=== PATIENT | female | born 1960 | race Caucasian/White ===

== ENCOUNTER 2020-07-22 10:34 | Inpatient (IN) | payer OTHER ==
[2020-07-22 11:43] LABS: Absolute Lymphocytes (CBC) 0.4 K/uL (0.7-4.9); Basophils % 0.6 % (0-1.3); Hematocrit 54.9 % (36.0-45.0); Lymphocytes % 8.7 % (15.3-44.8); MPV 8.1 fL (7.6-11.3); RBC Red Blood Cell Count 5.68 M/uL (3.86-4.86)
[2020-07-22 11:50] LABS: Protime INR 1.14
[2020-07-22 12:08] LABS: ALT/SGPT 31 U/L (12-78); AST/SGOT 39 U/L (15-37); Albumin 3.8 g/dL (3.4-5.0); Alkaline Phosphatase 64 U/L (45-117); BUN Blood Urea Nitrogen 30 mg/dL (7-18); Bilirubin Direct 0.3 mg/dL (0-0.2); Bilirubin Total 0.9 mg/dL (0.2-1.0); Glucose Level 87 mg/dL (74-106); Magnesium 2.3 mg/dL (1.8-2.4); NT PRO-BNP 5844 pg/mL (<125); Potassium 3.1 mmol/L (3.5-5.1); Protein, Total 7.1 g/dL (6.4-8.2); Sodium Level 134 mmol/L (136-145); Troponin (Emerg Dept Use Only) < 0.02 ng/mL (0.0-0.045)
[2020-07-22 12:13] LABS: Bicarbonate > 45 mmol/L (21-32)
--- NOTE | 2020-07-22 12:28 | RAD REPORT ---
EXAM DESCRIPTION: RAD - Chest Single View - 07/22/2020 11:44 am CLINICAL HISTORY: CHEST PAIN COMPARISON: None TECHNIQUE: AP portable chest image was obtained 07/22/2020 11:44 am . FINDINGS: Lung cardenas are hyperexpanded with flattened diaphragm and blunted costophrenic angles. Bi lateral nipple shadows overlie lower lung cardenas. Interstitial pattern is diffusely prominent with no comparison available. No suspicious mass or consolidation. This is most likely extensive fibrotic ch lisa related to advanced COPD. Heart size is upper normal. Pulmonary vasculature within normal limits. Trachea is midline. No measu rable pleural effusion and no pneumothorax. No acute bony abnormality seen. No acute aortic findings suspected. IMPRESSION: Advanced COPD changes are present. Diffusely prominent interstitial pattern is present. On a baseline study superimposed interstitial ed alexsandra or infiltrate can be masked.
[2020-07-22 12:48] LABS: Blood Morphology Comment NOT SEEN (NOT SEEN); Platelet Estimate ADEQ; White Blood Cell Scan OK (OK)
[2020-07-22 13:17] LABS: Urine Blood NEGATIVE (NEG); Urine Glucose NEGATIVE (NEG); Urine Protein NEGATIVE (NEG); Urine pH 5.5 (5.0-7.0)
--- NOTE | 2020-07-22 13:50 | RAD REPORT ---
EXAM DESCRIPTION: CT - Chest For Pe Angio - 07/22/2020 1:28 pm CLINICAL HISTORY: Chest pain COMPARISON: None. TECHNIQUE: Dynamically enhanced axial 3 mm thick images of the chest were obtained during administra tion of <100> mL Isovue 370 IV contrast. Coronal and oblique reconstruction images were generated and reviewed. Exam utilizes a protocol for optimal evaluation of pulmonary arterial tree. Maximum intensity projections 3D imaging was utilized All CT scans are performed using dose optimization technique as appropriate and may include automated exposure control or mA/KV adjustment according to patient size. FINDINGS: A pulmonary embolus is not seen. A thoracic aortic aneurysm is not noted. Main central pulmonary artery is prominent A pleural effusion is not seen. A pericardial effusion is not seen. A lung consolidation is not present. Mild reticular opacities within the lingula. Centrilobular emphy sema is present. Small amount of ascites IMPRESSION: Negative for a pulmonary embolism. COPD Main pulmonary artery is prominent probably indicating pulmonary arterial hypertension
--- NOTE | 2020-07-22 14:18 | ER ---
Nurse's Notes [facility] Name: Valeria Ring Age: 59 yrs Sex: Female : 1960 Arrival Date: 07/22/2020 Time: 10:37 Bed 18 Private MD: Diagnosis: Chest pain, unspecified;Dyspnea Presentation: 07/22 10:42 Chief complaint: Patient states: EKG done today at Dr. Navarro and instructed to come to [facility] the ER to be admitted for a day or 2. Reports SOB for a while now. Reports gaining 15 lbs of water weight in the last month. Reports chest pains in the past but not today. Coronavirus screen: Client denies travel out of the [place] in the last 14 days. cough unrelated to allergies, shortness of breath, Client presents with at least one sign or symptom that may indicate coronavirus-19. Standard/surgical mask placed on the client. Provider contacted for isolation considerations. Ebola Screen: Patient negative for fever greater than or equal to 101.5 degrees Fahrenheit, and additional compatible Ebola Virus Disease symptoms Patient denies exposure to infectious person. Patient denies travel to an Ebola-affected area in the 21 days before illness onset. No symptoms or risks identified at this time. Initial Sepsis Screen: Does the patient meet any 2 criteria? No. Patient's initial sepsis screen is negative. Does the patient have a suspected source of infection? No. Patient's initial sepsis screen is negative. Risk Assessment: Do you want to hurt yourself or someone else? Patient reports no desire to harm self or others. Onset of symptoms was July 22, 2020. 10:42 Method Of Arrival: Wheelchair ca1 10:42 Acuity: RADHA 3 ca1 Historical: - Allergies: 11:00 Codeine; ca1 11:00 Benadryl; ca1 - PMHx: 17:29 COPD; CHF; insomnia; ss - PSHx: 11:00 Tubal ligation; ulnar nerve translocation left; ca1 - Immunization history:: Pneumococcal vaccine is not up to date, Flu vaccine is up to date. - Social history:: Smoking status: Patient reports the use of cigarette tobacco products, 5 - 6 cigarettes/day. Screenin:00 Abuse screen: Denies threats or abuse. Denies injuries from another. Nutritional ss screening: No deficits noted. Tuberculosis screening: Never had TB. Fall Risk None identified. Assessment: 11:00 Reassessment: Pt has no complaints at this time. States that she was seen in ER in [facility], recently after a quick weight gain of 15 lbs. Diagnosed there with COPD and CHF and told to follow up. Pt followed up with cardiology, DR Navarro today who sent her to ED for a reported abnormal EKG. While obtaining VS in exam room, we are unable to obtain accurate pulse ox due to patient having raynads. Fingertips are noted to be blue. Pt reports that this is baseline for her. O2 at home reads in 70's-80's on finger with portable pulse ox. Attached pulse ox monitor to ear lobe with readings > 90%. General: Appears in no apparent distress. comfortable, Behavior is calm, cooperative. Neuro: Level of Consciousness is awake, alert, obeys commands, Oriented to person, place, time, situation, Speech is normal, Facial symmetry appears normal, Denies dizziness, numbness headache. Cardiovascular: Capillary refill < 3 seconds is brisk in bilateral fingers. Respiratory: Reports cough that is chronic. Has not changed recently. Breath sounds are coarse in left posterior lower lobe and right posterior middle lobe Breath sounds are diminished in right posterior lower lobe Denies shortness of breath. GI: Abdomen is non-distended, Patient currently denies abdominal pain, diarrhea, nausea, vomiting. : No signs and/or symptoms were reported regarding the genitourinary system. Denies burning with urination. EENT: Oral mucosa is moist. Derm: Skin is intact, is healthy with good turgor, Skin is dry, Skin is pink, warm \\T\\ dry. normal, Fingertips appear blue as noted previously. HX of Raynauds syndrome. Musculoskeletal: Circulation, motion, and sensation intact. Range of motion: intact in all extremities. 11:23 Reassessment: Pt ambulated to restroom with steady gait to give urine specimen. 11:37 Reassessment: XRAY at bedside obtaining images. 12:56 Reassessment: Patient appears in no apparent distress at this time. Patient and/or ss family updated on plan of care and expected duration. Pain level reassessed. Patient is alert, oriented x 3, equal unlabored respirations, skin warm/dry/pink. Patient denies pain at this time. 14:40 Reassessment: Dr. Cortez at bedside assessing patient at this time and discussing plan ss of care/ admission. 16:17 Reassessment: Pt is aware of admission to hospital for further evaluation and ss treatment. RT Lynn at bedside attempting to obtain ABG at this time. 17:15 Reassessment: Pt surprised of her positive COVID result. States, "that is surprising ss because nothing is new. I feel like my normal self.". 17:45 Reassessment: Report given to BALAJI Koch. Vital Signs: 10:42 BP 100 / 65; Pulse 77; Resp 20 S; Temp 97.6(TE); Weight 45.99 kg (R); Height 5 ft. 10 ca1 in. (177.80 cm) (R); 11:23 Pulse Ox 97% on R/A; ss 12:57 BP 99 / 65; Pulse 84; Resp 17; Pulse Ox 95% on R/A; ss 14:00 BP 95 / 65; Pulse 83; Resp 18; ss 15:00 BP 98 / 62; Pulse 81; Resp 18; ss 17:00 BP 100 / 66; Pulse 90; ss 10:42 Body Mass Index 14.55 (45.99 kg, 177.80 cm) ca1 14:00 unable to obtain accurate pulse ox at this time. Provider notified. ss 15:00 Unable to obtain accurate pulse oximetry. GUERA Lind Dr. notified. ss 17:00 unable to obtain accurate pulse OX reading. Diogo Andre and Dr. Cortez aware. ED Course: 10:37 Patient arrived in ED. as 10:47 Diogo Andre PA is PHCP. m 10:47 Markus Santos MD is Attending Physician. [facility] 10:59 Triage completed. ca1 11:00 Arm band placed on right wrist. ca1 11:00 Patient has correct armband on for positive identification. Bed in low position. Call ss light in reach. 11:11 Jasmin Khan, BALAJI is Primary Nurse. ss 11:36 Inserted saline lock: 20 gauge in right forearm, using aseptic technique. Blood ss collected. 11:43 XRAY Chest (1 view) In Process Unspecified. EDMS 13:28 CT Chest For PE Angio In Process Unspecified. EDMS 14:17 Julio Cesar Cortez is Hospitalizing Provider. jmm 16:57 No provider procedures requiring assistance completed. Patient admitted, IV remains in place. Administered Medications: 14:59 Drug: Aspirin Chewable Tablet 324 mg Route: PO; 17:25 Follow up: Response: No adverse reaction Outcome: 11:00 Instructed on the need for admit. 14:18 Decision to Hospitalize by Provider. m 17:46 Admitted to Tele accompanied by tech, via wheelchair, with chart, Report called to yesenia Peoples RN 17:46 Condition: stable 17:46 Patient left the ED. Signatures: Dispatcher [employer] EDMS Diogo Andre PA PA jmm Martinez, Amelia as Smirch, Shelby, BALAJI RN Kaci De La Cruz RN RN ca1
--- NOTE | 2020-07-22 14:18 | EDPHYS ---
Physician Documentation [facility] Name: Valeria Ring Age: 59 yrs Sex: Female : 1960 Arrival Date: 07/22/2020 Time: 10:37 Bed 18 Private MD: Markus Sanders HPI: 07/22 11:37 This 59 yrs old Female presents to ER via Wheelchair with complaints of jmm Abnormal EKG. 11:37 The patient has shortness of breath at rest. Onset: The symptoms/episode began/occurred jmm gradually. Duration: The symptoms are continuous. The patient's shortness of breath is aggravated by exertion. The patient or guardian reports chest pain that is located primarily in the anterior chest wall. Onset: gradually, 1 week(s) ago. The pain does not radiate. Associated signs and symptoms: Pertinent positives: productive cough. The patient has not experienced similar symptoms in the past. Historical: - Allergies: 11:00 Codeine; ca1 11:00 Benadryl; ca1 - PMHx: 17:29 COPD; CHF; insomnia; ss - PSHx: 11:00 Tubal ligation; ulnar nerve translocation left; ca1 - Immunization history:: Pneumococcal vaccine is not up to date, Flu vaccine is up to date. - Social history:: Smoking status: Patient reports the use of cigarette tobacco products, 5 - 6 cigarettes/day. ROS: 11:37 Constitutional: Negative for fever, chills, and weight loss. jmm 11:37 Cardiovascular: Positive for chest pain. 11:37 Respiratory: Positive for shortness of breath. 11:37 All other systems are negative. Exam: 11:37 Constitutional: This is a well developed, well nourished patient who is awake, alert, jmm and in no acute distress. Head/Face: atraumatic. Eyes: EOMI, no conjunctival erythema appreciated ENT: Moist Mucus Membranes Neck: Trachea midline, Supple Chest/axilla: Normal chest wall appearance and motion. Cardiovascular: Regular rate and rhythm. No edema appreciated Respiratory: Normal respirations, no respiratory distress appreciated Abdomen/GI: Non distended, soft Back: Normal ROM Skin: General appearance color normal MS/ Extremity: Moves all extremities, no obvious deformities appreciated, no edema noted to the lower extremities Neuro: Awake and alert, normal gait Psych: Behavior is normal, Mood is normal, Patient is cooperative and pleasant Vital Signs: 10:42 BP 100 / 65; Pulse 77; Resp 20 S; Temp 97.6(TE); Weight 45.99 kg (R); Height 5 ft. 10 ca1 in. (177.80 cm) (R); 11:23 Pulse Ox 97% on R/A; ss 12:57 BP 99 / 65; Pulse 84; Resp 17; Pulse Ox 95% on R/A; ss 14:00 BP 95 / 65; Pulse 83; Resp 18; ss 15:00 BP 98 / 62; Pulse 81; Resp 18; ss 17:00 BP 100 / 66; Pulse 90; ss 10:42 Body Mass Index 14.55 (45.99 kg, 177.80 cm) ca1 14:00 unable to obtain accurate pulse ox at this time. Provider notified. ss 15:00 Unable to obtain accurate pulse oximetry. GUERA Lind Dr. notified. 17:00 unable to obtain accurate pulse OX reading. Diogo Andre and Dr. Cortez aware. MDM: 10:54 Patient medically screened. fabian 14:17 The patient was given aspirin in the Emergency Department. Data reviewed: vital signs, [facility] lab test result(s), radiologic studies. ED course: I discussed the patient with Dr. Cortez whom accepted admission. . 07/22 11:09 Order name: Basic Metabolic Panel; Complete Time: 12:15 [facility] 07/22 11:09 Order name: CBC with Diff; Complete Time: 12:56 [facility] 07/22 11:09 Order name: LFT's; Complete Time: 12:15 [facility] 07/22 11:09 Order name: Magnesium; Complete Time: 12:15 [facility] 07/22 11:09 Order name: NT PRO-BNP; Complete Time: 12:15 [facility] 07/22 11:09 Order name: PT-INR; Complete Time: 12:00 [facility] 07/22 11:09 Order name: Troponin (emerg Dept Use Only); Complete Time: 12:15 [facility] 07/22 11:09 Order name: XRAY Chest (1 view); Complete Time: 12:35 [facility] 07/22 11:45 Order name: CBC Smear Scan; Complete Time: 12:56 [facility] 07/22 12:51 Order name: Urine Dipstick--Ancillary (enter results); Complete Time: 13:18 07/22 14:28 Order name: ABG; Complete Time: 17:03 [facility] 07/22 15:40 Order name: COVID-19 ss 07/22 15:41 Order name: CORONAVIRUS [facility] 07/22 16:56 Order name: SARS-COV-2 RT PCR; Complete Time: 17:03 [facility] 07/22 11:09 Order name: EKG; Complete Time: 11:10 [facility] 07/22 11:09 Order name: Cardiac monitoring; Complete Time: 11:10 [facility] 07/22 11:09 Order name: EKG - Nurse/Tech; Complete Time: 11:10 [facility] 07/22 11:09 Order name: IV Saline Lock; Complete Time: 11:36 [facility] 07/22 11:09 Order name: Labs collected and sent; Complete Time: 11:36 [facility] 07/22 11:09 Order name: O2 Per Protocol; Complete Time: 11:12 [facility] 07/22 11:09 Order name: O2 Sat Monitoring; Complete Time: 11:12 [facility] 07/22 12:02 Order name: Urine Dipstick-Ancillary (obtain specimen); Complete Time: 12:55 [facility] 07/22 13:11 Order name: CT Chest For PE Angio; Complete Time: 13:56 [facility] Administered Medications: 14:59 Drug: Aspirin Chewable Tablet 324 mg Route: PO; ss 17:25 Follow up: Response: No adverse reaction ss Disposition: 19:00 Co-signature as Attending Physician, Markus Santos MD I agree with the assessment and [facility] plan of care. Disposition: 07/22/20 14:18 Hospitalization ordered by Julio Cesar Cortez for Observation. Preliminary diagnosis are Chest pain, unspecified, Dyspnea. - Bed requested for Telemetry/MedSurg (observation). - Status is Observation. ss - Condition is Stable. - Problem is new. - Symptoms are unchanged. Signatures: Dispatcher [employer] [facility] Destiny Manuel RN RN dw Anderson, Corey, MD MD cha Mickail, Joel, PA PA jmm Smirch, Shelby, RN RN ss Acob, Cheryl, RN RN ca1 Corrections: (The following items were deleted from the chart) 17:02 14:18 Hospitalization Ordered by Julio Cesar Cortez for Observation. Preliminary diagnosis dw is Chest pain, unspecified; Dyspnea. Bed requested for Telemetry/MedSurg (observation). Status is Observation. Condition is Stable. Problem is new. Symptoms are unchanged. arlene 17:46 17:02 07/22/2020 14:18 Hospitalization Ordered by Julio Cesar Cortez for Observation. ss Preliminary diagnosis is Chest pain, unspecified; Dyspnea. Bed requested for Telemetry/MedSurg (observation). Status is Observation. Condition is Stable. Problem is new. Symptoms are unchanged. dw
[2020-07-22] MEDS ORDERED: ASPIRIN 81 MG CHEWABLE TABLET ONE (14:44)
--- NOTE | 2020-07-22 15:24 | P.HP ---
Certification for Inpatient Patient admitted to: Inpatient With expected LOS: >2 Midnights Practitioner: I am a practitioner with admitting privileges, knowledge of patient current condition, hospital course, and medical plan of care. Services: Services provided to patient in accordance with Admission requirements found in Title 42 Section 412.3 of the Code of Federal Regulations Patient History Date of Service: 07/22/20 Reason for admission: Chest pain and shortness of breath History of Present Illness: 59-year-old woman suspected to have COPD was directed to the emergency department by Dr. Navarro to be evaluated for peripheral cyanosis and check her oxygen status. She recently visited at the ED in [facility] and was told she needs to be admitted and treated with IV Lasix. Patient declined the admission in order to visit another ER close to home. She went to Dr. Navarro 's office today. Patient was noted to be cyanotic and was therefore directed to the ED. EKG done in the ED demonstrated T-wave inversions in the lateral leads. Initial troponin is negative. CTA thorax done in the emergency department is negative for pulmonary embolism. It demonstrated findings consistent with emphysema and pulmonary hypertension. Noted peripheral cyanosis. BMP shows significantly elevated bicarb suspicious for CO2 retention. Patient is hospitalized for further management. Allergies codeine Allergy (Unverified 11/19/14 17:10) Unknown - Past Medical/Surgical History -: Tobacco use - Family History Father -: Cancer - Social History Smoking Status: Current every day smoker Alcohol use: No CD- Drugs: No Place of Residence: Home Review of Systems Other: Patient denied any fever, she is coughing but the cough is nonproductive. She denied any palpitation. She denied any abdominal pain. She complain of bilateral lower extremity edema. Except as documented, all other systems reviewed and negative. Physical Examination - Physical Exam General: Alert, Mild distress HEENT: PERRLA, Mucous membr. moist/pink, Sclerae nonicteric Neck: Supple, JVD not distended Respiratory: Diminished, Other (Mild bibasilar crackles.) Cardiovascular: Normal S1 S2, Other (Tachycardic), Edema (2+ bilateral lower extremity edema.) Gastrointestinal: Normal bowel sounds, Soft and benign, Non-distended, No tend erness Musculoskeletal: No swelling, No tenderness Integumentary: No rashes, No erythema Neurological: Normal speech, Normal strength at 5/5 x4 extr, Cranial nerves 3-12 intact - Studies Laboratory Data (last 24 hrs) 07/22/20 11:34: PT 13.4 H, INR 1.14 07/22/20 11:34: WBC 4.9, Hgb 17.4 H, Hct 54.9 H, Plt Count 226 07/22/20 11:34: Sodium 134 L, Potassium 3.1 L, BUN 30 H, Creatinine 1.04, Glucose 87, Magnesium 2.3, Total Bilirubin 0.9, AST 39 H, ALT 31, Alkaline Phosphatase 64 Assessment and Plan - Problems (Diagnosis) (1) COPD exacerbation Current Visit: Yes Status: Acute (2) Chronic respiratory failure with hypoxia and hypercapnia Current Visit: Yes Status: Acute (3) Chest pain Current Visit: Yes Status: Acute (4) Abnormal EKG Current Visit: Yes Status: Acute - Plan Admit patient to the medical floor. Obtain arterial blood gas BiPAP if she has significant CO2 retention. Will start scheduled nebulizers Empiric IV Levaquin. Consult to pulmonary IV Lasix p.r.n. Trend troponin Cardiology Consul Start aspirin. Check lipid profile. Smoking cessation advised. - Advance Directives Does patient have a Living Will: No Does patient have a Durable POA for Healthcare: No
[2020-07-22 16:56] LABS: Arterial Blood Carboxyhemoglob 5.1 % (0-1.5); Blood Gas Oxyhemoglobin 47.7 % (94-97); Blood O2 Saturation 50.6 % (92-98.5)
[2020-07-22] MEDS: METHYLPREDNISOLONE 40 MG INJ IV SCH (18:42)
[2020-07-22] MEDS ORDERED: Levofloxacin 750mg IV 750 MG/150 ML BAG IV SCH (19:00)
[2020-07-22] MEDS ORDERED: POTASSIUM 25 MEQ EFFERV TAB PO ONE (19:00)
[2020-07-22] MEDS: IPRATROPIUM BROM 0.5MG/2.5ML NEB SCH (20:20)
[2020-07-22] MEDS: ALBUTEROL 2.5 MG/3 ML NEB SOL NEB SCH (20:20)
[2020-07-22] MEDS: ENOXAPARIN 40 MG/0.4 ML SQ SCH (21:44)
[2020-07-22] MEDS: ACETAMINOPHEN 500 MG TAB PO PRN (21:45)
[2020-07-23] MEDS: IPRATROPIUM BROM 0.5MG/2.5ML NEB SCH ×4 (01:40→19:30)
[2020-07-23] MEDS: ALBUTEROL 2.5 MG/3 ML NEB SOL NEB SCH ×4 (01:40→19:30)
[2020-07-23] MEDS: METHYLPREDNISOLONE 40 MG INJ IV SCH ×2 (06:00)
[2020-07-23 06:30] LABS: Absolute Lymphocytes (CBC) 0.2 K/uL (0.7-4.9); Basophils % 0.1 % (0-1.3); Hematocrit 47.7 % (36.0-45.0); MPV 8.1 fL (7.6-11.3); RBC Red Blood Cell Count 4.99 M/uL (3.86-4.86)
[2020-07-23 07:03] LABS: ALT/SGPT 21 U/L (12-78); AST/SGOT 25 U/L (15-37); Albumin 2.6 g/dL (3.4-5.0); Alkaline Phosphatase 44 U/L (45-117); BUN Blood Urea Nitrogen 28 mg/dL (7-18); Bilirubin Total 0.5 mg/dL (0.2-1.0); Ferritin 11.3 ng/mL (8-388); Glucose Level 98 mg/dL (74-106); Magnesium 2.3 mg/dL (1.8-2.4); Phosphorus 5.5 mg/dL (2.5-4.9); Potassium 4.2 mmol/L (3.5-5.1); Sodium Level 136 mmol/L (136-145)
[2020-07-23 07:13] LABS: Bicarbonate > 45 mmol/L (21-32)
--- NOTE | 2020-07-23 08:15 | P.CNS ---
Date of Consult: 07/23/20 Reason for Consult: Respiratory failure Chief Complaint: Chest pain and shortness of breath History of Present Illness: Patient is 59 years of age has been chronically is sick with shortness of breath lower extremity edema. She is being to the hospital has been treated with steroids antibiotics no relief came into the hospital worsening shortness of breath lower extremity edema was also taking some Lasix at home patient is a heavy smoker no prior history of COPD is not on any oxygen therapy was using bronchodilators at home no prior history of cardiovascular disease this found to be very hypoxic hypercapnic clinical picture of cor pulmonale Allergies codeine Allergy (Verified 07/22/20 18:23) Unknown Home Medications: Furosemide [Lasix] 40 mg PO DAILY 07/22/20 T-Fnzvnf-F-Cystine 500 mg PO BID 07/22/20 Trazodone HCl 50 mg PO BEDTIME 07/22/20 - Past Medical/Surgical History Diabetic: No -: Tobacco use - Family History Father Medical History: Heart disease Notes: Pt. reports both parents having "some kind of heart disease" that lasted for a long time, resulting to surgeries and stent placement. - Social History Alcohol use: No CD- Drugs: No Caffeine use: Yes Place of Residence: Home Review of Systems 10-point ROS is otherwise unremarkable General: Weakness Respiratory: Cough, Shortness of Breath Cardiovascular: Edema Physical Examination Temp Pulse Resp BP Pulse Ox 97.6 F 68 16 95/60 96 07/23/20 04:00 07/23/20 04:00 07/23/20 04:00 07/23/20 04:00 07/23/20 04:00 General: Alert, In no apparent distress, Oriented x3 Respiratory: Normal air movement, Expiratory wheezes Cardiovascular: Normal S1 S2, Edema (2+ edema) Gastrointestinal: Normal bowel sounds, Soft and benign Musculoskeletal: No clubbing Integumentary: No rashes Neurological: Normal speech, Normal strength at 5/5 x4 extr Laboratory Data (last 24 hrs) 07/22/20 11:34: PT 13.4 H, INR 1.14 07/22/20 11:34: WBC 4.9, Hgb 17.4 H, Hct 54.9 H, Plt Count 226 07/22/20 11:34: Sodium 134 L, Potassium 3.1 L, BUN 30 H, Creatinine 1.04, Glucose 87, Magnesium 2.3, Total Bilirubin 0.9, AST 39 H, ALT 31, Alkaline Phosphatase 64 - Problems (1) Chronic respiratory failure with hypoxia and hypercapnia Current Visit: Yes Status: Acute Plan: Patient is 59 years of age admitted with chronic hypoxemia hypercapnic respiratory failure with elevated bicarbonate patient is a heavy smoker no prior history of cardiopulmonary disease recently [place] hospitalize treated with steroids antibiotics no relief suspect that she has severe COPD with cor pulmonale for bicarbonate with IV fluids p.o. Diamox schedule bronchodilators Dc antibiotics change to p.o. prednisone currently was tested negative for jenkins virus on the 05 of July and was tested positive on this admission while she is here denies any fever will need to be setup for home oxygen patient was agustín law 40 mg of Lasix every has underlying contraction alkalosis
[2020-07-23 08:26] LABS: Blood Morphology Comment NOT SEEN (NOT SEEN); Platelet Estimate ADEQ
[2020-07-23] MEDS ORDERED: NACHLORIDE 0.45% 1,000 ML IV SCH (09:00)
[2020-07-23] MEDS: ENOXAPARIN 40 MG/0.4 ML SQ SCH (09:36)
[2020-07-23] MEDS: predniSONE 20 MG TAB PO SCH ×2 (09:37→19:39)
[2020-07-23] MEDS: ASPIRIN EC 81 MG TAB PO SCH (09:38)
[2020-07-23] MEDS: acetaZOLAMIDE 250 MG TAB PO SCH (09:39)
[2020-07-23] MEDS: NACHLORIDE 0.45% 1,000 ML IV SCH ×2 (09:39→17:49)
--- NOTE | 2020-07-23 13:06 | P.PN ---
Subjective Date of Service: 07/23/20 Chief Complaint: Chest pain and shortness of breath Subjective: No new changes (feels about the same as yesterday, maybe slightly breathing more comfortably) Physical Examination - Vital Signs Temperature: 97 F Blood Pressure: 109/68 Pulse: 68 Respirations: 16 Pulse Ox (%): 93 Assessment & Plan Physician Review Additional Text: Physical Exam: Gen: NAD, alert HEENT: moist mucous membranes, sclera anicteric CV: regular rate/rhythm, 2+ lower extremity edema Pulm: diminished at bases bilaterally, nonlabored on 2L NC Abd: soft, NTND Ext: 2+ edema Problem List: Acute on chronic COPD exacerbation Acute on chronic respiratory failued with hypoxia and hypercapnia COVID-19 Edema Alkalosis slight improvement in breathing overnight long standing smoking history, and h/o COPD pulmonology consulted - continue nebulizers, added IVF and diamox for likely contraction alkalosis from lasix COVID positive, CRP and ferritin low, levaquin dc'd started on Prednisone troponin negative Dispo: anticipate dc home in 24-48hrs, will likely need home O2 with end stage COPD Time Spent Managing Pts Care (In Minutes): 35
[2020-07-23 15:04] LABS: Urine Appearance CLOUDY; Urine Bilirubin NEGATIVE (NEG); Urine Blood NEGATIVE (NEG); Urine Color YELLOW; Urine Glucose NEGATIVE (NEG); Urine Protein NEGATIVE (NEG); Urine Specific Gravity 1.015 (1.005-1.030)
[2020-07-23 15:08] LABS: Urine Microscopic Reflex NO UMIC
--- NOTE | 2020-07-23 17:17 | EKG ---
Test Date: 2020-07-22 Test Time: 11:01:17 Food Assembler: BRENDA MEASUREMENT RESULTS: Intervals: Rate: 86 CO: 104 QRSD: 66 QT: 378 QTc: 452 [place]: P: 84 CO: 104 QRS: 105 T: 266 INTERPRETIVE STATEMENTS: * Pediatric ECG analysis * Sinus bradycardia Low voltage QRS ST abnormality and T wave inversion in Inferolateral leads Borderline Prolonged QT No previous ECG available for comparison Electronically Signed On 07-23-20 17:13:18 WHEEL ALIGNMENT MECHANIC by Tor Sotelo
[2020-07-24] MEDS: IPRATROPIUM BROM 0.5MG/2.5ML NEB SCH ×4 (02:10→20:40)
[2020-07-24] MEDS: ALBUTEROL 2.5 MG/3 ML NEB SOL NEB SCH ×4 (02:10→20:40)
[2020-07-24] MEDS: NACHLORIDE 0.45% 1,000 ML IV SCH ×2 (04:19→14:05)
[2020-07-24 06:50] VITALS: BMI 14.2
[2020-07-24] MEDS: ACETAMINOPHEN 500 MG TAB PO PRN ×2 (06:52→21:02)
[2020-07-24 06:53] LABS: Absolute Lymphocytes (CBC) 0.2 K/uL (0.7-4.9); Basophils % 0.1 % (0-1.3); Hematocrit 48.6 % (36.0-45.0); Lymphocytes % 5.4 % (15.3-44.8); MPV 8.1 fL (7.6-11.3); RBC Red Blood Cell Count 5.03 M/uL (3.86-4.86)
[2020-07-24] MEDS ORDERED: ACETAMINOPHEN 500 MG TAB PO ONE (07:01)
[2020-07-24 07:08] LABS: C-Reactive Protein 10.9 mg/L (<3.00); Ferritin 11.8 ng/mL (8-388); Magnesium 2.4 mg/dL (1.8-2.4); Thyroid Stimulating Hormone 0.368 uIU/mL (0.360-3.740)
[2020-07-24 07:47] LABS: BUN Blood Urea Nitrogen 20 mg/dL (7-18); Glucose Level 110 mg/dL (74-106); Sodium Level 136 mmol/L (136-145)
[2020-07-24 07:49] LABS: Bicarbonate 41 mmol/L (21-32)
--- NOTE | 2020-07-24 08:41 | ECHO ---
HEIGHT: 5 ft 10 in WEIGHT: 99 lb 6.4 oz DATE OF STUDY: 07/23/[address]: Arthur Zavala MD 2-DIMENSIONAL: YES M.MODE: YES DOPPLER: YES COLOR FLOW: YES TDS: PORTABLE: DEFINITY: BUBBLE STUDY: DIAGNOSIS: RESPIRATORY FAILURE CARDIAC HISTORY: CATHERIZATION: NO SURGERY: NO PROSTHETIC VALVE: NO PACEMAKER: NO MEASUREMENTS (cm) DIASTOLIC (NORMALS) SYSTOLIC (NORMALS) IVSd 0.8 (0.6-1.2) LA Diam 3.1 (1.9-4.0) LVEF 51% LVIDd 3.8 (3.5-5.7) LVIDs 2.9 (2.0-3.5) %FS 26% LVPWd 0.8 (0.6-1.2) Ao Diam 2.6 (2.0-3.7) 2 DIMENSIONAL ASSESSMENT: RIGHT ATRIUM: DILATED LEFT ATRIUM: NORMAL RIGHT VENTRICLE: DILATED LEFT VENTRICLE: NORMAL TRICUSPID VALVE: NORMAL MITRAL VALVE: NORMAL PULMONIC VALVE: NORMAL AORTIC VALVE: NORMAL PERICARDIAL EFFUSION: NONE AORTIC ROOT: NORMAL LEFT VENTRICULAR WALL MOTION: NORMAL DOPPLER/COLOR FLOW: MILD TRICUSPID REGURGITATION. NORMAL RIGHT VENTRICULAR SYSTOLIC PRESSURE. COMMENTS: RIGHT VENTRICULAR ENLARGEMENT WITH POOR FUNCTION. NORMAL LEFT VENTRICULAR SIZE AND FUNCTION. MILD PULMONARY HYPERTENSION. ABOVE CONSISTENT WITH RIGHT SIDED CONGESTIVE HEART FAILURE. TECHNOLOGIST: GRIS CEBALLOS
[2020-07-24] MEDS: acetaZOLAMIDE 250 MG TAB PO SCH (08:55)
[2020-07-24] MEDS: ASPIRIN EC 81 MG TAB PO SCH (08:55)
[2020-07-24] MEDS: predniSONE 20 MG TAB PO SCH ×2 (08:55→20:57)
[2020-07-24] MEDS: ENOXAPARIN 40 MG/0.4 ML SQ SCH (08:55)
[2020-07-24] MEDS ORDERED: POLYETHYL GLY 3350 17 GM/DOSE PO PRN (14:31)
--- NOTE | 2020-07-24 20:48 | P.PN ---
Subjective Date of Service: 07/24/20 Chief Complaint: Chest pain and shortness of breath Subjective: Other (reports feeling better today - breathing more comfortably, continues with some edema, mostly in legs, but in abdomen, and face) Review of Systems 10-point ROS is otherwise unremarkable Physical Examination - Vital Signs Temperature: 98.8 F Blood Pressure: 100/61 Pulse: 80 Respirations: 17 Pulse Ox (%): 91 Assessment & Plan Physician Review Additional Text: Physical Exam: Gen: NAD, alert HEENT: moist mucous membranes, swelling of L eyelid and under L eye CV: regular rate/rhythm, 1-2+ lower extremity edema around ankles and at upper thighs Pulm: diminished at bases bilaterally, nonlabored on 2L NC Abd: soft, NTND Problem List: Acute on chronic COPD exacerbation Acute on chronic respiratory failued with hypoxia and hypercapnia COVID-19 Edema Alkalosis further improvement in breathing overnight long standing smoking history, and h/o COPD pulmonology consulted - continue nebulizers, continue IVF and diamox for likely contraction alkalosis from lasix COVID positive, CRP and ferritin low, levaquin dc'd continue prednisone troponin negative CO2 remains elevated, will need to be normalized prior to discharge home Dispo: anticipate dc home in 24-48hrs, will likely need home O2 with end stage COPD, and needs normalization / improvement of bicarb Critical Care: No Time Spent Managing Pts Care (In Minutes): 35
[2020-07-25] MEDS: NACHLORIDE 0.45% 1,000 ML IV SCH (00:48)
[2020-07-25] MEDS: ALBUTEROL 2.5 MG/3 ML NEB SOL NEB SCH ×2 (03:00→08:55)
[2020-07-25] MEDS: IPRATROPIUM BROM 0.5MG/2.5ML NEB SCH ×2 (03:00→08:55)
[2020-07-25 07:08] LABS: Absolute Lymphocytes (CBC) 0.2 K/uL (0.7-4.9); Basophils % 0.3 % (0-1.3); Hematocrit 49.7 % (36.0-45.0); Lymphocytes % 5.2 % (15.3-44.8); MPV 8.2 fL (7.6-11.3); RBC Red Blood Cell Count 5.06 M/uL (3.86-4.86)
[2020-07-25 07:16] LABS: BUN Blood Urea Nitrogen 16 mg/dL (7-18); Bicarbonate 40 mmol/L (21-32); C-Reactive Protein 7.32 mg/L (<3.00); Ferritin 10.8 ng/mL (8-388); Glucose Level 93 mg/dL (74-106); Potassium 4.1 mmol/L (3.5-5.1); Sodium Level 134 mmol/L (136-145)
[2020-07-25] MEDS: ENOXAPARIN 40 MG/0.4 ML SQ SCH (09:21)
[2020-07-25] MEDS: predniSONE 20 MG TAB PO SCH (09:21)
[2020-07-25] MEDS: acetaZOLAMIDE 250 MG TAB PO SCH (09:21)
[2020-07-25] MEDS: ASPIRIN EC 81 MG TAB PO SCH (09:21)
[2020-07-25 10:35] VITALS: O2SAT 92
[2020-07-25 13:46] VITALS: BP 98/61; TEMP 98.4
--- NOTE | 2020-07-25 21:05 | P.DS ---
Admission Date: 07/22/20 Discharge Date: 07/25/20 Disposition: ROUTINE DISCHARGE Discharge Condition: GOOD Reason for Admission: Chest pain and shortness of breath Consultations: Pulmonology - Dr. Zavala Procedures: CTA Chest (07/22): negative for PE, lung consolidation is not present. Mild reticular opacities within the lingula. Centrilobular emphysema is present. Main pulmonary artery is prominent probably indicating pulmonary arterial hypertension TTE (07/23): RV enlargement and poor function. normal LV size and function (EF: 51%), mild pulmonary hypertension. dilated RA. Consistent with right sided CHF Problem List: Acute on chronic COPD exacerbation Acute on chronic respiratory failure with hypoxia and hypercapnia secondary to COPD exacerbation and acute on chronic right sided heart failure COVID-19+, no pneumonia Edema Contraction Alkalosis Brief History of Present Illness: 59-year-old woman suspected to have COPD was directed to the emergency department by Dr. Navarro to be evaluated for peripheral cyanosis and check her oxygen status. She recently visited at the ED in [facility] and was told she needs to be admitted and treated with IV Lasix. Patient declined the admission in order to visit another ER close to home. She went to Dr. Navarro 's office today. Patient was noted to be cyanotic and was therefore directed to the ED. EKG done in the ED demonstrated T-wave inversions in the lateral leads. Initial troponin is negative. CTA thorax done in the emergency department is negative for pulmonary embolism. It demonstrated findings consistent with emphysema and pulmonary hypertension. Noted peripheral cyanosis. BMP shows significantly elevated bicarb suspicious for CO2 retention. Patient is hospitalized for further management. Hospital Course: Pulmonology was consulted. Patient was given gentle IVF and switched from lasix to diamox for contraction alkalosis. She had improvement of her bicarb and of her swelling and breathing. Pulm felt her right-sided heart failure was due to end-stage COPD. Home oxygen was setup and she was discharged home - requiring 1.5L NC at time of discharge. She was discharged with albuterol, advair, prednisone x 2 weeks, and diamox. She is to f/u with Dr. Zavala in 1 week, and to f/u with Cardiology in 1-2 weeks as well. She was asymptomatic from COVID-19 during hospitalization and did not have typical imaging findings of COVID pneumonia. Her inflammatory markers remained low. Vital Signs/Physical Exam: Temp Pulse Resp BP Pulse Ox 98.4 F 75 16 98/61 95 07/25/20 12:00 07/25/20 12:00 07/25/20 12:00 07/25/20 12:00 07/25/20 12:00 Physical Exam: Gen: NAD, alert HEENT: moist mucous membranes, mild swelling of L eyelid and under L eye CV: regular rate/rhythm, 1-2+ lower extremity edema around ankles and at upper thighs Pulm: diminished at bases bilaterally, nonlabored on 2L NC Abd: soft, NTND Ext: no rash, edema as noted above Laboratory Data at Discharge: WBC 4.1 K/uL (4.3-10.9) L 07/25/20 06:33 Hgb 15.3 g/dL (12.0-15.0) H 07/25/20 06:33 Hct 49.7 % (36.0-45.0) H 07/25/20 06:33 Plt Count 185 K/uL (152-406) 07/25/20 06:33 PT 13.4 SECONDS (9.5-12.5) H 07/22/20 11:34 INR 1.14 07/22/20 11:34 Sodium 134 mmol/L (136-145) L 07/25/20 06:33 Potassium 4.1 mmol/L (3.5-5.1) 07/25/20 06:33 BUN 16 mg/dL (7-18) 07/25/20 06:33 Creatinine 0.46 mg/dL (0.55-1.3) L 07/25/20 06:33 Glucose 93 mg/dL (74-106) 07/25/20 06:33 Phosphorus 5.5 mg/dL (2.5-4.9) H 07/23/20 06:05 Magnesium 2.4 mg/dL (1.8-2.4) 07/24/20 06:35 Total Bilirubin 0.5 mg/dL (0.2-1.0) 07/23/20 06:05 AST 25 U/L (15-37) 07/23/20 06:05 ALT 21 U/L (12-78) 07/23/20 06:05 Alkaline Phosphatase 44 U/L (45-117) L 07/23/20 06:05 Troponin I < 0.02 ng/mL (0.0-0.045) 07/22/20 21:54 Home Medications: S-Dluihn-M-Cystine 500 mg PO BID 07/22/20 Trazodone HCl 50 mg PO BEDTIME 07/22/20 Albuterol Inhaler [Ventolin Inhaler*] 2 puff IH Q6H PRN 30 Days #1 hfa.aer.ad 07/25/20 Fluticasone/Salmeterol [Advair 250-50 Diskus] 1 each IH BID #1 blst.w.dev 07/25/20 acetaZOLAMIDE [Diamox*] 250 mg PO DAILY 30 Days #30 tab 07/25/20 predniSONE [Deltasone*] 10 mg PO BID 14 Days #28 tab 07/25/20 New Medications: Fluticasone/Salmeterol [Advair 250-50 Diskus] 1 each IH BID #1 blst.w.dev predniSONE [Deltasone*] 10 mg PO BID 14 Days #28 tab acetaZOLAMIDE [Diamox*] 250 mg PO DAILY 30 Days #30 tab Albuterol Inhaler [Ventolin Inhaler*] 2 puff IH Q6H PRN 30 Days #1 hfa.aer.ad PRN Reason: Shortness Of Breath Patient Discharge Instructions: you were found to have fluid overload due to right sided heart failure and COPD exacerbation. Your CO2 was also noted to be elevated. Your lasix was discontinued. You are prescribed diamox daily to help with fluid, and prescribed prednisone 10mg twice a day for 2 weeks, albuterol inhaler, and advair inhaler to help with your breathing /COPD. You are discharged with oxygen as well. You were requiring 1.5-2L nasal cannula in the hospital. Please follow up with Dr. Zavala next week. Diet: Low sodium Activity: Ad zulma Followup: Jame Solares MD [Primary Care Provider] - Time spent managing pt's care (in minutes): 45
== END 2020-07-25 14:06 | disposition home or self-care (01) | DRG 190 ==
LOC: ER 10:34 → ERHOLD 15:06 → 4TH 17:07
PROVIDERS: ADMIT Internal Medicine; ATTEND Hospitalist
DX: J44.1 Chronic obstructive pulmonary disease with (acute) exacerbation (principal); J96.21 Acute and chronic respiratory failure with hypoxia; U07.1 COVID-19; J96.22 Acute and chronic respiratory failure with hypercapnia; E87.3 Alkalosis; I50.813 Acute on chronic right heart failure; F17.210 Nicotine dependence, cigarettes, uncomplicated; I27.20 Pulmonary hypertension, unspecified; R94.31 Abnormal electrocardiogram [ECG] [EKG]; R23.0 Cyanosis; R60.9 Edema, unspecified; Z88.5 Allergy status to narcotic agent; Z98.51 Tubal ligation status; Z88.8 Allergy status to other drugs, medicaments and biological substances; Z79.899 Other long term (current) drug therapy; Z79.52 Long term (current) use of systemic steroids
CPT/HCPCS: 36415; 71045; 71275; 80048; 80053; 80076; 81003; 82728; 82805; 83735; 83880; 84100; 84132; 84443; 84484; 85025; 85610; 86140; 93005; 93306; 94640; 94760; 99285; J1650; J2920; J7512; Q9967; U0003

== ENCOUNTER 2023-09-15 09:40 | Inpatient (IN) | payer OTHER ==
--- OUTSIDE RECORDS SUMMARY | 2023-09-15 09:45 | XMS REPORT | Continuity of Care Document ---
Author Name Unknown Address [address] [place] [address] [facility] Address [address] [place] [place] [address] Care Team Providers Care Psychological Assistant Name Role Phone Jame Solares MD Primary Care Physician + [phone] Elo Castro Attending Clinician Unavailab le Doctor Unassigned, [place] Attending Clinician U ELIEZER Monae Attending Clinician Unavaila ble Therapist, [facility] Attending Clinician Cathryn Eliezer Pearson MD Attending Clinician P[facility] Attending Clinician Unav Sisi Hardwick Attending Clinician [phone] SISI ROSARIO Attending Clinician Unavailable Pcp, Patient Does Not Have A Attending Clinician Taniya Ragland RN Attending Clinician Syl Stapleton Attending Clinician [phone] SYL DEL VALLE Attending Clinician Unavailable Yolanda Harrell RN Attending Clinician Unavailable Payers Payer Name Policy Type Policy Number Effective Date Expirati on Date Source Problems Condition Name Condition Details Condition Category Status Onset Date Resolution Date Last Treatment Date Treating Clinician Comments Source Chronic bronchitis , unspecifie d chronic bronchitis type Chronic bronchitis , unspecifie d chronic bronchitis type Disease Active 15 00:00: 00 [facility] Cough Cough Disease Active 0 15 00:00: 00 [facility] Tobacco abuse Tobacco abuse Disease Active 15 00:00: 00 [facility] Allergies, Adverse Reactions, Alerts Allergy Name Allergy Type Status Severity Reaction(s) Onset Date Inactive Date Treating Clinician Comments Source Antihist imine Propensi ty to adverse reaction s Active Anxiety 2019-0 4-15 00:00: 00 [facility] Codeine Propensi ty to adverse reaction s Active Anxiety 2019-0 4-15 00:00: 00 [facility] ANTIHIST IMINE DRUG Active High Anxiety 2019-0 4-15 00:00: 00 [facility] CODEINE DRUG INGREDI Active High Anxiety 2019-0 4-15 00:00: 00 [facility] NO KNOWN ALLERGIE S Drug Class Active [facility] Social History Social Habit Start Date Stop Date Quantity Comments Source [facility] History of tobacco use Passive smoker [facility] Exposure to SARS-CoV-2 (event) 2022-11-21 00:00:00 2022-12-01 13:12:00 Not sure [facility] Cigarettes smoked current (pack per day) - Reported 2022-10-21 00:00:00 2022-10-21 00:00:00 [facility] Cigarette pack-years 2022-10-21 00:00:00 2022-10-21 00:00:00 [facility] Alcohol intake 2022-10-21 00:00:00 2022-10-21 00:00:00 Ex-drinker (finding) [facility] History of Social function 2022-10-21 00:00:00 2022-10-21 00:00:00 [facility] Tobacco use and exposure 2022-10-21 00:00:00 2022-10-21 00:00:00 Smokeless tobacco non-user [facility] Sex Assigned At 1960 00:00:00 1960 00:00:00 [facility] Smoking Status Start Date Stop Date Source Smokes tobacco daily 2022-10-21 00:00:00 [facility] Medications Ordered Medication Name Filled Medication Name Start Date Stop Date Current Medication? Ordering Clinician Indication Dosage Frequency Signature (SIG) Comments Components Source trazodone HCl (TRAZODONE ORAL) 10-21 14:15: 09 Yes 1{tbl} Take 1 tablet by mouth every morning and at bedtime. Indication s: only takes [facility] acetaZOLAMI DE 250 mg tablet 10-21 14:15: 09 Yes 250mg Take 1 tablet by mouth in the morning. Indication s: Dr. Zavala [facility] predniSONE 10 mg tablet 10-21 14:15: 09 Yes 10mg Take 1 tablet by mouth in the morning. Indication s: Dr Zavala [facility] aspirin 81 mg EC tablet 10-21 14:15: 09 Yes 81mg Take 1 tablet by mouth in the morning. [facility] budesonide- glycopyr-fo rmoterol (BREZTRI AEROSPHERE) 160-9-4.8 mcg/actuati on HFAA 10-21 14:15: 09 Yes 2{inhal er} Inhale 2 Inhalers in the morning and 2 Inhalers in the evening. Indication s: Dr. Zavala [facility] trazodone HCl (TRAZODONE ORAL) 10-21 14:15: 09 Yes 1{tbl} Take 1 tablet by mouth every morning and at bedtime. Indication s: only takes [facility] acetaZOLAMI DE 250 mg tablet 10-21 14:15: 09 Yes 250mg Take 1 tablet by mouth in the morning. Indication s: Dr. Zavala [facility] predniSONE 10 mg tablet 10-21 14:15: 09 Yes 10mg Take 1 tablet by mouth in the morning. Indication s: Dr Zavala [facility] aspirin 81 mg EC tablet 10-21 14:15: 09 Yes 81mg Take 1 tablet by mouth in the morning. [facility] budesonide- glycopyr-fo rmoterol (BREZTRI AEROSPHERE) 160-9-4.8 mcg/actuati on HFAA 10-21 14:15: 09 Yes 2{inhal er} Inhale 2 Inhalers in the morning and 2 Inhalers in the evening. Indication s: Dr. Zavala [facility] trazodone HCl (TRAZODONE ORAL) 10-21 14:15: 09 Yes 1{tbl} Take 1 tablet by mouth every morning and at bedtime. Indication s: only takes [facility] acetaZOLAMI DE 250 mg tablet 10-21 14:15: 09 Yes 250mg Take 1 tablet by mouth in the morning. Indication s: Dr. Zavala [facility] predniSONE 10 mg tablet 10-21 14:15: 09 Yes 10mg Take 1 tablet by mouth in the morning. Indication s: Dr Zavala [facility] aspirin 81 mg EC tablet 10-21 14:15: 09 Yes 81mg Take 1 tablet by mouth in the morning. [facility] budesonide- glycopyr-fo rmoterol (BREZTRI AEROSPHERE) 160-9-4.8 mcg/actuati on HFAA 10-21 14:15: 09 Yes 2{inhal er} Inhale 2 Inhalers in the morning and 2 Inhalers in the evening. Indication s: Dr. Zavlaa [facility] trazodone HCl (TRAZODONE ORAL) 10-21 14:15: 09 Yes 1{tbl} Take 1 tablet by mouth every morning and at bedtime. Indication s: only takes [facility] acetaZOLAMI DE 250 mg tablet 10-21 14:15: 09 Yes 250mg Take 1 tablet by mouth in the morning. Indication s: Dr. Zavala [facility] predniSONE 10 mg tablet 10-21 14:15: 09 Yes 10mg Take 1 tablet by mouth in the morning. Indication s: Dr Zavala [facility] aspirin 81 mg EC tablet 10-21 14:15: 09 Yes 81mg Take 1 tablet by mouth in the morning. [facility] budesonide- glycopyr-fo rmoterol (BREZTRI AEROSPHERE) 160-9-4.8 mcg/actuati on HFAA 10-21 14:15: 09 Yes 2{inhal er} Inhale 2 Inhalers in the morning and 2 Inhalers in the evening. Indication s: Dr. Zavala [facility] trazodone HCl (TRAZODONE ORAL) 10-21 14:15: 09 Yes 1{tbl} Take 1 tablet by mouth every morning and at bedtime. Indication s: only takes [facility] acetaZOLAMI DE 250 mg tablet 10-21 14:15: 09 Yes 250mg Take 1 tablet by mouth in the morning. Indication s: Dr. Zavala [facility] predniSONE 10 mg tablet 10-21 14:15: 09 Yes 10mg Take 1 tablet by mouth in the morning. Indication s: Dr Zavala [facility] aspirin 81 mg EC tablet 10-21 14:15: 09 Yes 81mg Take 1 tablet by mouth in the morning. [facility] budesonide- glycopyr-fo rmoterol (BREZTRI AEROSPHERE) 160-9-4.8 mcg/actuati on HFAA 10-21 14:15: 09 Yes 2{inhal er} Inhale 2 Inhalers in the morning and 2 Inhalers in the evening. Indication s: Dr. Zavala [facility] trazodone HCl (TRAZODONE ORAL) 10-21 14:15: 09 Yes 1{tbl} Take 1 tablet by mouth every morning and at bedtime. Indication s: only takes [facility] acetaZOLAMI DE 250 mg tablet 10-21 14:15: 09 Yes 250mg Take 1 tablet by mouth in the morning. Indication s: Dr. Zavala [facility] predniSONE 10 mg tablet 10-21 14:15: 09 Yes 10mg Take 1 tablet by mouth in the morning. Indication s: Dr Zavala [facility] aspirin 81 mg EC tablet 10-21 14:15: 09 Yes 81mg Take 1 tablet by mouth in the morning. [facility] budesonide- glycopyr-fo rmoterol (BREZTRI AEROSPHERE) 160-9-4.8 mcg/actuati on HFAA 10-21 14:15: 09 Yes 2{inhal er} Inhale 2 Inhalers in the morning and 2 Inhalers in the evening. Indication s: Dr. Zavala [facility] trazodone HCl (TRAZODONE ORAL) 10-21 14:15: 09 Yes 1{tbl} Take 1 tablet by mouth every morning and at bedtime. Indication s: only takes HS [facility] acetaZOLAMI DE 250 mg tablet 10-21 14:15: 09 Yes 250mg Take 1 tablet by mouth in the morning. Indication s: Dr. Zavala [facility] predniSONE 10 mg tablet 10-21 14:15: 09 Yes 10mg Take 1 tablet by mouth in the morning. Indication s: Dr Zavala [facility] aspirin 81 mg EC tablet 10-21 14:15: 09 Yes 81mg Take 1 tablet by mouth in the morning. [facility] budesonide- glycopyr-fo rmoterol (BREZTRI AEROSPHERE) 160-9-4.8 mcg/actuati on HFAA 10-21 14:15: 09 Yes 2{inhal er} Inhale 2 Inhalers in the morning and 2 Inhalers in the evening. Indication s: Dr. Zavala [facility] trazodone HCl (TRAZODONE ORAL) 10-21 14:15: 09 Yes 1{tbl} Take 1 tablet by mouth every morning and at bedtime. Indication s: only takes [facility] acetaZOLAMI DE 250 mg tablet 10-21 14:15: 09 Yes 250mg Take 1 tablet by mouth in the morning. Indication s: Dr. Zavala [facility] predniSONE 10 mg tablet 10-21 14:15: 09 Yes 10mg Take 1 tablet by mouth in the morning. Indication s: Dr Zavala [facility] aspirin 81 mg EC tablet 10-21 14:15: 09 Yes 81mg Take 1 tablet by mouth in the morning. [facility] budesonide- glycopyr-fo rmoterol (BREZTRI AEROSPHERE) 160-9-4.8 mcg/actuati on HFAA 10-21 14:15: 09 Yes 2{inhal er} Inhale 2 Inhalers in the morning and 2 Inhalers in the evening. Indication s: Dr. Zavala [facility] trazodone HCl (TRAZODONE ORAL) 10-21 14:15: 09 Yes 1{tbl} Take 1 tablet by mouth every morning and at bedtime. Indication s: only takes [facility] acetaZOLAMI DE 250 mg tablet 10-21 14:15: 09 Yes 250mg Take 1 tablet by mouth in the morning. Indication s: Dr. Zavala [facility] predniSONE 10 mg tablet 10-21 14:15: 09 Yes 10mg Take 1 tablet by mouth in the morning. Indication s: Dr Zavala [facility] aspirin 81 mg EC tablet 10-21 14:15: 09 Yes 81mg Take 1 tablet by mouth in the morning. [facility] budesonide- glycopyr-fo rmoterol (BREZTRI AEROSPHERE) 160-9-4.8 mcg/actuati on AA 10-21 14:15: 09 Yes 2{inhal er} Inhale 2 Inhalers in the morning and 2 Inhalers in the evening. Indication s: Dr. Zavala [facility] trazodone HCl (TRAZODONE ORAL) 10-21 14:15: 09 Yes 1{tbl} Take 1 tablet by mouth every morning and at bedtime. Indication s: only takes [facility] acetaZOLAMI DE 250 mg tablet 10-21 14:15: 09 Yes 250mg Take 1 tablet by mouth in the morning. Indication s: Dr. Zavala [facility] predniSONE 10 mg tablet 10-21 14:15: 09 Yes 10mg Take 1 tablet by mouth in the morning. Indication s: Dr Zavala [facility] aspirin 81 mg EC tablet 10-21 14:15: 09 Yes 81mg Take 1 tablet by mouth in the morning. [facility] budesonide- glycopyr-fo rmoterol (BREZTRI AEROSPHERE) 160-9-4.8 mcg/actuati on HFAA 10-21 14:15: 09 Yes 2{inhal er} Inhale 2 Inhalers in the morning and 2 Inhalers in the evening. Indication s: Dr. Zavala [facility] trazodone HCl (TRAZODONE ORAL) 10-21 14:15: 09 Yes 1{tbl} Take 1 tablet by mouth every morning and at bedtime. Indication s: only takes [facility] acetaZOLAMI DE 250 mg tablet 10-21 14:15: 09 Yes 250mg Take 1 tablet by mouth in the morning. Indication s: Dr. Zavala [facility] predniSONE 10 mg tablet 10-21 14:15: 09 Yes 10mg Take 1 tablet by mouth in the morning. Indication s: Dr Zavala [facility] aspirin 81 mg EC tablet 10-21 14:15: 09 Yes 81mg Take 1 tablet by mouth in the morning. [facility] budesonide- glycopyr-fo rmoterol (BREZTRI AEROSPHERE) 160-9-4.8 mcg/actuati on AA 10-21 14:15: 09 Yes 2{inhal er} Inhale 2 Inhalers in the morning and 2 Inhalers in the evening. Indication s: Dr. Zavala [facility] trazodone HCl (TRAZODONE ORAL) 10-21 14:15: 09 Yes 1{tbl} Take 1 tablet by mouth every morning and at bedtime. Indication s: only takes [facility] acetaZOLAMI DE 250 mg tablet 10-21 14:15: 09 Yes 250mg Take 1 tablet by mouth in the morning. Indication s: Dr. Zavala [facility] predniSONE 10 mg tablet 10-21 14:15: 09 Yes 10mg Take 1 tablet by mouth in the morning. Indication s: Dr Zavala [facility] aspirin 81 mg EC tablet 10-21 14:15: 09 Yes 81mg Take 1 tablet by mouth in the morning. [facility] budesonide- glycopyr-fo rmoterol (BREZTRI AEROSPHERE) 160-9-4.8 mcg/actuati on AA 10-21 14:15: 09 Yes 2{inhal er} Inhale 2 Inhalers in the morning and 2 Inhalers in the evening. Indication s: Dr. Zavala [facility] trazodone HCl (TRAZODONE ORAL) 10-21 14:15: 09 Yes 1{tbl} Take 1 tablet by mouth every morning and at bedtime. Indication s: only takes [facility] acetaZOLAMI DE 250 mg tablet 10-21 14:15: 09 Yes 250mg Take 1 tablet by mouth in the morning. Indication s: Dr. Zavala [facility] predniSONE 10 mg tablet 10-21 14:15: 09 Yes 10mg Take 1 tablet by mouth in the morning. Indication s: Dr Zavala [facility] aspirin 81 mg EC tablet 10-21 14:15: 09 Yes 81mg Take 1 tablet by mouth in the morning. [facility] budesonide- glycopyr-fo rmoterol (BREZTRI AEROSPHERE) 160-9-4.8 mcg/actuati on AA 10-21 14:15: 09 Yes 2{inhal er} Inhale 2 Inhalers in the morning and 2 Inhalers in the evening. Indication s: Dr. Zavala [facility] trazodone HCl (TRAZODONE ORAL) 10-21 14:15: 09 Yes 1{tbl} Take 1 tablet by mouth every morning and at bedtime. Indication s: only takes [facility] acetaZOLAMI DE 250 mg tablet 10-21 14:15: 09 Yes 250mg Take 1 tablet by mouth in the morning. Indication s: Dr. Zavala [facility] predniSONE 10 mg tablet 10-21 14:15: 09 Yes 10mg Take 1 tablet by mouth in the morning. Indication s: Dr Zavala [facility] aspirin 81 mg EC tablet 10-21 14:15: 09 Yes 81mg Take 1 tablet by mouth in the morning. [facility] budesonide- glycopyr-fo rmoterol (BREZTRI AEROSPHERE) 160-9-4.8 mcg/actuati on HFAA 10-21 14:15: 09 Yes 2{inhal er} Inhale 2 Inhalers in the morning and 2 Inhalers in the evening. Indication s: Dr. Zavala [facility] trazodone HCl (TRAZODONE ORAL) 10-21 14:15: 09 Yes 1{tbl} Take 1 tablet by mouth every morning and at bedtime. Indication s: only takes [facility] acetaZOLAMI DE 250 mg tablet 10-21 14:15: 09 Yes 250mg Take 1 tablet by mouth in the morning. Indication s: Dr. Zavala [facility] predniSONE 10 mg tablet 10-21 14:15: 09 Yes 10mg Take 1 tablet by mouth in the morning. Indication s: Dr Zavala [facility] aspirin 81 mg EC tablet 10-21 14:15: 09 Yes 81mg Take 1 tablet by mouth in the morning. [facility] budesonide- glycopyr-fo rmoterol (BREZTRI AEROSPHERE) 160-9-4.8 mcg/actuati on AA 10-21 14:15: 09 Yes 2{inhal er} Inhale 2 Inhalers in the morning and 2 Inhalers in the evening. Indication s: Dr. Zavala [facility] trazodone HCl (TRAZODONE ORAL) 10-21 14:15: 09 Yes 1{tbl} Take 1 tablet by mouth every morning and at bedtime. Indication s: only takes [facility] acetaZOLAMI DE 250 mg tablet 10-21 14:15: 09 Yes 250mg Take 1 tablet by mouth in the morning. Indication s: Dr. Zavala [facility] predniSONE 10 mg tablet 10-21 14:15: 09 Yes 10mg Take 1 tablet by mouth in the morning. Indication s: Dr Zavala [facility] aspirin 81 mg EC tablet 10-21 14:15: 09 Yes 81mg Take 1 tablet by mouth in the morning. [facility] budesonide- glycopyr-fo rmoterol (BREZTRI AEROSPHERE) 160-9-4.8 mcg/actuati on HFAA 10-21 14:15: 09 Yes 2{inhal er} Inhale 2 Inhalers in the morning and 2 Inhalers in the evening. Indication s: Dr. Zavala [facility] trazodone HCl (TRAZODONE ORAL) 10-21 14:15: 09 Yes 1{tbl} Take 1 tablet by mouth every morning and at bedtime. Indication s: only takes [facility] acetaZOLAMI DE 250 mg tablet 10-21 14:15: 09 Yes 250mg Take 1 tablet by mouth in the morning. Indication s: Dr. Zavala [facility] predniSONE 10 mg tablet 10-21 14:15: 09 Yes 10mg Take 1 tablet by mouth in the morning. Indication s: Dr Zavala [facility] aspirin 81 mg EC tablet 10-21 14:15: 09 Yes 81mg Take 1 tablet by mouth in the morning. [facility] budesonide- glycopyr-fo rmoterol (BREZTRI AEROSPHERE) 160-9-4.8 mcg/actuati on HFAA 10-21 14:15: 09 Yes 2{inhal er} Inhale 2 Inhalers in the morning and 2 Inhalers in the evening. Indication s: Dr. Zavala [facility] trazodone HCl (TRAZODONE ORAL) 10-21 14:15: 09 Yes 1{tbl} Take 1 tablet by mouth every morning and at bedtime. Indication s: only takes [facility] acetaZOLAMI DE 250 mg tablet 10-21 14:15: 09 Yes 250mg Take 1 tablet by mouth in the morning. Indication s: Dr. Zavala [facility] predniSONE 10 mg tablet 10-21 14:15: 09 Yes 10mg Take 1 tablet by mouth in the morning. Indication s: Dr Zavala [facility] aspirin 81 mg EC tablet 10-21 14:15: 09 Yes 81mg Take 1 tablet by mouth in the morning. [facility] budesonide- glycopyr-fo rmoterol (BREZTRI AEROSPHERE) 160-9-4.8 mcg/actuati on HFAA 10-21 14:15: 09 Yes 2{inhal er} Inhale 2 Inhalers in the morning and 2 Inhalers in the evening. Indication s: Dr. Zavala [facility] trazodone HCl (TRAZODONE ORAL) 10-21 14:15: 09 Yes 1{tbl} Take 1 tablet by mouth every morning and at bedtime. Indication s: only takes [facility] acetaZOLAMI DE 250 mg tablet 10-21 14:15: 09 Yes 250mg Take 1 tablet by mouth in the morning. Indication s: Dr. Zavala [facility] predniSONE 10 mg tablet 10-21 14:15: 09 Yes 10mg Take 1 tablet by mouth in the morning. Indication s: Dr Zavala [facility] aspirin 81 mg EC tablet 10-21 14:15: 09 Yes 81mg Take 1 tablet by mouth in the morning. [facility] budesonide- glycopyr-fo rmoterol (BREZTRI AEROSPHERE) 160-9-4.8 mcg/actuati on HFAA 10-21 14:15: 09 Yes 2{inhal er} Inhale 2 Inhalers in the morning and 2 Inhalers in the evening. Indication s: Dr. Zavala [facility] trazodone HCl (TRAZODONE ORAL) 10-21 14:15: 09 Yes 1{tbl} Take 1 tablet by mouth every morning and at bedtime. Indication s: only takes HS [facility] acetaZOLAMI DE 250 mg tablet 10-21 14:15: 09 Yes 250mg Take 1 tablet by mouth in the morning. Indication s: Dr. Zavala [facility] predniSONE 10 mg tablet 10-21 14:15: 09 Yes 10mg Take 1 tablet by mouth in the morning. Indication s: Dr Zavala [facility] aspirin 81 mg EC tablet 10-21 14:15: 09 Yes 81mg Take 1 tablet by mouth in the morning. [facility] budesonide- glycopyr-fo rmoterol (BREZTRI AEROSPHERE) 160-9-4.8 mcg/actuati on HFAA 10-21 14:15: 09 Yes 2{inhal er} Inhale 2 Inhalers in the morning and 2 Inhalers in the evening. Indication s: Dr. Zavala [facility] trazodone HCl (TRAZODONE ORAL) 10-21 14:15: 09 Yes 1{tbl} Take 1 tablet by mouth every morning and at bedtime. Indication s: only takes [facility] acetaZOLAMI DE 250 mg tablet 10-21 14:15: 09 Yes 250mg Take 1 tablet by mouth in the morning. Indication s: Dr. Zavala [facility] predniSONE 10 mg tablet 10-21 14:15: 09 Yes 10mg Take 1 tablet by mouth in the morning. Indication s: Dr Zavala [facility] aspirin 81 mg EC tablet 10-21 14:15: 09 Yes 81mg Take 1 tablet by mouth in the morning. [facility] budesonide- glycopyr-fo rmoterol (BREZTRI AEROSPHERE) 160-9-4.8 mcg/actuati on HFAA 10-21 14:15: 09 Yes 2{inhal er} Inhale 2 Inhalers in the morning and 2 Inhalers in the evening. Indication s: Dr. Zavala [facility] trazodone HCl (TRAZODONE ORAL) 10-21 14:15: 09 Yes 1{tbl} Take 1 tablet by mouth every morning and at bedtime. Indication s: only takes [facility] acetaZOLAMI DE 250 mg tablet 10-21 14:15: 09 Yes 250mg Take 1 tablet by mouth in the morning. Indication s: Dr. Zavala [facility] predniSONE 10 mg tablet 10-21 14:15: 09 Yes 10mg Take 1 tablet by mouth in the morning. Indication s: Dr Zavala [facility] aspirin 81 mg EC tablet 10-21 14:15: 09 Yes 81mg Take 1 tablet by mouth in the morning. [facility] budesonide- glycopyr-fo rmoterol (BREZTRI AEROSPHERE) 160-9-4.8 mcg/actuati on HFAA 10-21 14:15: 09 Yes 2{inhal er} Inhale 2 Inhalers in the morning and 2 Inhalers in the evening. Indication s: Dr. Zavala [facility] trazodone HCl (TRAZODONE ORAL) 10-21 14:15: 09 Yes 1{tbl} Take 1 tablet by mouth every morning and at bedtime. Indication s: only takes [facility] acetaZOLAMI DE 250 mg tablet 10-21 14:15: 09 Yes 250mg Take 1 tablet by mouth in the morning. Indication s: Dr. Zavala [facility] predniSONE 10 mg tablet 10-21 14:15: 09 Yes 10mg Take 1 tablet by mouth in the morning. Indication s: Dr Zavala [facility] aspirin 81 mg EC tablet 10-21 14:15: 09 Yes 81mg Take 1 tablet by mouth in the morning. [facility] budesonide- glycopyr-fo rmoterol (BREZTRI AEROSPHERE) 160-9-4.8 mcg/actuati on HFAA 10-21 14:15: 09 Yes 2{inhal er} Inhale 2 Inhalers in the morning and 2 Inhalers in the evening. Indication s: Dr. Zavala [facility] trazodone HCl (TRAZODONE ORAL) 10-21 14:15: 09 Yes 1{tbl} Take 1 tablet by mouth every morning and at bedtime. Indication s: only takes [facility] acetaZOLAMI DE 250 mg tablet 10-21 14:15: 09 Yes 250mg Take 1 tablet by mouth in the morning. Indication s: Dr. Zavala [facility] predniSONE 10 mg tablet 10-21 14:15: 09 Yes 10mg Take 1 tablet by mouth in the morning. Indication s: Dr Zavala [facility] aspirin 81 mg EC tablet 10-21 14:15: 09 Yes 81mg Take 1 tablet by mouth in the morning. [facility] budesonide- glycopyr-fo rmoterol (BREZTRI AEROSPHERE) 160-9-4.8 mcg/actuati on HFAA 10-21 14:15: 09 Yes 2{inhal er} Inhale 2 Inhalers in the morning and 2 Inhalers in the evening. Indication s: Dr. Zavala [facility] trazodone HCl (TRAZODONE ORAL) 10-21 14:15: 09 Yes 1{tbl} Take 1 tablet by mouth every morning and at bedtime. Indication s: only takes [facility] acetaZOLAMI DE 250 mg tablet 10-21 14:15: 09 Yes 250mg Take 1 tablet by mouth in the morning. Indication s: Dr. Zavala [facility] predniSONE 10 mg tablet 10-21 14:15: 09 Yes 10mg Take 1 tablet by mouth in the morning. Indication s: Dr Zavala [facility] aspirin 81 mg EC tablet 10-21 14:15: 09 Yes 81mg Take 1 tablet by mouth in the morning. [facility] budesonide- glycopyr-fo rmoterol (BREZTRI AEROSPHERE) 160-9-4.8 mcg/actuati on HFAA 10-21 14:15: 09 Yes 2{inhal er} Inhale 2 Inhalers in the morning and 2 Inhalers in the evening. Indication s: Dr. Zavala [facility] trazodone HCl (TRAZODONE ORAL) 10-21 14:15: 09 Yes 1{tbl} Take 1 tablet by mouth every morning and at bedtime. Indication s: only takes [facility] acetaZOLAMI DE 250 mg tablet 10-21 14:15: 09 Yes 250mg Take 1 tablet by mouth in the morning. Indication s: Dr. Zavala [facility] predniSONE 10 mg tablet 10-21 14:15: 09 Yes 10mg Take 1 tablet by mouth in the morning. Indication s: Dr Zavala [facility] aspirin 81 mg EC tablet 10-21 14:15: 09 Yes 81mg Take 1 tablet by mouth in the morning. [facility] budesonide- glycopyr-fo rmoterol (BREZTRI AEROSPHERE) 160-9-4.8 mcg/actuati on HFAA 10-21 14:15: 09 Yes 2{inhal er} Inhale 2 Inhalers in the morning and 2 Inhalers in the evening. Indication s: Dr. Zavala [facility] trazodone HCl (TRAZODONE ORAL) 10-21 14:15: 09 Yes 1{tbl} Take 1 tablet by mouth every morning and at bedtime. Indication s: only takes [facility] acetaZOLAMI DE 250 mg tablet 10-21 14:15: 09 Yes 250mg Take 1 tablet by mouth in the morning. Indication s: Dr. Zavala [facility] predniSONE 10 mg tablet 10-21 14:15: 09 Yes 10mg Take 1 tablet by mouth in the morning. Indication s: Dr Zavala [facility] aspirin 81 mg EC tablet 10-21 14:15: 09 Yes 81mg Take 1 tablet by mouth in the morning. [facility] budesonide- glycopyr-fo rmoterol (BREZTRI AEROSPHERE) 160-9-4.8 mcg/actuati on HFAA 10-21 14:15: 09 Yes 2{inhal er} Inhale 2 Inhalers in the morning and 2 Inhalers in the evening. Indication s: Dr. Zavala [facility] trazodone HCl (TRAZODONE ORAL) 10-21 14:15: 09 Yes 1{tbl} Take 1 tablet by mouth every morning and at bedtime. Indication s: only takes [facility] acetaZOLAMI DE 250 mg tablet 10-21 14:15: 09 Yes 250mg Take 1 tablet by mouth in the morning. Indication s: Dr. Zavala [facility] predniSONE 10 mg tablet 10-21 14:15: 09 Yes 10mg Take 1 tablet by mouth in the morning. Indication s: Dr Zavala [facility] aspirin 81 mg EC tablet 10-21 14:15: 09 Yes 81mg Take 1 tablet by mouth in the morning. [facility] budesonide- glycopyr-fo rmoterol (BREZTRI AEROSPHERE) 160-9-4.8 mcg/actuati on HFAA 10-21 14:15: 09 Yes 2{inhal er} Inhale 2 Inhalers in the morning and 2 Inhalers in the evening. Indication s: Dr. Zavala [facility] trazodone HCl (TRAZODONE ORAL) 10-21 14:15: 09 Yes 1{tbl} Take 1 tablet by mouth every morning and at bedtime. Indication s: only takes [facility] acetaZOLAMI DE 250 mg tablet 10-21 14:15: 09 Yes 250mg Take 1 tablet by mouth in the morning. Indication s: Dr. Zavala [facility] predniSONE 10 mg tablet 10-21 14:15: 09 Yes 10mg Take 1 tablet by mouth in the morning. Indication s: Dr Zavala [facility] aspirin 81 mg EC tablet 10-21 14:15: 09 Yes 81mg Take 1 tablet by mouth in the morning. [facility] budesonide- glycopyr-fo rmoterol (BREZTRI AEROSPHERE) 160-9-4.8 mcg/actuati on HFAA 10-21 14:15: 09 Yes 2{inhal er} Inhale 2 Inhalers in the morning and 2 Inhalers in the evening. Indication s: Dr. Zavala [facility] trazodone HCl (TRAZODONE ORAL) 10-21 14:15: 09 Yes 1{tbl} Take 1 tablet by mouth every morning and at bedtime. Indication s: only takes [facility] acetaZOLAMI DE 250 mg tablet 10-21 14:15: 09 Yes 250mg Take 1 tablet by mouth in the morning. Indication s: Dr. Zavala [facility] predniSONE 10 mg tablet 10-21 14:15: 09 Yes 10mg Take 1 tablet by mouth in the morning. Indication s: Dr Zavala [facility] aspirin 81 mg EC tablet 10-21 14:15: 09 Yes 81mg Take 1 tablet by mouth in the morning. [facility] budesonide- glycopyr-fo rmoterol (BREZTRI AEROSPHERE) 160-9-4.8 mcg/actuati on HFAA 10-21 14:15: 09 Yes 2{inhal er} Inhale 2 Inhalers in the morning and 2 Inhalers in the evening. Indication s: Dr. Zavala [facility] trazodone HCl (TRAZODONE ORAL) 10-21 14:15: 09 Yes 1{tbl} Take 1 tablet by mouth every morning and at bedtime. Indication s: only takes [facility] acetaZOLAMI DE 250 mg tablet 10-21 14:15: 09 Yes 250mg Take 1 tablet by mouth in the morning. Indication s: Dr. Zavala [facility] predniSONE 10 mg tablet 10-21 14:15: 09 Yes 10mg Take 1 tablet by mouth in the morning. Indication s: Dr Zavala [facility] aspirin 81 mg EC tablet 10-21 14:15: 09 Yes 81mg Take 1 tablet by mouth in the morning. [facility] budesonide- glycopyr-fo rmoterol (BREZTRI AEROSPHERE) 160-9-4.8 mcg/actuati on AA 10-21 14:15: 09 Yes 2{inhal er} Inhale 2 Inhalers in the morning and 2 Inhalers in the evening. Indication s: Dr. Zavala [facility] trazodone HCl (TRAZODONE ORAL) 10-21 14:15: 09 Yes 1{tbl} Take 1 tablet by mouth every morning and at bedtime. Indication s: only takes [facility] acetaZOLAMI DE 250 mg tablet 10-21 14:15: 09 Yes 250mg Take 1 tablet by mouth in the morning. Indication s: Dr. Zavala [facility] predniSONE 10 mg tablet 10-21 14:15: 09 Yes 10mg Take 1 tablet by mouth in the morning. Indication s: Dr Zavala [facility] aspirin 81 mg EC tablet 10-21 14:15: 09 Yes 81mg Take 1 tablet by mouth in the morning. [facility] budesonide- glycopyr-fo rmoterol (BREZTRI AEROSPHERE) 160-9-4.8 mcg/actuati on AA 10-21 14:15: 09 Yes 2{inhal er} Inhale 2 Inhalers in the morning and 2 Inhalers in the evening. Indication s: Dr. Zavala [facility] trazodone HCl (TRAZODONE ORAL) 10-21 14:15: 09 Yes 1{tbl} Take 1 tablet by mouth every morning and at bedtime. Indication s: only takes [facility] acetaZOLAMI DE 250 mg tablet 10-21 14:15: 09 Yes 250mg Take 1 tablet by mouth in the morning. Indication s: Dr. Zavala [facility] predniSONE 10 mg tablet 10-21 14:15: 09 Yes 10mg Take 1 tablet by mouth in the morning. Indication s: Dr Zavala [facility] aspirin 81 mg EC tablet 10-21 14:15: 09 Yes 81mg Take 1 tablet by mouth in the morning. [facility] budesonide- glycopyr-fo rmoterol (BREZTRI AEROSPHERE) 160-9-4.8 mcg/actuati on AA 10-21 14:15: 09 Yes 2{inhal er} Inhale 2 Inhalers in the morning and 2 Inhalers in the evening. Indication s: Dr. Zavala [facility] trazodone HCl (TRAZODONE ORAL) 10-21 14:15: 09 Yes 1{tbl} Take 1 tablet by mouth every morning and at bedtime. Indication s: only takes [facility] acetaZOLAMI DE 250 mg tablet 10-21 14:15: 09 Yes 250mg Take 1 tablet by mouth in the morning. Indication s: Dr. Zavala [facility] predniSONE 10 mg tablet 10-21 14:15: 09 Yes 10mg Take 1 tablet by mouth in the morning. Indication s: Dr Zavala [facility] aspirin 81 mg EC tablet 10-21 14:15: 09 Yes 81mg Take 1 tablet by mouth in the morning. [facility] budesonide- glycopyr-fo rmoterol (BREZTRI AEROSPHERE) 160-9-4.8 mcg/actuati on AA 10-21 14:15: 09 Yes 2{inhal er} Inhale 2 Inhalers in the morning and 2 Inhalers in the evening. Indication s: Dr. Zavala [facility] trazodone HCl (TRAZODONE ORAL) 10-21 14:15: 09 Yes 1{tbl} Take 1 tablet by mouth every morning and at bedtime. Indication s: only takes [facility] acetaZOLAMI DE 250 mg tablet 10-21 14:15: 09 Yes 250mg Take 1 tablet by mouth in the morning. Indication s: Dr. Zavala [facility] predniSONE 10 mg tablet 10-21 14:15: 09 Yes 10mg Take 1 tablet by mouth in the morning. Indication s: Dr Zavala [facility] aspirin 81 mg EC tablet 10-21 14:15: 09 Yes 81mg Take 1 tablet by mouth in the morning. [facility] budesonide- glycopyr-fo rmoterol (BREZTRI AEROSPHERE) 160-9-4.8 mcg/actuati on AA 10-21 14:15: 09 Yes 2{inhal er} Inhale 2 Inhalers in the morning and 2 Inhalers in the evening. Indication s: Dr. Zavala [facility] trazodone HCl (TRAZODONE ORAL) 10-21 14:15: 09 Yes 1{tbl} Take 1 tablet by mouth every morning and at bedtime. Indication s: only takes [facility] acetaZOLAMI DE 250 mg tablet 10-21 14:15: 09 Yes 250mg Take 1 tablet by mouth in the morning. Indication s: Dr. Zavala [facility] predniSONE 10 mg tablet 10-21 14:15: 09 Yes 10mg Take 1 tablet by mouth in the morning. Indication s: Dr Zavala [facility] aspirin 81 mg EC tablet 10-21 14:15: 09 Yes 81mg Take 1 tablet by mouth in the morning. [facility] budesonide- glycopyr-fo rmoterol (BREZTRI AEROSPHERE) 160-9-4.8 mcg/actuati on AA 10-21 14:15: 09 Yes 2{inhal er} Inhale 2 Inhalers in the morning and 2 Inhalers in the evening. Indication s: Dr. Zavala [facility] trazodone HCl (TRAZODONE ORAL) 10-21 14:15: 09 Yes 1{tbl} Take 1 tablet by mouth every morning and at bedtime. Indication s: only takes [facility] acetaZOLAMI DE 250 mg tablet 10-21 14:15: 09 Yes 250mg Take 1 tablet by mouth in the morning. Indication s: Dr. Zavala [facility] predniSONE 10 mg tablet 10-21 14:15: 09 Yes 10mg Take 1 tablet by mouth in the morning. Indication s: Dr Zavala [facility] aspirin 81 mg EC tablet 10-21 14:15: 09 Yes 81mg Take 1 tablet by mouth in the morning. [facility] budesonide- glycopyr-fo rmoterol (BREZTRI AEROSPHERE) 160-9-4.8 mcg/actuati on AA 10-21 14:15: 09 Yes 2{inhal er} Inhale 2 Inhalers in the morning and 2 Inhalers in the evening. Indication s: Dr. Zavala [facility] trazodone HCl (TRAZODONE ORAL) 10-21 14:15: 09 Yes 1{tbl} Take 1 tablet by mouth every morning and at bedtime. Indication s: only takes [facility] acetaZOLAMI DE 250 mg tablet 10-21 14:15: 09 Yes 250mg Take 1 tablet by mouth in the morning. Indication s: Dr. Zavala [facility] predniSONE 10 mg tablet 10-21 14:15: 09 Yes 10mg Take 1 tablet by mouth in the morning. Indication s: Dr Zavala [facility] aspirin 81 mg EC tablet 10-21 14:15: 09 Yes 81mg Take 1 tablet by mouth in the morning. [facility] budesonide- glycopyr-fo rmoterol (BREZTRI AEROSPHERE) 160-9-4.8 mcg/actuati on AA 10-21 14:15: 09 Yes 2{inhal er} Inhale 2 Inhalers in the morning and 2 Inhalers in the evening. Indication s: Dr. Zavala [facility] trazodone HCl (TRAZODONE ORAL) 10-21 14:15: 09 Yes 1{tbl} Take 1 tablet by mouth every morning and at bedtime. Indication s: only takes [facility] acetaZOLAMI DE 250 mg tablet 10-21 14:15: 09 Yes 250mg Take 1 tablet by mouth in the morning. Indication s: Dr. Zavala [facility] predniSONE 10 mg tablet 10-21 14:15: 09 Yes 10mg Take 1 tablet by mouth in the morning. Indication s: Dr Zavala [facility] aspirin 81 mg EC tablet 10-21 14:15: 09 Yes 81mg Take 1 tablet by mouth in the morning. [facility] budesonide- glycopyr-fo rmoterol (BREZTRI AEROSPHERE) 160-9-4.8 mcg/actuati on HFAA 10-21 14:15: 09 Yes 2{inhal er} Inhale 2 Inhalers in the morning and 2 Inhalers in the evening. Indication s: Dr. Zavala [facility] trazodone HCl (TRAZODONE ORAL) 10-21 14:15: 09 Yes 1{tbl} Take 1 tablet by mouth every morning and at bedtime. Indication s: only takes [facility] acetaZOLAMI DE 250 mg tablet 10-21 14:15: 09 Yes 250mg Take 1 tablet by mouth in the morning. Indication s: Dr. Zavala [facility] predniSONE 10 mg tablet 10-21 14:15: 09 Yes 10mg Take 1 tablet by mouth in the morning. Indication s: Dr Zavala [facility] aspirin 81 mg EC tablet 10-21 14:15: 09 Yes 81mg Take 1 tablet by mouth in the morning. [facility] budesonide- glycopyr-fo rmoterol (BREZTRI AEROSPHERE) 160-9-4.8 mcg/actuati on AA 10-21 14:15: 09 Yes 2{inhal er} Inhale 2 Inhalers in the morning and 2 Inhalers in the evening. Indication s: Dr. Zavala [facility] trazodone HCl (TRAZODONE ORAL) 10-21 14:15: 09 Yes 1{tbl} Take 1 tablet by mouth every morning and at bedtime. Indication s: only takes [facility] acetaZOLAMI DE 250 mg tablet 10-21 14:15: 09 Yes 250mg Take 1 tablet by mouth in the morning. Indication s: Dr. Zavala [facility] predniSONE 10 mg tablet 10-21 14:15: 09 Yes 10mg Take 1 tablet by mouth in the morning. Indication s: Dr Zavala [facility] aspirin 81 mg EC tablet 10-21 14:15: 09 Yes 81mg Take 1 tablet by mouth in the morning. [facility] budesonide- glycopyr-fo rmoterol (BREZTRI AEROSPHERE) 160-9-4.8 mcg/actuati on HFAA 10-21 14:15: 09 Yes 2{inhal er} Inhale 2 Inhalers in the morning and 2 Inhalers in the evening. Indication s: Dr. Zavala [facility] trazodone HCl (TRAZODONE ORAL) 10-21 14:15: 09 Yes 1{tbl} Take 1 tablet by mouth every morning and at bedtime. Indication s: only takes [facility] acetaZOLAMI DE 250 mg tablet 10-21 14:15: 09 Yes 250mg Take 1 tablet by mouth in the morning. Indication s: Dr. Zavala [facility] predniSONE 10 mg tablet 10-21 14:15: 09 Yes 10mg Take 1 tablet by mouth in the morning. Indication s: Dr Zavala [facility] aspirin 81 mg EC tablet 10-21 14:15: 09 Yes 81mg Take 1 tablet by mouth in the morning. [facility] budesonide- glycopyr-fo rmoterol (BREZTRI AEROSPHERE) 160-9-4.8 mcg/actuati on HFAA 10-21 14:15: 09 Yes 2{inhal er} Inhale 2 Inhalers in the morning and 2 Inhalers in the evening. Indication s: Dr. Zavala [facility] trazodone HCl (TRAZODONE ORAL) 10-21 14:15: 09 Yes 1{tbl} Take 1 tablet by mouth every morning and at bedtime. Indication s: only takes [facility] acetaZOLAMI DE 250 mg tablet 10-21 14:15: 09 Yes 250mg Take 1 tablet by mouth in the morning. Indication s: Dr. Zavala [facility] predniSONE 10 mg tablet 10-21 14:15: 09 Yes 10mg Take 1 tablet by mouth in the morning. Indication s: Dr Zavala [facility] aspirin 81 mg EC tablet 10-21 14:15: 09 Yes 81mg Take 1 tablet by mouth in the morning. [facility] budesonide- glycopyr-fo rmoterol (BREZTRI AEROSPHERE) 160-9-4.8 mcg/actuati on HFAA 10-21 14:15: 09 Yes 2{inhal er} Inhale 2 Inhalers in the morning and 2 Inhalers in the evening. Indication s: Dr. Zavala [facility] trazodone HCl (TRAZODONE ORAL) 10-21 14:15: 09 Yes 1{tbl} Take 1 tablet by mouth every morning and at bedtime. Indication s: only takes [facility] acetaZOLAMI DE 250 mg tablet 10-21 14:15: 09 Yes 250mg Take 1 tablet by mouth in the morning. Indication s: Dr. Zavala [facility] predniSONE 10 mg tablet 10-21 14:15: 09 Yes 10mg Take 1 tablet by mouth in the morning. Indication s: Dr Zavala [facility] aspirin 81 mg EC tablet 10-21 14:15: 09 Yes 81mg Take 1 tablet by mouth in the morning. [facility] budesonide- glycopyr-fo rmoterol (BREZTRI AEROSPHERE) 160-9-4.8 mcg/actuati on HFAA 10-21 14:15: 09 Yes 2{inhal er} Inhale 2 Inhalers in the morning and 2 Inhalers in the evening. Indication s: Dr. Zavala [facility] trazodone HCl (TRAZODONE ORAL) 10-21 14:15: 09 Yes 1{tbl} Take 1 tablet by mouth every morning and at bedtime. Indication s: only takes [facility] acetaZOLAMI DE 250 mg tablet 10-21 14:15: 09 Yes 250mg Take 1 tablet by mouth in the morning. Indication s: Dr. Zavala [facility] predniSONE 10 mg tablet 10-21 14:15: 09 Yes 10mg Take 1 tablet by mouth in the morning. Indication s: Dr Zavala [facility] aspirin 81 mg EC tablet 10-21 14:15: 09 Yes 81mg Take 1 tablet by mouth in the morning. [facility] budesonide- glycopyr-fo rmoterol (BREZTRI AEROSPHERE) 160-9-4.8 mcg/actuati on HFAA 10-21 14:15: 09 Yes 2{inhal er} Inhale 2 Inhalers in the morning and 2 Inhalers in the evening. Indication s: Dr. Zavala [facility] trazodone HCl (TRAZODONE ORAL) 10-21 14:15: 09 Yes 1{tbl} Take 1 tablet by mouth every morning and at bedtime. Indication s: only takes [facility] acetaZOLAMI DE 250 mg tablet 10-21 14:15: 09 Yes 250mg Take 1 tablet by mouth in the morning. Indication s: Dr. Zavala [facility] predniSONE 10 mg tablet 10-21 14:15: 09 Yes 10mg Take 1 tablet by mouth in the morning. Indication s: Dr Zavala [facility] aspirin 81 mg EC tablet 10-21 14:15: 09 Yes 81mg Take 1 tablet by mouth in the morning. [facility] budesonide- glycopyr-fo rmoterol (BREZTRI AEROSPHERE) 160-9-4.8 mcg/actuati on HFAA 10-21 14:15: 09 Yes 2{inhal er} Inhale 2 Inhalers in the morning and 2 Inhalers in the evening. Indication s: Dr. Zavala [facility] trazodone HCl (TRAZODONE ORAL) 10-29 21:03: 31 Yes Take by mouth. [facility] trazodone HCl (TRAZODONE ORAL) 10-29 21:03: 31 Yes Take by mouth. [facility] trazodone HCl (TRAZODONE ORAL) 10-29 16:03: 31 Yes Take by mouth. [facility] trazodone HCl (TRAZODONE ORAL) 10-29 16:03: 31 Yes Take by mouth. [facility] albuterol 90 mcg/actuati on inhaler 10-17 00:00: 00 Yes [id number] 2{puff} Inhale 2 Puffs every 6 (six) hours as needed for Wheezing or Shortness of Breath. [facility] azithromyci n 250 mg tablet 10-17 00:00: 00 Yes [id number] 250mg Take 1 tablet by mouth daily. Take 500 mg day 1, then 250 mg days 2 to 5. [facility] benzonatate (TESSALON PERLES) 100 mg capsule 10-17 00:00: 00 Yes [id number] 100mg Take 1 capsule by mouth 3 (three) times daily as needed for Cough. [facility] methylPREDN ISolone (MEDROL, ARIANA,) 4 mg tablets 10-17 00:00: 00 Yes [id number] Take by mouth SEE-INSTRU CTIONS. follow package directions [facility] albuterol 90 mcg/actuati on inhaler 10-17 00:00: 00 Yes [id number] 2{puff} Inhale 2 Puffs every 6 (six) hours as needed for Wheezing or Shortness of Breath. [facility] albuterol 90 mcg/actuati on inhaler 10-17 00:00: 00 Yes [id number] 2{puff} Inhale 2 Puffs every 6 (six) hours as needed for Wheezing or Shortness of Breath. [facility] azithromyci n 250 mg tablet 10-17 00:00: 00 Yes [id number] 250mg Take 1 tablet by mouth daily. Take 500 mg day 1, then 250 mg days 2 to 5. [facility] azithromyci n 250 mg tablet 15 00:00: 00 Yes [id number] 250mg Take 1 tablet by mouth daily. Take 500 mg day 1, then 250 mg days 2 to 5. [facility] benzonatate (TESSALON PERLES) 100 mg capsule 0 15 00:00: 00 Yes [id number] 100mg Take 1 capsule by mouth 3 (three) times daily as needed for Cough. [facility] methylPREDN ISolone (MEDROL, ARIANA,) 4 mg tablets 15 00:00: 00 Yes [id number] Take by mouth SEE-INSTRU CTIONS. follow package directions [facility] benzonatate (TESSALON PERLES) 100 mg capsule 15 00:00: 00 Yes [id number] 100mg Take 1 capsule by mouth 3 (three) times daily as needed for Cough. [facility] albuterol 90 mcg/actuati on inhaler 15 00:00: 00 Yes [id number] 2{puff} Inhale 2 Puffs every 6 (six) hours as needed for Wheezing or Shortness of Breath. [facility] azithromyci n 250 mg tablet 15 00:00: 00 Yes [id number] 250mg Take 1 tablet by mouth daily. Take 500 mg day 1, then 250 mg days 2 to 5. [facility] benzonatate (TESSALON PERLES) 100 mg capsule 15 00:00: 00 Yes [id number] 100mg Take 1 capsule by mouth 3 (three) times daily as needed for Cough. [facility] methylPREDN ISolone (MEDROL, ARIANA,) 4 mg tablets 15 00:00: 00 Yes [id number] Take by mouth SEE-INSTRU CTIONS. follow package directions [facility] methylPREDN ISolone (MEDROL, ARIANA,) 4 mg tablets -15 00:00: 00 Yes [id number] Take by mouth SEE-INSTRU CTIONS. follow package directions [facility] albuterol 90 mcg/actuati on inhaler 0 415 00:00: 00 Yes [id number] 2{puff} Inhale 2 Puffs every 6 (six) hours as needed for Wheezing or Shortness of Breath. [facility] azithromyci n 250 mg tablet 15 00:00: 00 Yes [id number] 250mg Take 1 tablet by mouth daily. Take 500 mg day 1, then 250 mg days 2 to 5. [facility] benzonatate (TESSALON PERLES) 100 mg capsule 15 00:00: 00 Yes [id number] 100mg Take 1 capsule by mouth 3 (three) times daily as needed for Cough. [facility] methylPREDN ISolone (MEDROL, ARIANA,) 4 mg tablets 15 00:00: 00 Yes [id number] Take by mouth SEE-INSTRU CTIONS. follow package directions [facility] albuterol 90 mcg/actuati on inhaler 15 00:00: 00 Yes [id number] 2{puff} Inhale 2 Puffs every 6 (six) hours as needed for Wheezing or Shortness of Breath. [facility] azithromyci n 250 mg tablet 15 00:00: 00 Yes [id number] 250mg Take 1 tablet by mouth daily. Take 500 mg day 1, then 250 mg days 2 to 5. [facility] benzonatate (TESSALON PERLES) 100 mg capsule 15 00:00: 00 Yes [id number] 100mg Take 1 capsule by mouth 3 (three) times daily as needed for Cough. [facility] methylPREDN ISolone (MEDROL, ARIANA,) 4 mg tablets 15 00:00: 00 Yes [id number] Take by mouth SEE-INSTRU CTIONS. follow package directions [facility] albuterol 90 mcg/actuati on inhaler 0 415 00:00: 00 Yes [id number] 2{puff} Inhale 2 Puffs every 6 (six) hours as needed for Wheezing or Shortness of Breath. [facility] azithromyci n 250 mg tablet 2019-0 415 00:00: 00 Yes [id number] 250mg Take 1 tablet by mouth daily. Take 500 mg day 1, then 250 mg days 2 to 5. [facility] benzonatate (TESSALON PERLES) 100 mg capsule 2019-0 -15 00:00: 00 Yes [id number] 100mg Take 1 capsule by mouth 3 (three) times daily as needed for Cough. [facility] methylPREDN ISolone (MEDROL, ARIANA,) 4 mg tablets 0 4-15 00:00: 00 Yes [id number] Take by mouth SEE-INSTRU CTIONS. follow package directions [facility] albuterol 90 mcg/actuati on inhaler 0 15 00:00: 00 Yes [id number] 2{puff} Inhale 2 Puffs every 6 (six) hours as needed for Wheezing or Shortness of Breath. [facility] azithromyci n 250 mg tablet 0 15 00:00: 00 Yes [id number] 250mg Take 1 tablet by mouth daily. Take 500 mg day 1, then 250 mg days 2 to 5. [facility] benzonatate (TESSALON PERLES) 100 mg capsule 0 15 00:00: 00 Yes [id number] 100mg Take 1 capsule by mouth 3 (three) times daily as needed for Cough. [facility] methylPREDN ISolone (MEDROL, ARIANA,) 4 mg tablets 15 00:00: 00 Yes [id number] Take by mouth SEE-INSTRU CTIONS. follow package directions [facility] albuterol 90 mcg/actuati on inhaler 0 15 00:00: 00 Yes [id number] 2{puff} Inhale 2 Puffs every 6 (six) hours as needed for Wheezing or Shortness of Breath. [facility] azithromyci n 250 mg tablet 2019-0 4-15 00:00: 00 Yes [id number] 250mg Take 1 tablet by mouth daily. Take 500 mg day 1, then 250 mg days 2 to 5. [facility] benzonatate (TESSALON PERLES) 100 mg capsule 2019-0 4-15 00:00: 00 Yes [id number] 100mg Take 1 capsule by mouth 3 (three) times daily as needed for Cough. [facility] methylPREDN ISolone (MEDROL, ARIANA,) 4 mg tablets 2019-0 4-15 00:00: 00 Yes [id number] Take by mouth SEE-INSTRU CTIONS. follow package directions [facility] albuterol 90 mcg/actuati on inhaler 2019-0 4-15 00:00: 00 Yes [id number] 2{puff} Inhale 2 Puffs every 6 (six) hours as needed for Wheezing or Shortness of Breath. [facility] azithromyci n 250 mg tablet 2019-0 4-15 00:00: 00 Yes [id number] 250mg Take 1 tablet by mouth daily. Take 500 mg day 1, then 250 mg days 2 to 5. [facility] benzonatate (TESSALON PERLES) 100 mg capsule 0 15 00:00: 00 Yes [id number] 100mg Take 1 capsule by mouth 3 (three) times daily as needed for Cough. [facility] methylPREDN ISolone (MEDROL, ARIANA,) 4 mg tablets 0 15 00:00: 00 Yes [id number] Take by mouth SEE-INSTRU CTIONS. follow package directions [facility] albuterol 90 mcg/actuati on inhaler 0 415 00:00: 00 Yes [id number] 2{puff} Inhale 2 Puffs every 6 (six) hours as needed for Wheezing or Shortness of Breath. [facility] azithromyci n 250 mg tablet 2019-0 15 00:00: 00 Yes [id number] 250mg Take 1 tablet by mouth daily. Take 500 mg day 1, then 250 mg days 2 to 5. [facility] benzonatate (TESSALON PERLES) 100 mg capsule 0 15 00:00: 00 Yes [id number] 100mg Take 1 capsule by mouth 3 (three) times daily as needed for Cough. [facility] methylPREDN ISolone (MEDROL, ARIANA,) 4 mg tablets 2019-0 415 00:00: 00 Yes [id number] Take by mouth SEE-INSTRU CTIONS. follow package directions [facility] albuterol 90 mcg/actuati on inhaler 2020-0 4-15 00:00: 00 Yes [id number] 2{puff} Inhale 2 Puffs every 6 (six) hours as needed for Wheezing or Shortness of Breath. [facility] albuterol 90 mcg/actuati on inhaler 2019-0 4-15 00:00: 00 Yes [id number] 2{puff} Inhale 2 Puffs every 6 (six) hours as needed for Wheezing or Shortness of Breath. [facility] azithromyci n 250 mg tablet 0 4-15 00:00: 00 Yes [id number] 250mg Take 1 tablet by mouth daily. Take 500 mg day 1, then 250 mg days 2 to 5. [facility] benzonatate (TESSALON PERLES) 100 mg capsule 15 00:00: 00 Yes [id number] 100mg Take 1 capsule by mouth 3 (three) times daily as needed for Cough. [facility] azithromyci n 250 mg tablet 15 00:00: 00 Yes [id number] 250mg Take 1 tablet by mouth daily. Take 500 mg day 1, then 250 mg days 2 to 5. [facility] methylPREDN ISolone (MEDROL, ARIANA,) 4 mg tablets 15 00:00: 00 Yes [id number] Take by mouth SEE-INSTRU CTIONS. follow package directions [facility] benzonatate (TESSALON PERLES) 100 mg capsule 0 15 00:00: 00 Yes [id number] 100mg Take 1 capsule by mouth 3 (three) times daily as needed for Cough. [facility] albuterol 90 mcg/actuati on inhaler 0 4-15 00:00: 00 Yes [id number] 2{puff} Inhale 2 Puffs every 6 (six) hours as needed for Wheezing or Shortness of Breath. [facility] azithromyci n 250 mg tablet 2019-0 4-15 00:00: 00 Yes [id number] 250mg Take 1 tablet by mouth daily. Take 500 mg day 1, then 250 mg days 2 to 5. [facility] benzonatate (TESSALON PERLES) 100 mg capsule 2019-0 4-15 00:00: 00 Yes [id number] 100mg Take 1 capsule by mouth 3 (three) times daily as needed for Cough. [facility] methylPREDN ISolone (MEDROL, ARIANA,) 4 mg tablets 2019-0 4-15 00:00: 00 Yes [id number] Take by mouth SEE-INSTRU CTIONS. follow package directions [facility] methylPREDN ISolone (MEDROL, ARIANA,) 4 mg tablets 0 415 00:00: 00 Yes [id number] Take by mouth SEE-INSTRU CTIONS. follow package directions [facility] albuterol 90 mcg/actuati on inhaler 0 15 00:00: 00 Yes [id number] 2{puff} Inhale 2 Puffs every 6 (six) hours as needed for Wheezing or Shortness of Breath. [facility] azithromyci n 250 mg tablet 0 15 00:00: 00 Yes [id number] 250mg Take 1 tablet by mouth daily. Take 500 mg day 1, then 250 mg days 2 to 5. [facility] benzonatate (TESSALON PERLES) 100 mg capsule 15 00:00: 00 Yes [id number] 100mg Take 1 capsule by mouth 3 (three) times daily as needed for Cough. [facility] methylPREDN ISolone (MEDROL, ARIANA,) 4 mg tablets 0 15 00:00: 00 Yes [id number] Take by mouth SEE-INSTRU CTIONS. follow package directions [facility] albuterol 90 mcg/actuati on inhaler 0 415 00:00: 00 Yes [id number] 2{puff} Inhale 2 Puffs every 6 (six) hours as needed for Wheezing or Shortness of Breath. [facility] azithromyci n 250 mg tablet 2019-0 415 00:00: 00 Yes [id number] 250mg Take 1 tablet by mouth daily. Take 500 mg day 1, then 250 mg days 2 to 5. [facility] benzonatate (TESSALON PERLES) 100 mg capsule 2019-0 4-15 00:00: 00 Yes [id number] 100mg Take 1 capsule by mouth 3 (three) times daily as needed for Cough. [facility] methylPREDN ISolone (MEDROL, ARIANA,) 4 mg tablets 2019-0 4-15 00:00: 00 Yes [id number] Take by mouth SEE-INSTRU CTIONS. follow package directions [facility] albuterol 90 mcg/actuati on inhaler 2019-0 4-15 00:00: 00 Yes [id number] 2{puff} Inhale 2 Puffs every 6 (six) hours as needed for Wheezing or Shortness of Breath. [facility] azithromyci n 250 mg tablet 2019-0 4-15 00:00: 00 Yes [id number] 250mg Take 1 tablet by mouth daily. Take 500 mg day 1, then 250 mg days 2 to 5. [facility] albuterol 90 mcg/actuati on inhaler 0 -15 00:00: 00 Yes [id number] 2{puff} Inhale 2 Puffs every 6 (six) hours as needed for Wheezing or Shortness of Breath. [facility] azithromyci n 250 mg tablet 0 4-15 00:00: 00 Yes [id number] 250mg Take 1 tablet by mouth daily. Take 500 mg day 1, then 250 mg days 2 to 5. [facility] benzonatate (TESSALON PERLES) 100 mg capsule 2019-0 4-15 00:00: 00 Yes [id number] 100mg Take 1 capsule by mouth 3 (three) times daily as needed for Cough. [facility] methylPREDN ISolone (MEDROL, ARIANA,) 4 mg tablets 2019-0 4-15 00:00: 00 Yes [id number] Take by mouth SEE-INSTRU CTIONS. follow package directions [facility] benzonatate (TESSALON PERLES) 100 mg capsule 2019-0 4-15 00:00: 00 Yes [id number] 100mg Take 1 capsule by mouth 3 (three) times daily as needed for Cough. [facility] methylPREDN ISolone (MEDROL, ARIANA,) 4 mg tablets 2019-0 4-15 00:00: 00 Yes [id number] Take by mouth SEE-INSTRU CTIONS. follow package directions [facility] albuterol 90 mcg/actuati on inhaler 2020-0 4-15 00:00: 00 Yes [id number] 2{puff} Inhale 2 Puffs every 6 (six) hours as needed for Wheezing or Shortness of Breath. [facility] azithromyci n 250 mg tablet 2019-0 4-15 00:00: 00 Yes [id number] 250mg Take 1 tablet by mouth daily. Take 500 mg day 1, then 250 mg days 2 to 5. [facility] benzonatate (TESSALON PERLES) 100 mg capsule 2019-0 4-15 00:00: 00 Yes [id number] 100mg Take 1 capsule by mouth 3 (three) times daily as needed for Cough. [facility] methylPREDN ISolone (MEDROL, ARIANA,) 4 mg tablets 0 15 00:00: 00 Yes [id number] Take by mouth SEE-INSTRU CTIONS. follow package directions [facility] albuterol 90 mcg/actuati on inhaler 0 15 00:00: 00 Yes [id number] 2{puff} Inhale 2 Puffs every 6 (six) hours as needed for Wheezing or Shortness of Breath. [facility] azithromyci n 250 mg tablet 2019-0 15 00:00: 00 Yes [id number] 250mg Take 1 tablet by mouth daily. Take 500 mg day 1, then 250 mg days 2 to 5. [facility] benzonatate (TESSALON PERLES) 100 mg capsule 2019-0 -15 00:00: 00 Yes [id number] 100mg Take 1 capsule by mouth 3 (three) times daily as needed for Cough. [facility] methylPREDN ISolone (MEDROL, ARIANA,) 4 mg tablets 0 4-15 00:00: 00 Yes [id number] Take by mouth SEE-INSTRU CTIONS. follow package directions [facility] albuterol 90 mcg/actuati on inhaler 2020-0 4-15 00:00: 00 Yes [id number] 2{puff} Inhale 2 Puffs every 6 (six) hours as needed for Wheezing or Shortness of Breath. [facility] azithromyci n 250 mg tablet 2019-0 15 00:00: 00 Yes [id number] 250mg Take 1 tablet by mouth daily. Take 500 mg day 1, then 250 mg days 2 to 5. [facility] albuterol 90 mcg/actuati on inhaler 0 415 00:00: 00 Yes [id number] 2{puff} Inhale 2 Puffs every 6 (six) hours as needed for Wheezing or Shortness of Breath. [facility] benzonatate (TESSALON PERLES) 100 mg capsule 0 -15 00:00: 00 Yes [id number] 100mg Take 1 capsule by mouth 3 (three) times daily as needed for Cough. [facility] methylPREDN ISolone (MEDROL, ARIANA,) 4 mg tablets 15 00:00: 00 Yes [id number] Take by mouth SEE-INSTRU CTIONS. follow package directions [facility] azithromyci n 250 mg tablet 0 15 00:00: 00 Yes [id number] 250mg Take 1 tablet by mouth daily. Take 500 mg day 1, then 250 mg days 2 to 5. [facility] albuterol 90 mcg/actuati on inhaler 0 15 00:00: 00 Yes [id number] 2{puff} Inhale 2 Puffs every 6 (six) hours as needed for Wheezing or Shortness of Breath. [facility] azithromyci n 250 mg tablet 0 15 00:00: 00 Yes [id number] 250mg Take 1 tablet by mouth daily. Take 500 mg day 1, then 250 mg days 2 to 5. [facility] benzonatate (TESSALON PERLES) 100 mg capsule 2019-0 -15 00:00: 00 Yes [id number] 100mg Take 1 capsule by mouth 3 (three) times daily as needed for Cough. [facility] methylPREDN ISolone (MEDROL, ARIANA,) 4 mg tablets 0 4-15 00:00: 00 Yes [id number] Take by mouth SEE-INSTRU CTIONS. follow package directions [facility] benzonatate (TESSALON PERLES) 100 mg capsule 2020-0 4-15 00:00: 00 Yes [id number] 100mg Take 1 capsule by mouth 3 (three) times daily as needed for Cough. [facility] methylPREDN ISolone (MEDROL, ARIANA,) 4 mg tablets 2019-0 4-15 00:00: 00 Yes [id number] Take by mouth SEE-INSTRU CTIONS. follow package directions [facility] albuterol 90 mcg/actuati on inhaler 2020-0 4-15 00:00: 00 Yes [id number] 2{puff} Inhale 2 Puffs every 6 (six) hours as needed for Wheezing or Shortness of Breath. [facility] azithromyci n 250 mg tablet 2019-0 4-15 00:00: 00 Yes [id number] 250mg Take 1 tablet by mouth daily. Take 500 mg day 1, then 250 mg days 2 to 5. [facility] benzonatate (TESSALON PERLES) 100 mg capsule 2019-0 4-15 00:00: 00 Yes [id number] 100mg Take 1 capsule by mouth 3 (three) times daily as needed for Cough. [facility] methylPREDN ISolone (MEDROL, ARIANA,) 4 mg tablets 2019-0 4-15 00:00: 00 Yes [id number] Take by mouth SEE-INSTRU CTIONS. follow package directions [facility] albuterol 90 mcg/actuati on inhaler 2019-0 4-15 00:00: 00 Yes [id number] 2{puff} Inhale 2 Puffs every 6 (six) hours as needed for Wheezing or Shortness of Breath. [facility] azithromyci n 250 mg tablet 2019-0 4-15 00:00: 00 Yes [id number] 250mg Take 1 tablet by mouth daily. Take 500 mg day 1, then 250 mg days 2 to 5. [facility] benzonatate (TESSALON PERLES) 100 mg capsule 2019-0 4-15 00:00: 00 Yes [id number] 100mg Take 1 capsule by mouth 3 (three) times daily as needed for Cough. [facility] methylPREDN ISolone (MEDROL, ARIANA,) 4 mg tablets 0 4-15 00:00: 00 Yes [id number] Take by mouth SEE-INSTRU CTIONS. follow package directions [facility] albuterol 90 mcg/actuati on inhaler 2019-0 4-15 00:00: 00 Yes [id number] 2{puff} Inhale 2 Puffs every 6 (six) hours as needed for Wheezing or Shortness of Breath. [facility] azithromyci n 250 mg tablet 2019-0 4-15 00:00: 00 Yes [id number] 250mg Take 1 tablet by mouth daily. Take 500 mg day 1, then 250 mg days 2 to 5. [facility] benzonatate (TESSALON PERLES) 100 mg capsule 2019-0 -15 00:00: 00 Yes [id number] 100mg Take 1 capsule by mouth 3 (three) times daily as needed for Cough. [facility] methylPREDN ISolone (MEDROL, ARIANA,) 4 mg tablets 0 15 00:00: 00 Yes [id number] Take by mouth SEE-INSTRU CTIONS. follow package directions [facility] albuterol 90 mcg/actuati on inhaler 0 15 00:00: 00 Yes [id number] 2{puff} Inhale 2 Puffs every 6 (six) hours as needed for Wheezing or Shortness of Breath. [facility] azithromyci n 250 mg tablet 0 15 00:00: 00 Yes [id number] 250mg Take 1 tablet by mouth daily. Take 500 mg day 1, then 250 mg days 2 to 5. [facility] benzonatate (TESSALON PERLES) 100 mg capsule 0 15 00:00: 00 Yes [id number] 100mg Take 1 capsule by mouth 3 (three) times daily as needed for Cough. [facility] methylPREDN ISolone (MEDROL, ARIANA,) 4 mg tablets 2019-0 4-15 00:00: 00 Yes [id number] Take by mouth SEE-INSTRU CTIONS. follow package directions [facility] albuterol 90 mcg/actuati on inhaler 2019-0 4-15 00:00: 00 Yes [id number] 2{puff} Inhale 2 Puffs every 6 (six) hours as needed for Wheezing or Shortness of Breath. [facility] albuterol 90 mcg/actuati on inhaler 2020-0 4-15 00:00: 00 Yes [id number] 2{puff} Inhale 2 Puffs every 6 (six) hours as needed for Wheezing or Shortness of Breath. [facility] azithromyci n 250 mg tablet 2019-0 4-15 00:00: 00 Yes [id number] 250mg Take 1 tablet by mouth daily. Take 500 mg day 1, then 250 mg days 2 to 5. [facility] benzonatate (TESSALON PERLES) 100 mg capsule 2019-0 4-15 00:00: 00 Yes [id number] 100mg Take 1 capsule by mouth 3 (three) times daily as needed for Cough. [facility] azithromyci n 250 mg tablet 2019-0 4-15 00:00: 00 Yes [id number] 250mg Take 1 tablet by mouth daily. Take 500 mg day 1, then 250 mg days 2 to 5. [facility] methylPREDN ISolone (MEDROL, ARIANA,) 4 mg tablets 0 15 00:00: 00 Yes [id number] Take by mouth SEE-INSTRU CTIONS. follow package directions [facility] benzonatate (TESSALON PERLES) 100 mg capsule 0 415 00:00: 00 Yes [id number] 100mg Take 1 capsule by mouth 3 (three) times daily as needed for Cough. [facility] albuterol 90 mcg/actuati on inhaler 0 4-15 00:00: 00 Yes [id number] 2{puff} Inhale 2 Puffs every 6 (six) hours as needed for Wheezing or Shortness of Breath. [facility] azithromyci n 250 mg tablet 2019-0 4-15 00:00: 00 Yes [id number] 250mg Take 1 tablet by mouth daily. Take 500 mg day 1, then 250 mg days 2 to 5. [facility] benzonatate (TESSALON PERLES) 100 mg capsule 2019-0 4-15 00:00: 00 Yes [id number] 100mg Take 1 capsule by mouth 3 (three) times daily as needed for Cough. [facility] methylPREDN ISolone (MEDROL, ARIANA,) 4 mg tablets 2019-0 4-15 00:00: 00 Yes [id number] Take by mouth SEE-INSTRU CTIONS. follow package directions [facility] methylPREDN ISolone (MEDROL, ARIANA,) 4 mg tablets 0 4-15 00:00: 00 Yes [id number] Take by mouth SEE-INSTRU CTIONS. follow package directions [facility] albuterol 90 mcg/actuati on inhaler 0 415 00:00: 00 Yes [id number] 2{puff} Inhale 2 Puffs every 6 (six) hours as needed for Wheezing or Shortness of Breath. [facility] azithromyci n 250 mg tablet 15 00:00: 00 Yes [id number] 250mg Take 1 tablet by mouth daily. Take 500 mg day 1, then 250 mg days 2 to 5. [facility] benzonatate (TESSALON PERLES) 100 mg capsule 0 15 00:00: 00 Yes [id number] 100mg Take 1 capsule by mouth 3 (three) times daily as needed for Cough. [facility] methylPREDN ISolone (MEDROL, ARIANA,) 4 mg tablets 15 00:00: 00 Yes [id number] Take by mouth SEE-INSTRU CTIONS. follow package directions [facility] albuterol 90 mcg/actuati on inhaler 0 15 00:00: 00 Yes [id number] 2{puff} Inhale 2 Puffs every 6 (six) hours as needed for Wheezing or Shortness of Breath. [facility] azithromyci n 250 mg tablet 0 4-15 00:00: 00 Yes [id number] 250mg Take 1 tablet by mouth daily. Take 500 mg day 1, then 250 mg days 2 to 5. [facility] benzonatate (TESSALON PERLES) 100 mg capsule 2019-0 4-15 00:00: 00 Yes [id number] 100mg Take 1 capsule by mouth 3 (three) times daily as needed for Cough. [facility] methylPREDN ISolone (MEDROL, ARIANA,) 4 mg tablets 0 415 00:00: 00 Yes [id number] Take by mouth SEE-INSTRU CTIONS. follow package directions [facility] albuterol 90 mcg/actuati on inhaler 0 415 00:00: 00 Yes [id number] 2{puff} Inhale 2 Puffs every 6 (six) hours as needed for Wheezing or Shortness of Breath. [facility] azithromyci n 250 mg tablet 0 15 00:00: 00 Yes [id number] 250mg Take 1 tablet by mouth daily. Take 500 mg day 1, then 250 mg days 2 to 5. [facility] benzonatate (TESSALON PERLES) 100 mg capsule 15 00:00: 00 Yes [id number] 100mg Take 1 capsule by mouth 3 (three) times daily as needed for Cough. [facility] methylPREDN ISolone (MEDROL, ARIANA,) 4 mg tablets 15 00:00: 00 Yes [id number] Take by mouth SEE-INSTRU CTIONS. follow package directions [facility] albuterol 90 mcg/actuati on inhaler 15 00:00: 00 Yes [id number] 2{puff} Inhale 2 Puffs every 6 (six) hours as needed for Wheezing or Shortness of Breath. [facility] azithromyci n 250 mg tablet 15 00:00: 00 Yes [id number] 250mg Take 1 tablet by mouth daily. Take 500 mg day 1, then 250 mg days 2 to 5. [facility] benzonatate (TESSALON PERLES) 100 mg capsule 0 15 00:00: 00 Yes [id number] 100mg Take 1 capsule by mouth 3 (three) times daily as needed for Cough. [facility] methylPREDN ISolone (MEDROL, ARIANA,) 4 mg tablets 0 415 00:00: 00 Yes [id number] Take by mouth SEE-INSTRU CTIONS. follow package directions [facility] albuterol 90 mcg/actuati on inhaler 15 00:00: 00 Yes [id number] 2{puff} Inhale 2 Puffs every 6 (six) hours as needed for Wheezing or Shortness of Breath. [facility] azithromyci n 250 mg tablet 15 00:00: 00 Yes [id number] 250mg Take 1 tablet by mouth daily. Take 500 mg day 1, then 250 mg days 2 to 5. [facility] benzonatate (TESSALON PERLES) 100 mg capsule 15 00:00: 00 Yes [id number] 100mg Take 1 capsule by mouth 3 (three) times daily as needed for Cough. [facility] methylPREDN ISolone (MEDROL, ARIANA,) 4 mg tablets 15 00:00: 00 Yes [id number] Take by mouth SEE-INSTRU CTIONS. follow package directions [facility] albuterol 90 mcg/actuati on inhaler 10-17 00:00: 00 Yes [id number] 2{puff} Inhale 2 Puffs every 6 (six) hours as needed for Wheezing or Shortness of Breath. [facility] azithromyci n 250 mg tablet 10-17 00:00: 00 Yes [id number] 250mg Take 1 tablet by mouth daily. Take 500 mg day 1, then 250 mg days 2 to 5. [facility] benzonatate (TESSALON PERLES) 100 mg capsule 15 00:00: 00 Yes [id number] 100mg Take 1 capsule by mouth 3 (three) times daily as needed for Cough. [facility] methylPREDN ISolone (MEDROL, ARIANA,) 4 mg tablets 15 00:00: 00 Yes [id number] Take by mouth SEE-INSTRU CTIONS. follow package directions [facility] albuterol 90 mcg/actuati on inhaler 15 00:00: 00 Yes [id number] 2{puff} Inhale 2 Puffs every 6 (six) hours as needed for Wheezing or Shortness of Breath. [facility] azithromyci n 250 mg tablet 15 00:00: 00 Yes [id number] 250mg Take 1 tablet by mouth daily. Take 500 mg day 1, then 250 mg days 2 to 5. [facility] benzonatate (TESSALON PERLES) 100 mg capsule 0 4-15 00:00: 00 Yes [id number] 100mg Take 1 capsule by mouth 3 (three) times daily as needed for Cough. [facility] methylPREDN ISolone (MEDROL, ARIANA,) 4 mg tablets 0 415 00:00: 00 Yes [id number] Take by mouth SEE-INSTRU CTIONS. follow package directions [facility] albuterol 90 mcg/actuati on inhaler 0 -15 00:00: 00 Yes [id number] 2{puff} Inhale 2 Puffs every 6 (six) hours as needed for Wheezing or Shortness of Breath. [facility] azithromyci n 250 mg tablet 15 00:00: 00 Yes [id number] 250mg Take 1 tablet by mouth daily. Take 500 mg day 1, then 250 mg days 2 to 5. [facility] benzonatate (TESSALON PERLES) 100 mg capsule 15 00:00: 00 Yes [id number] 100mg Take 1 capsule by mouth 3 (three) times daily as needed for Cough. [facility] methylPREDN ISolone (MEDROL, ARIANA,) 4 mg tablets 15 00:00: 00 Yes [id number] Take by mouth SEE-INSTRU CTIONS. follow package directions [facility] albuterol 90 mcg/actuati on inhaler 0 15 00:00: 00 Yes [id number] 2{puff} Inhale 2 Puffs every 6 (six) hours as needed for Wheezing or Shortness of Breath. [facility] albuterol 90 mcg/actuati on inhaler 0 4-15 00:00: 00 Yes [id number] 2{puff} Inhale 2 Puffs every 6 (six) hours as needed for Wheezing or Shortness of Breath. [facility] azithromyci n 250 mg tablet 0 4-15 00:00: 00 Yes [id number] 250mg Take 1 tablet by mouth daily. Take 500 mg day 1, then 250 mg days 2 to 5. [facility] benzonatate (TESSALON PERLES) 100 mg capsule 2020-0 4-15 00:00: 00 Yes [id number] 100mg Take 1 capsule by mouth 3 (three) times daily as needed for Cough. [facility] methylPREDN ISolone (MEDROL, ARIANA,) 4 mg tablets 2019-0 4-15 00:00: 00 Yes [id number] Take by mouth SEE-INSTRU CTIONS. follow package directions [facility] azithromyci n 250 mg tablet 2019-0 4-15 00:00: 00 Yes [id number] 250mg Take 1 tablet by mouth daily. Take 500 mg day 1, then 250 mg days 2 to 5. [facility] albuterol 90 mcg/actuati on inhaler 2019-0 4-15 00:00: 00 Yes [id number] 2{puff} Inhale 2 Puffs every 6 (six) hours as needed for Wheezing or Shortness of Breath. [facility] azithromyci n 250 mg tablet 2019-0 4-15 00:00: 00 Yes [id number] 250mg Take 1 tablet by mouth daily. Take 500 mg day 1, then 250 mg days 2 to 5. [facility] benzonatate (TESSALON PERLES) 100 mg capsule 2019-0 4-15 00:00: 00 Yes [id number] 100mg Take 1 capsule by mouth 3 (three) times daily as needed for Cough. [facility] benzonatate (TESSALON PERLES) 100 mg capsule 2019-0 4-15 00:00: 00 Yes [id number] 100mg Take 1 capsule by mouth 3 (three) times daily as needed for Cough. [facility] methylPREDN ISolone (MEDROL, ARIANA,) 4 mg tablets 2019-0 4-15 00:00: 00 Yes [id number] Take by mouth SEE-INSTRU CTIONS. follow package directions [facility] methylPREDN ISolone (MEDROL, ARIANA,) 4 mg tablets 2019-0 4-15 00:00: 00 Yes [id number] Take by mouth SEE-INSTRU CTIONS. follow package directions [facility] albuterol 90 mcg/actuati on inhaler 15 00:00: 00 Yes [id number] 2{puff} Inhale 2 Puffs every 6 (six) hours as needed for Wheezing or Shortness of Breath. [facility] azithromyci n 250 mg tablet 10-17 00:00: 00 Yes [id number] 250mg Take 1 tablet by mouth daily. Take 500 mg day 1, then 250 mg days 2 to 5. [facility] benzonatate (TESSALON PERLES) 100 mg capsule 10-17 00:00: 00 Yes [id number] 100mg Take 1 capsule by mouth 3 (three) times daily as needed for Cough. [facility] methylPREDN ISolone (MEDROL, ARIANA,) 4 mg tablets 10-17 00:00: 00 Yes [id number] Take by mouth SEE-INSTRU CTIONS. follow package directions [facility] albuterol 90 mcg/actuati on inhaler 10-17 00:00: 00 Yes [id number] 2{puff} Inhale 2 Puffs every 6 (six) hours as needed for Wheezing or Shortness of Breath. [facility] azithromyci n 250 mg tablet 10-17 00:00: 00 Yes [id number] 250mg Take 1 tablet by mouth daily. Take 500 mg day 1, then 250 mg days 2 to 5. [facility] benzonatate (TESSALON PERLES) 100 mg capsule 10-17 00:00: 00 Yes [id number] 100mg Take 1 capsule by mouth 3 (three) times daily as needed for Cough. [facility] methylPREDN ISolone (MEDROL, ARIANA,) 4 mg tablets 10-17 00:00: 00 Yes [id number] Take by mouth SEE-INSTRU CTIONS. follow package directions [facility] albuterol 90 mcg/actuati on inhaler 15 00:00: 00 Yes [id number] 2{puff} Inhale 2 Puffs every 6 (six) hours as needed for Wheezing or Shortness of Breath. [facility] azithromyci n 250 mg tablet 2020-0 4-15 00:00: 00 Yes [id number] 250mg Take 1 tablet by mouth daily. Take 500 mg day 1, then 250 mg days 2 to 5. [facility] benzonatate (TESSALON PERLES) 100 mg capsule 2019-0 4-15 00:00: 00 Yes [id number] 100mg Take 1 capsule by mouth 3 (three) times daily as needed for Cough. [facility] methylPREDN ISolone (MEDROL, ARIANA,) 4 mg tablets 0 15 00:00: 00 Yes [id number] Take by mouth SEE-INSTRU CTIONS. follow package directions [facility] albuterol 90 mcg/actuati on inhaler 0 15 00:00: 00 Yes [id number] 2{puff} Inhale 2 Puffs every 6 (six) hours as needed for Wheezing or Shortness of Breath. [facility] azithromyci n 250 mg tablet 2019-0 15 00:00: 00 Yes [id number] 250mg Take 1 tablet by mouth daily. Take 500 mg day 1, then 250 mg days 2 to 5. [facility] benzonatate (TESSALON PERLES) 100 mg capsule 0 15 00:00: 00 Yes [id number] 100mg Take 1 capsule by mouth 3 (three) times daily as needed for Cough. [facility] methylPREDN ISolone (MEDROL, ARIANA,) 4 mg tablets 0 15 00:00: 00 Yes [id number] Take by mouth SEE-INSTRU CTIONS. follow package directions [facility] albuterol 90 mcg/actuati on inhaler 0 15 00:00: 00 Yes [id number] 2{puff} Inhale 2 Puffs every 6 (six) hours as needed for Wheezing or Shortness of Breath. [facility] azithromyci n 250 mg tablet 0 15 00:00: 00 Yes [id number] 250mg Take 1 tablet by mouth daily. Take 500 mg day 1, then 250 mg days 2 to 5. [facility] benzonatate (TESSALON PERLES) 100 mg capsule 2019-0 -15 00:00: 00 Yes [id number] 100mg Take 1 capsule by mouth 3 (three) times daily as needed for Cough. [facility] methylPREDN ISolone (MEDROL, ARIANA,) 4 mg tablets 0 4-15 00:00: 00 Yes [id number] Take by mouth SEE-INSTRU CTIONS. follow package directions [facility] albuterol 90 mcg/actuati on inhaler 0 4-15 00:00: 00 Yes [id number] 2{puff} Inhale 2 Puffs every 6 (six) hours as needed for Wheezing or Shortness of Breath. [facility] azithromyci n 250 mg tablet 0 -15 00:00: 00 Yes [id number] 250mg Take 1 tablet by mouth daily. Take 500 mg day 1, then 250 mg days 2 to 5. [facility] benzonatate (TESSALON PERLES) 100 mg capsule 0 15 00:00: 00 Yes [id number] 100mg Take 1 capsule by mouth 3 (three) times daily as needed for Cough. [facility] methylPREDN ISolone (MEDROL, ARIANA,) 4 mg tablets 0 15 00:00: 00 Yes [id number] Take by mouth SEE-INSTRU CTIONS. follow package directions [facility] albuterol 90 mcg/actuati on inhaler 0 -15 00:00: 00 Yes [id number] 2{puff} Inhale 2 Puffs every 6 (six) hours as needed for Wheezing or Shortness of Breath. [facility] azithromyci n 250 mg tablet 0 -15 00:00: 00 Yes [id number] 250mg Take 1 tablet by mouth daily. Take 500 mg day 1, then 250 mg days 2 to 5. [facility] benzonatate (TESSALON PERLES) 100 mg capsule 0 -15 00:00: 00 Yes [id number] 100mg Take 1 capsule by mouth 3 (three) times daily as needed for Cough. [facility] methylPREDN ISolone (MEDROL, ARIANA,) 4 mg tablets 0 4-15 00:00: 00 Yes [id number] Take by mouth SEE-INSTRU CTIONS. follow package directions [facility] albuterol 90 mcg/actuati on inhaler 2020-0 4-15 00:00: 00 Yes [id number] 2{puff} Inhale 2 Puffs every 6 (six) hours as needed for Wheezing or Shortness of Breath. [facility] azithromyci n 250 mg tablet 2019-0 4-15 00:00: 00 Yes [id number] 250mg Take 1 tablet by mouth daily. Take 500 mg day 1, then 250 mg days 2 to 5. [facility] benzonatate (TESSALON PERLES) 100 mg capsule 0 4-15 00:00: 00 Yes [id number] 100mg Take 1 capsule by mouth 3 (three) times daily as needed for Cough. [facility] methylPREDN ISolone (MEDROL, ARIANA,) 4 mg tablets 0 15 00:00: 00 Yes [id number] Take by mouth SEE-INSTRU CTIONS. follow package directions [facility] albuterol 90 mcg/actuati on inhaler 0 15 00:00: 00 Yes [id number] 2{puff} Inhale 2 Puffs every 6 (six) hours as needed for Wheezing or Shortness of Breath. [facility] azithromyci n 250 mg tablet 15 00:00: 00 Yes [id number] 250mg Take 1 tablet by mouth daily. Take 500 mg day 1, then 250 mg days 2 to 5. [facility] benzonatate (TESSALON PERLES) 100 mg capsule 0 4-15 00:00: 00 Yes [id number] 100mg Take 1 capsule by mouth 3 (three) times daily as needed for Cough. [facility] methylPREDN ISolone (MEDROL, ARIANA,) 4 mg tablets 0 4-15 00:00: 00 Yes [id number] Take by mouth SEE-INSTRU CTIONS. follow package directions [facility] albuterol 90 mcg/actuati on inhaler 20200 4-15 00:00: 00 Yes [id number] 2{puff} Inhale 2 Puffs every 6 (six) hours as needed for Wheezing or Shortness of Breath. [facility] azithromyci n 250 mg tablet 15 00:00: 00 Yes [id number] 250mg Take 1 tablet by mouth daily. Take 500 mg day 1, then 250 mg days 2 to 5. [facility] benzonatate (TESSALON PERLES) 100 mg capsule 15 00:00: 00 Yes [id number] 100mg Take 1 capsule by mouth 3 (three) times daily as needed for Cough. [facility] methylPREDN ISolone (MEDROL, ARIANA,) 4 mg tablets 15 00:00: 00 Yes [id number] Take by mouth SEE-INSTRU CTIONS. follow package directions [facility] albuterol 90 mcg/actuati on inhaler 15 00:00: 00 Yes [id number] 2{puff} Inhale 2 Puffs every 6 (six) hours as needed for Wheezing or Shortness of Breath. [facility] azithromyci n 250 mg tablet 15 00:00: 00 Yes [id number] 250mg Take 1 tablet by mouth daily. Take 500 mg day 1, then 250 mg days 2 to 5. [facility] benzonatate (TESSALON PERLES) 100 mg capsule 15 00:00: 00 Yes [id number] 100mg Take 1 capsule by mouth 3 (three) times daily as needed for Cough. [facility] methylPREDN ISolone (MEDROL, ARIANA,) 4 mg tablets 15 00:00: 00 Yes [id number] Take by mouth SEE-INSTRU CTIONS. follow package directions [facility] albuterol 90 mcg/actuati on inhaler 15 00:00: 00 Yes [id number] 2{puff} Inhale 2 Puffs every 6 (six) hours as needed for Wheezing or Shortness of Breath. [facility] azithromyci n 250 mg tablet 15 00:00: 00 Yes [id number] 250mg Take 1 tablet by mouth daily. Take 500 mg day 1, then 250 mg days 2 to 5. [facility] benzonatate (TESSALON PERLES) 100 mg capsule 10-17 00:00: 00 Yes [id number] 100mg Take 1 capsule by mouth 3 (three) times daily as needed for Cough. [facility] methylPREDN ISolone (MEDROL, ARIANA,) 4 mg tablets 10-17 00:00: 00 Yes [id number] Take by mouth SEE-INSTRU CTIONS. follow package directions [facility] albuterol 90 mcg/actuati on inhaler 10-17 00:00: 00 Yes [id number] 2{puff} Inhale 2 Puffs every 6 (six) hours as needed for Wheezing or Shortness of Breath. [facility] azithromyci n 250 mg tablet 10-17 00:00: 00 Yes [id number] 250mg Take 1 tablet by mouth daily. Take 500 mg day 1, then 250 mg days 2 to 5. [facility] benzonatate (TESSALON PERLES) 100 mg capsule 10-17 00:00: 00 Yes [id number] 100mg Take 1 capsule by mouth 3 (three) times daily as needed for Cough. [facility] methylPREDN ISolone (MEDROL, ARIANA,) 4 mg tablets 10-17 00:00: 00 Yes [id number] Take by mouth SEE-INSTRU CTIONS. follow package directions [facility] Vital Signs Vital Name Observation Time Observation Value Comments S cyrus Systolic blood pressure 2023-01-01 19:00:00 112 mm[Hg] manual [facility] Diastolic blood pressure 2023-01-01 19:00:00 70 mm[Hg] manual [facility] Heart rate 2023-01-01 19:00:00 109 /min [facility] Respiratory rate 2023-01-01 19:00:00 24 /min [facility] Body weight 2023-01-01 19:00:00 35.925 kg [facility] BMI 2023-01-01 19:00:00 11.36 kg/m2 [facility] Oxygen saturation in Arterial blood by Pulse oximetry 2023-01-01 19:00:00 98 /min arrived wearing pulsed NC 1l/m; 6MW completed on 1-2l/m con't NC [facility] Systolic blood pressure 2022-12-17 18:00:00 128 mm[Hg] manual [facility] Diastolic blood pressure 2022-12-17 18:00:00 68 mm[Hg] manual [facility] Heart rate 2022-12-17 18:00:00 101 /min [facility] Respiratory rate 2022-12-17 18:00:00 22 /min [facility] Body weight 2022-12-17 18:00:00 35.925 kg [facility] BMI 2022-12-17 18:00:00 11.36 kg/m2 [facility] Oxygen saturation in Arterial blood by Pulse oximetry 2022-12-17 18:00:00 93 /min arrived on 1 l/m pulsed NC; exercised on 1- 2 l/m con't NC [facility] Systolic blood pressure 2022-12-15 18:00:00 122 mm[Hg] manual [facility] Diastolic blood pressure 2022-12-15 18:00:00 74 mm[Hg] manual [facility] Heart rate 2022-12-15 18:00:00 94 /min [facility] Respiratory rate 2022-12-15 18:00:00 22 /min [facility] Body weight 2022-12-15 18:00:00 35.653 kg [facility] BMI 2022-12-15 18:00:00 11.28 kg/m2 [facility] Oxygen saturation in Arterial blood by Pulse oximetry 2022-12-15 18:00:00 94 /min arrived on 1 l/m pulsed NC; exercised on 1 l/m con't NC [facility] Systolic blood pressure 2022-12-10 18:00:00 126 mm[Hg] manual [facility] Diastolic blood pressure 2022-12-10 18:00:00 72 mm[Hg] manual [facility] Heart rate 2022-12-10 18:00:00 132 /min [facility] Respiratory rate 2022-12-10 18:00:00 22 /min [facility] Body weight 2022-12-10 18:00:00 35.925 kg [facility] BMI 2022-12-10 18:00:00 11.36 kg/m2 [facility] Oxygen saturation in Arterial blood by Pulse oximetry 2022-12-10 18:00:00 95 /min arrived on 1 l/m pulsed NC; exercised on 1 l/m con't NC [facility] Systolic blood pressure 2022-12-08 18:00:00 110 mm[Hg] manual, taken twice, hard to hear today [facility] Diastolic blood pressure 2022-12-08 18:00:00 70 mm[Hg] manual, taken twice, hard to hear today [facility] Heart rate 2022-12-08 18:00:00 100 /min [facility] Respiratory rate 2022-12-08 18:00:00 22 /min [facility] Body weight 2022-12-08 18:00:00 35.381 kg [facility] BMI 2022-12-08 18:00:00 11.19 kg/m2 [facility] Oxygen saturation in Arterial blood by Pulse oximetry 2022-12-08 18:00:00 97 /min arrived on 1 l/m pulsed NC; exercised on 1-2 l/m con't NC [facility] Systolic blood pressure 2022-12-03 18:00:00 130 mm[Hg] manual; taken twice due to higher than normal systolic reading [facility] Diastolic blood pressure 2022-12-03 18:00:00 70 mm[Hg] manual; taken twice due to higher than normal systolic reading [facility] Heart rate 2022-12-03 18:00:00 110 /min [facility] Respiratory rate 2022-12-03 18:00:00 24 /min [facility] Body weight 2022-12-03 18:00:00 35.834 kg [facility] BMI 2022-12-03 18:00:00 11.34 kg/m2 [facility] Oxygen saturation in Arterial blood by Pulse oximetry 2022-12-03 18:00:00 88 /min arrived on 1 l/m pulsed NC; exercised on 1-2 l/m con't NC [facility] Systolic blood pressure 2022-12-01 18:00:00 118 mm[Hg] manual [facility] Diastolic blood pressure 2022-12-01 18:00:00 70 mm[Hg] manual [facility] Heart rate 2022-12-01 18:00:00 104 /min [facility] Respiratory rate 2022-12-01 18:00:00 22 /min [facility] Body weight 2022-12-01 18:00:00 35.834 kg [facility] BMI 2022-12-01 18:00:00 11.34 kg/m2 [facility] Oxygen saturation in Arterial blood by Pulse oximetry 2022-12-01 18:00:00 95 /min arrived wearing 1 l/m pulsed NC; exercised on 1 l/m con't NC [facility] Systolic blood pressure 2022-11-26 18:00:00 130 mm[Hg] [facility] Diastolic blood pressure 2022-11-26 18:00:00 60 mm[Hg] [facility] Heart rate 2022-11-26 18:00:00 91 /min [facility] Body weight 2022-11-26 18:00:00 35.925 kg [facility] BMI 2022-11-26 18:00:00 11.36 kg/m2 [facility] Oxygen saturation in Arterial blood by Pulse oximetry 2022-11-26 18:00:00 93 /min [facility] Systolic blood pressure 2022-11-24 18:00:00 130 mm[Hg] [facility] Diastolic blood pressure 2022-11-24 18:00:00 70 mm[Hg] [facility] Heart rate 2022-11-24 18:00:00 117 /min [facility] Body weight 2022-11-24 18:00:00 35.925 kg [facility] BMI 2022-11-24 18:00:00 11.36 kg/m2 [facility] Oxygen saturation in Arterial blood by Pulse oximetry 2022-11-24 18:00:00 91 /min [facility] Systolic blood pressure 2022-11-19 18:00:00 112 mm[Hg] manual [facility] Diastolic blood pressure 2022-11-19 18:00:00 54 mm[Hg] manual [facility] Heart rate 2022-11-19 18:00:00 80 /min [facility] Respiratory rate 2022-11-19 18:00:00 24 /min [facility] Body weight 2022-11-19 18:00:00 36.016 kg [facility] BMI 2022-11-19 18:00:00 11.39 kg/m2 [facility] Oxygen saturation in Arterial blood by Pulse oximetry 2022-11-19 18:00:00 94 /min arrived on 1 l/m pulsed NC; exercised on 1 l/m con't NC [facility] Systolic blood pressure 2022-11-12 18:00:00 126 mm[Hg] manual [facility] Diastolic blood pressure 2022-11-12 18:00:00 76 mm[Hg] manual [facility] Heart rate 2022-11-12 18:00:00 105 /min [facility] Respiratory rate 2022-11-12 18:00:00 22 /min [facility] Body weight 2022-11-12 18:00:00 36.651 kg [facility] BMI 2022-11-12 18:00:00 11.59 kg/m2 [facility] Oxygen saturation in Arterial blood by Pulse oximetry 2022-11-12 18:00:00 93 /min arrived on 1 l/m pulsed NC; exercised on 1 l/m con't NC [facility] Systolic blood pressure 2022-11-10 18:00:00 130 mm[Hg] manual [facility] Diastolic blood pressure 2022-11-10 18:00:00 76 mm[Hg] manual [facility] Heart rate 2022-11-10 18:00:00 98 /min [facility] Respiratory rate 2022-11-10 18:00:00 22 /min [facility] Body weight 2022-11-10 18:00:00 36.56 kg [facility] BMI 2022-11-10 18:00:00 11.56 kg/m2 [facility] Oxygen saturation in Arterial blood by Pulse oximetry 2022-11-10 18:00:00 95 /min arrived on 1 l/m pulsed NC; exercised on 1 l/m con't NC [facility] Heart rate 2022-11-05 18:00:00 99 /min [facility] Respiratory rate 2022-11-05 18:00:00 22 /min [facility] Body weight 2022-11-05 18:00:00 36.469 kg [facility] BMI 2022-11-05 18:00:00 11.54 kg/m2 [facility] Oxygen saturation in Arterial blood by Pulse oximetry 2022-11-05 18:00:00 95 /min arrived on 1 l/m pulsed NC; exercised on 1 l/m con't NC [facility] Systolic blood pressure 2022-11-03 18:00:00 136 mm[Hg] [facility] Diastolic blood pressure 2022-11-03 18:00:00 60 mm[Hg] [facility] Heart rate 2022-11-03 18:00:00 93 /min [facility] Body weight 2022-11-03 18:00:00 36.469 kg [facility] BMI 2022-11-03 18:00:00 11.54 kg/m2 [facility] Oxygen saturation in Arterial blood by Pulse oximetry 2022-11-03 18:00:00 96 /min [facility] Systolic blood pressure 2022-10-29 18:00:00 126 mm[Hg] [facility] Diastolic blood pressure 2022-10-29 18:00:00 64 mm[Hg] [facility] Heart rate 2022-10-29 18:00:00 89 /min [facility] Body weight 2022-10-29 18:00:00 36.469 kg [facility] BMI 2022-10-29 18:00:00 11.54 kg/m2 [facility] Oxygen saturation in Arterial blood by Pulse oximetry 2022-10-29 18:00:00 98 /min [facility] Systolic blood pressure 2022-10-27 20:00:00 132 mm[Hg] manual [facility] Diastolic blood pressure 2022-10-27 20:00:00 66 mm[Hg] manual [facility] Heart rate 2022-10-27 20:00:00 75 /min [facility] Respiratory rate 2022-10-27 20:00:00 22 /min [facility] Body weight 2022-10-27 20:00:00 37.195 kg [facility] BMI 2022-10-27 20:00:00 11.77 kg/m2 [facility] Oxygen saturation in Arterial blood by Pulse oximetry 2022-10-27 20:00:00 96 /min arrived on 4 l/m pulsed NC (decrease once sit down); exercised on 1 l/m con't NC [facility] Systolic blood pressure 2022-10-21 18:00:00 126 mm[Hg] manual; right arm 124/68 manual [facility] Diastolic blood pressure 2022-10-21 18:00:00 68 mm[Hg] manual; right arm 124/68 manual [facility] Heart rate 2022-10-21 18:00:00 90 /min [facility] Respiratory rate 2022-10-21 18:00:00 22 /min [facility] Body weight 2022-10-21 18:00:00 37.104 kg [facility] BMI 2022-10-21 18:00:00 11.74 kg/m2 [facility] Oxygen saturation in Arterial blood by Pulse oximetry 2022-10-21 18:00:00 98 /min arrived on 4 l/m pulsed NC; 6MW on 1 l/m con't NC [facility] Systolic blood pressure 2019-10-30 21:05:00 145 mm[Hg] [facility] Diastolic blood pressure 2019-10-30 21:05:00 89 mm[Hg] [facility] Oxygen saturation in Arterial blood by Pulse oximetry 2019-10-30 21:05:00 96 /min [facility] Heart rate 2019-10-30 21:02:00 92 /min [facility] Body temperature 2019-10-30 21:02:00 37 Juliet [facility] Respiratory rate 2019-10-30 21:02:00 18 /min [facility] Body height 2019-10-30 21:02:00 177.8 cm [facility] Body weight 2019-10-30 21:02:00 40.824 kg [facility] BMI 2019-10-30 21:02:00 12.91 kg/m2 [facility] Systolic blood pressure 2019-10-18 16:47:00 125 mm[Hg] [facility] Diastolic blood pressure 2019-10-18 16:47:00 83 mm[Hg] [facility] Heart rate 2019-10-18 16:47:00 58 /min [facility] Body temperature 2019-10-18 16:47:00 37.33 Juliet [facility] Respiratory rate 2019-10-18 16:47:00 16 /min [facility] Body height 2019-10-18 16:47:00 177.8 cm [facility] Body weight 2019-10-18 16:47:00 41.731 kg [facility] BMI 2019-10-18 16:47:00 13.20 kg/m2 [facility] Oxygen saturation in Arterial blood by Pulse oximetry 2019-10-18 16:47:00 98 /min [facility] Procedures Procedure Date / Time Performed Performing Clinician Source AUTHORIZATION FOR RELEASE OF PHI 2023-01-12 05:01:00 Doctor Unassigned, [place] [facility] PULMONARY REHAB ITP REPORT 2023-01-02 01:46:00 Doctor Unassigned, [place] [facility] PULMONARY REHAB SESSION REPORT 2022-12-10 05:00:00 Doctor Unassigned, [place] [facility] PULMONARY REHAB SESSION REPORT 2022-12-01 05:00:00 Doctor Unassigned, [place] [facility] PULMONARY REHAB SESSION REPORT 2022-11-19 05:00:00 Doctor Unassigned, [place] [facility] PULMONARY REHAB SESSION REPORT 2022-11-05 05:00:00 Doctor Unassigned, [place] [facility] PULMONARY REHAB SESSION REPORT 2022-10-27 05:00:00 Doctor Unassigned, [place] [facility] REFERRAL- REQUEST/RESPONSE 2022-10-14 05:01:00 Doctor Unassigned, [place] [facility] Encounters Start Date/Time End Date/Time Encounter Type Admission Type Attending [facility] Care Facility Care Department Encounter ID Source 2023-01-12 00:00:00 2023-01-12 00:00:00 Letter (Out) Elo Faulkner [facility] 1.2840.114 350.1.13.10 4.2.7.2.686 [id number] [facility] 2023-01-12 00:00:00 2023-01-12 00:00:00 Orders Only Doctor Unassigned, [place] [facility] 1.2.840.114 350.1.13.10 4.2.7.2.686 [id number] [facility] 2023-01-01 14:00:00 2023-01-01 17:18:31 Outpatient R ELIEZER ALARCON [facility] [id number] [facility] 2023-01-01 14:00:00 2023-01-01 17:18:31 Ancillary Visit Therapist, [facility] Pulmonary Eliezer Alarcon [facility] 1.2840.114 350.1.13.10 4.2.7.2.686 [id number] [facility] 2023-01-01 00:00:00 2023-01-01 00:00:00 Orders Only Doctor Unassigned, [place] [facility] 1.2840.114 350.1.13.10 4.2.7.2.686 [id number] [facility] 2022-12-29 00:00:00 2022-12-29 00:00:00 Telephone Elo Faulkner [facility] 1.2840.114 350.1.13.10 4.2.7.2.686 [id number] [facility] 2022-12-23 00:00:00 2022-12-23 00:00:00 Telephone Elo Faulkner [facility] 1.2840.114 350.1.13.10 4.2.7.2.686 [id number] [facility] 2022-12-17 13:00:00 2022-12-17 15:09:45 Ancillary Visit Therapist, Ana AlarconEliezer [facility] 1.2.840.114 350.1.13.10 4.2.7.2.686 [id number] [facility] 2022-12-15 13:00:00 2022-12-15 14:53:44 Ancillary Visit Therapist, Ana AlarconEliezer [facility] 1.2.840.114 350.1.13.10 4.2.7.2.686 [id number] [facility] 2022-12-10 13:00:00 2022-12-10 14:59:37 Ancillary Visit Therapist, Ana AlarconEliezer [facility] 1.2840.114 350.1.13.10 4.2.7.2.686 [id number] [facility] 2022-12-10 00:00:00 2022-12-10 00:00:00 Orders Only Doctor Unassigned, [place] [facility] 1.2840.114 350.1.13.10 4.2.7.2.686 [id number] [facility] 2022-12-08 13:00:00 2022-12-08 15:30:48 Ancillary Visit Therapist, Ana AlarconEliezer [facility] 1.2840.114 350.1.13.10 4.2.7.2.686 [id number] [facility] 2022-12-03 13:00:00 2022-12-03 14:52:54 Ancillary Visit Therapist, Ana Alarcon Eliezer Alonzo [facility] 1.2840.114 350.1.13.10 4.2.7.2.686 [id number] [facility] 2022-12-01 13:00:00 2022-12-01 14:46:02 Outpatient Can COOPERELIEZER Borden [facility] [id number] [facility] 2022-12-01 13:00:00 2022-12-01 14:46:02 Ancillary Visit Therapist, Ana AlarconEliezer [facility] 1.2.840.114 350.1.13.10 4.2.7.2.686 [id number] [facility] 2022-12-01 00:00:00 2022-12-01 00:00:00 Orders Only Doctor Unassigned, [place] [facility] 1.2.840.114 350.1.13.10 4.2.7.2.686 [id number] [facility] 2022-11-26 13:00:00 2022-11-26 15:21:07 Ancillary Visit Therapist, Ana AlarconEliezer [facility] 1.2.840.114 350.1.13.10 4.2.7.2.686 [id number] [facility] 2022-11-24 13:00:00 2022-11-24 14:43:53 Ancillary Visit Therapist, Ana AlarconEliezer [facility] 1.2.840.114 350.1.13.10 4.2.7.2.686 [id number] [facility] 2022-11-19 13:00:00 2022-11-19 14:34:22 Ancillary Visit Therapist, Ana AlarconEliezer [facility] 1.2.840.114 350.1.13.10 4.2.7.2.686 [id number] [facility] 2022-11-19 00:00:00 2022-11-19 00:00:00 Orders Only Doctor Unassigned, [place] [facility] 1.2.840.114 350.1.13.10 4.2.7.2.686 [id number] [facility] 2022-11-17 00:00:00 2022-11-17 00:00:00 Telephone Faulkner, Elo C [facility] 1.2.840.114 350.1.13.10 4.2.7.2.686 [id number] 296 [id number] [facility] 2022-11-12 13:00:00 2022-11-12 14:28:39 Ancillary Visit Therapist, Ana Pulmonary Eliezer Alarcon [facility] 1.2.840.114 350.1.13.10 4.2.7.2.686 [id number] [facility] 2022-11-10 13:00:00 2022-11-10 14:29:40 Ancillary Visit Therapist, Eliezer Valente [facility] 1.2.840.114 350.1.13.10 4.2.7.2.686 [id number] [facility] 2022-11-05 13:00:00 2022-11-05 16:26:42 Ancillary Visit Therapist, Eliezer Valente [facility] 1.2.840.114 350.1.13.10 4.2.7.2.686 [id number] [facility] 2022-11-05 00:00:00 2022-11-05 00:00:00 Orders Only Doctor Unassigned, [place] [facility] 1.2.840.114 350.1.13.10 4.2.7.2.686 [id number] [facility] 2022-11-03 13:00:00 2022-11-03 14:47:14 Ancillary Visit Therapist, Ana Pulmonary Eliezer Alarcon [facility] 1.2840.114 350.1.13.10 4.2.7.2.686 [id number] [facility] 2022-10-29 13:00:00 2022-10-29 15:40:03 Ancillary Visit Therapist, Eliezer Valente [facility] 1.2840.114 350.1.13.10 4.2.7.2.686 [id number] 296 [id number] [facility] 2022-10-29 13:00:00 2022-10-29 15:40:03 Outpatient ELIEZER GONG [facility] [id number] [facility] 2022-10-27 15:00:00 2022-10-27 16:58:47 Ancillary Visit Therapist, Eliezer Valente [facility] 1.2840.114 350.1.13.10 4.2.7.2.686 [id number] [facility] 2022-10-27 00:00:00 2022-10-27 00:00:00 Orders Only Doctor Unassigned, [place] [facility] 1.2.840.114 350.1.13.10 4.2.7.2.686 [id number] [facility] 2022-10-26 00:00:00 2022-10-26 00:00:00 Telephone Elo Faulkner [facility] 1.2840.114 350.1.13.10 4.2.7.2.686 [id number] [facility] 2022-10-21 13:00:00 2022-10-21 15:46:49 Ancillary Visit Therapist, Ana Pulmonary Eliezer Alarcon [facility] 1.2840.114 350.1.13.10 4.2.7.2.686 [id number] 296 [id number] [facility] 2022-10-15 00:00:00 2022-10-15 00:00:00 Telephone Elo Faulkner [facility] 1..114 350.1.13.10 4.2.7.2.686 [id number] 296 [id number] [facility] 2022-10-14 00:00:00 2022-10-14 00:00:00 Orders Only Doctor Unassigned, [place] [facility] 1.114 350.1.13.10 4.2.7.2.686 [id number] [facility] 2019-10-30 15:52:39 2019-10-30 16:27:25 Urgent Care Pob1, Acute Care Clinic Verito Rosariothia [facility] 1..114 350.1.13.10 4.2.7.2.686 [id number] [facility] 2019-10-30 16:00:00 2019-10-30 16:00:00 Outpatient R SISI ROSARIO [facility] [id number] [facility] 2019-10-30 00:00:00 2019-10-30 00:00:00 Nurse Triage Pcp, Patient Does Not Have A [facility] 1.114 350.1.13.10 4.2.7.2.686 [id number] [facility] 2019-10-30 00:00:00 2019-10-30 00:00:00 Telephone Taniya Ragland [facility] 1.114 350.1.13.10 4.2.7.2.686 [id number] [facility] 2019-10-18 11:22:01 2019-10-18 12:39:44 Urgent Care Pob1, Acute Care Clinic Syl Del Valle [facility] 1.0.114 350.1.13.10 4.2.7.2.686 [id number] [facility] 2019-10-18 11:20:00 2019-10-18 11:20:00 Outpatient SYL HENDERSON [facility] [id number] [facility] 2019-10-18 00:00:00 2019-10-18 00:00:00 Telephone Yolanda Harrell [facility] 1..840.114 350.1.13.10 4.2.7.2.686 [id number] [facility]
[2023-09-15 10:52] LABS: Absolute Lymphocytes (CBC) 0.4 K/uL (0.7-4.9); Absolute Monocytes 0.5 K/uL (0.1-1.3); Absolute Neutrophil 8.5 K/uL (1.8-8.0); Basophils % 0.1 % (0-1.3); Eosinophils % 0.3 % (0-4.4); Hematocrit 31.9 % (36.0-45.0); Hemoglobin 10.2 g/dL (12.0-15.0); Lymphocytes % 4.4 % (15.3-44.8); MCHC 32.1 g/dL (32.0-36.0); MCV 93.6 fL (80-100); MPV 8.3 fL (7.6-11.3); Monocytes % 5.4 % (3.3-12.3); Neutrophils % 89.8 % (41.7-73.7); Platelets 195 thou/uL (152-406); RBC Red Blood Cell Count 3.41 M/uL (3.86-4.86); Red Cell Distribution Width 14.6 % (12.1-15.2)
[2023-09-15 10:57] LABS: PT Prothrombin Time 11.5 SECONDS (9.5-12.5); PTT, Activated Partial Thromb 28.5 SECONDS (24.3-36.9); Protime INR 1.05
[2023-09-15 11:21] LABS: Albumin 2.4 g/dL (3.4-5.0); Albumin/Globulin Ratio 0.8 (1.1-1.8); Anion Gap 7.3 mEq/L (5.0-15.0); Bilirubin Total 0.8 mg/dL (0.2-1.0); Globulin 3.2 g/dL (2.3-3.5); Magnesium 1.9 mg/dL (1.6-2.4); Potassium 3.3 mEq/L (3.5-5.1); Protein, Total 5.6 g/dL (6.4-8.2); Thyroid Stimulating Hormone 1.45 uIU/mL (0.358-3.740); Troponin High Sensitivity 8.7 pg/mL (<58.9)
--- NOTE | 2023-09-15 11:57 | RAD REPORT ---
EXAM DESCRIPTION: RAD - Chest Single View - 09/15/2023 11:39 am CLINICAL HISTORY: COPD Chest pain. COMPARISON: Chest Single View dated 07/22/2020 FINDINGS: Portable technique limits examination quality. The lungs are significantly emphysematous but grossly clear. The heart is normal in size. No displace d fractures. IMPRESSION: No acute intrathoracic process suspected. Prominent COPD.
[2023-09-15 11:58] LABS: Blood Morphology Comment NOT SEEN (NOT SEEN); Platelet Estimate ADEQ; White Blood Cell Scan OK (OK)
--- NOTE | 2023-09-15 11:59 | RAD REPORT ---
EXAM DESCRIPTION: RAD - Hip Left 2 View - 09/15/2023 11:37 am CLINICAL HISTORY: PAIN COMPARISON: No comparisons FINDINGS: Impacted subcapital fracture proximal left femur is seen. No dislocation evident. Fracture of the superior and inferior pubic rami is also noted bilaterally.
--- NOTE | 2023-09-15 12:39 | EDPHYS ---
Physician Documentation [facility] Name: Valeria Ring Age: 63 yrs Sex: Female : 1960 Arrival Date: 09/15/2023 Time: 09:40 Bed 6 Private MD: ED Physician Car Webster HPI: 09/14 10:31 This 63 yrs old Female presents to ER via EMS with complaints of Fall Injury. rt 10:31 Patient presents to the ED 3 days following reported fall. Patient states that her legs rt gave out. She reports a pain to her left hip. Patient states that she has had difficulty ambulating but is able to take some steps. States that she has not been able to get to the sink sufficiently to drink fluids and believes that she is dehydrated. Patient reports a cough, phlegm, some difficulty breathing that she states is baseline for her with her COPD. Denies other acute complaints, symptoms are moderate in severity, no other aggravating or elevating factors.. Historical: - Allergies: 09:51 Benadryl; ll1 09:51 Codeine; ll1 09:51 " all histamines"; ll1 - PMHx: 09:51 CHF; COPD; insomnia; ll1 - Immunization history:: Adult Immunizations up to date, Client reports receiving the 2nd dose of the Covid vaccine, Last tetanus immunization: unknown. - Social history:: Smoking status: Patient reports the use of cigarette tobacco products, smokes .1 packs per day. - Family history:: not pertinent. ROS: 10:31 Constitutional: Negative for fever, chills, and weight loss, Cardiovascular: Negative rt for chest pain, palpitations, and edema, Abdomen/GI: Negative for abdominal pain, nausea, vomiting, diarrhea, and constipation, Neuro: Negative for headache, weakness, numbness, tingling, and seizure, 10:31 Respiratory: Positive for cough, shortness of breath, 10:31 MS/extremity: Positive for pain, Negative for deformity, Exam: 10:31 ECG was reviewed by the Attending Physician. rt 10:31 Respiratory: Wheezes with crackles heard on all lung cardenas, no respiratory distress, 10:33 Constitutional: This is a well developed, well nourished patient who is awake, alert, rt and in no acute distress. Head/Face: Normocephalic, atraumatic. Chest/axilla: Normal chest wall appearance and motion. Nontender with no deformity. No lesions are appreciated. Cardiovascular: Regular rate and rhythm with a normal S1 and S2. No gallops, murmurs, or rubs. Normal PMI, no JVD. No pulse deficits. Abdomen/GI: Soft, non-tender, with normal bowel sounds. No distension or tympany. No guarding or rebound. No evidence of tenderness throughout. Skin: Warm, dry with normal turgor. Normal color with no rashes, no lesions, and no evidence of cellulitis. MS/ Extremity: Pulses equal, no cyanosis. Neurovascular intact. Full, normal range of motion. Neuro: Awake and alert, GCS 15, oriented to person, place, time, and situation. Cranial nerves II-XII grossly intact. Motor strength 5/5 in all extremities. Sensory grossly intact. Cerebellar exam normal. Normal gait. Vital Signs: 09:48 BP 126 / 86; Pulse 112; Resp 20; Temp 97.1(O); Pulse Ox 99% on 2 lpm NC; Weight 35.38 ll1 kg; Pain 3/10; 11:12 BP 121 / 83; Pulse 92; Resp 20; Pulse Ox 100% ; cp4 12:41 BP 116 / 61; Pulse 81; Resp 20; Pulse Ox 99% ; cp4 13:30 BP 97 / 70; Pulse 92; Resp 20; Pulse Ox 94% 3 lpm ; cp4 14:30 BP 117 / 55; Pulse 87; Resp 20; Pulse Ox 93% 3 lpm ; cp4 15:30 BP 121 / 75; Pulse 94; Resp 20; Pulse Ox 94% 3 lpm ; cp4 09:48 Pain Scale: Adult ll1 [place] Coma Score: 10:42 Eye Response: spontaneous(4). Motor Response: obeys commands(6). Verbal Response: cp4 oriented(5). Total: 15. Trauma Score (Adult): 10:42 Eye Response: spontaneous(1); Verbal Response: oriented(1); Motor Response: obeys cp4 commands(2); Systolic BP: > 89 mm Hg(4); Respiratory Rate: 10 to 29 per min(4); [place] Score: 15; Trauma Score: 12 MDM: 09:52 Patient medically screened. rt 13:23 Differential diagnosis: Fracture, contusion, COPD. Data reviewed: vital signs, nurses rt notes, lab test result(s), EKG, radiologic studies. Consideration of Admission/Observation Patient was admitted/placed on observation. Management of patient was discussed with the following: [employer] Principal: Discussed with orthopedic surgery, recommend CT, admission to hospital service. I considered the following discharge prescriptions or medication management in the emergency department Medications were administered in the Emergency Department. See MAR. Independent interpretation of the following test(s) in the Emergency Department X-Ray: My interpretation is Hip fracture seen on interpretation of x-ray images. Care significantly affected by the following chronic conditions: Chronic Obstructive Pulmonary Disease. Counseling: I had a detailed discussion with the patient and/or guardian regarding the historical points, exam findings, and any diagnostic results supporting the discharge/admit diagnosis, lab results, radiology results, the need for further work-up and treatment in the hospital. Response to treatment: There is no appreciated change of the patient's symptoms at this time. 09/14 10:02 Order name: Blood Culture Adult (2) rt 09/14 10:02 Order name: CBC with Diff; Complete Time: 12: rt 09/14 10:02 Order name: CMP; Complete Time: 11: rt 09/14 10:02 Order name: Lactate w/ 2H reflex if indic.; Complete Time: : rt 09/14 10:02 Order name: Protime (+inr); Complete Time: 11: rt 09/14 10:02 Order name: Ptt, Activated; Complete Time: 11: rt 09/14 10:02 Order name: BNP; Complete Time: 11: rt 09/14 10:02 Order name: Troponin High Sensitivity; Complete Time: 11: rt 09/14 10:02 Order name: Magnesium; Complete Time: 11: rt 09/14 10:02 Order name: TSH; Complete Time: 11: rt 09/14 11:58 Order name: CBC Smear Scan; Complete Time: 12:11 EDMS 09/14 10:02 Order name: Chest Single View XRAY; Complete Time: 12:11 rt 09/14 10:11 Order name: Hip Left 2 View XRAY; Complete Time: 12:11 rt 09/14 12:35 Order name: CT Pelvis wo Cont; Complete Time: 13:46 rt 09/14 10:02 Order name: EKG; Complete Time: 10:03 rt 09/14 13:33 Order name: CONS Physician Consult EDMS 09/14 10:02 Order name: Accucheck; Complete Time: rt 09/14 10:02 Order name: Cardiac monitoring; Complete Time: rt 09/14 10:02 Order name: EKG - Nurse/Tech; Complete Time: : rt 09/14 10:02 Order name: IV Saline Lock - Large Bore; Complete Time: rt 09/14 10:02 Order name: Labs collected and sent; Complete Time: rt 09/14 10:02 Order name: O2 Per Protocol; Complete Time: : rt 09/14 10:02 Order name: O2 Sat Monitoring; Complete Time: rt 09/14 10:02 Order name: Vital Signs; Complete Time: : rt EC:31 Rate is 107 beats/min. Rhythm is regular, Sinus tachycardia with No ectopy. QRS [place] is rt Normal. NM interval is normal. QRS interval is normal. QT interval is normal. No Q waves. Clinical impression: NSR w/ Non-specific ST/T Changes. Administered Medications: 10:40 Drug: NS 0.9% IV 1000 ml IV at 1 bolus Per protocol; 1000 mL bolus Route: IV; Rate: 1 cp4 bolus; Site: right antecubital; 12:06 Follow up: Response: No adverse reaction; IV Status: Completed infusion cp4 12:40 Follow up: Response: No adverse reaction; IV Status: Completed infusion cp4 Disposition Summary: 09/15/23 12:39 Hospitalization Ordered Notes: Hospitalization Status: Inpatient Admission rt Provider: Manuel Fontana rt Condition: Stable rt Problem: new rt Symptoms: are unchanged rt Bed/Room Type: Standard rt Location: Telemetry/MedSurg (Inpatient)(09/15/23 22:21) ty Room Assignment: 423(09/15/23 22:21) ty Diagnosis - Mechanical fall rt - Subcapital fracture of left proximal femur rt - Bilateral inferior and superior pubic ramus fractures rt Forms: - Medication Reconciliation Form rt - SBAR form rt - Leadership Thank You Letter rt Signatures: Dispatcher [employer] Colin Washington RN RN ll1 Maryellen Middleton RN RN kb3 Car Webster MD MD rt Karen Shelly bc6 Stacia Dorsey cp4 Josue Bauer ty Corrections: (The following items were deleted from the chart) 14:09 12:39 Telemetry/MedSurg (Inpatient) rt bc6 14:09 12:39 rt bc6 14:12 14:09 bc6 bc6 14:23 14:09 [facility] ER HOLD bc6 bc6 14:23 14:12 ERHOLD- bc6 bc6 14:31 14:23 Telemetry/MedSurg (observation) bc6 kb3 14:31 14:23 bc6 kb3 22:21 14:31 [facility] ER HOLD kb3 ty 22:21 14:31 ERHOLD- kb3 ty
--- NOTE | 2023-09-15 12:39 | ER ---
Nurse's Notes [facility] Name: Valeria Ring Age: 63 yrs Sex: Female : 1960 Arrival Date: 09/15/2023 Time: 09:40 Bed 6 Private MD: Diagnosis: Mechanical fall;Subcapital fracture of left proximal femur;Bilateral inferior and superior pubic ramus fractures Presentation: 09/14 09:48 Chief complaint: Patient states: Fell last week and has had hip pain since. EMS states: ll1 Sat 80's% on 2 L concentrator at home. 93% with O2 2L NC now. Other VSS. 20 G R FA, 250 ML bolus. Coronavirus screen: Vaccine status: Patient reports receiving the 2nd dose of the covid vaccine. Client denies travel out of the [place] in the last 14 days. At this time, the client does not indicate any symptoms associated with coronavirus-19. Ebola Screen: Patient denies travel to an Ebola-affected area in the 21 days before illness onset. Initial Sepsis Screen: Does the patient meet any 2 criteria? HR > 90 bpm. No. Patient's initial sepsis screen is negative. Does the patient have a suspected source of infection? No. Patient's initial sepsis screen is negative. Risk Assessment: Do you want to hurt yourself or someone else? Patient reports no desire to harm self or others. Onset of symptoms was September 09, 2023. 09:48 Method Of Arrival: EMS ll1 09:48 Acuity: RADHA 3 ll1 16:11 Care prior to arrival: None. Mechanism of Injury: Fall from standing position. Trauma cp4 event details: Injury occurred in the [facility]. Trauma Activation: Not Applicable Physician: ED Physician; Name: ; Notified At: ; Arrived At: Physician: General Surgeon; Name: ; Notified At: ; Arrived At: Physician: Radiology; Name: ; Notified At: ; Arrived At: Physician: Respiratory; Name: ; Notified At: ; Arrived At: Physician: Lab; Name: ; Notified At: ; Arrived At: Historical: - Allergies: 09:51 Benadryl; ll1 09:51 Codeine; ll1 09:51 " all histamines"; ll1 - PMHx: 09:51 CHF; COPD; insomnia; ll1 - Immunization history:: Adult Immunizations up to date, Client reports receiving the 2nd dose of the Covid vaccine, Last tetanus immunization: unknown. - Social history:: Smoking status: Patient reports the use of cigarette tobacco products, smokes .1 packs per day. - Family history:: not pertinent. Screenin:42 Abuse screen: Denies threats or abuse. Nutritional screening: No deficits noted. cp4 Tuberculosis screening: No symptoms or risk factors identified. 10:47 [facility] ED Fall Risk Assessment (Adult) History of falling in the last 3 months, cp4 including since admission Yes- single mechanical fall (1 pt) Confusion or Disorientation No (0 pts) Intoxicated or Sedated No (0 pts) Impaired Gait No (0 pts) Mobility Assist Device Used No (0 pt) Altered Elimination No (0 pt) Score/Fall Risk Level 0 - 2 = Low Risk Oriented to surroundings, Maintained a safe environment, Assessed \\T\\ reinforced patient's understanding of fall precautions, Hourly rounding (assess needs \\T\\ fall precautionary measures) done, Used ambulatory aids as needed (educated on \\T\\ assisted with). Primary Survey: 10:42 NO uncontrolled hemorrhage observed. A: Oxygen via nasal cannula at 3 liters per cp4 minute. Breathing/Chest: Respiratory effort: spontaneous, Breath sounds: crackles, bilaterally. Respiratory pattern: regular, Chest inspection: symmetrical rise and fall of the chest. Circulation: No external hemorrhage present. Regular and strong central pulse, skin warm/dry/normal color. Disability Pupils are equal, round, reactive to light and accommodation. Client is alert. Exposure/Environment: A warming method has been applied: A warm blanket has been provided to the patient. Reassessment Alertness and Airway: Awake and alert. The airway is patent. Breathing: Respiratory effort Spontaneous Breath sounds Crackles Respiratory pattern Regular Chest inspection Symmetrical. Assessment: 09:50 General: Appears uncomfortable, ill, slender, emaciated, malnourished, Behavior is ll1 calm, cooperative, appropriate for age. Pain: Complains of pain in hip Pain currently is 3 out of 10 on a pain scale. Quality of pain is described as aching. Respiratory: Reports shortness of breath Breath sounds are coarse Breath sounds with crackles bilaterally. GI: Reports dehydration. Musculoskeletal: Circulation, motion, and sensation intact. Capillary refill < 3 seconds, Reports pain in hips. 10:11 Reassessment: No changes from previously documented assessment. Patient and/or family ll1 updated on plan of care and expected duration. Pain level reassessed. Vital Signs: 09:48 BP 126 / 86; Pulse 112; Resp 20; Temp 97.1(O); Pulse Ox 99% on 2 lpm NC; Weight 35.38 ll1 kg; Pain 3/10; 11:12 BP 121 / 83; Pulse 92; Resp 20; Pulse Ox 100% ; cp4 12:41 BP 116 / 61; Pulse 81; Resp 20; Pulse Ox 99% ; cp4 13:30 BP 97 / 70; Pulse 92; Resp 20; Pulse Ox 94% 3 lpm ; cp4 14:30 BP 117 / 55; Pulse 87; Resp 20; Pulse Ox 93% 3 lpm ; cp4 15:30 BP 121 / 75; Pulse 94; Resp 20; Pulse Ox 94% 3 lpm ; cp4 09:48 Pain Scale: Adult ll1 Holcomb Coma Score: 10:42 Eye Response: spontaneous(4). Motor Response: obeys commands(6). Verbal Response: cp4 oriented(5). Total: 15. Trauma Score (Adult): 10:42 Eye Response: spontaneous(1); Verbal Response: oriented(1); Motor Response: obeys cp4 commands(2); Systolic BP: > 89 mm Hg(4); Respiratory Rate: 10 to 29 per min(4); Moinka Score: 15; Trauma Score: 12 ED Course: 09:48 Patient arrived in ED. ll1 09:49 Car Webster MD is Attending Physician. rt 09:51 Triage completed. ll1 09:52 Colin Johnson RN is Primary Nurse. ll1 09:52 Arm band placed on Patient placed in an exam room, on a stretcher. ll1 09:53 Maintain EMS IV. Dressing intact. Good blood return noted. Site clean \\T\\ dry. Gauge \\T\\ ll 1 site: 20 R FA. 10:10 Report given to BALAJI Palomo. ll1 10:21 EKG done, by ED staff. [email or web address] 10:35 Initial lab(s) drawn, by me, sent to lab. Second set of blood cultures drawn by me, EKG cp4 done, by cctv technician. Client placed on continuous cardiac and pulse oximetry monitoring. NIBP monitoring applied. billet bed operator on. One-on-one care X 30 minutes. 10:35 No provider procedures requiring assistance completed. Oxygen administration via nasal cp4 cannula \\T\\ 3L/min. 10:40 TSH Sent. cp4 10:40 Magnesium Sent. cp4 10:40 Troponin High Sensitivity Sent. cp4 10:40 BNP Sent. cp4 10:41 Blood Culture Adult (2) Sent. cp4 10:41 CBC with Diff Sent. cp4 10:41 CMP Sent. cp4 10:41 Lactate w/ 2H reflex if indic. Sent. cp4 10:41 Protime (+inr) Sent. cp4 10:41 Ptt, Activated Sent. cp4 10:42 Placed in gown. Bed in low position. Call light in reach. Side rails up X2. Oxygen cp4 administration via nasal cannula \\T\\ 3L/min. 10:47 Warm blanket given. PO fluids given. cp4 10:47 Inserted saline lock: 20 gauge in left forearm, using aseptic technique. Blood cp4 collected. 10:56 Primary Nurse role handed off by Colin Johnson, BALAJI cp4 10:56 Stacia Dorsey is Primary Nurse. cp4 11:11 Chest Single View XRAY In Process Unspecified. EDMS 11:11 Hip Left 2 View XRAY In Process Unspecified. EDMS 12:38 Manuel Fontana MD is Hospitalizing Provider. rt 12:39 Warm blanket given. Pillow given. cp4 13:01 CT Pelvis wo Cont In Process Unspecified. EDMS 16:12 Provided Education on: admission, pelvic fracture. cp4 16:12 Patient admitted, IV remains in place. cp4 16:13 Thermoregulation: warm blanket given to patient. cp4 Administered Medications: 10:40 Drug: NS 0.9% IV 1000 ml IV at 1 bolus Per protocol; 1000 mL bolus Route: IV; Rate: 1 cp4 bolus; Site: right antecubital; 12:06 Follow up: Response: No adverse reaction; IV Status: Completed infusion cp4 12:40 Follow up: Response: No adverse reaction; IV Status: Completed infusion cp4 Medication: 10:47 VIS not applicable for this client. cp4 Intake: 10:42 PO: 0ml; Total: 0ml. cp4 Output: 10:42 Urine: 0ml; Total: 0ml. cp4 Outcome: 12:39 Decision to Hospitalize by Provider. rt 16:11 Admitted to ER Hold. Please see [facility] for further documentation. cp4 16:11 Condition: stable 16:11 Instructed on the need for admit, Demonstrated understanding of instructions, follow-up care, 16:12 Patient's length of stay in the Emergency Department was greater than 2 hours. no beds cp4 availablePatient's length of stay extended due to 23:32 Patient left the ED. vc1 Signatures: Dispatcher [employer] EDColin Moody RN RN ll1 Sherri Ray RN RN vc1 Car Webster MD MD rt Potter, Christina cp4 Maxwell Meyer [email or web address]
--- NOTE | 2023-09-15 13:44 | RAD REPORT ---
EXAM DESCRIPTION: CT - Pelvis Wo Cont - 09/15/2023 1:00 pm CLINICAL HISTORY: fracture COMPARISON: Hip Left 2 View dated 09/15/2023 TECHNIQUE: Thin cut axial CT imaging of the pelvis was performed without IV contrast. Multiplanar re formats were generated and reviewed. All CT scans are performed using dose optimization technique as appropriate and may include automated exposure control or mA/KV adjustment according to patient size. FINDINGS: Mildly displaced fracture at the junction of the left femoral head/neck, with buckling robbin ng the lateral cortex. Displaced fractures at the junctions of the superior and inferior pubic rami with the pubic bone and mildly buckled fracture along the mid aspect of the right inferior pubic ramus as well. Mildly displaced fractures along the left sacral ala. Incidentally noted right lower renal pole 2 mm calculus. No dilated bowel loops or bowel wall thickening. No free air, free fluid or inflammatory stranding. N o hernia, mass or bulky lymphadenopathy. The urinary bladder is without significant finding. No suspicious bony findings. IMPRESSION: Displaced fractures of the left femoral head/neck junction, superior and inferior bilate ral pubic rami at the junctions with the pubic bone, right inferior pubic ramus, and the left sacral ala as above. Incidentally noted nonobstructing right lower renal pole 2 mm calculus.
--- NOTE | 2023-09-15 14:17 | P.HP ---
Certification for Inpatient Patient admitted to: Inpatient With expected LOS: >2 Midnights Patient will require the following post-hospital care: None Practitioner: I am a practitioner with admitting privileges, knowledge of patient current condition, hospital course, and medical plan of care. Services: Services provided to patient in accordance with Admission requirements found in Title 42 Section 412.3 of the Code of Federal Regulations Patient History Date of Service: 09/15/23 Reason for admission: Left hip fracture, pelvic fractures History of Present Illness: 63-year-old female with history of end-stage COPD, chronic diastolic congestive heart failure presents to the emergency department with chief complaint of pain in her hip, dehydration. She reports that she fell about 5 days ago and has been having increasing pain in her pelvic area as well as difficulty with ambulation. She lives at home alone and has been having difficulty getting to the kitchen to eat or drink. Patient appears cachectic, malnourished. She was evaluated in the emergency department labs are significant for hemoglobin 10.2 hematocrit 31.9 sodium 135 potassium 3.3 chloride 89 bicarb 42 albumin 2.4. Chest x-ray was obtained which was negative for acute findings, CT of the pelvis was also obtained which revealed Displaced fractures of the left femoral head/neck junction, superior and inferior bilateral pubic rami at the junctions with the pubic bone, right inferior pubic ramus, and the left sacral ala. Patient will need to be admitted for pelvic/hip fracture. Allergies codeine Allergy (Verified 07/22/20 18:23) Unknown Home Medications: U-Auqzuv-Z-Cystine 500 mg PO BID 07/22/20 Trazodone HCl 50 mg PO BEDTIME 07/22/20 Albuterol Inhaler [Ventolin Inhaler*] 2 puff IH Q6H PRN 30 Days #1 hfa.aer.ad 07/25/20 Fluticasone/Salmeterol [Advair 250-50 Diskus] 1 each IH BID #1 blst.w.dev 07/25/20 acetaZOLAMIDE [Diamox*] 250 mg PO DAILY 30 Days #30 tab 07/25/20 predniSONE [Deltasone*] 10 mg PO BID 14 Days #28 tab 07/25/20 - Past Medical/Surgical History Diabetic: No -: Tobacco use -: End-stage COPD -: Chronic diastolic ingestive heart failure Past Surgical History: Patient denies surgical history Psychosocial/ Personal History: Lives at home alone - Family History Father -: Heart disease Notes: Pt. reports both parents having "some kind of heart disease" that lasted for a long time, resulting to surgeries and stent placement. - Social History Smoking Status: Current every day smoker Counseled patient to stop smoking for: less than 10 minutes Smoking therapy provided: No Alcohol use: No CD- Drugs: No Caffeine use: Yes Place of Residence: Home Review of Systems 10-point ROS is otherwise unremarkable Respiratory: Cough, Shortness of Breath Musculoskeletal: Leg Pain Physical Examination - Physical Exam General: Alert, In no apparent distress, Oriented x3, Cachectic HEENT: Atraumatic, PERRLA, Mucous membr. moist/pink Neck: Supple, 2+ carotid pulse no bruit, No LAD Respiratory: Diminished (On nasal cannula2 L) Cardiovascular: Regular rate/rhythm, Normal S1 S2 Gastrointestinal: Normal bowel sounds, No tenderness Musculoskeletal: No tenderness Integumentary: No rashes Neurological: Normal gait, Normal speech, Normal strength at 5/5 x4 extr, Normal tone, Normal affect - Studies Laboratory Data (last 24 hrs) 09/15/23 09/15/23 09/15/23 10:35 10:35 10:35 WBC 9.50 Hgb 10.2 L Hct 31.9 L Plt Count 195 PT 11.5 INR 1.05 APTT 28.5 Sodium 135 L Potassium 3.3 L BUN 28 H Creatinine 0.57 Glucose 174 H Magnesium 1.9 Total Bilirubin 0.8 AST 13 L ALT 19 Alkaline Phosphatase 82 Assessment and Plan - Plan Assessment: Left femoral head/neck fracture Superior and inferior bilateral pubic rami fractures COPD on chronic home 02/chronic steroids Chronic diastolic congestive heart failure Malnourished/cachectic Plan: Left femoral head/neck fracture Superior and inferior bilateral pubic rami fractures Ortho consulted NPO after midnight As needed pain medications Await further recommendations from ortho surgery COPD on chronic home 02/chronic steroids Continue home 02-2L Continue prednisone 10mg PO daily/Breztri PRN nebulizer treatments Chronic diastolic congestive heart failure Hold diuretics for now Malnourished/cachectic Brass Burnisher consult reports she takes a mechanical soft/pureed diet at home trouble with her teeth but no reported difficulty swallowing DVT PPX:SCD Code status:Full Discharge Plan: Home Plan to discharge in: Greater than 2 days - Advance Directives Does patient have a Living Will: No Does patient have a Durable POA for Healthcare: No - Code Status/Comfort Care Code Status Assessed: Yes (Full) Critical Care: No Time Spent Managing Pts Care (In Minutes): 70
[2023-09-15] MEDS ORDERED: TRAMADOL HCL 50 MG TAB PO PRN (15:11)
[2023-09-15] MEDS ORDERED: ONDANSETRON 4 MG/2 ML VIAL IV PRN (15:11)
[2023-09-15] MEDS: ALBUTEROL 2.5 MG/3 ML NEB SOL NEB SCH (15:11)
[2023-09-15] MEDS ORDERED: MORPHINE 2 MG/ML SYR IV PRN (15:11)
[2023-09-15 16:00] VITALS: BMI 11.2
[2023-09-15] MEDS: INFLUENZA VACCINE (for 6+ mo) 0.5 ML DOSE IMVAC ONE (17:00)
[2023-09-16 07:32] LABS: Absolute Lymphocytes (CBC) 0.7 K/uL (0.7-4.9); Absolute Monocytes 0.4 K/uL (0.1-1.3); Absolute Neutrophil 5.5 K/uL (1.8-8.0); Basophils % 0.6 % (0-1.3); Eosinophils % 0.7 % (0-4.4); Hematocrit 29.2 % (36.0-45.0); Hemoglobin 9.5 g/dL (12.0-15.0); Lymphocytes % 10.3 % (15.3-44.8); MCH 30.3 pg (27.0-35.0); MCHC 32.7 g/dL (32.0-36.0); MCV 92.8 fL (80-100); MPV 7.9 fL (7.6-11.3); Monocytes % 6.6 % (3.3-12.3); Neutrophils % 81.8 % (41.7-73.7); Nucleated Red Blood Cells % 0.1 % (0-0); Platelets 187 thou/uL (152-406); RBC Red Blood Cell Count 3.14 M/uL (3.86-4.86); Red Cell Distribution Width 14.2 % (12.1-15.2)
[2023-09-16 08:02] LABS: Albumin 2.4 g/dL (3.4-5.0); Albumin/Globulin Ratio 0.9 (1.1-1.8); Anion Gap 2.6 mEq/L (5.0-15.0); Bilirubin Total 0.7 mg/dL (0.2-1.0); Globulin 2.8 g/dL (2.3-3.5); Magnesium 1.8 mg/dL (1.6-2.4); Phosphorus 2.2 mg/dL (2.5-4.9); Potassium 3.6 mEq/L (3.5-5.1); Prealbumin 5.9 mg/dL (20-40); Protein, Total 5.2 g/dL (6.4-8.2); Thyroid Stimulating Hormone 1.32 uIU/mL (0.358-3.740)
[2023-09-16] MEDS: predniSONE 10 MG TAB PO ONE (13:04)
--- NOTE | 2023-09-16 13:45 | P.PN ---
Date of Service: 09/16/23 Subjective: Complains of pelvic/left leg pain No acute events overnight ROS: 10 point ROS as noted above, otherwise negative Physical exam GEN: Alert, oriented, NAD, cachectic HEENT: Normal conjunctiva, sclera anicteric CV: Regular rate and rhythm, no edema Pulm: Nonlabored respirations on room air ABD: Soft, nontender, nondistended MSK: Left hip tenderness, limited range of motion Integumentary: Wound present overlying left hip Neuro: Normal speech, normal affect Vitals reviewed Assessment: Left femoral head/neck fracture Superior and inferior bilateral pubic rami fractures COPD on chronic home 02/chronic steroids Chronic diastolic congestive heart failure Malnourished/cachectic Plan: Left femoral head/neck fracture Superior and inferior bilateral pubic rami fractures Seen by orthopedics Patient is really malnourished/cachectic Also wound present over left hip Will delay surgery until improved nutrition status, wound over left hip healed Orthopedics to be following Continue PT with weightbearing as tolerated left hip As needed pain medications COPD on chronic home 02/chronic steroids Continue home 02-2L Continue prednisone 10mg PO daily/Breztri PRN nebulizer treatments Chronic diastolic congestive heart failure Resume home medications Malnourished/cachectic Steam Turbine Assembler consult reports she takes a mechanical soft/pureed diet at home trouble with her teeth but no reported difficulty swallowing DVT PPX:Lovenox Code status:Full Discharge Plan: Home Plan to discharge in: Greater than 2 days Time Spent Managing Pts Care (In Minutes): 35 <Kevin Soto - Last Filed: 09/16/23 13:43> Patient seen and examined on rounds this morning with FOUNDER AND CHIEF EXECUTIVE OFFICER Charles. Agree with plan as noted above with the following additions/corrections: discussed with ortho - given wound and nutritional state, recommended holding off on surgery for a few weeks, due to risk of surgery and infection settlement technician consulted, calorie count patient states she has slowly lost weight over last few years may benefit from PEG <Manuel Fontana - Last Filed: 09/16/23 17:25>
[2023-09-16] MEDS: ENSURE ENLIVE 237 ML CAN PO SCH (14:29)
--- NOTE | 2023-09-16 16:13 | CON ---
Date of Consultation: 09/16/2023 Reason For Consultation: Left hip pain. History Of Present Illness: Valeria is a 63-year-old female with a history of heart failure and COPD , who presents with left hip and pelvic pain. She reports a fall over 5 days ago with subsequent shiloh n to her left hip. She was brought to the emergency room and had x-rays and CAT scan that demonstrat ed a displaced left femoral neck fracture. It was also noted that the patient had pubic rami fractur e at the time as well as sacral fracture. The patient is extremely cachectic and states she is havin g difficulty eating secondary to problems with her teeth. She also reports laying on her left side q uite a bit with multiple sores on her lower extremities. Review of Systems: As above, otherwise negative. Past Medical History: Includes COPD and diastolic heart failure. Social History: Reports tobacco use. Denies drug use. Family History: Reviewed and noncontributory. Physical Examination: General: No apparent distress, cachectic, and malnourished. Neck: Supple. Cardiovascular: Brisk cap refill to all digits. HEENT: Normocephalic, atraumatic. Chest: Nonlabored breathing. Abdomen: Nondistended. Psychiatric: Response to exam. Musculoskeletal: Left lower extremity pain with range of motion of the left hip. Tenderness to palp ation of the left hip approximately a 4 x 2 cm area of skin breakdown over the greater trochanter of the left hip. Multiple skin breakdown lesions over the left lower extremity. Tenderness to palpatio n over the greater trochanter. Neurovascularly intact distally. Right lower extremity functional ra nge of motion without pain. No gross deformities. No obvious dislocations. Bilateral upper extremi ties functional range of motion without pain. No gross deformities. No obvious dislocations. Diagnostic Studies: X-rays and CAT scan demonstrate a displaced left femoral neck fracture with some impaction. Assessment And Plan: Valeria is a 63-year-old female with a left femoral neck fracture as well as pe lvic ring fractures. I discussed with the patient's at length the diagnosis as well as treatment valery n. Given the displaced fracture, we discussed the patient as normally treated with left hip hemiarth roplasty given her significant skin breakdown over the lateral hip. She is a very high risk for post operative infection, wound breakdown, and because of this, the patient is not a surgical candidate at this time. Discussed the patient will need to work on having her wound healed as well as increase h er nutrition level prior to any surgical intervention. She may be touchdown weightbearing on the lef t lower extremity with minimized range of motion of the left hip to minimize fracture displacement. Once her wounds have healed and nutrition level has improved, the patient may be a candidate for hip hemiarthroplasty versus total hip arthroplasty. The patient expressed understanding she may work wit h physical therapy. However, no surgical intervention is indicated at this time. She may follow up in my clinic if her wounds have healed. DEVORAH/MELISSA Voice ID: [id number] Report ID: [id number]
[2023-09-16] MEDS ORDERED: ALBUTEROL 2.5 MG/3 ML NEB SOL NEB PRN (17:24)
[2023-09-16] MEDS: HOME MED 1 EA UNK (Budesonide/Glycopyr/Formoterol [Breztri Aerosphere Inhaler] 10.7 GM Hfa IH SCH (21:00)
[2023-09-16] MEDS ORDERED: ENSURE HIGH PROTEIN 237 ML CAN PO SCH (21:00)
[2023-09-17 07:27] LABS: Absolute Lymphocytes (CBC) 0.4 K/uL (0.7-4.9); Absolute Monocytes 0.4 K/uL (0.1-1.3); Absolute Neutrophil 5.6 K/uL (1.8-8.0); Basophils % 0.3 % (0-1.3); Eosinophils % 0.2 % (0-4.4); Hematocrit 26.9 % (36.0-45.0); Hemoglobin 8.8 g/dL (12.0-15.0); Lymphocytes % 5.8 % (15.3-44.8); MCH 30.1 pg (27.0-35.0); MCHC 32.7 g/dL (32.0-36.0); MCV 92.1 fL (80-100); MPV 7.7 fL (7.6-11.3); Monocytes % 5.8 % (3.3-12.3); Neutrophils % 87.9 % (41.7-73.7); Platelets 194 thou/uL (152-406); RBC Red Blood Cell Count 2.92 M/uL (3.86-4.86); Red Cell Distribution Width 14.7 % (12.1-15.2)
[2023-09-17 07:53] LABS: Albumin 2.2 g/dL (3.4-5.0); Albumin/Globulin Ratio 0.8 (1.1-1.8); Anion Gap 6.3 mEq/L (5.0-15.0); Bilirubin Total 0.4 mg/dL (0.2-1.0); Globulin 2.8 g/dL (2.3-3.5); Magnesium 1.8 mg/dL (1.6-2.4); Potassium 4.3 mEq/L (3.5-5.1)
[2023-09-17 07:59] LABS: Phosphorus 1.5 mg/dL (2.5-4.9)
[2023-09-17] MEDS: predniSONE 10 MG TAB PO SCH (10:12)
[2023-09-17] MEDS: acetaZOLAMIDE 250 MG TAB PO SCH (10:12)
[2023-09-17] MEDS: ENOXAPARIN 30 MG/0.3 ML SQ SCH (10:13)
--- NOTE | 2023-09-17 13:02 | P.PN ---
Date of Service: 09/17/23 Subjective: Complains of pelvic/left leg pain Eating some but not all of her food is drinking ensures TID No acute events overnight ROS: 10 point ROS as noted above, otherwise negative Physical exam GEN: Alert, oriented, NAD, cachectic HEENT: Normal conjunctiva, sclera anicteric CV: Regular rate and rhythm, no edema Pulm: Nonlabored respirations on room air ABD: Soft, nontender, nondistended MSK: Left hip tenderness, limited range of motion Integumentary: Wound present overlying left hip Neuro: Normal speech, normal affect Vitals reviewed Assessment: Left femoral head/neck fracture Superior and inferior bilateral pubic rami fractures COPD on chronic home 02/chronic steroids Chronic diastolic congestive heart failure Malnourished/cachectic Plan: Left femoral head/neck fracture Superior and inferior bilateral pubic rami fractures Seen by orthopedics Patient is really malnourished/cachectic Also wound present over left hip Will delay surgery until improved nutrition status, wound over left hip healed Orthopedics to be following Continue PT with weightbearing as tolerated left hip As needed pain medications plan on inpatient rehab after nutrition status improved COPD on chronic home 02/chronic steroids Continue home 02-2L Continue prednisone 10mg PO daily/Breztri PRN nebulizer treatments Chronic diastolic congestive heart failure Resume home medications Malnourished/cachectic All Purpose Clerk consult reports she takes a mechanical soft/pureed diet at home trouble with her teeth but no reported difficulty swallowing calorie count in place DVT PPX:Lovenox Code status:Full Discharge Plan: Home Plan to discharge in: Greater than 2 days Time Spent Managing Pts Care (In Minutes): 35
--- NOTE | 2023-09-17 17:31 | EKG ---
Test Date: 2023-09-15 Test Time: 09:19:11 [employer]rol[employer] Dispatcher: PANFILO MEASUREMENT RESULTS: Intervals: Rate: 107 UT: 150 QRSD: 82 QT: 398 QTc: 531 [place]: P: 100 UT: 150 QRS: 91 T: -74 INTERPRETIVE STATEMENTS: Sinus tachycardia with premature supraventricular complexes Anterior infarct, age undetermined ST & T wave abnormality, consider inferior ischemia Abnormal ECG Compared to ECG 07/22/2020 11:01:17 Atrial premature complex(es) now present Myocardial infarct finding now present Possible ischemia now present Sinus bradycardia no longer present T-wave abnormality no longer present ST (T wave) deviation still present Electronically Signed On 09-17-23 17:24:36 CDT by Valeriano Navarro
[2023-09-18 04:10] LABS: Absolute Lymphocytes (CBC) 0.6 K/uL (0.7-4.9); Absolute Monocytes 0.5 K/uL (0.1-1.3); Absolute Neutrophil 4.8 K/uL (1.8-8.0); Basophils % 0.2 % (0-1.3); Eosinophils % 0.2 % (0-4.4); Hematocrit 28.5 % (36.0-45.0); Hemoglobin 9.3 g/dL (12.0-15.0); Lymphocytes % 9.7 % (15.3-44.8); MCH 30.2 pg (27.0-35.0); MCHC 32.5 g/dL (32.0-36.0); MCV 92.8 fL (80-100); MPV 8.3 fL (7.6-11.3); Monocytes % 8.5 % (3.3-12.3); Neutrophils % 81.4 % (41.7-73.7); Platelets 214 thou/uL (152-406); RBC Red Blood Cell Count 3.07 M/uL (3.86-4.86); Red Cell Distribution Width 14.5 % (12.1-15.2)
[2023-09-18 04:31] LABS: Albumin 2.2 g/dL (3.4-5.0); Albumin/Globulin Ratio 0.7 (1.1-1.8); Anion Gap 5.5 mEq/L (5.0-15.0); Bilirubin Total 0.6 mg/dL (0.2-1.0); Magnesium 1.9 mg/dL (1.6-2.4); Phosphorus 1.6 mg/dL (2.5-4.9); Potassium 3.5 mEq/L (3.5-5.1); Protein, Total 5.2 g/dL (6.4-8.2)
[2023-09-18] MEDS: POTASS/SODIUM PHOSPHATE 1 PKT POWD.PACK PO SCH (08:58)
--- NOTE | 2023-09-18 12:27 | P.PN ---
Date of Service: 09/18/23 Subjective: Complains of pelvic/left leg pain Eating some but not all of her food is drinking ensures TID No acute events overnight ROS: 10 point ROS as noted above, otherwise negative Physical exam GEN: Alert, oriented, NAD, cachectic HEENT: Normal conjunctiva, sclera anicteric CV: Regular rate and rhythm, no edema Pulm: Nonlabored respirations on room air ABD: Soft, nontender, nondistended MSK: Left hip tenderness, limited range of motion Integumentary: Wound present overlying left hip Neuro: Normal speech, normal affect Vitals reviewed Assessment: Left femoral head/neck fracture Superior and inferior bilateral pubic rami fractures Wounds to left knee, left hip COPD on chronic home 02/chronic steroids Chronic diastolic congestive heart failure Severe Protein-Calorie Malnutrition related to chronic illness Plan: Left femoral head/neck fracture Superior and inferior bilateral pubic rami fractures Seen by orthopedics Patient is really malnourished/cachectic Also wound present over left hip Will delay surgery until improved nutrition status, wound over left hip healed Orthopedics to be following Continue PT with weightbearing as tolerated left hip As needed pain medications plan on inpatient rehab after nutrition status improved Wounds to left knee, left hip Left knee wound swabbed per hospital protocol- + for MRSA Started vancomycin 09/17 ID to be consulted COPD on chronic home 02/chronic steroids Continue home 02-2L Continue prednisone 10mg PO daily/Breztri PRN nebulizer treatments Chronic diastolic congestive heart failure Resume home medications Severe Protein-Calorie Malnutrition related to chronic illness Java Sql Developer consult reports she takes a mechanical soft/pureed diet at home trouble with her teeth but no reported difficulty swallowing calorie count in place DVT PPX:Lovenox Code status:Full Discharge Plan: Home Plan to discharge in: Greater than 2 days Time Spent Managing Pts Care (In Minutes): 35 <Kevin Soto - Last Filed: 09/18/23 12:25> Patient seen and examined on rounds this morning with ACTUARIAL MATHEMATICIAN Charles. Agree with plan as noted above with the following additions/corrections: Reports drank 3 ensures yesterday with a few bites of food. denies any worsening of leg pain, no fever, no leukocytosis. per report, nursing obtained superficial skin culture of wound near left lateral knee (See photo) no purulent drainage. 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
[2023-09-18] MEDS: VANCOMYCIN 500 MG in NA CHLORIDE 0.9% 100 ML IV SCH (13:00)
[2023-09-18] MEDS ORDERED: VANCOMYCIN 1 GM in NA CHLORIDE 0.9% 250 ML IVPB SCH (13:00)
[2023-09-18] MEDS ORDERED: DOCUSATE NA 100 MG CAP PO PRN (13:34)
[2023-09-19 03:56] LABS: Absolute Lymphocytes (CBC) 0.5 K/uL (0.7-4.9); Absolute Monocytes 0.6 K/uL (0.1-1.3); Absolute Neutrophil 5.3 K/uL (1.8-8.0); Basophils % 0.1 % (0-1.3); Eosinophils % 0.6 % (0-4.4); Hematocrit 28.6 % (36.0-45.0); Hemoglobin 9.4 g/dL (12.0-15.0); Lymphocytes % 7.9 % (15.3-44.8); MCH 30.2 pg (27.0-35.0); MCHC 32.8 g/dL (32.0-36.0); MCV 92.3 fL (80-100); MPV 8.1 fL (7.6-11.3); Monocytes % 8.8 % (3.3-12.3); Neutrophils % 82.6 % (41.7-73.7); Nucleated Red Blood Cells % 0.1 % (0-0); Platelets 238 thou/uL (152-406); RBC Red Blood Cell Count 3.09 M/uL (3.86-4.86); Red Cell Distribution Width 14.5 % (12.1-15.2)
[2023-09-19 04:29] LABS: Anion Gap 5.3 mEq/L (5.0-15.0); Ferritin 77.7 ng/mL (8-388); Phosphorus 2.3 mg/dL (2.5-4.9); Potassium 3.3 mEq/L (3.5-5.1)
[2023-09-19] MEDS: POTASS/SODIUM PHOSPHATE 1 PKT POWD.PACK PO SCH ×2 (05:00→08:57)
[2023-09-19] MEDS: POTASSIUM CL SA 10 MEQ TAB PO ONE (08:56)
--- NOTE | 2023-09-19 11:42 | P.PN ---
Date of Service: 09/19/23 Subjective: Complains of pelvic/left leg pain Eating some but not all of her food is drinking ensures TID No acute events overnight ROS: 10 point ROS as noted above, otherwise negative Physical exam GEN: Alert, oriented, NAD, cachectic HEENT: Normal conjunctiva, sclera anicteric CV: Regular rate and rhythm, no edema Pulm: Nonlabored respirations on room air ABD: Soft, nontender, nondistended MSK: Left hip tenderness, limited range of motion Integumentary: Wound present overlying left hip Neuro: Normal speech, normal affect Vitals reviewed Assessment: Left femoral head/neck fracture Superior and inferior bilateral pubic rami fractures Wounds to left knee, left hip Iron deficiency anemia COPD on chronic home 02/chronic steroids Chronic diastolic congestive heart failure Severe Protein-Calorie Malnutrition related to chronic illness Plan: Left femoral head/neck fracture Superior and inferior bilateral pubic rami fractures Seen by orthopedics Patient is very malnourished/cachectic Also wound present over left hip Will delay surgery until improved nutrition status, wound over left hip healed Orthopedics to be following Continue PT with weightbearing as tolerated left hip As needed pain medications plan on inpatient rehab after nutrition status improved Wounds to left knee, left hip Left knee wound swabbed per hospital protocol- + for MRSA Started vancomycin 09/17 ID to be consulted Iron deficiency anemia Will order iron supplementation Monitor CBC COPD on chronic home 02/chronic steroids Continue home 02-2L Continue prednisone 10mg PO daily/Breztri PRN nebulizer treatments Chronic diastolic congestive heart failure Resume home medications Severe Protein-Calorie Malnutrition related to chronic illness Ink Technician consult reports she takes a mechanical soft/pureed diet at home trouble with her teeth but no reported difficulty swallowing calorie count in place DVT PPX:Lovenox Code status:Full Discharge Plan: Home Plan to discharge in: Greater than 2 days Time Spent Managing Pts Care (In Minutes): 35 <Kevin Soto - Last Filed: 09/19/23 11:40> Patient seen and examined on rounds this morning with COFFEE HOST Charles. Agree with plan as noted above with the following additions/corrections: reported cough slightly worse last night/overnight, O2 via NC increased unable to get anything out; feels slightly better this morning denies any aspiration event / no difficulty with swallowing legs without any worsening pain seem less erythematous afebrile, no leukocytosis MRSA from superficial skin swab of lesion just below left knee, no purulent drainage started Vanc 09/17 given culture result and risk - wound, poor nutrition, nevaeh mbulatory <Manuel Fontana - Last Filed: 09/19/23 13:43>
[2023-09-20 04:13] LABS: Hematocrit 27.6 % (36.0-45.0); MCH 30.4 pg (27.0-35.0); MCHC 32.6 g/dL (32.0-36.0); MCV 93.2 fL (80-100); MPV 8.4 fL (7.6-11.3); Platelets 237 thou/uL (152-406); RBC Red Blood Cell Count 2.96 M/uL (3.86-4.86); Red Cell Distribution Width 14.3 % (12.1-15.2)
[2023-09-20 04:17] LABS: Anion Gap 5.1 mEq/L (5.0-15.0); Magnesium 1.8 mg/dL (1.6-2.4); Phosphorus 2.4 mg/dL (2.5-4.9); Potassium 4.1 mEq/L (3.5-5.1)
[2023-09-20] MEDS: MAGNESIUM SULFATE 1 gm IVPB 1 GM/100 ML BAG IV ONE (08:32)
--- NOTE | 2023-09-20 10:07 | P.CNS ---
Date of Consult: 09/20/23 Reason for Consult: MRSA wound Chief Complaint: Left hip fracture, pelvic fractures History of Present Illness: Patient is a 63-year-old female with medical history of end-stage COPD and chronic diastolic congestive heart failure who presented to the ED with complaints of left hip pain and dehydration. She reported a mechanical fall about 5 days prior to arrival and has been experiencing increasing pain and difficulty ambulating. Chest x-ray negative for acute findings. CT of the pelvis revealed "Displaced fractures of the left femoral head/neck junction, superior and inferior bilateral pubic rami at the junctions with the pubic bone, right inferior pubic ramus, and the left sacral ala." Patient was noted to have abrasions of left lower extremity; culture swab was obtained resulting with MRSA. Infectious disease was consulted. Allergies codeine Allergy (Verified 09/16/23 00:15) seecom diphenhydramine [From Benadryl] Allergy (Verified 09/16/23 00:14) Hives/Rash Home medications list reviewed: Yes Home Medications: Albuterol Inhaler [Ventolin Inhaler*] 2 puff IH Q6H PRN 30 Days #1 hfa.[email or web address].[email or web address] 07/25/20 acetaZOLAMIDE [Diamox*] 250 mg PO DAILY 30 Days #30 tab 07/25/20 Budesonide/Glycopyr/Formoterol [Breztri Aerosphere Inhaler] 1 puff IH BID 09/15/23 predniSONE [Deltasone*] 10 mg PO DAILY 09/16/23 - Past Medical/Surgical History Diabetic: No -: Tobacco use -: End-stage COPD -: Chronic diastolic ingestive heart failure Psychosocial/ Personal History: Lives at home alone - Family History Father Medical History: Heart disease Notes: Pt. reports both parents having "some kind of heart disease" that lasted for a long time, resulting to surgeries and stent placement. - Social History Alcohol use: No CD- Drugs: No Caffeine use: Yes Place of Residence: Home Review of Systems 10-point ROS is otherwise unremarkable General: Weakness Musculoskeletal: Other (hip pain) Integumentary: Lesions (LLE) Physical Examination Temp Pulse Resp BP Pulse Ox 96.9 F 75 16 112/53 L 92 09/20/23 08:00 09/20/23 08:00 09/20/23 08:00 09/20/23 08:00 09/20/23 08:00 General: Alert, In no apparent distress, Oriented x3, Cachectic HEENT: Normocephalic, Other (dry oral mucosa) Respiratory: Diminished, Other (unlabored respirations on 3L nasal cannula) Cardiovascular: No edema, Regular rate/rhythm Gastrointestinal: Normal bowel sounds, Non-distended Integumentary: Other (abrasion left hip, left knee) Neurological: Normal speech Laboratory Data - Reviewed Microbiology Data - Reviewed Imagings Data: - Reviewed Conclusions/Impression: Problem List Severe protein calorie malnutrition Abrasion of Left Knee and Hip Displaced fractures left femoral head, bilateral pubic rami, right inferior pubic remus, left sacral ala COPD Chronic diastolic CHF Iron deficiency anemia Abrasion Left Knee and Hip MRSA colonization - wound culture 09/15; MRSA - Currently on vancomycin (started 09/17) - bactroban nasal BID x 5 days for nasal decolonization - no leukocytosis - afebrile CT pelvis 09/14: "Displaced fractures of the left femoral head/neck junction, superior and inferior bilateral pubic rami at the junctions with the pubic bone, right inferior pubic ramus, and the left sacral ala as above. Incidentally noted nonobstructing right lower renal pole 2 mm calculus." Recommendations - wound culture obtained was superficial swab. Left knee abrasion and left hip abrasion without surrounding erythema, drainage or foul odor. Will discontinue vancomycin IV and start on Mupirocin topical to be applied daily x 7 days. - MRSA nasal decolonization: Continue Bactroban Nasal BID x 5 days - Nutritional supplementation - Monitor CBC and fever trends - Follow up with orthopedic doctor as outpatient - Pending inpatient rehab placement. CM/SS following. Case discussed with Manuel Osborne
[2023-09-20] MEDS: Mupirocin NASAL 2 APPL/1 GM TUBE NAS SCH (12:19)
--- NOTE | 2023-09-20 13:00 | P.PN ---
Date of Service: 09/20/23 Subjective: Tolerating diet No acute events overnight awaiting possible inpatient rehab ROS: 10 point ROS as noted above, otherwise negative Physical exam GEN: Alert, oriented, NAD, cachectic HEENT: Normal conjunctiva, sclera anicteric CV: Regular rate and rhythm, no edema Pulm: Nonlabored respirations on room air ABD: Soft, nontender, nondistended MSK: Left hip tenderness, limited range of motion Integumentary: Wound present overlying left hip Neuro: Normal speech, normal affect Vitals reviewed Assessment: Left femoral head/neck fracture Superior and inferior bilateral pubic rami fractures Wounds to left knee, left hip Iron deficiency anemia COPD on chronic home 02/chronic steroids Chronic diastolic congestive heart failure Severe Protein-Calorie Malnutrition related to chronic illness Plan: Left femoral head/neck fracture Superior and inferior bilateral pubic rami fractures Seen by orthopedics Patient is very malnourished/cachectic Also wound present over left hip Will delay surgery until improved nutrition status, wound over left hip healed Orthopedics to be following-recommends further care and outpatient eval for fractures Continue PT with weightbearing as tolerated left hip As needed pain medications plan on inpatient rehab after nutrition status improved Wounds to left knee, left hip Left knee wound swabbed per hospital protocol- + for MRSA Started vancomycin 09/17-discontinue 09/19 Continue with bactroban bid to knee and nasal started 09/19 ID following Iron deficiency anemia consider iron supplementation Monitor CBC COPD on chronic home 02/chronic steroids Continue home 02-2L Continue prednisone 10mg PO daily/Breztri PRN nebulizer treatments Chronic diastolic congestive heart failure Resume home medications Severe Protein-Calorie Malnutrition related to chronic illness Paper Processing Machine Helper consult reports she takes a mechanical soft/pureed diet at home trouble with her teeth but no reported difficulty swallowing calorie count in place DVT PPX:Lovenox Code status:Full Discharge Plan: Home Plan to discharge in: Greater than 2 days Time Spent Managing Pts Care (In Minutes): 35
[2023-09-20] MEDS: ENSURE CLEAR 200 ML CAN PO SCH (20:47)
[2023-09-20] MEDS ORDERED: MUPIROCIN 2% OINT 22GM TUBE TOP SCH (21:00)
[2023-09-20] MEDS: MUPIROCIN 2% OINT 22GM TUBE TOP SCH (21:00)
[2023-09-21 07:28] LABS: Hematocrit 26.2 % (36.0-45.0); Hemoglobin 8.5 g/dL (12.0-15.0); MCH 30.1 pg (27.0-35.0); MCHC 32.4 g/dL (32.0-36.0); MCV 92.9 fL (80-100); MPV 8.1 fL (7.6-11.3); Platelets 261 thou/uL (152-406); RBC Red Blood Cell Count 2.82 M/uL (3.86-4.86); Red Cell Distribution Width 14.3 % (12.1-15.2)
[2023-09-21 07:46] LABS: Anion Gap 3.6 mEq/L (5.0-15.0); Magnesium 1.8 mg/dL (1.6-2.4); Potassium 3.6 mEq/L (3.5-5.1)
[2023-09-21] MEDS: MAGNESIUM SULFATE 1 gm IVPB 1 GM/100 ML BAG IV ONE (10:38)
[2023-09-21] MEDS: POTASSIUM CL SA 10 MEQ TAB PO ONE (10:38)
--- NOTE | 2023-09-21 15:53 | P.PN ---
Date of Service: 09/21/23 Subjective: Awake and alert, conversing well Recommendations for Feeding tube by health information clerk will encourage more PO intake ROS: 10 point ROS as noted above, otherwise negative Physical exam GEN: AAO x 3, NAD, cachectic, conversing well HEENT: Normal conjunctiva, sclera anicteric CV: RRR, no edema, S1 S2 present Pulm: Nonlabored respirations, 2LNC ABD: Soft, nontender, nondistended MSK: Left hip tenderness, limited range of motion Integumentary: Wound present overlying left hip Neuro: Normal speech, normal affect Vitals reviewed Assessment: Left femoral head/neck fracture Superior and inferior bilateral pubic rami fractures Wounds to left knee, left hip Iron deficiency anemia COPD on chronic home 02/chronic steroids Chronic diastolic congestive heart failure Severe Protein-Calorie Malnutrition related to chronic illness Plan: Left femoral head/neck fracture Superior and inferior bilateral pubic rami fractures Seen by orthopedics Patient is very malnourished/cachectic Also wound present over left hip- apply bactroban Will delay surgery until improved nutrition status, wound over left hip Orthopedics to be following-recommends further care and outpatient eval for fractures Continue PT with weightbearing as tolerated left hip As needed pain medications plan on inpatient rehab after nutrition status improved Wounds to left knee, left hip Left knee wound swabbed per hospital protocol- + for MRSA Started vancomycin 09/17-discontinue 09/19 d/t superficial swab Continue with bactroban bid to knee and nasal started 09/19 ID following Iron deficiency anemia consider iron supplementation Monitor CBC COPD on chronic home 02/chronic steroids Continue home 02-2L Continue prednisone 10mg PO daily/Breztri PRN nebulizer treatments Chronic diastolic congestive heart failure Resume home medications Severe Protein-Calorie Malnutrition related to chronic illness Alteration Specialist consult-recommend feeding tube reports she takes a mechanical soft/pureed diet at home trouble with her teeth but no reported difficulty swallowing calorie count in place BMI 11 DVT PPX:Lovenox Code status:Full Discharge Plan: Home Plan to discharge in: Greater than 2 days- pending inpatient rehab
--- NOTE | 2023-09-21 15:54 | P.PN ---
Date of Service: 09/21/23 Chief Complaint: Left hip fracture, pelvic fractures Subjective: In no apparent distress. No acute events overnight. + hip/pelvic pain. otherwise no new or worsening complaints. Plan of care discussed with patient and Dr. Banks at bedside during rounds. Physical Examination Temp Pulse Resp BP Pulse Ox 97.8 F 105 H 24 H 130/74 90 L 09/21/23 12:00 09/21/23 12:00 09/21/23 12:00 09/21/23 12:09/21/23 12:00 General: Alert, In no apparent distress, Oriented x3, Cachectic HEENT: Normocephalic. dry oral mucosa Respiratory: Diminished. unlabored respirations on 3L nasal cannula Cardiovascular: No edema, Regular rate/rhythm Gastrointestinal: Normal bowel sounds, Non-distended Integumentary: abrasion left hip, left knee. Shingles rash right breast (healing). Neurological: Normal speech Laboratory Data - Reviewed Microbiology Data - Reviewed Imagings Data: - Reviewed Medications List: Reviewed Assessment and Plan Problem List Severe protein calorie malnutrition Abrasion of Left Knee and Hip Displaced fractures left femoral head, bilateral pubic rami, right inferior pubic remus, left sacral ala COPD Chronic diastolic CHF Iron deficiency anemia Abrasion Left Knee and Hip MRSA colonization - wound culture 09/15; MRSA - Currently on vancomycin (started 09/17) - bactroban nasal BID x 5 days for nasal decolonization - no leukocytosis - afebrile CT pelvis 09/14: "Displaced fractures of the left femoral head/neck junction, superior and inferior bilateral pubic rami at the junctions with the pubic bone, right inferior pubic ramus, and the left sacral ala as above. Incidentally noted nonobstructing right lower renal pole 2 mm calculus." Recommendations - wound culture obtained was superficial swab. Left knee abrasion and left hip abrasion without surrounding erythema, drainage or foul odor. - Vancomycin was discontinued 09/19. - Mupirocin topical to be applied daily x 7 days. - MRSA nasal decolonization: Continue Bactroban Nasal BID x 5 days - Nutritional supplementation - Monitor CBC and fever trends - Follow up with orthopedic doctor as outpatient - Pending inpatient rehab placement. CM/SS following. Case discussed with Manuel Osborne
[2023-09-22 07:00] LABS: Hematocrit 25.4 % (36.0-45.0); Hemoglobin 8.3 g/dL (12.0-15.0); MCH 30.2 pg (27.0-35.0); MCHC 32.6 g/dL (32.0-36.0); MCV 92.7 fL (80-100); MPV 7.7 fL (7.6-11.3); Platelets 269 thou/uL (152-406); RBC Red Blood Cell Count 2.74 M/uL (3.86-4.86); Red Cell Distribution Width 14.6 % (12.1-15.2)
[2023-09-22 07:13] LABS: Anion Gap 3.8 mEq/L (5.0-15.0); Magnesium 2.1 mg/dL (1.6-2.4); Potassium 3.8 mEq/L (3.5-5.1)
--- NOTE | 2023-09-22 08:53 | P.PN ---
Date of Service: 09/22/23 Chief Complaint: Left hip fracture, pelvic fractures Subjective: No acute events overnight. In no apparent distress. Denies any new or worsening complaints at this time. Physical Examination Temp Pulse Resp BP Pulse Ox 97.4 F 65 18 100/52 L 95 09/22/23 04:00 09/22/23 04:00 09/22/23 04:00 09/22/23 04:00 09/22/23 04:00 General: Alert, In no apparent distress, Oriented x3, Cachectic HEENT: Normocephalic. dry oral mucosa Respiratory: Diminished. Unlabored respirations on 2L nasal cannula Cardiovascular: No edema, Regular rate/rhythm Gastrointestinal: Normal bowel sounds, Non-distended Integumentary: abrasion left hip, left knee. healing Shingles rash right breast Neurological: Normal speech Laboratory Data - Reviewed Microbiology Data - Reviewed Imagings Data: - Reviewed Medications List: Reviewed Assessment and Plan Problem List Displaced fractures left femoral head, bilateral pubic rami, right inferior pubic remus, left sacral ala Abrasion of Left Knee and Hip COPD Chronic diastolic CHF Iron deficiency anemia Severe protein calorie malnutrition Abrasion Left Knee and Hip MRSA colonization Displaced fractures left femoral head, bilateral pubic rami, right inferior pubic remus, left sacral ala - CT pelvis 09/14: "Displaced fractures of the left femoral head/neck junction, superior and inferior bilateral pubic rami at the junctions with the pubic bone, right inferior pubic ramus, and the left sacral ala as above. Incidentally noted nonobstructing right lower renal pole 2 mm calculus." - wound culture 09/15; MRSA - Previously on vancomycin (09/17-09/19) - bactroban nasal BID x 5 days for nasal decolonization - mupirocin topical to abrasions no leukocytosis afebrile Recommendations - wound culture obtained was superficial swab. Left knee abrasion and left hip abrasion without surrounding erythema, drainage or foul odor. - Vancomycin was discontinued 09/19. - Mupirocin topical to be applied daily x 7 days (09/19-09/26) - MRSA nasal decolonization: Continue Bactroban Nasal BID x 5 days (09/19-09/23) - Nutritional supplementation - Monitor CBC and fever trends - Follow up with orthopedic as outpatient - Pending inpatient rehab placement. CM/SS following. Case discussed with Lissa Osborne.
[2023-09-22] MEDS: HOME MED 1 EA UNK (Budesonide/Glycopyr/Formoterol [Breztri Aerosphere Inhaler] 10.7 GM Hfa IH SCH (09:49)
[2023-09-22] MEDS: POTASSIUM CL SA 10 MEQ TAB PO ONE (11:23)
--- NOTE | 2023-09-22 17:59 | P.PN ---
Date of Service: 09/22/23 Subjective: Feeling well this morning, lengthy conversation this a.m. She reports feeling more hungry for dinner last night. working with PT ROS: 10 point ROS as noted above, otherwise negative Physical exam GEN: No acute distress, alert and oriented x 3, cachectic, calm HEENT: Normal conjunctiva, sclera anicteric CV: S1 S2 present, Regular rate and rhythm, no edema Pulm: Nonlabored respirations, 2LNC ABD: Bowel sounds present, soft and benign on palpation, NT/ND MSK: Left hip tenderness, limited range of motion Integumentary: Wound present overlying left hip Neuro: Normal speech, normal affect Vitals reviewed Assessment: Left femoral head/neck fracture Superior and inferior bilateral pubic rami fractures Wounds to left knee, left hip Iron deficiency anemia COPD on chronic home 02/chronic steroids Chronic diastolic congestive heart failure Severe Protein-Calorie Malnutrition related to chronic illness Plan: Left femoral head/neck fracture Superior and inferior bilateral pubic rami fractures Seen by orthopedics Patient is very malnourished/cachectic wound present over left hip- apply bactroban Will delay surgery until improved nutrition status Orthopedics to be following-recommends further care and outpatient eval for fractures Continue PT with weightbearing as tolerated left hip As needed pain medications plan on inpatient rehab after nutrition status improved Wounds to left knee, left hip Left knee wound swabbed per hospital protocol- + for MRSA Started vancomycin 09/17-discontinue 09/19 d/t superficial swab Continue with bactroban bid to knee 09/19-09/26 and nasal 09/19-09/23 ID following Iron deficiency anemia consider iron supplementation Monitor CBC COPD on chronic home 02/chronic steroids Continue home 02-2L Continue prednisone 10mg PO daily/Breztri continue PRN nebulizer treatments Chronic diastolic congestive heart failure Resume home medications Severe Protein-Calorie Malnutrition related to chronic illness Warehouse Distribution Associate consult-recommend feeding tube reports she takes a mechanical soft/pureed diet at home trouble with her teeth but no reported difficulty swallowing calorie count in place BMI 11 DVT PPX:Lovenox Code status:Full Discharge Plan: Home Plan to discharge in: Greater than 2 days- pending inpatient rehab [facility]
[2023-09-23 08:26] LABS: Phosphorus 2.1 mg/dL (2.5-4.9)
[2023-09-23] MEDS: POTASS/SODIUM PHOSPHATE 1 PKT POWD.PACK PO SCH (09:54)
[2023-09-23 15:14] LABS: 1,25 Dihydroxy Vitamin D3 18 pg/mL; Vitamin D 1,25-Dihydroxy Total 18 pg/mL (18-72); Vitamin D,1,25-OH2, D2 <8 pg/mL
--- NOTE | 2023-09-23 19:28 | P.PN ---
Date of Service: 09/23/23 Subjective: Feeling anxious this AM and refuses any antianxiety medications at this time, requested her cream of wheat to be reheated Showing hunger and trying to eat. continues to work with PT, able to stand today ROS: 10 point ROS as noted above, otherwise negative Physical exam GEN: AAOx3. NAD, cachectic, anxious HEENT: Normal conjunctiva, sclera anicteric CV: RRR, normal S1S2, no murmur noted Pulm: Nonlabored respirations, 2LNC ABD: soft and benign on palpation, NT/ND, normoactive bowel sounds MSK: Left hip tenderness, limited range of motion, 2+ peripheral pulses Integumentary: Wound present overlying left hip Neuro: Normal speech, normal affect, anxious Vitals reviewed Assessment: Left femoral head/neck fracture Superior and inferior bilateral pubic rami fractures Wounds to left knee, left hip Iron deficiency anemia COPD on chronic home 02/chronic steroids Chronic diastolic congestive heart failure Severe Protein-Calorie Malnutrition related to chronic illness Plan: Left femoral head/neck fracture Superior and inferior bilateral pubic rami fractures Seen by orthopedics Patient is very malnourished/cachectic wound present over left hip- apply bactroban Will delay surgery until improved nutrition status Orthopedics to be following-recommends further care and outpatient eval for fractures Continue PT with weightbearing as tolerated left hip As needed pain medications plan on inpatient rehab after nutrition status improved Wounds to left knee, left hip Left knee wound swabbed per hospital protocol- + for MRSA Started vancomycin 09/17-discontinue 09/19 d/t superficial swab Continue with bactroban bid to knee 09/19-09/26 and nasal 09/19-09/23 ID following Iron deficiency anemia consider iron supplementation Monitor CBC COPD on chronic home 02/chronic steroids Continue home 02-2L Continue prednisone 10mg PO daily/Breztri continue PRN nebulizer treatments Chronic diastolic congestive heart failure Resume home medications Severe Protein-Calorie Malnutrition related to chronic illness Head Start Assistant Teacher consult-recommend feeding tube reports she takes a mechanical soft/pureed diet at home trouble with her teeth but no reported difficulty swallowing calorie count in place BMI 11 DVT PPX:Lovenox Code status:Full Discharge Plan: Home Plan to discharge in: Greater than 2 days- pending inpatient rehab peer to peer
[2023-09-24 08:43] LABS: Anion Gap 3.7 mEq/L (5.0-15.0); Phosphorus 2.6 mg/dL (2.5-4.9); Potassium 3.7 mEq/L (3.5-5.1)
[2023-09-24] MEDS: POTASSIUM CL SA 10 MEQ TAB PO ONE (10:21)
[2023-09-24] MEDS: ACETAMINOPHEN 500 MG TAB PO PRN (10:21)
--- NOTE | 2023-09-24 19:55 | P.PN ---
Date of Service: 09/24/23 Subjective: oxygen supplementation increased OVN, decreased to 4 LNC Awaiting approval for inpatient rehab or possible SNF ROS: 10 point ROS as noted above, otherwise negative Physical exam GEN: No acute distress, alert and oriented x 3, cachectic, anxious HEENT: Normal conjunctiva, sclera anicteric CV: Regular rate and rhythm, normal S1S2, no murmur noted Pulm: Nonlabored respirations, 2LNC ABD: soft and benign on palpation, NT/ND, bowel sounds present MSK: Left hip tenderness, limited range of motion, 2+ peripheral pulses Integumentary: Wound present overlying left hip Neuro: Normal speech, normal affect, anxious Vitals reviewed Assessment: Left femoral head/neck fracture Superior and inferior bilateral pubic rami fractures Wounds to left knee, left hip Iron deficiency anemia COPD on chronic home 02/chronic steroids Chronic diastolic congestive heart failure Severe Protein-Calorie Malnutrition related to chronic illness Plan: Left femoral head/neck fracture Superior and inferior bilateral pubic rami fractures Seen by orthopedics Patient is very malnourished/cachectic wound present over left hip- apply bactroban Will delay surgery until improved nutrition status Orthopedics to be following-recommends further care and outpatient eval for fractures Continue PT with weightbearing as tolerated left hip As needed pain medications plan on inpatient rehab after nutrition status improved Wounds to left knee, left hip Left knee wound swabbed per hospital protocol- + for MRSA Started vancomycin 09/17-discontinue 09/19 d/t superficial swab Continue with bactroban bid to knee 09/19-09/26 and nasal 09/19-09/23 ID following Iron deficiency anemia consider iron supplementation Monitor CBC COPD on chronic home 02/chronic steroids Continue home 02-2L Continue prednisone 10mg PO daily/Breztri continue PRN nebulizer treatments Chronic diastolic congestive heart failure Resume home medications Severe Protein-Calorie Malnutrition related to chronic illness 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 Events of the last 24 hours have been noted. Case discussed with [facility]. I performed a substantial part of the MDM during this patient's care today. I personally made or approved the documented management plan and acknowledge its risk of complications. I agree with the findings and documentation provided in the [facility]'s notes. Patient remained stable. Clinical status has improved. I am hoping we can get patient to jail facility placement. Patient is continuing with physical therapy and increasing nutritional support with supplementation. Patient started to ambulate with physical therapy and I believe she would do well if she is qualified. If not hopefully we can get her to [facility] for jail facility rehabilitation. <Cam Grimes - Last Filed: 09/27/23 04:47>
--- NOTE | 2023-09-25 08:50 | P.PN ---
Date of Service: 09/25/23 Subjective: weaned o2 requirement to 3LNC OVN conversing well, still with some anxiety ROS: 10 point ROS as noted above, otherwise negative Physical exam GEN: AAOx3, NAD, cachectic, anxious HEENT: Normal conjunctiva, sclera anicteric CV: S1S2 present, RRR, no murmur noted Pulm: Nonlabored respirations, 5LNC ABD: soft and benign on palpation, NT/ND, bowel sounds present MSK: Left hip tenderness, limited range of motion, 2+ peripheral pulses Integumentary: Wound present overlying left hip Neuro: Normal speech, normal affect, anxious Vitals reviewed Assessment: Left femoral head/neck fracture Superior and inferior bilateral pubic rami fractures Wounds to left knee, left hip Iron deficiency anemia COPD on chronic home /chronic steroids Chronic diastolic congestive heart failure Severe Protein-Calorie Malnutrition related to chronic illness Plan: Left femoral head/neck fracture Superior and inferior bilateral pubic rami fractures Seen by orthopedics Patient is very malnourished/cachectic wound present over left hip- apply bactroban Will delay surgery until improved nutrition status Orthopedics to be following-recommends further care and outpatient eval for fractures Continue PT with weightbearing as tolerated left hip As needed pain medications plan on inpatient rehab after nutrition status improved Wounds to left knee, left hip Left knee wound swabbed per hospital protocol- + for MRSA Started vancomycin 09/17-discontinue 09/19 d/t superficial swab Continue with bactroban bid to knee 09/19-09/26 and (nasal 09/19-09/23- complete) ID following Iron deficiency anemia consider iron supplementation Monitor CBC COPD on chronic home /chronic steroids Continue home 02-2L- adjustments were made d/t requiring higher O2, Oxygen saturation goal of 88%-94% Continue prednisone 10mg PO daily/Breztri continue PRN nebulizer treatments Chronic diastolic congestive heart failure Resume home medications Severe Protein-Calorie Malnutrition related to chronic illness 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 Events of the last 24 hours have been noted. Case discussed with [facility]. I performed a substantial part of the MDM during this patient's care today. I personally made or approved the documented management plan and acknowledge its risk of complications. I agree with the findings and documentation provided in the [facility]'s notes. Patient is continuing with physical therapy and increasing nutritional support with supplementation. Awaiting for inpatient rehab placement. Expedited appeal pending. Patient started to ambulate with physical therapy and I believe she would do well if she is qualified. If not hopefully we can get her to [facility] for [facility]pc facility rehabilitation. <Cam Grimes - Last Filed: 09/27/23 04:46>
[2023-09-26] MEDS: POTASSIUM CL SA 10 MEQ TAB PO ONE (08:53)
--- NOTE | 2023-09-26 13:59 | P.PN ---
Date of Service: 09/26/23 Subjective: On 3 LNC this AM more relaxed but she states she is anxious about her discharge- awaiting approval for inpatient rehab She continues not having an appetite but is able to eat. No physical therapy this weekend ROS: 10 point ROS as noted above, otherwise negative Physical exam GEN: No acute distress, AAOx3, cachectic HEENT: Normal conjunctiva, sclera anicteric CV: Regular rate and rhythm, S1 S2 present, no murmur noted, 2+ peripheral pulses Pulm: Nonlabored respirations, 3LNC ABD: soft and benign on palpation, NT/ND, bowel sounds active MSK: Left hip tenderness, limited range of motion, 2+ peripheral pulses Integumentary: Wound present overlying left hip Neuro: Normal speech, normal affect, anxious Vitals reviewed Assessment: Left femoral head/neck fracture Superior and inferior bilateral pubic rami fractures Wounds to left knee, left hip Iron deficiency anemia COPD on chronic home 02/chronic steroids Chronic diastolic congestive heart failure Severe Protein-Calorie Malnutrition related to chronic illness Plan: Left femoral head/neck fracture Superior and inferior bilateral pubic rami fractures Seen by orthopedics Patient is very malnourished/cachectic wound present over left hip- apply bactroban Will delay surgery until improved nutrition status Orthopedics to be following-recommends further care and outpatient eval for fractures Continue PT with weightbearing as tolerated left hip As needed pain medications plan on inpatient rehab after nutrition status improved Wounds to left knee, left hip Left knee wound swabbed per hospital protocol- + for MRSA Started vancomycin 09/17-discontinue 09/19 d/t superficial swab Continue with bactroban bid to knee 09/19-09/26 and (nasal 09/19-09/23- complete) ID following Iron deficiency anemia consider iron supplementation Monitor CBC COPD on chronic home 02/chronic steroids Continue home 02-2L- Oxygen saturation goal of 88%-94% Continue prednisone 10mg PO daily/Breztri continue PRN nebulizer treatments Chronic diastolic congestive heart failure Resume home medications Severe Protein-Calorie Malnutrition related to chronic illness 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 Events of the last 24 hours have been noted. Case discussed with [facility]. I performed a substantial part of the MDM during this patient's care today. I personally made or approved the documented management plan and acknowledge its risk of complications. I agree with the findings and documentation provided in the [facility]'s notes. Patient suffered a left femoral head/neck fracture with superior and inferior bilateral pubic rami fracture. Patient has wound to the left knee and the left hip. These need to be healed prior to any surgical intervention per orthopedic surgery. Increasing patient's nutritional status. Patient with chronic COPD and chronic congestive heart failure. She is on chronic steroids as well.Hopefully, we can replete patient's nutritional status by supplementations with Ensure and Mushtaq. <Cam Grimes - Last Filed: 09/27/23 04:45>
[2023-09-27 06:42] LABS: Anion Gap 2.7 mEq/L (5.0-15.0); Potassium 3.7 mEq/L (3.5-5.1)
[2023-09-27] MEDS ORDERED: ALBUTEROL 2.5 MG/3 ML NEB SOL NEB PRN (07:17)
--- NOTE | 2023-09-27 12:58 | P.PN ---
Date of Service: 09/27/23 Subjective: Continues on 3 L nasal cannula today Likely discharge in the a.m. to inpatient rehab Feeling well, calm with less anxiety ROS: 10 point ROS as noted above, otherwise negative Physical exam GEN: NAD, alert and oriented x 3 cachectic, calm HEENT: Normal conjunctiva, sclera anicteric CV: RRR, S1 S2 present, no murmur noted, 2+ peripheral pulses Pulm: Nonlabored respirations, 3LNC ABD: Nondistended/nontender, soft and benign on palpation, bowel sounds present MSK: Left hip tenderness, limited range of motion, 2+ peripheral pulses Integumentary: Wound present overlying left hip Neuro: Normal speech, normal affect, anxious Vitals reviewed Assessment: Left femoral head/neck fracture Superior and inferior bilateral pubic rami fractures Wounds to left knee, left hip Iron deficiency anemia COPD on chronic home 02/chronic steroids Chronic diastolic congestive heart failure Severe Protein-Calorie Malnutrition related to chronic illness Plan: Left femoral head/neck fracture Superior and inferior bilateral pubic rami fractures Seen by orthopedics Patient is very malnourished/cachectic wound present over left hip- apply bactroban Will delay surgery until improved nutrition status Orthopedics to be following-recommends further care and outpatient eval for fractures Continue PT with weightbearing as tolerated left hip As needed pain medications plan on inpatient rehab after nutrition status improved Wounds to left knee, left hip Left knee wound swabbed per hospital protocol- + for MRSA Started vancomycin 09/17-discontinue 09/19 d/t superficial swab Continue with bactroban bid to knee 09/19-09/26 complete today and (nasal 09/19-09/23- complete) ID following Iron deficiency anemia consider iron supplementation Monitor CBC COPD on chronic home 02/chronic steroids Continue home 02-2L- Oxygen saturation goal of 88%-94% Continue prednisone 10mg PO daily/Breztri continue PRN nebulizer treatments Chronic diastolic congestive heart failure Resume home medications Severe Protein-Calorie Malnutrition related to chronic illness 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 Events of the last 24 hours have been noted. Spoke with with [facility] regarding patient's clinical picture after evaluating and examining the patient independently. I performed a substantial part of the MDM during this patient's care today. I personally made or approved the documented management plan and acknowledge its risk of complications. I agree with the findings and documentation provided in the AMERICO's notes. Patient doing much better. Eating better. Accepted to inpatient rehab for in the morning. Plan to discharge in a.m.. <Cam Grimes - Last Filed: 09/28/23 05:04>
--- NOTE | 2023-09-28 07:21 | P.DS ---
Discharge Date: 09/28/23 Disposition: TRANSFER TO INPATIENT REHAB Discharge Condition: FAIR Reason for Admission: Left hip fracture, pelvic fractures Consultations: Orthopedics Brief History of Present Illness: 63-year-old female with history of end-stage COPD, chronic diastolic congestive heart failure presents to the emergency department with chief complaint of pain in her hip, dehydration. She reports that she fell about 5 days ago and has been having increasing pain in her pelvic area as well as difficulty with ambulation. She lives at home alone and has been having difficulty getting to the kitchen to eat or drink. Patient appears cachectic, malnourished. She was evaluated in the emergency department labs are significant for hemoglobin 10.2 hematocrit 31.9 sodium 135 potassium 3.3 chloride 89 bicarb 42 albumin 2.4. Chest x-ray was obtained which was negative for acute findings, CT of the pelvis was also obtained which revealed Displaced fractures of the left femoral head/neck junction, superior and inferior bilateral pubic rami at the junctions with the pubic bone, right inferior pubic ramus, and the left sacral ala. Patient will need to be admitted for pelvic/hip fracture. Hospital Course: Patient was seen by orthopedics. Patient had a femoral neck/head displaced fracture as well as the superior and inferior pubic rami fracture. However, patient also had a wound and was poorly malnourished. Healing was going to be very poor and surgery was unlikely to be successful because of patient's poor nutrition. Patient was made toe-touch weightbearing and plan was to do a ggressive physical therapy and nutritional support. Hopefully, patient can improve her nutrition and with activity she can build her strength up and the wound on her left hip will heal so she can have a total hip arthroplasty in the near future. Patient is clinically doing better and at this time she has been participating well with physical therapy. Will go ahead and discharge her to inpatient rehab as expedited appeal has been approved. At this time, patient stable for discharge with continued treatment at inpatient rehab. Vital Signs/Physical Exam: Temp Pulse Resp BP Pulse Ox 98.6 F 76 18 110/54 L 96 09/28/23 04:00 09/28/23 04:00 09/28/23 04:00 09/28/23 04:00 09/28/23 04:00 General: Alert, In no apparent distress, Oriented x3 Laboratory Data at Discharge: WBC 6.10 thou/uL (4.3-10.9) 09/22/23 06:41 Hgb 8.3 g/dL (12.0-15.0) L 09/22/23 06:41 Hct 25.4 % (36.0-45.0) L 09/22/23 06:41 Plt Count 269 thou/uL (152-406) 09/22/23 06:41 PT 11.5 SECONDS (9.5-12.5) 09/15/23 10:35 INR 1.05 09/15/23 10:35 APTT 28.5 SECONDS (24.3-36.9) 09/15/23 10:35 Sodium 137 mEq/L (136-145) 09/27/23 05:25 Potassium 3.7 mEq/L (3.5-5.1) 09/27/23 05:25 BUN 14 mg/dL (7-18) 09/27/23 05:25 Creatinine 0.26 mg/dL (0.55-1.02) L 09/27/23 05:25 Glucose 141 mg/dL (74-106) H 09/27/23 05:25 Phosphorus 2.6 mg/dL (2.5-4.9) 09/24/23 08:23 Magnesium 2.1 mg/dL (1.6-2.4) 09/22/23 06:41 Total Bilirubin 0.6 mg/dL (0.2-1.0) 09/18/23 03:04 AST 12 U/L (15-37) L 09/18/23 03:04 ALT 17 U/L (13-56) 09/18/23 03:04 Alkaline Phosphatase 82 U/L (45-117) 09/18/23 03:04 Home Medications: Albuterol Inhaler [Ventolin Inhaler*] 2 puff IH Q6H PRN 30 Days #1 hfa.aer.ad 07/25/20 acetaZOLAMIDE [Diamox*] 250 mg PO DAILY 30 Days #30 tab 07/25/20 Budesonide/Glycopyr/Formoterol [Breztri Aerosphere Inhaler] 1 puff IH BID 09/15/23 predniSONE [Deltasone*] 10 mg PO DAILY 09/16/23 Physician Discharge Instructions: Valeria Ring presented to the ED with chief complaint of hip pain and dehydration. 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 Surgical orthopedics consulted and recommend increased nutrition status prior to surgery. She has participated with physical therapy and will be discharged to inpatient rehab in the morning for further rehab. 1. Please call and schedule a follow-up appointment with your PCP in one week - Please follow-up with your PCP for medication refills/adjustments 2. Please call and schedule a follow-up appointment with Dr. Omalley in one week 3. continue regular diet 4. Continue with physical therapy 5. Return to ED if needed 6. Please call Dr. Grimes at [phone] if any questions regarding hospital stay 7. Please call nursing station at [phone] if any nursing or medication questions 8. Return to the emergency room if symptoms worsen Diet: Regular Activity: Fall precautions Followup: NONE,NONE [Primary Care Provider] - Javon Omalley MD [ACTIVE - CAN ADMIT] - 1 Week Time spent managing pt's care (in minutes): 35
[2023-09-28 10:44] VITALS: O2SAT 94
[2023-09-28 13:02] VITALS: BP 112/55; TEMP 98.1
== END 2023-09-28 15:25 | DRG 963 ==
LOC: ER 09:40 → ERHOLD 13:30 → 4TH 22:36
PROVIDERS: ADMIT Hospitalist; ATTEND Hospitalist
DX: S72.092A Other fracture of head and neck of left femur, initial encounter for closed fracture (principal); E43 Unspecified severe protein-calorie malnutrition; S32.10XA Unspecified fracture of sacrum, initial encounter for closed fracture; I50.32 Chronic diastolic (congestive) heart failure; R64 Cachexia; Z68.1 Body mass index [BMI] 19.9 or less, adult; S32.592A Other specified fracture of left pubis, initial encounter for closed fracture; S32.591A Other specified fracture of right pubis, initial encounter for closed fracture; D50.9 Iron deficiency anemia, unspecified; E86.0 Dehydration; J44.9 Chronic obstructive pulmonary disease, unspecified; S80.212A Abrasion, left knee, initial encounter; S70.212A Abrasion, left hip, initial encounter; F17.210 Nicotine dependence, cigarettes, uncomplicated; B95.62 Methicillin resistant Staphylococcus aureus infection as the cause of diseases classified elsewhere; Z60.2 Problems related to living alone; Z88.5 Allergy status to narcotic agent; Z88.8 Allergy status to other drugs, medicaments and biological substances; Z99.81 Dependence on supplemental oxygen; Z79.52 Long term (current) use of systemic steroids; Z79.899 Other long term (current) drug therapy; W19.XXXA Unspecified fall, initial encounter; Y93.9 Activity, unspecified; Y92.9 Unspecified place or not applicable; Y99.9 Unspecified external cause status
CPT/HCPCS: 36415; 71045; 72192; 80048; 80053; 80202; 82306; 82607; 82652; 82728; 83540; 83605; 83735; 83880; 84100; 84134; 84439; 84443; 84466; 84484; 85025; 85027; 85610; 85730; 87040; 87070; 87077; 87186; 87205; 93005; 96360; 97110; 97116; 97163; 97165; 97530; 97542; 99285; J1650; J3475; J7512; J7613

== ENCOUNTER 2023-09-28 10:25 | Inpatient (IN) | payer OTHER ==
--- OUTSIDE RECORDS SUMMARY | 2023-09-28 15:27 | XMS REPORT | Continuity of Care Document ---
Author Name Unknown Address [address] [facility] [place] [address] [facility] Address [address] [facility] 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 Name Role Phone Jame Solares MD Primary Care Physician + [phone] Elo Castro Attending Clinician Unavailab le Doctor Unassigned, [place] Attending Clinician U ELIEZER Monae Attending Clinician Unavaila ble Therapist, [facility] Attending Clinician Cathryn Eliezer Pearson MD Attending Clinician Pob1, [facility] Attending Clinician UnaSisi Jain Attending Clinician [phone] SISI ROSARIO Attending Clinician Unavailable Pcp, Patient Does Not Have A Attending Clinician Taniya Ragland RN Attending Clinician Syl Stapleton Attending Clinician [phone] SYL DEL VALLE Attending Clinician Unavailable Yolanda [...] bronchitis type Disease Active 15 00:00: 00 [facility] Cough Cough Disease Active 15 00:00: 00 [facility] Tobacco abuse Tobacco abuse Disease Active 10-17 00:00: 00 [facility] Allergies, Adverse Reactions, Alerts Allergy Name Allergy Type Status Severity Reaction(s) Onset Date Inactive Date Treating Clinician Comments Source Antihist imine Propensi ty to adverse reaction s Active Anxiety 2019-0 4-15 00:00: 00 [facility] Codeine Propensi ty to adverse reaction s Active Anxiety 2019-0 4-15 00:00: 00 [facility] ANTIHIST IMINE DRUG Active High Anxiety 2019-0 4-15 00:00: 00 [facility] CODEINE DRUG INGREDI Active High Anxiety 2019-0 4-15 00:00: 00 [facility] NO KNOWN ALLERGIE S Drug Class Active [facility] Social History Social Habit Start Date Stop Date Quantity Comments Source [facility] History of tobacco use Passive smoker [facility] Exposure to SARS-CoV-2 (event) 2022-11-21 00:00:00 2022-12-01 13:12:00 Not sure [facility] Cigarettes smoked current (pack per day) - Reported 2022-10-21 00:00:00 2022-10-21 00:00:00 [facility] Cigarette pack-years 2022-10-21 00:00:00 2022-10-21 00:00:00 [facility] Alcohol intake 2022-10-21 00:00:00 2022-10-21 00:00:00 Ex-drinker (finding) [facility] History of Social function 2022-10-21 00:00:00 2022-10-21 00:00:00 [facility] Tobacco use and exposure 2022-10-21 00:00:00 2022-10-21 00:00:00 Smokeless tobacco non-user [facility] Sex Assigned At 1960 00:00:00 1960 00:00:00 [facility] Smoking Status Start Date Stop Date Source Smokes tobacco daily 2022-10-21 00:00:00 [facility] Medications Ordered Medication Name Filled Medication Name Start Date Stop Date Current Medication? Ordering Clinician Indication Dosage Frequency Signature (SIG) Comments Components Source trazodone HCl (TRAZODONE ORAL) 10-21 14:15: 09 Yes 1{tbl} Take 1 tablet by mouth every morning and at bedtime. Indication s: only takes [facility] acetaZOLAMI DE 250 mg tablet 10-21 14:15: 09 Yes 250mg Take 1 tablet by mouth in the morning. Indication s: Dr. Zavala [facility] predniSONE 10 mg tablet 10-21 14:15: 09 Yes 10mg Take 1 tablet by mouth in the morning. Indication s: Dr Zavala [facility] aspirin 81 mg EC tablet 10-21 14:15: 09 Yes 81mg Take 1 tablet by mouth in the morning. [facility] budesonide- glycopyr-fo rmoterol (BREZTRI AEROSPHERE) 160-9-4.8 mcg/actuati on HFAA 10-21 14:15: 09 Yes 2{inhal er} Inhale 2 Inhalers in the morning and 2 Inhalers in the evening. Indication s: Dr. Zavala [facility] trazodone HCl (TRAZODONE ORAL) 10-21 14:15: 09 Yes 1{tbl} Take 1 tablet by mouth every morning and at bedtime. Indication s: only takes [facility] acetaZOLAMI DE 250 mg tablet 10-21 14:15: 09 Yes 250mg Take 1 tablet by mouth in the morning. Indication s: Dr. Zavala [facility] predniSONE 10 mg tablet 10-21 14:15: 09 Yes 10mg Take 1 tablet by mouth in the morning. Indication s: Dr Zavala [facility] aspirin 81 mg EC tablet 10-21 14:15: 09 Yes 81mg Take 1 tablet by mouth in the morning. [facility] budesonide- glycopyr-fo rmoterol (BREZTRI AEROSPHERE) 160-9-4.8 mcg/actuati on HFAA 10-21 14:15: 09 Yes 2{inhal er} Inhale 2 Inhalers in the morning and 2 Inhalers in the evening. Indication s: Dr. Zavala [facility] trazodone HCl (TRAZODONE ORAL) 10-21 14:15: 09 Yes 1{tbl} Take 1 tablet by mouth every morning and at bedtime. Indication s: only takes [facility] acetaZOLAMI DE 250 mg tablet 10-21 14:15: 09 Yes 250mg Take 1 tablet by mouth in the morning. Indication s: Dr. Zavala [facility] predniSONE 10 mg tablet 10-21 14:15: 09 Yes 10mg Take 1 tablet by mouth in the morning. Indication s: Dr Zavala [facility] aspirin 81 mg EC tablet 10-21 14:15: 09 Yes 81mg Take 1 tablet by mouth in the morning. [facility] budesonide- glycopyr-fo rmoterol (BREZTRI AEROSPHERE) 160-9-4.8 mcg/actuati on HFAA 10-21 14:15: 09 Yes 2{inhal er} Inhale 2 Inhalers in the morning and 2 Inhalers in the evening. Indication s: Dr. Zavala [facility] trazodone HCl (TRAZODONE ORAL) 10-21 14:15: 09 Yes 1{tbl} Take 1 tablet by mouth every morning and at bedtime. Indication s: only takes [facility] acetaZOLAMI DE 250 mg tablet 10-21 14:15: 09 Yes 250mg Take 1 tablet by mouth in the morning. Indication s: Dr. Zavala [facility] predniSONE 10 mg tablet 10-21 14:15: 09 Yes 10mg Take 1 tablet by mouth in the morning. Indication s: Dr Zavala [facility] aspirin 81 mg EC tablet 10-21 14:15: 09 Yes 81mg Take 1 tablet by mouth in the morning. [facility] budesonide- glycopyr-fo rmoterol (BREZTRI AEROSPHERE) 160-9-4.8 mcg/actuati on HFAA 10-21 14:15: 09 Yes 2{inhal er} Inhale 2 Inhalers in the morning and 2 Inhalers in the evening. Indication s: Dr. Zavala [facility] trazodone HCl (TRAZODONE ORAL) 10-21 14:15: 09 Yes 1{tbl} Take 1 tablet by mouth every morning and at bedtime. Indication s: only takes [facility] acetaZOLAMI DE 250 mg tablet 10-21 14:15: 09 Yes 250mg Take 1 tablet by mouth in the morning. Indication s: Dr. Zavala [facility] predniSONE 10 mg tablet 10-21 14:15: 09 Yes 10mg Take 1 tablet by mouth in the morning. Indication s: Dr Zavala [facility] aspirin 81 mg EC tablet 10-21 14:15: 09 Yes 81mg Take 1 tablet by mouth in the morning. [facility] budesonide- glycopyr-fo rmoterol (BREZTRI AEROSPHERE) 160-9-4.8 mcg/actuati on HFAA 10-21 14:15: 09 Yes 2{inhal er} Inhale 2 Inhalers in the morning and 2 Inhalers in the evening. Indication s: Dr. Zavala [facility] trazodone HCl (TRAZODONE ORAL) 10-21 14:15: 09 Yes 1{tbl} Take 1 tablet by mouth every morning and at bedtime. Indication s: only takes [facility] acetaZOLAMI DE 250 mg tablet 10-21 14:15: 09 Yes 250mg Take 1 tablet by mouth in the morning. Indication s: Dr. Zavala [facility] predniSONE 10 mg tablet 10-21 14:15: 09 Yes 10mg Take 1 tablet by mouth in the morning. Indication s: Dr Zavala [facility] aspirin 81 mg EC tablet 10-21 14:15: 09 Yes 81mg Take 1 tablet by mouth in the morning. [facility] budesonide- glycopyr-fo rmoterol (BREZTRI AEROSPHERE) 160-9-4.8 mcg/actuati on HFAA 10-21 14:15: 09 Yes 2{inhal er} Inhale 2 Inhalers in the morning and 2 Inhalers in the evening. Indication s: Dr. Zavala [facility] trazodone HCl (TRAZODONE ORAL) 10-21 14:15: 09 Yes 1{tbl} Take 1 tablet by mouth every morning and at bedtime. Indication s: only takes [facility] acetaZOLAMI DE 250 mg tablet 10-21 14:15: 09 Yes 250mg Take 1 tablet by mouth in the morning. Indication s: Dr. Zavala [facility] predniSONE 10 mg tablet 10-21 14:15: 09 Yes 10mg Take 1 tablet by mouth in the morning. Indication s: Dr Zavala [facility] aspirin 81 mg EC tablet 10-21 14:15: 09 Yes 81mg Take 1 tablet by mouth in the morning. [facility] budesonide- glycopyr-fo rmoterol (BREZTRI AEROSPHERE) 160-9-4.8 mcg/actuati on HFAA 10-21 14:15: 09 Yes 2{inhal er} Inhale 2 Inhalers in the morning and 2 Inhalers in the evening. Indication s: Dr. Zavala [facility] trazodone HCl (TRAZODONE ORAL) 10-21 14:15: 09 Yes 1{tbl} Take 1 tablet by mouth every morning and at bedtime. Indication s: only takes [facility] acetaZOLAMI DE 250 mg tablet 10-21 14:15: 09 Yes 250mg Take 1 tablet by mouth in the morning. Indication s: Dr. Zavala [facility] predniSONE 10 mg tablet 10-21 14:15: 09 Yes 10mg Take 1 tablet by mouth in the morning. Indication s: Dr Zavala [facility] aspirin 81 mg EC tablet 10-21 14:15: 09 Yes 81mg Take 1 tablet by mouth in the morning. [facility] budesonide- glycopyr-fo rmoterol (BREZTRI AEROSPHERE) 160-9-4.8 mcg/actuati on HFAA 10-21 14:15: 09 Yes 2{inhal er} Inhale 2 Inhalers in the morning and 2 Inhalers in the evening. Indication s: Dr. Zavala [facility] trazodone HCl (TRAZODONE ORAL) 10-21 14:15: 09 Yes 1{tbl} Take 1 tablet by mouth every morning and at bedtime. Indication s: only takes [facility] acetaZOLAMI DE 250 mg tablet 10-21 14:15: 09 Yes 250mg Take 1 tablet by mouth in the morning. Indication s: Dr. Zavala [facility] predniSONE 10 mg tablet 10-21 14:15: 09 Yes 10mg Take 1 tablet by mouth in the morning. Indication s: Dr Zavala [facility] aspirin 81 mg EC tablet 10-21 14:15: 09 Yes 81mg Take 1 tablet by mouth in the morning. [facility] budesonide- glycopyr-fo rmoterol (BREZTRI AEROSPHERE) 160-9-4.8 mcg/actuati on AA 10-21 14:15: 09 Yes 2{inhal er} Inhale 2 Inhalers in the morning and 2 Inhalers in the evening. Indication s: Dr. Zavala [facility] trazodone HCl (TRAZODONE ORAL) 10-21 14:15: 09 Yes 1{tbl} Take 1 tablet by mouth every morning and at bedtime. Indication s: only takes [facility] acetaZOLAMI DE 250 mg tablet 10-21 14:15: 09 Yes 250mg Take 1 tablet by mouth in the morning. Indication s: Dr. Zavala [facility] predniSONE 10 mg tablet 10-21 14:15: 09 Yes 10mg Take 1 tablet by mouth in the morning. Indication s: Dr Zavala [facility] aspirin 81 mg EC tablet 10-21 14:15: 09 Yes 81mg Take 1 tablet by mouth in the morning. [facility] budesonide- glycopyr-fo rmoterol (BREZTRI AEROSPHERE) 160-9-4.8 mcg/actuati on AA 10-21 14:15: 09 Yes 2{inhal er} Inhale 2 Inhalers in the morning and 2 Inhalers in the evening. Indication s: Dr. Zavala [facility] trazodone HCl (TRAZODONE ORAL) 10-21 14:15: 09 Yes 1{tbl} Take 1 tablet by mouth every morning and at bedtime. Indication s: only takes [facility] acetaZOLAMI DE 250 mg tablet 10-21 14:15: 09 Yes 250mg Take 1 tablet by mouth in the morning. Indication s: Dr. Zavala [facility] predniSONE 10 mg tablet 10-21 14:15: 09 Yes 10mg Take 1 tablet by mouth in the morning. Indication s: Dr Zavala [facility] aspirin 81 mg EC tablet 10-21 14:15: 09 Yes 81mg Take 1 tablet by mouth in the morning. [facility] budesonide- glycopyr-fo rmoterol (BREZTRI AEROSPHERE) 160-9-4.8 mcg/actuati on AA 10-21 14:15: 09 Yes 2{inhal er} Inhale 2 Inhalers in the morning and 2 Inhalers in the evening. Indication s: Dr. Zavala [facility] trazodone HCl (TRAZODONE ORAL) 10-21 14:15: 09 Yes 1{tbl} Take 1 tablet by mouth every morning and at bedtime. Indication s: only takes [facility] acetaZOLAMI DE 250 mg tablet 10-21 14:15: 09 Yes 250mg Take 1 tablet by mouth in the morning. Indication s: Dr. Zavala [facility] predniSONE 10 mg tablet 10-21 14:15: 09 Yes 10mg Take 1 tablet by mouth in the morning. Indication s: Dr Zavala [facility] aspirin 81 mg EC tablet 10-21 14:15: 09 Yes 81mg Take 1 tablet by mouth in the morning. [facility] budesonide- glycopyr-fo rmoterol (BREZTRI AEROSPHERE) 160-9-4.8 mcg/actuati on HFAA 10-21 14:15: 09 Yes 2{inhal er} Inhale 2 Inhalers in the morning and 2 Inhalers in the evening. Indication s: Dr. Zavala [facility] trazodone HCl (TRAZODONE ORAL) 10-21 14:15: 09 Yes 1{tbl} Take 1 tablet by mouth every morning and at bedtime. Indication s: only takes [facility] acetaZOLAMI DE 250 mg tablet 10-21 14:15: 09 Yes 250mg Take 1 tablet by mouth in the morning. Indication s: Dr. Zavala [facility] predniSONE 10 mg tablet 10-21 14:15: 09 Yes 10mg Take 1 tablet by mouth in the morning. Indication s: Dr Zavala [facility] aspirin 81 mg EC tablet 10-21 14:15: 09 Yes 81mg Take 1 tablet by mouth in the morning. [facility] budesonide- glycopyr-fo rmoterol (BREZTRI AEROSPHERE) 160-9-4.8 mcg/actuati on AA 10-21 14:15: 09 Yes 2{inhal er} Inhale 2 Inhalers in the morning and 2 Inhalers in the evening. Indication s: Dr. Zavala [facility] trazodone HCl (TRAZODONE ORAL) 10-21 14:15: 09 Yes 1{tbl} Take 1 tablet by mouth every morning and at bedtime. Indication s: only takes [facility] acetaZOLAMI DE 250 mg tablet 10-21 14:15: 09 Yes 250mg Take 1 tablet by mouth in the morning. Indication s: Dr. Zavala [facility] predniSONE 10 mg tablet 10-21 14:15: 09 Yes 10mg Take 1 tablet by mouth in the morning. Indication s: Dr Zavala [facility] aspirin 81 mg EC tablet 10-21 14:15: 09 Yes 81mg Take 1 tablet by mouth in the morning. [facility] budesonide- glycopyr-fo rmoterol (BREZTRI AEROSPHERE) 160-9-4.8 mcg/actuati on HFAA 10-21 14:15: 09 Yes 2{inhal er} Inhale 2 Inhalers in the morning and 2 Inhalers in the evening. Indication s: Dr. Zavala [facility] trazodone HCl (TRAZODONE ORAL) 10-21 14:15: 09 Yes 1{tbl} Take 1 tablet by mouth every morning and at bedtime. Indication s: only takes [facility] acetaZOLAMI DE 250 mg tablet 10-21 14:15: 09 Yes 250mg Take 1 tablet by mouth in the morning. Indication s: Dr. Zavala [facility] predniSONE 10 mg tablet 10-21 14:15: 09 Yes 10mg Take 1 tablet by mouth in the morning. Indication s: Dr Zavala [facility] aspirin 81 mg EC tablet 10-21 14:15: 09 Yes 81mg Take 1 tablet by mouth in the morning. [facility] budesonide- glycopyr-fo rmoterol (BREZTRI AEROSPHERE) 160-9-4.8 mcg/actuati on AA 10-21 14:15: 09 Yes 2{inhal er} Inhale 2 Inhalers in the morning and 2 Inhalers in the evening. Indication s: Dr. Zavala [facility] trazodone HCl (TRAZODONE ORAL) 10-21 14:15: 09 Yes 1{tbl} Take 1 tablet by mouth every morning and at bedtime. Indication s: only takes [facility] acetaZOLAMI DE 250 mg tablet 10-21 14:15: 09 Yes 250mg Take 1 tablet by mouth in the morning. Indication s: Dr. Zavala [facility] predniSONE 10 mg tablet 10-21 14:15: 09 Yes 10mg Take 1 tablet by mouth in the morning. Indication s: Dr Zavala [facility] aspirin 81 mg EC tablet 10-21 14:15: 09 Yes 81mg Take 1 tablet by mouth in the morning. [facility] budesonide- glycopyr-fo rmoterol (BREZTRI AEROSPHERE) 160-9-4.8 mcg/actuati on HFAA 10-21 14:15: 09 Yes 2{inhal er} Inhale 2 Inhalers in the morning and 2 Inhalers in the evening. Indication s: Dr. Zavala [facility] trazodone HCl (TRAZODONE ORAL) 10-21 14:15: 09 Yes 1{tbl} Take 1 tablet by mouth every morning and at bedtime. Indication s: only takes [facility] acetaZOLAMI DE 250 mg tablet 10-21 14:15: 09 Yes 250mg Take 1 tablet by mouth in the morning. Indication s: Dr. Zavala [facility] predniSONE 10 mg tablet 10-21 14:15: 09 Yes 10mg Take 1 tablet by mouth in the morning. Indication s: Dr Zavala [facility] aspirin 81 mg EC tablet 10-21 14:15: 09 Yes 81mg Take 1 tablet by mouth in the morning. [facility] budesonide- glycopyr-fo rmoterol (BREZTRI AEROSPHERE) 160-9-4.8 mcg/actuati on AA 10-21 14:15: 09 Yes 2{inhal er} Inhale 2 Inhalers in the morning and 2 Inhalers in the evening. Indication s: Dr. Zavala [facility] trazodone HCl (TRAZODONE ORAL) 10-21 14:15: 09 Yes 1{tbl} Take 1 tablet by mouth every morning and at bedtime. Indication s: only takes [facility] acetaZOLAMI DE 250 mg tablet 10-21 14:15: 09 Yes 250mg Take 1 tablet by mouth in the morning. Indication s: Dr. Zavala [facility] predniSONE 10 mg tablet 10-21 14:15: 09 Yes 10mg Take 1 tablet by mouth in the morning. Indication s: Dr Zavala [facility] aspirin 81 mg EC tablet 10-21 14:15: 09 Yes 81mg Take 1 tablet by mouth in the morning. [facility] budesonide- glycopyr-fo rmoterol (BREZTRI AEROSPHERE) 160-9-4.8 mcg/actuati on HFAA 10-21 14:15: 09 Yes 2{inhal er} Inhale 2 Inhalers in the morning and 2 Inhalers in the evening. Indication s: Dr. Zavala [facility] trazodone HCl (TRAZODONE ORAL) 10-21 14:15: 09 Yes 1{tbl} Take 1 tablet by mouth every morning and at bedtime. Indication s: only takes [facility] acetaZOLAMI DE 250 mg tablet 10-21 14:15: 09 Yes 250mg Take 1 tablet by mouth in the morning. Indication s: Dr. Zavala [facility] predniSONE 10 mg tablet 10-21 14:15: 09 Yes 10mg Take 1 tablet by mouth in the morning. Indication s: Dr Zavala [facility] aspirin 81 mg EC tablet 10-21 14:15: 09 Yes 81mg Take 1 tablet by mouth in the morning. [facility] budesonide- glycopyr-fo rmoterol (BREZTRI AEROSPHERE) 160-9-4.8 mcg/actuati on HFAA 10-21 14:15: 09 Yes 2{inhal er} Inhale 2 Inhalers in the morning and 2 Inhalers in the evening. Indication s: Dr. Zavala [facility] trazodone HCl (TRAZODONE ORAL) 10-21 14:15: 09 Yes 1{tbl} Take 1 tablet by mouth every morning and at bedtime. Indication s: only takes [facility] acetaZOLAMI DE 250 mg tablet 10-21 14:15: 09 Yes 250mg Take 1 tablet by mouth in the morning. Indication s: Dr. Zavala [facility] predniSONE 10 mg tablet 10-21 14:15: 09 Yes 10mg Take 1 tablet by mouth in the morning. Indication s: Dr Zavala [facility] aspirin 81 mg EC tablet 10-21 14:15: 09 Yes 81mg Take 1 tablet by mouth in the morning. [facility] budesonide- glycopyr-fo rmoterol (BREZTRI AEROSPHERE) 160-9-4.8 mcg/actuati on HFAA 10-21 14:15: 09 Yes 2{inhal er} Inhale 2 Inhalers in the morning and 2 Inhalers in the evening. Indication s: Dr. Zavala [facility] trazodone HCl (TRAZODONE ORAL) 10-21 14:15: 09 Yes 1{tbl} Take 1 tablet by mouth every morning and at bedtime. Indication s: only takes [facility] acetaZOLAMI DE 250 mg tablet 10-21 14:15: 09 Yes 250mg Take 1 tablet by mouth in the morning. Indication s: Dr. Zavala [facility] predniSONE 10 mg tablet 10-21 14:15: 09 Yes 10mg Take 1 tablet by mouth in the morning. Indication s: Dr Zavala [facility] aspirin 81 mg EC tablet 10-21 14:15: 09 Yes 81mg Take 1 tablet by mouth in the morning. [facility] budesonide- glycopyr-fo rmoterol (BREZTRI AEROSPHERE) 160-9-4.8 mcg/actuati on HFAA 10-21 14:15: 09 Yes 2{inhal er} Inhale 2 Inhalers in the morning and 2 Inhalers in the evening. Indication s: Dr. Zavala [facility] trazodone HCl (TRAZODONE ORAL) 10-21 14:15: 09 Yes 1{tbl} Take 1 tablet by mouth every morning and at bedtime. Indication s: only takes [facility] acetaZOLAMI DE 250 mg tablet 10-21 14:15: 09 Yes 250mg Take 1 tablet by mouth in the morning. Indication s: Dr. Zavala [facility] predniSONE 10 mg tablet 10-21 14:15: 09 Yes 10mg Take 1 tablet by mouth in the morning. Indication s: Dr Zavala [facility] aspirin 81 mg EC tablet 10-21 14:15: 09 Yes 81mg Take 1 tablet by mouth in the morning. [facility] budesonide- glycopyr-fo rmoterol (BREZTRI AEROSPHERE) 160-9-4.8 mcg/actuati on HFAA 10-21 14:15: 09 Yes 2{inhal er} Inhale 2 Inhalers in the morning and 2 Inhalers in the evening. Indication s: Dr. Zavala [facility] trazodone HCl (TRAZODONE ORAL) 10-21 14:15: 09 Yes 1{tbl} Take 1 tablet by mouth every morning and at bedtime. Indication s: only takes [facility] acetaZOLAMI DE 250 mg tablet 10-21 14:15: 09 Yes 250mg Take 1 tablet by mouth in the morning. Indication s: Dr. Zavala [facility] predniSONE 10 mg tablet 10-21 14:15: 09 Yes 10mg Take 1 tablet by mouth in the morning. Indication s: Dr Zavala [facility] aspirin 81 mg EC tablet 10-21 14:15: 09 Yes 81mg Take 1 tablet by mouth in the morning. [facility] budesonide- glycopyr-fo rmoterol (BREZTRI AEROSPHERE) 160-9-4.8 mcg/actuati on HFAA 10-21 14:15: 09 Yes 2{inhal er} Inhale 2 Inhalers in the morning and 2 Inhalers in the evening. Indication s: Dr. Zavala [facility] trazodone HCl (TRAZODONE ORAL) 10-21 14:15: 09 Yes 1{tbl} Take 1 tablet by mouth every morning and at bedtime. Indication s: only takes [facility] acetaZOLAMI DE 250 mg tablet 10-21 14:15: 09 Yes 250mg Take 1 tablet by mouth in the morning. Indication s: Dr. Zavala [facility] predniSONE 10 mg tablet 10-21 14:15: 09 Yes 10mg Take 1 tablet by mouth in the morning. Indication s: Dr Zavala [facility] aspirin 81 mg EC tablet 10-21 14:15: 09 Yes 81mg Take 1 tablet by mouth in the morning. [facility] budesonide- glycopyr-fo rmoterol (BREZTRI AEROSPHERE) 160-9-4.8 mcg/actuati on HFAA 10-21 14:15: 09 Yes 2{inhal er} Inhale 2 Inhalers in the morning and 2 Inhalers in the evening. Indication s: Dr. Zavala [facility] trazodone HCl (TRAZODONE ORAL) 10-21 14:15: 09 Yes 1{tbl} Take 1 tablet by mouth every morning and at bedtime. Indication s: only takes [facility] acetaZOLAMI DE 250 mg tablet 10-21 14:15: 09 Yes 250mg Take 1 tablet by mouth in the morning. Indication s: Dr. Zavala [facility] predniSONE 10 mg tablet 10-21 14:15: 09 Yes 10mg Take 1 tablet by mouth in the morning. Indication s: Dr Zavala [facility] aspirin 81 mg EC tablet 10-21 14:15: 09 Yes 81mg Take 1 tablet by mouth in the morning. [facility] budesonide- glycopyr-fo rmoterol (BREZTRI AEROSPHERE) 160-9-4.8 mcg/actuati on HFAA 10-21 14:15: 09 Yes 2{inhal er} Inhale 2 Inhalers in the morning and 2 Inhalers in the evening. Indication s: Dr. Zavala [facility] trazodone HCl (TRAZODONE ORAL) 10-21 14:15: 09 Yes 1{tbl} Take 1 tablet by mouth every morning and at bedtime. Indication s: [facility] [facility] acetaZOLAMI DE 250 mg tablet 10-21 14:15: 09 Yes 250mg Take 1 tablet by mouth in the morning. Indication s: Dr. Zavala [facility] predniSONE 10 mg tablet 10-21 14:15: 09 Yes 10mg Take 1 tablet by mouth in the morning. Indication s: Dr Zavala [facility] aspirin 81 mg EC tablet 10-21 14:15: 09 Yes 81mg Take 1 tablet by mouth in the morning. [facility] budesonide- glycopyr-fo rmoterol (BREZTRI AEROSPHERE) 160-9-4.8 mcg/actuati on HFAA 10-21 14:15: 09 Yes 2{inhal er} Inhale 2 Inhalers in the morning and 2 Inhalers in the evening. Indication s: Dr. Zavala [facility] trazodone HCl (TRAZODONE ORAL) 10-21 14:15: 09 Yes 1{tbl} Take 1 tablet by mouth every morning and at bedtime. Indication s: only takes [facility] acetaZOLAMI DE 250 mg tablet 10-21 14:15: 09 Yes 250mg Take 1 tablet by mouth in the morning. Indication s: Dr. Zvaala [facility] predniSONE 10 mg tablet 10-21 14:15: 09 Yes 10mg Take 1 tablet by mouth in the morning. Indication s: Dr Zavala [facility] aspirin 81 mg EC tablet 10-21 14:15: 09 Yes 81mg Take 1 tablet by mouth in the morning. [facility] budesonide- glycopyr-fo rmoterol (BREZTRI AEROSPHERE) 160-9-4.8 mcg/actuati on HFAA 10-21 14:15: 09 Yes 2{inhal er} Inhale 2 Inhalers in the morning and 2 Inhalers in the evening. Indication s: Dr. Zavala [facility] trazodone HCl (TRAZODONE ORAL) 10-21 14:15: 09 Yes 1{tbl} Take 1 tablet by mouth every morning and at bedtime. Indication s: only takes [facility] acetaZOLAMI DE 250 mg tablet 10-21 14:15: 09 Yes 250mg Take 1 tablet by mouth in the morning. Indication s: Dr. Zavala [facility] predniSONE 10 mg tablet 10-21 14:15: 09 Yes 10mg Take 1 tablet by mouth in the morning. Indication s: Dr Zavala [facility] aspirin 81 mg EC tablet 10-21 14:15: 09 Yes 81mg Take 1 tablet by mouth in the morning. [facility] budesonide- glycopyr-fo rmoterol (BREZTRI AEROSPHERE) 160-9-4.8 mcg/actuati on HFAA 10-21 14:15: 09 Yes 2{inhal er} Inhale 2 Inhalers in the morning and 2 Inhalers in the evening. Indication s: Dr. Zavala [facility] trazodone HCl (TRAZODONE ORAL) 10-21 14:15: 09 Yes 1{tbl} Take 1 tablet by mouth every morning and at bedtime. Indication s: only takes [facility] acetaZOLAMI DE 250 mg tablet 10-21 14:15: 09 Yes 250mg Take 1 tablet by mouth in the morning. Indication s: Dr. Zavala [facility] predniSONE 10 mg tablet 10-21 14:15: 09 Yes 10mg Take 1 tablet by mouth in the morning. Indication s: Dr Zavala [facility] aspirin 81 mg EC tablet 10-21 14:15: 09 Yes 81mg Take 1 tablet by mouth in the morning. [facility] budesonide- glycopyr-fo rmoterol (BREZTRI AEROSPHERE) 160-9-4.8 mcg/actuati on HFAA 10-21 14:15: 09 Yes 2{inhal er} Inhale 2 Inhalers in the morning and 2 Inhalers in the evening. Indication s: Dr. Zavala [facility] trazodone HCl (TRAZODONE ORAL) 10-21 14:15: 09 Yes 1{tbl} Take 1 tablet by mouth every morning and at bedtime. Indication s: only takes [facility] acetaZOLAMI DE 250 mg tablet 10-21 14:15: 09 Yes 250mg Take 1 tablet by mouth in the morning. Indication s: Dr. Zavala [facility] predniSONE 10 mg tablet 10-21 14:15: 09 Yes 10mg Take 1 tablet by mouth in the morning. Indication s: Dr Zavala [facility] aspirin 81 mg EC tablet 10-21 14:15: 09 Yes 81mg Take 1 tablet by mouth in the morning. [facility] budesonide- glycopyr-fo rmoterol (BREZTRI AEROSPHERE) 160-9-4.8 mcg/actuati on HFAA 10-21 14:15: 09 Yes 2{inhal er} Inhale 2 Inhalers in the morning and 2 Inhalers in the evening. Indication s: Dr. Zavala [facility] trazodone HCl (TRAZODONE ORAL) 10-21 14:15: 09 Yes 1{tbl} Take 1 tablet by mouth every morning and at bedtime. Indication s: only takes [facility] acetaZOLAMI DE 250 mg tablet 10-21 14:15: 09 Yes 250mg Take 1 tablet by mouth in the morning. Indication s: Dr. Zavala [facility] predniSONE 10 mg tablet 10-21 14:15: 09 Yes 10mg Take 1 tablet by mouth in the morning. Indication s: Dr Zavala [facility] aspirin 81 mg EC tablet 10-21 14:15: 09 Yes 81mg Take 1 tablet by mouth in the morning. [facility] budesonide- glycopyr-fo rmoterol (BREZTRI AEROSPHERE) 160-9-4.8 mcg/actuati on HFAA 10-21 14:15: 09 Yes 2{inhal er} Inhale 2 Inhalers in the morning and 2 Inhalers in the evening. Indication s: Dr. Zavala [facility] trazodone HCl (TRAZODONE ORAL) 10-21 14:15: 09 Yes 1{tbl} Take 1 tablet by mouth every morning and at bedtime. Indication s: only takes [facility] acetaZOLAMI DE 250 mg tablet 10-21 14:15: 09 Yes 250mg Take 1 tablet by mouth in the morning. Indication s: Dr. Zavala [facility] predniSONE 10 mg tablet 10-21 14:15: 09 Yes 10mg Take 1 tablet by mouth in the morning. Indication s: Dr Zavala [facility] aspirin 81 mg EC tablet 10-21 14:15: 09 Yes 81mg Take 1 tablet by mouth in the morning. [facility] budesonide- glycopyr-fo rmoterol (BREZTRI AEROSPHERE) 160-9-4.8 mcg/actuati on AA 10-21 14:15: 09 Yes 2{inhal er} Inhale 2 Inhalers in the morning and 2 Inhalers in the evening. Indication s: Dr. Zavala [facility] trazodone HCl (TRAZODONE ORAL) 10-21 14:15: 09 Yes 1{tbl} Take 1 tablet by mouth every morning and at bedtime. Indication s: only takes [facility] acetaZOLAMI DE 250 mg tablet 10-21 14:15: 09 Yes 250mg Take 1 tablet by mouth in the morning. Indication s: Dr. Zavala [facility] predniSONE 10 mg tablet 10-21 14:15: 09 Yes 10mg Take 1 tablet by mouth in the morning. Indication s: Dr Zavala [facility] aspirin 81 mg EC tablet 10-21 14:15: 09 Yes 81mg Take 1 tablet by mouth in the morning. [facility] budesonide- glycopyr-fo rmoterol (BREZTRI AEROSPHERE) 160-9-4.8 mcg/actuati on HFAA 10-21 14:15: 09 Yes 2{inhal er} Inhale 2 Inhalers in the morning and 2 Inhalers in the evening. Indication s: Dr. Zavala [facility] trazodone HCl (TRAZODONE ORAL) 10-21 14:15: 09 Yes 1{tbl} Take 1 tablet by mouth every morning and at bedtime. Indication s: only takes [facility] acetaZOLAMI DE 250 mg tablet 10-21 14:15: 09 Yes 250mg Take 1 tablet by mouth in the morning. Indication s: Dr. Zavala [facility] predniSONE 10 mg tablet 10-21 14:15: 09 Yes 10mg Take 1 tablet by mouth in the morning. Indication s: Dr Zavala [facility] aspirin 81 mg EC tablet 10-21 14:15: 09 Yes 81mg Take 1 tablet by mouth in the morning. [facility] budesonide- glycopyr-fo rmoterol (BREZTRI AEROSPHERE) 160-9-4.8 mcg/actuati on AA 10-21 14:15: 09 Yes 2{inhal er} Inhale 2 Inhalers in the morning and 2 Inhalers in the evening. Indication s: Dr. Zavala [facility] trazodone HCl (TRAZODONE ORAL) 10-21 14:15: 09 Yes 1{tbl} Take 1 tablet by mouth every morning and at bedtime. Indication s: only takes [facility] acetaZOLAMI DE 250 mg tablet 10-21 14:15: 09 Yes 250mg Take 1 tablet by mouth in the morning. Indication s: Dr. Zavala [facility] predniSONE 10 mg tablet 10-21 14:15: 09 Yes 10mg Take 1 tablet by mouth in the morning. Indication s: Dr Zavala [facility] aspirin 81 mg EC tablet 10-21 14:15: 09 Yes 81mg Take 1 tablet by mouth in the morning. [facility] budesonide- glycopyr-fo rmoterol (BREZTRI AEROSPHERE) 160-9-4.8 mcg/actuati on AA 10-21 14:15: 09 Yes 2{inhal er} Inhale 2 Inhalers in the morning and 2 Inhalers in the evening. Indication s: Dr. Zavala [facility] trazodone HCl (TRAZODONE ORAL) 10-21 14:15: 09 Yes 1{tbl} Take 1 tablet by mouth every morning and at bedtime. Indication s: only takes [facility] acetaZOLAMI DE 250 mg tablet 10-21 14:15: 09 Yes 250mg Take 1 tablet by mouth in the morning. Indication s: Dr. Zavala [facility] predniSONE 10 mg tablet 10-21 14:15: 09 Yes 10mg Take 1 tablet by mouth in the morning. Indication s: Dr Zavala [facility] aspirin 81 mg EC tablet 10-21 14:15: 09 Yes 81mg Take 1 tablet by mouth in the morning. [facility] budesonide- glycopyr-fo rmoterol (BREZTRI AEROSPHERE) 160-9-4.8 mcg/actuati on AA 10-21 14:15: 09 Yes 2{inhal er} Inhale 2 Inhalers in the morning and 2 Inhalers in the evening. Indication s: Dr. Zavala [facility] trazodone HCl (TRAZODONE ORAL) 10-21 14:15: 09 Yes 1{tbl} Take 1 tablet by mouth every morning and at bedtime. Indication s: only takes [facility] acetaZOLAMI DE 250 mg tablet 10-21 14:15: 09 Yes 250mg Take 1 tablet by mouth in the morning. Indication s: Dr. Zavala [facility] predniSONE 10 mg tablet 10-21 14:15: 09 Yes 10mg Take 1 tablet by mouth in the morning. Indication s: Dr Zavala [facility] aspirin 81 mg EC tablet 10-21 14:15: 09 Yes 81mg Take 1 tablet by mouth in the morning. [facility] budesonide- glycopyr-fo rmoterol (BREZTRI AEROSPHERE) 160-9-4.8 mcg/actuati on AA 10-21 14:15: 09 Yes 2{inhal er} Inhale 2 Inhalers in the morning and 2 Inhalers in the evening. Indication s: Dr. Zavala [facility] trazodone HCl (TRAZODONE ORAL) 10-21 14:15: 09 Yes 1{tbl} Take 1 tablet by mouth every morning and at bedtime. Indication s: only takes [facility] acetaZOLAMI DE 250 mg tablet 10-21 14:15: 09 Yes 250mg Take 1 tablet by mouth in the morning. Indication s: Dr. Zavala [facility] predniSONE 10 mg tablet 10-21 14:15: 09 Yes 10mg Take 1 tablet by mouth in the morning. Indication s: Dr Zavala [facility] aspirin 81 mg EC tablet 10-21 14:15: 09 Yes 81mg Take 1 tablet by mouth in the morning. [facility] budesonide- glycopyr-fo rmoterol (BREZTRI AEROSPHERE) 160-9-4.8 mcg/actuati on AA 10-21 14:15: 09 Yes 2{inhal er} Inhale 2 Inhalers in the morning and 2 Inhalers in the evening. Indication s: Dr. Zavala [facility] trazodone HCl (TRAZODONE ORAL) 10-21 14:15: 09 Yes 1{tbl} Take 1 tablet by mouth every morning and at bedtime. Indication s: only takes [facility] acetaZOLAMI DE 250 mg tablet 10-21 14:15: 09 Yes 250mg Take 1 tablet by mouth in the morning. Indication s: Dr. Zavala [facility] predniSONE 10 mg tablet 10-21 14:15: 09 Yes 10mg Take 1 tablet by mouth in the morning. Indication s: Dr Zavala [facility] aspirin 81 mg EC tablet 10-21 14:15: 09 Yes 81mg Take 1 tablet by mouth in the morning. [facility] budesonide- glycopyr-fo rmoterol (BREZTRI AEROSPHERE) 160-9-4.8 mcg/actuati on HFAA 10-21 14:15: 09 Yes 2{inhal er} Inhale 2 Inhalers in the morning and 2 Inhalers in the evening. Indication s: Dr. Zavala [facility] trazodone HCl (TRAZODONE ORAL) 10-21 14:15: 09 Yes 1{tbl} Take 1 tablet by mouth every morning and at bedtime. Indication s: only takes [facility] acetaZOLAMI DE 250 mg tablet 10-21 14:15: 09 Yes 250mg Take 1 tablet by mouth in the morning. Indication s: Dr. Zavala [facility] predniSONE 10 mg tablet 10-21 14:15: 09 Yes 10mg Take 1 tablet by mouth in the morning. Indication s: Dr Zavala [facility] aspirin 81 mg EC tablet 10-21 14:15: 09 Yes 81mg Take 1 tablet by mouth in the morning. [facility] budesonide- glycopyr-fo rmoterol (BREZTRI AEROSPHERE) 160-9-4.8 mcg/actuati on AA 10-21 14:15: 09 Yes 2{inhal er} Inhale 2 Inhalers in the morning and 2 Inhalers in the evening. Indication s: Dr. Zavala [facility] trazodone HCl (TRAZODONE ORAL) 10-21 14:15: 09 Yes 1{tbl} Take 1 tablet by mouth every morning and at bedtime. Indication s: only takes [facility] acetaZOLAMI DE 250 mg tablet 10-21 14:15: 09 Yes 250mg Take 1 tablet by mouth in the morning. Indication s: Dr. Zavala [facility] predniSONE 10 mg tablet 10-21 14:15: 09 Yes 10mg Take 1 tablet by mouth in the morning. Indication s: Dr Zavala [facility] aspirin 81 mg EC tablet 10-21 14:15: 09 Yes 81mg Take 1 tablet by mouth in the morning. [facility] budesonide- glycopyr-fo rmoterol (BREZTRI AEROSPHERE) 160-9-4.8 mcg/actuati on HFAA 10-21 14:15: 09 Yes 2{inhal er} Inhale 2 Inhalers in the morning and 2 Inhalers in the evening. Indication s: Dr. Zavala [facility] trazodone HCl (TRAZODONE ORAL) 10-21 14:15: 09 Yes 1{tbl} Take 1 tablet by mouth every morning and at bedtime. Indication s: only takes [facility] acetaZOLAMI DE 250 mg tablet 10-21 14:15: 09 Yes 250mg Take 1 tablet by mouth in the morning. Indication s: Dr. Zavala [facility] predniSONE 10 mg tablet 10-21 14:15: 09 Yes 10mg Take 1 tablet by mouth in the morning. Indication s: Dr Zavala [facility] aspirin 81 mg EC tablet 10-21 14:15: 09 Yes 81mg Take 1 tablet by mouth in the morning. [facility] budesonide- glycopyr-fo rmoterol (BREZTRI AEROSPHERE) 160-9-4.8 mcg/actuati on HFAA 10-21 14:15: 09 Yes 2{inhal er} Inhale 2 Inhalers in the morning and 2 Inhalers in the evening. Indication s: Dr. Zavala [facility] trazodone HCl (TRAZODONE ORAL) 10-21 14:15: 09 Yes 1{tbl} Take 1 tablet by mouth every morning and at bedtime. Indication s: only takes [facility] acetaZOLAMI DE 250 mg tablet 10-21 14:15: 09 Yes 250mg Take 1 tablet by mouth in the morning. Indication s: Dr. Zavala [facility] predniSONE 10 mg tablet 10-21 14:15: 09 Yes 10mg Take 1 tablet by mouth in the morning. Indication s: Dr Zavala [facility] aspirin 81 mg EC tablet 10-21 14:15: 09 Yes 81mg Take 1 tablet by mouth in the morning. [facility] budesonide- glycopyr-fo rmoterol (BREZTRI AEROSPHERE) 160-9-4.8 mcg/actuati on HFAA 10-21 14:15: 09 Yes 2{inhal er} Inhale 2 Inhalers in the morning and 2 Inhalers in the evening. Indication s: Dr. Zavala [facility] trazodone HCl (TRAZODONE ORAL) 10-21 14:15: 09 Yes 1{tbl} Take 1 tablet by mouth every morning and at bedtime. Indication s: only takes [facility] acetaZOLAMI DE 250 mg tablet 10-21 14:15: 09 Yes 250mg Take 1 tablet by mouth in the morning. Indication s: Dr. Zavala [facility] predniSONE 10 mg tablet 10-21 14:15: 09 Yes 10mg Take 1 tablet by mouth in the morning. Indication s: Dr Zavala [facility] aspirin 81 mg EC tablet 10-21 14:15: 09 Yes 81mg Take 1 tablet by mouth in the morning. [facility] budesonide- glycopyr-fo rmoterol (BREZTRI AEROSPHERE) 160-9-4.8 mcg/actuati on HFAA 10-21 14:15: 09 Yes 2{inhal er} Inhale 2 Inhalers in the morning and 2 Inhalers in the evening. Indication s: Dr. Zavala [facility] trazodone HCl (TRAZODONE ORAL) 2023-0 4-19 14:15: 09 Yes 1{tbl} Take 1 tablet by mouth every morning and at bedtime. Indication s: only takes [facility] acetaZOLAMI DE 250 mg tablet 10-21 14:15: 09 Yes 250mg Take 1 tablet by mouth in the morning. Indication s: Dr. Zavala [facility] predniSONE 10 mg tablet 10-21 14:15: 09 Yes 10mg Take 1 tablet by mouth in the morning. Indication s: Dr Zavala [facility] aspirin 81 mg EC tablet 10-21 14:15: 09 Yes 81mg Take 1 tablet by mouth in the morning. [facility] budesonide- glycopyr-fo rmoterol (BREZTRI AEROSPHERE) 160-9-4.8 mcg/actuati on HFAA 10-21 14:15: 09 Yes 2{inhal er} Inhale 2 Inhalers in the morning and 2 Inhalers in the evening. Indication s: Dr. Zavala [facility] trazodone HCl (TRAZODONE ORAL) 10-21 14:15: 09 Yes 1{tbl} Take 1 tablet by mouth every morning and at bedtime. Indication s: only takes [facility] acetaZOLAMI DE 250 mg tablet 10-21 14:15: 09 Yes 250mg Take 1 tablet by mouth in the morning. Indication s: Dr. Zavala [facility] predniSONE 10 mg tablet 10-21 14:15: 09 Yes 10mg Take 1 tablet by mouth in the morning. Indication s: Dr Zavala [facility] aspirin 81 mg EC tablet 10-21 14:15: 09 Yes 81mg Take 1 tablet by mouth in the morning. [facility] budesonide- glycopyr-fo rmoterol (BREZTRI AEROSPHERE) 160-9-4.8 mcg/actuati on HFAA 10-21 14:15: 09 Yes 2{inhal er} Inhale 2 Inhalers in the morning and 2 Inhalers in the evening. Indication s: Dr. Zavala [facility] trazodone HCl (TRAZODONE ORAL) 10-29 21:03: 31 Yes Take by mouth. [facility] trazodone HCl (TRAZODONE ORAL) 10-29 21:03: 31 Yes Take by mouth. [facility] trazodone HCl (TRAZODONE ORAL) 10-29 16:03: 31 Yes Take by mouth. [facility] trazodone HCl (TRAZODONE ORAL) 10-29 16:03: 31 Yes Take by mouth. [facility] albuterol 90 mcg/actuati on inhaler 10-17 00:00: 00 Yes [id number] 2{puff} Inhale 2 Puffs every 6 (six) hours as needed for Wheezing or Shortness of Breath. [facility] azithromyci n 250 mg tablet 10-17 00:00: 00 Yes [id number] 250mg Take 1 tablet by mouth daily. Take 500 mg day 1, then 250 mg days 2 to 5. [facility] benzonatate (TESSALON PERLES) 100 mg capsule 10-17 00:00: 00 Yes [id number] 100mg Take 1 capsule by mouth 3 (three) times daily as needed for Cough. [facility] methylPREDN ISolone (MEDROL, ARIANA,) 4 mg tablets 10-17 00:00: 00 Yes [id number] Take by mouth SEE-INSTRU CTIONS. follow package directions [facility] albuterol 90 mcg/actuati on inhaler 10-17 00:00: 00 Yes [id number] 2{puff} Inhale 2 Puffs every 6 (six) hours as needed for Wheezing or Shortness of Breath. [facility] albuterol 90 mcg/actuati on inhaler 10-17 00:00: 00 Yes [id number] 2{puff} Inhale 2 Puffs every 6 (six) hours as needed for Wheezing or Shortness of Breath. [facility] azithromyci n 250 mg tablet 10-17 00:00: 00 Yes [id number] 250mg Take 1 tablet by mouth daily. Take 500 mg day 1, then 250 mg days 2 to 5. [facility] azithromyci n 250 mg tablet 0 15 00:00: 00 Yes [id number] 250mg Take 1 tablet by mouth daily. Take 500 mg day 1, then 250 mg days 2 to 5. [facility] benzonatate (TESSALON PERLES) 100 mg capsule 0 -15 00:00: 00 Yes [id number] 100mg Take 1 capsule by mouth 3 (three) times daily as needed for Cough. [facility] methylPREDN ISolone (MEDROL, ARIANA,) 4 mg tablets 15 00:00: 00 Yes [id number] Take by mouth SEE-INSTRU CTIONS. follow package directions [facility] benzonatate (TESSALON PERLES) 100 mg capsule 15 00:00: 00 Yes [id number] 100mg Take 1 capsule by mouth 3 (three) times daily as needed for Cough. [facility] albuterol 90 mcg/actuati on inhaler 15 00:00: 00 Yes [id number] 2{puff} Inhale 2 Puffs every 6 (six) hours as needed for Wheezing or Shortness of Breath. [facility] azithromyci n 250 mg tablet 15 00:00: 00 Yes [id number] 250mg Take 1 tablet by mouth daily. Take 500 mg day 1, then 250 mg days 2 to 5. [facility] benzonatate (TESSALON PERLES) 100 mg capsule 15 00:00: 00 Yes [id number] 100mg Take 1 capsule by mouth 3 (three) times daily as needed for Cough. [facility] methylPREDN ISolone (MEDROL, ARIANA,) 4 mg tablets 15 00:00: 00 Yes [id number] Take by mouth SEE-INSTRU CTIONS. follow package directions [facility] methylPREDN ISolone (MEDROL, ARIANA,) 4 mg tablets 15 00:00: 00 Yes [id number] Take by mouth SEE-INSTRU CTIONS. follow package directions [facility] albuterol 90 mcg/actuati on inhaler 0 415 00:00: 00 Yes [id number] 2{puff} Inhale 2 Puffs every 6 (six) hours as needed for Wheezing or Shortness of Breath. [facility] azithromyci n 250 mg tablet 15 00:00: 00 Yes [id number] 250mg Take 1 tablet by mouth daily. Take 500 mg day 1, then 250 mg days 2 to 5. [facility] benzonatate (TESSALON PERLES) 100 mg capsule 15 00:00: 00 Yes [id number] 100mg Take 1 capsule by mouth 3 (three) times daily as needed for Cough. [facility] methylPREDN ISolone (MEDROL, ARIANA,) 4 mg tablets 15 00:00: 00 Yes [id number] Take by mouth SEE-INSTRU CTIONS. follow package directions [facility] albuterol 90 mcg/actuati on inhaler 15 00:00: 00 Yes [id number] 2{puff} Inhale 2 Puffs every 6 (six) hours as needed for Wheezing or Shortness of Breath. [facility] azithromyci n 250 mg tablet 15 00:00: 00 Yes [id number] 250mg Take 1 tablet by mouth daily. Take 500 mg day 1, then 250 mg days 2 to 5. [facility] benzonatate (TESSALON PERLES) 100 mg capsule 15 00:00: 00 Yes [id number] 100mg Take 1 capsule by mouth 3 (three) times daily as needed for Cough. [facility] methylPREDN ISolone (MEDROL, ARIANA,) 4 mg tablets 15 00:00: 00 Yes [id number] Take by mouth SEE-INSTRU CTIONS. follow package directions [facility] albuterol 90 mcg/actuati on inhaler 0 15 00:00: 00 Yes [id number] 2{puff} Inhale 2 Puffs every 6 (six) hours as needed for Wheezing or Shortness of Breath. [facility] azithromyci n 250 mg tablet 15 00:00: 00 Yes [id number] 250mg Take 1 tablet by mouth daily. Take 500 mg day 1, then 250 mg days 2 to 5. [facility] benzonatate (TESSALON PERLES) 100 mg capsule 15 00:00: 00 Yes [id number] 100mg Take 1 capsule by mouth 3 (three) times daily as needed for Cough. [facility] methylPREDN ISolone (MEDROL, ARIANA,) 4 mg tablets 15 00:00: 00 Yes [id number] Take by mouth SEE-INSTRU CTIONS. follow package directions [facility] albuterol 90 mcg/actuati on inhaler 15 00:00: 00 Yes [id number] 2{puff} Inhale 2 Puffs every 6 (six) hours as needed for Wheezing or Shortness of Breath. [facility] azithromyci n 250 mg tablet 15 00:00: 00 Yes [id number] 250mg Take 1 tablet by mouth daily. Take 500 mg day 1, then 250 mg days 2 to 5. [facility] benzonatate (TESSALON PERLES) 100 mg capsule 15 00:00: 00 Yes [id number] 100mg Take 1 capsule by mouth 3 (three) times daily as needed for Cough. [facility] methylPREDN ISolone (MEDROL, ARIANA,) 4 mg tablets 15 00:00: 00 Yes [id number] Take by mouth SEE-INSTRU CTIONS. follow package directions [facility] albuterol 90 mcg/actuati on inhaler 15 00:00: 00 Yes [id number] 2{puff} Inhale 2 Puffs every 6 (six) hours as needed for Wheezing or Shortness of Breath. [facility] azithromyci n 250 mg tablet 15 00:00: 00 Yes [id number] 250mg Take 1 tablet by mouth daily. Take 500 mg day 1, then 250 mg days 2 to 5. [facility] benzonatate (TESSALON PERLES) 100 mg capsule 2020-0 4-15 00:00: 00 Yes [id number] 100mg Take 1 capsule by mouth 3 (three) times daily as needed for Cough. [facility] methylPREDN ISolone (MEDROL, ARIANA,) 4 mg tablets 2019-0 4-15 00:00: 00 Yes [id number] Take by mouth SEE-INSTRU CTIONS. follow package directions [facility] albuterol 90 mcg/actuati on inhaler 2019-0 4-15 00:00: 00 Yes [id number] 2{puff} Inhale 2 Puffs every 6 (six) hours as needed for Wheezing or Shortness of Breath. [facility] azithromyci n 250 mg tablet 2019-0 4-15 00:00: 00 Yes [id number] 250mg Take 1 tablet by mouth daily. Take 500 mg day 1, then 250 mg days 2 to 5. [facility] benzonatate (TESSALON PERLES) 100 mg capsule 2019-0 4-15 00:00: 00 Yes [id number] 100mg Take 1 capsule by mouth 3 (three) times daily as needed for Cough. [facility] methylPREDN ISolone (MEDROL, ARIANA,) 4 mg tablets 2019-0 4-15 00:00: 00 Yes [id number] Take by mouth SEE-INSTRU CTIONS. follow package directions [facility] albuterol 90 mcg/actuati on inhaler 0 4-15 00:00: 00 Yes [id number] 2{puff} Inhale 2 Puffs every 6 (six) hours as needed for Wheezing or Shortness of Breath. [facility] azithromyci n 250 mg tablet 2019-0 4-15 00:00: 00 Yes [id number] 250mg Take 1 tablet by mouth daily. Take 500 mg day 1, then 250 mg days 2 to 5. [facility] benzonatate (TESSALON PERLES) 100 mg capsule 2019-0 4-15 00:00: 00 Yes [id number] 100mg Take 1 capsule by mouth 3 (three) times daily as needed for Cough. [facility] methylPREDN ISolone (MEDROL, ARIANA,) 4 mg tablets 2019-0 4-15 00:00: 00 Yes [id number] Take by mouth SEE-INSTRU CTIONS. follow package directions [facility] albuterol 90 mcg/actuati on inhaler 2019-0 4-15 00:00: 00 Yes [id number] 2{puff} Inhale 2 Puffs every 6 (six) hours as needed for Wheezing or Shortness of Breath. [facility] albuterol 90 mcg/actuati on inhaler 2019-0 415 00:00: 00 Yes [id number] 2{puff} Inhale 2 Puffs every 6 (six) hours as needed for Wheezing or Shortness of Breath. [facility] azithromyci n 250 mg tablet 15 00:00: 00 Yes [id number] 250mg Take 1 tablet by mouth daily. Take 500 mg day 1, then 250 mg days 2 to 5. [facility] benzonatate (TESSALON PERLES) 100 mg capsule 15 00:00: 00 Yes [id number] 100mg Take 1 capsule by mouth 3 (three) times daily as needed for Cough. [facility] azithromyci n 250 mg tablet 15 00:00: 00 Yes [id number] 250mg Take 1 tablet by mouth daily. Take 500 mg day 1, then 250 mg days 2 to 5. [facility] methylPREDN ISolone (MEDROL, ARIANA,) 4 mg tablets 15 00:00: 00 Yes [id number] Take by mouth SEE-INSTRU CTIONS. follow package directions [facility] benzonatate (TESSALON PERLES) 100 mg capsule 15 00:00: 00 Yes [id number] 100mg Take 1 capsule by mouth 3 (three) times daily as needed for Cough. [facility] albuterol 90 mcg/actuati on inhaler 0 415 00:00: 00 Yes [id number] 2{puff} Inhale 2 Puffs every 6 (six) hours as needed for Wheezing or Shortness of Breath. [facility] azithromyci n 250 mg tablet 415 00:00: 00 Yes [id number] 250mg Take 1 tablet by mouth daily. Take 500 mg day 1, then 250 mg days 2 to 5. [facility] benzonatate (TESSALON PERLES) 100 mg capsule 2019-0 4-15 00:00: 00 Yes [id number] 100mg Take 1 capsule by mouth 3 (three) times daily as needed for Cough. [facility] methylPREDN ISolone (MEDROL, ARIANA,) 4 mg tablets 2019-0 4-15 00:00: 00 Yes [id number] Take by mouth SEE-INSTRU CTIONS. follow package directions [facility] methylPREDN ISolone (MEDROL, ARIANA,) 4 mg tablets 2019-0 4-15 00:00: 00 Yes [id number] Take by mouth SEE-INSTRU CTIONS. follow package directions [facility] albuterol 90 mcg/actuati on inhaler 0 4-15 00:00: 00 Yes [id number] 2{puff} Inhale 2 Puffs every 6 (six) hours as needed for Wheezing or Shortness of Breath. [facility] azithromyci n 250 mg tablet 0 15 00:00: 00 Yes [id number] 250mg Take 1 tablet by mouth daily. Take 500 mg day 1, then 250 mg days 2 to 5. [facility] benzonatate (TESSALON PERLES) 100 mg capsule 2019-0 15 00:00: 00 Yes [id number] 100mg Take 1 capsule by mouth 3 (three) times daily as needed for Cough. [facility] methylPREDN ISolone (MEDROL, ARIANA,) 4 mg tablets 2019-0 4-15 00:00: 00 Yes [id number] Take by mouth SEE-INSTRU CTIONS. follow package directions [facility] albuterol 90 mcg/actuati on inhaler 0 4-15 00:00: 00 Yes [id number] 2{puff} Inhale 2 Puffs every 6 (six) hours as needed for Wheezing or Shortness of Breath. [facility] azithromyci n 250 mg tablet 2019-0 4-15 00:00: 00 Yes [id number] 250mg Take 1 tablet by mouth daily. Take 500 mg day 1, then 250 mg days 2 to 5. [facility] benzonatate (TESSALON PERLES) 100 mg capsule 2019-0 4-15 00:00: 00 Yes [id number] 100mg Take 1 capsule by mouth 3 (three) times daily as needed for Cough. [facility] methylPREDN ISolone (MEDROL, ARIANA,) 4 mg tablets 2019-0 4-15 00:00: 00 Yes [id number] Take by mouth SEE-INSTRU CTIONS. follow package directions [facility] albuterol 90 mcg/actuati on inhaler 2019-0 4-15 00:00: 00 Yes [id number] 2{puff} Inhale 2 Puffs every 6 (six) hours as needed for Wheezing or Shortness of Breath. [facility] azithromyci n 250 mg tablet 2019-0 -15 00:00: 00 Yes [id number] 250mg Take 1 tablet by mouth daily. Take 500 mg day 1, then 250 mg days 2 to 5. [facility] albuterol 90 mcg/actuati on inhaler 0 -15 00:00: 00 Yes [id number] 2{puff} Inhale 2 Puffs every 6 (six) hours as needed for Wheezing or Shortness of Breath. [facility] azithromyci n 250 mg tablet 0 15 00:00: 00 Yes [id number] 250mg Take 1 tablet by mouth daily. Take 500 mg day 1, then 250 mg days 2 to 5. [facility] benzonatate (TESSALON PERLES) 100 mg capsule 2019-0 4-15 00:00: 00 Yes [id number] 100mg Take 1 capsule by mouth 3 (three) times daily as needed for Cough. [facility] methylPREDN ISolone (MEDROL, ARIANA,) 4 mg tablets 2019-0 4-15 00:00: 00 Yes [id number] Take by mouth SEE-INSTRU CTIONS. follow package directions [facility] benzonatate (TESSALON PERLES) 100 mg capsule 2019-0 4-15 00:00: 00 Yes [id number] 100mg Take 1 capsule by mouth 3 (three) times daily as needed for Cough. [facility] methylPREDN ISolone (MEDROL, ARIANA,) 4 mg tablets 2019-0 4-15 00:00: 00 Yes [id number] Take by mouth SEE-INSTRU CTIONS. follow package directions [facility] albuterol 90 mcg/actuati on inhaler 2020-0 4-15 00:00: 00 Yes [id number] 2{puff} Inhale 2 Puffs every 6 (six) hours as needed for Wheezing or Shortness of Breath. [facility] azithromyci n 250 mg tablet 2019-0 4-15 00:00: 00 Yes [id number] 250mg Take 1 tablet by mouth daily. Take 500 mg day 1, then 250 mg days 2 to 5. [facility] benzonatate (TESSALON PERLES) 100 mg capsule 0 15 00:00: 00 Yes [id number] 100mg Take 1 capsule by mouth 3 (three) times daily as needed for Cough. [facility] methylPREDN ISolone (MEDROL, ARIANA,) 4 mg tablets 15 00:00: 00 Yes [id number] Take by mouth SEE-INSTRU CTIONS. follow package directions [facility] albuterol 90 mcg/actuati on inhaler 0 15 00:00: 00 Yes [id number] 2{puff} Inhale 2 Puffs every 6 (six) hours as needed for Wheezing or Shortness of Breath. [facility] azithromyci n 250 mg tablet 0 15 00:00: 00 Yes [id number] 250mg Take 1 tablet by mouth daily. Take 500 mg day 1, then 250 mg days 2 to 5. [facility] benzonatate (TESSALON PERLES) 100 mg capsule 0 15 00:00: 00 Yes [id number] 100mg Take 1 capsule by mouth 3 (three) times daily as needed for Cough. [facility] methylPREDN ISolone (MEDROL, ARIAAN,) 4 mg tablets 0 15 00:00: 00 Yes [id number] Take by mouth SEE-INSTRU CTIONS. follow package directions [facility] albuterol 90 mcg/actuati on inhaler 2020-0 4-15 00:00: 00 Yes [id number] 2{puff} Inhale 2 Puffs every 6 (six) hours as needed for Wheezing or Shortness of Breath. [facility] azithromyci n 250 mg tablet 2019-0 4-15 00:00: 00 Yes [id number] 250mg Take 1 tablet by mouth daily. Take 500 mg day 1, then 250 mg days 2 to 5. [facility] albuterol 90 mcg/actuati on inhaler 0 415 00:00: 00 Yes [id number] 2{puff} Inhale 2 Puffs every 6 (six) hours as needed for Wheezing or Shortness of Breath. [facility] benzonatate (TESSALON PERLES) 100 mg capsule 2019-0 -15 00:00: 00 Yes [id number] 100mg Take 1 capsule by mouth 3 (three) times daily as needed for Cough. [facility] methylPREDN ISolone (MEDROL, ARIANA,) 4 mg tablets 15 00:00: 00 Yes [id number] Take by mouth SEE-INSTRU CTIONS. follow package directions [facility] azithromyci n 250 mg tablet 0 -15 00:00: 00 Yes [id number] 250mg Take 1 tablet by mouth daily. Take 500 mg day 1, then 250 mg days 2 to 5. [facility] albuterol 90 mcg/actuati on inhaler 0 15 00:00: 00 Yes [id number] 2{puff} Inhale 2 Puffs every 6 (six) hours as needed for Wheezing or Shortness of Breath. [facility] azithromyci n 250 mg tablet 0 15 00:00: 00 Yes [id number] 250mg Take 1 tablet by mouth daily. Take 500 mg day 1, then 250 mg days 2 to 5. [facility] benzonatate (TESSALON PERLES) 100 mg capsule 2019-0 -15 00:00: 00 Yes [id number] 100mg Take 1 capsule by mouth 3 (three) times daily as needed for Cough. [facility] methylPREDN ISolone (MEDROL, ARIANA,) 4 mg tablets 0 4-15 00:00: 00 Yes [id number] Take by mouth SEE-INSTRU CTIONS. follow package directions [facility] benzonatate (TESSALON PERLES) 100 mg capsule 2020-0 4-15 00:00: 00 Yes [id number] 100mg Take 1 capsule by mouth 3 (three) times daily as needed for Cough. [facility] methylPREDN ISolone (MEDROL, ARIANA,) 4 mg tablets 2020-0 4-15 00:00: 00 Yes [id number] Take by mouth SEE-INSTRU CTIONS. follow package directions [facility] albuterol 90 mcg/actuati on inhaler 2020-0 4-15 00:00: 00 Yes [id number] 2{puff} Inhale 2 Puffs every 6 (six) hours as needed for Wheezing or Shortness of Breath. [facility] azithromyci n 250 mg tablet 2020-0 4-15 00:00: 00 Yes [id number] 250mg Take 1 tablet by mouth daily. Take 500 mg day 1, then 250 mg days 2 to 5. [facility] benzonatate (TESSALON PERLES) 100 mg capsule 2020-0 4-15 00:00: 00 Yes [id number] 100mg Take 1 capsule by mouth 3 (three) times daily as needed for Cough. [facility] methylPREDN ISolone (MEDROL, ARIANA,) 4 mg tablets 2019-0 4-15 00:00: 00 Yes [id number] Take by mouth SEE-INSTRU CTIONS. follow package directions [facility] albuterol 90 mcg/actuati on inhaler 2020-0 4-15 00:00: 00 Yes [id number] 2{puff} Inhale 2 Puffs every 6 (six) hours as needed for Wheezing or Shortness of Breath. [facility] azithromyci n 250 mg tablet 2020-0 4-15 00:00: 00 Yes [id number] 250mg Take 1 tablet by mouth daily. Take 500 mg day 1, then 250 mg days 2 to 5. [facility] benzonatate (TESSALON PERLES) 100 mg capsule 2020-0 4-15 00:00: 00 Yes [id number] 100mg Take 1 capsule by mouth 3 (three) times daily as needed for Cough. [facility] methylPREDN ISolone (MEDROL, ARIANA,) 4 mg tablets 2020-0 415 00:00: 00 Yes [id number] Take by mouth SEE-INSTRU CTIONS. follow package directions [facility] albuterol 90 mcg/actuati on inhaler 2019-0 4-15 00:00: 00 Yes [id number] 2{puff} Inhale 2 Puffs every 6 (six) hours as needed for Wheezing or Shortness of Breath. [facility] azithromyci n 250 mg tablet 0 15 00:00: 00 Yes [id number] 250mg Take 1 tablet by mouth daily. Take 500 mg day 1, then 250 mg days 2 to 5. [facility] benzonatate (TESSALON PERLES) 100 mg capsule 0 15 00:00: 00 Yes [id number] 100mg Take 1 capsule by mouth 3 (three) times daily as needed for Cough. [facility] methylPREDN ISolone (MEDROL, ARIANA,) 4 mg tablets 0 15 00:00: 00 Yes [id number] Take by mouth SEE-INSTRU CTIONS. follow package directions [facility] albuterol 90 mcg/actuati on inhaler 0 15 00:00: 00 Yes [id number] 2{puff} Inhale 2 Puffs every 6 (six) hours as needed for Wheezing or Shortness of Breath. [facility] azithromyci n 250 mg tablet 15 00:00: 00 Yes [id number] 250mg Take 1 tablet by mouth daily. Take 500 mg day 1, then 250 mg days 2 to 5. [facility] benzonatate (TESSALON PERLES) 100 mg capsule 0 15 00:00: 00 Yes [id number] 100mg Take 1 capsule by mouth 3 (three) times daily as needed for Cough. [facility] methylPREDN ISolone (MEDROL, ARIANA,) 4 mg tablets 0 415 00:00: 00 Yes [id number] Take by mouth SEE-INSTRU CTIONS. follow package directions [facility] albuterol 90 mcg/actuati on inhaler 2019-0 4-15 00:00: 00 Yes [id number] 2{puff} Inhale 2 Puffs every 6 (six) hours as needed for Wheezing or Shortness of Breath. [facility] albuterol 90 mcg/actuati on inhaler 2019-0 4-15 00:00: 00 Yes [id number] 2{puff} Inhale 2 Puffs every 6 (six) hours as needed for Wheezing or Shortness of Breath. [facility] azithromyci n 250 mg tablet 0 4-15 00:00: 00 Yes [id number] 250mg Take 1 tablet by mouth daily. Take 500 mg day 1, then 250 mg days 2 to 5. [facility] benzonatate (TESSALON PERLES) 100 mg capsule 0 15 00:00: 00 Yes [id number] 100mg Take 1 capsule by mouth 3 (three) times daily as needed for Cough. [facility] azithromyci n 250 mg tablet 2019-0 15 00:00: 00 Yes [id number] 250mg Take 1 tablet by mouth daily. Take 500 mg day 1, then 250 mg days 2 to 5. [facility] methylPREDN ISolone (MEDROL, ARIANA,) 4 mg tablets 15 00:00: 00 Yes [id number] Take by mouth SEE-INSTRU CTIONS. follow package directions [facility] benzonatate (TESSALON PERLES) 100 mg capsule 0 15 00:00: 00 Yes [id number] 100mg Take 1 capsule by mouth 3 (three) times daily as needed for Cough. [facility] albuterol 90 mcg/actuati on inhaler 0 -15 00:00: 00 Yes [id number] 2{puff} Inhale 2 Puffs every 6 (six) hours as needed for Wheezing or Shortness of Breath. [facility] azithromyci n 250 mg tablet 0 4-15 00:00: 00 Yes [id number] 250mg Take 1 tablet by mouth daily. Take 500 mg day 1, then 250 mg days 2 to 5. [facility] benzonatate (TESSALON PERLES) 100 mg capsule 2019-0 4-15 00:00: 00 Yes [id number] 100mg Take 1 capsule by mouth 3 (three) times daily as needed for Cough. [facility] methylPREDN ISolone (MEDROL, ARIANA,) 4 mg tablets 2019-0 4-15 00:00: 00 Yes [id number] Take by mouth SEE-INSTRU CTIONS. follow package directions [facility] methylPREDN ISolone (MEDROL, ARIANA,) 4 mg tablets 2019-0 415 00:00: 00 Yes [id number] Take by mouth SEE-INSTRU CTIONS. follow package directions [facility] albuterol 90 mcg/actuati on inhaler 0 15 00:00: 00 Yes [id number] 2{puff} Inhale 2 Puffs every 6 (six) hours as needed for Wheezing or Shortness of Breath. [facility] azithromyci n 250 mg tablet 15 00:00: 00 Yes [id number] 250mg Take 1 tablet by mouth daily. Take 500 mg day 1, then 250 mg days 2 to 5. [facility] benzonatate (TESSALON PERLES) 100 mg capsule 0 15 00:00: 00 Yes [id number] 100mg Take 1 capsule by mouth 3 (three) times daily as needed for Cough. [facility] methylPREDN ISolone (MEDROL, ARIANA,) 4 mg tablets 15 00:00: 00 Yes [id number] Take by mouth SEE-INSTRU CTIONS. follow package directions [facility] albuterol 90 mcg/actuati on inhaler 0 15 00:00: 00 Yes [id number] 2{puff} Inhale 2 Puffs every 6 (six) hours as needed for Wheezing or Shortness of Breath. [facility] azithromyci n 250 mg tablet 0 15 00:00: 00 Yes [id number] 250mg Take 1 tablet by mouth daily. Take 500 mg day 1, then 250 mg days 2 to 5. [facility] benzonatate (TESSALON PERLES) 100 mg capsule 2019-0 4-15 00:00: 00 Yes [id number] 100mg Take 1 capsule by mouth 3 (three) times daily as needed for Cough. [facility] methylPREDN ISolone (MEDROL, ARIANA,) 4 mg tablets 2019-0 4-15 00:00: 00 Yes [id number] Take by mouth SEE-INSTRU CTIONS. follow package directions [facility] albuterol 90 mcg/actuati on inhaler 2019-0 4-15 00:00: 00 Yes [id number] 2{puff} Inhale 2 Puffs every 6 (six) hours as needed for Wheezing or Shortness of Breath. [facility] azithromyci n 250 mg tablet 2019-0 4-15 00:00: 00 Yes [id number] 250mg Take 1 tablet by mouth daily. Take 500 mg day 1, then 250 mg days 2 to 5. [facility] benzonatate (TESSALON PERLES) 100 mg capsule 0 15 00:00: 00 Yes [id number] 100mg Take 1 capsule by mouth 3 (three) times daily as needed for Cough. [facility] methylPREDN ISolone (MEDROL, ARIANA,) 4 mg tablets 0 15 00:00: 00 Yes [id number] Take by mouth SEE-INSTRU CTIONS. follow package directions [facility] albuterol 90 mcg/actuati on inhaler 0 15 00:00: 00 Yes [id number] 2{puff} Inhale 2 Puffs every 6 (six) hours as needed for Wheezing or Shortness of Breath. [facility] azithromyci n 250 mg tablet 0 15 00:00: 00 Yes [id number] 250mg Take 1 tablet by mouth daily. Take 500 mg day 1, then 250 mg days 2 to 5. [facility] benzonatate (TESSALON PERLES) 100 mg capsule 0 15 00:00: 00 Yes [id number] 100mg Take 1 capsule by mouth 3 (three) times daily as needed for Cough. [facility] methylPREDN ISolone (MEDROL, ARIANA,) 4 mg tablets 2019-0 415 00:00: 00 Yes [id number] Take by mouth SEE-INSTRU CTIONS. follow package directions [facility] albuterol 90 mcg/actuati on inhaler 0 4-15 00:00: 00 Yes [id number] 2{puff} Inhale 2 Puffs every 6 (six) hours as needed for Wheezing or Shortness of Breath. [facility] azithromyci n 250 mg tablet 0 415 00:00: 00 Yes [id number] 250mg Take 1 tablet by mouth daily. Take 500 mg day 1, then 250 mg days 2 to 5. [facility] benzonatate (TESSALON PERLES) 100 mg capsule 0 15 00:00: 00 Yes [id number] 100mg Take 1 capsule by mouth 3 (three) times daily as needed for Cough. [facility] methylPREDN ISolone (MEDROL, ARIANA,) 4 mg tablets 0 15 00:00: 00 Yes [id number] Take by mouth SEE-INSTRU CTIONS. follow package directions [facility] albuterol 90 mcg/actuati on inhaler 0 15 00:00: 00 Yes [id number] 2{puff} Inhale 2 Puffs every 6 (six) hours as needed for Wheezing or Shortness of Breath. [facility] azithromyci n 250 mg tablet 0 15 00:00: 00 Yes [id number] 250mg Take 1 tablet by mouth daily. Take 500 mg day 1, then 250 mg days 2 to 5. [facility] benzonatate (TESSALON PERLES) 100 mg capsule 0 15 00:00: 00 Yes [id number] 100mg Take 1 capsule by mouth 3 (three) times daily as needed for Cough. [facility] methylPREDN ISolone (MEDROL, ARIANA,) 4 mg tablets 0 15 00:00: 00 Yes [id number] Take by mouth SEE-INSTRU CTIONS. follow package directions [facility] albuterol 90 mcg/actuati on inhaler 0 415 00:00: 00 Yes [id number] 2{puff} Inhale 2 Puffs every 6 (six) hours as needed for Wheezing or Shortness of Breath. [facility] azithromyci n 250 mg tablet 2019-0 4-15 00:00: 00 Yes [id number] 250mg Take 1 tablet by mouth daily. Take 500 mg day 1, then 250 mg days 2 to 5. [facility] benzonatate (TESSALON PERLES) 100 mg capsule 2019-0 4-15 00:00: 00 Yes [id number] 100mg Take 1 capsule by mouth 3 (three) times daily as needed for Cough. [facility] methylPREDN ISolone (MEDROL, ARIANA,) 4 mg tablets 0 4-15 00:00: 00 Yes [id number] Take by mouth SEE-INSTRU CTIONS. follow package directions [facility] albuterol 90 mcg/actuati on inhaler 0 -15 00:00: 00 Yes [id number] 2{puff} Inhale 2 Puffs every 6 (six) hours as needed for Wheezing or Shortness of Breath. [facility] azithromyci n 250 mg tablet 15 00:00: 00 Yes [id number] 250mg Take 1 tablet by mouth daily. Take 500 mg day 1, then 250 mg days 2 to 5. [facility] benzonatate (TESSALON PERLES) 100 mg capsule 15 00:00: 00 Yes [id number] 100mg Take 1 capsule by mouth 3 (three) times daily as needed for Cough. [facility] methylPREDN ISolone (MEDROL, ARIANA,) 4 mg tablets 15 00:00: 00 Yes [id number] Take by mouth SEE-INSTRU CTIONS. follow package directions [facility] albuterol 90 mcg/actuati on inhaler 0 15 00:00: 00 Yes [id number] 2{puff} Inhale 2 Puffs every 6 (six) hours as needed for Wheezing or Shortness of Breath. [facility] albuterol 90 mcg/actuati on inhaler 0 15 00:00: 00 Yes [id number] 2{puff} Inhale 2 Puffs every 6 (six) hours as needed for Wheezing or Shortness of Breath. [facility] azithromyci n 250 mg tablet 0 4-15 00:00: 00 Yes [id number] 250mg Take 1 tablet by mouth daily. Take 500 mg day 1, then 250 mg days 2 to 5. [facility] benzonatate (TESSALON PERLES) 100 mg capsule 2019-0 4-15 00:00: 00 Yes [id number] 100mg Take 1 capsule by mouth 3 (three) times daily as needed for Cough. [facility] methylPREDN ISolone (MEDROL, ARIANA,) 4 mg tablets 2019-0 4-15 00:00: 00 Yes [id number] Take by mouth SEE-INSTRU CTIONS. follow package directions [facility] azithromyci n 250 mg tablet 2019-0 4-15 00:00: 00 Yes [id number] 250mg Take 1 tablet by mouth daily. Take 500 mg day 1, then 250 mg days 2 to 5. [facility] albuterol 90 mcg/actuati on inhaler 0 4-15 00:00: 00 Yes [id number] 2{puff} Inhale 2 Puffs every 6 (six) hours as needed for Wheezing or Shortness of Breath. [facility] azithromyci n 250 mg tablet 2019-0 4-15 00:00: 00 Yes [id number] 250mg Take 1 tablet by mouth daily. Take 500 mg day 1, then 250 mg days 2 to 5. [facility] benzonatate (TESSALON PERLES) 100 mg capsule 2019-0 4-15 00:00: 00 Yes [id number] 100mg Take 1 capsule by mouth 3 (three) times daily as needed for Cough. [facility] benzonatate (TESSALON PERLES) 100 mg capsule 2019-0 4-15 00:00: 00 Yes [id number] 100mg Take 1 capsule by mouth 3 (three) times daily as needed for Cough. [facility] methylPREDN ISolone (MEDROL, ARIANA,) 4 mg tablets 2019-0 4-15 00:00: 00 Yes [id number] Take by mouth SEE-INSTRU CTIONS. follow package directions [facility] methylPREDN ISolone (MEDROL, ARIANA,) 4 mg tablets 2019-0 4-15 00:00: 00 Yes [id number] Take by mouth SEE-INSTRU CTIONS. follow package directions [facility] albuterol 90 mcg/actuati on inhaler 15 00:00: 00 Yes [id number] 2{puff} Inhale 2 Puffs every 6 (six) hours as needed for Wheezing or Shortness of Breath. [facility] azithromyci n 250 mg tablet 10-17 00:00: 00 Yes [id number] 250mg Take 1 tablet by mouth daily. Take 500 mg day 1, then 250 mg days 2 to 5. [facility] benzonatate (TESSALON PERLES) 100 mg capsule 10-17 00:00: 00 Yes [id number] 100mg Take 1 capsule by mouth 3 (three) times daily as needed for Cough. [facility] methylPREDN ISolone (MEDROL, ARIANA,) 4 mg tablets 10-17 00:00: 00 Yes [id number] Take by mouth SEE-INSTRU CTIONS. follow package directions [facility] albuterol 90 mcg/actuati on inhaler 10-17 00:00: 00 Yes [id number] 2{puff} Inhale 2 Puffs every 6 (six) hours as needed for Wheezing or Shortness of Breath. [facility] [facility] azithromyci n 250 mg tablet 10-17 00:00: 00 Yes [id number] 250mg Take 1 tablet by mouth daily. Take 500 mg day 1, then 250 mg days 2 to 5. [facility] benzonatate (TESSALON PERLES) 100 mg capsule 10-17 00:00: 00 Yes [id number] 100mg Take 1 capsule by mouth 3 (three) times daily as needed for Cough. [facility] methylPREDN ISolone (MEDROL, ARIANA,) 4 mg tablets 10-17 00:00: 00 Yes [id number] Take by mouth SEE-INSTRU CTIONS. follow package directions [facility] albuterol 90 mcg/actuati on inhaler 15 00:00: 00 Yes [id number] 2{puff} Inhale 2 Puffs every 6 (six) hours as needed for Wheezing or Shortness of Breath. [facility] azithromyci n 250 mg tablet 2020-0 4-15 00:00: 00 Yes [id number] 250mg Take 1 tablet by mouth daily. Take 500 mg day 1, then 250 mg days 2 to 5. [facility] benzonatate (TESSALON PERLES) 100 mg capsule 15 00:00: 00 Yes [id number] 100mg Take 1 capsule by mouth 3 (three) times daily as needed for Cough. [facility] methylPREDN ISolone (MEDROL, ARIANA,) 4 mg tablets 15 00:00: 00 Yes [id number] Take by mouth SEE-INSTRU CTIONS. follow package directions [facility] albuterol 90 mcg/actuati on inhaler 10-17 00:00: 00 Yes [id number] 2{puff} Inhale 2 Puffs every 6 (six) hours as needed for Wheezing or Shortness of Breath. [facility] azithromyci n 250 mg tablet 10-17 00:00: 00 Yes [id number] 250mg Take 1 tablet by mouth daily. Take 500 mg day 1, then 250 mg days 2 to 5. [facility] benzonatate (TESSALON PERLES) 100 mg capsule 10-17 00:00: 00 Yes [id number] 100mg Take 1 capsule by mouth 3 (three) times daily as needed for Cough. [facility] methylPREDN ISolone (MEDROL, ARIANA,) 4 mg tablets 10-17 00:00: 00 Yes [id number] Take by mouth SEE-INSTRU CTIONS. follow package directions [facility] albuterol 90 mcg/actuati on inhaler 15 00:00: 00 Yes [id number] 2{puff} Inhale 2 Puffs every 6 (six) hours as needed for Wheezing or Shortness of Breath. [facility] azithromyci n 250 mg tablet 15 00:00: 00 Yes [id number] 250mg Take 1 tablet by mouth daily. Take 500 mg day 1, then 250 mg days 2 to 5. [facility] benzonatate (TESSALON PERLES) 100 mg capsule 15 00:00: 00 Yes [id number] 100mg Take 1 capsule by mouth 3 (three) times daily as needed for Cough. [facility] methylPREDN ISolone (MEDROL, ARIANA,) 4 mg tablets 2019-0 4-15 00:00: 00 Yes [id number] Take by mouth SEE-INSTRU CTIONS. follow package directions [facility] albuterol 90 mcg/actuati on inhaler 0 4-15 00:00: 00 Yes [id number] 2{puff} Inhale 2 Puffs every 6 (six) hours as needed for Wheezing or Shortness of Breath. [facility] azithromyci n 250 mg tablet 2019-0 4-15 00:00: 00 Yes [id number] 250mg Take 1 tablet by mouth daily. Take 500 mg day 1, then 250 mg days 2 to 5. [facility] benzonatate (TESSALON PERLES) 100 mg capsule 0 -15 00:00: 00 Yes [id number] 100mg Take 1 capsule by mouth 3 (three) times daily as needed for Cough. [facility] methylPREDN ISolone (MEDROL, ARIANA,) 4 mg tablets 0 15 00:00: 00 Yes [id number] Take by mouth SEE-INSTRU CTIONS. follow package directions [facility] albuterol 90 mcg/actuati on inhaler 0 4-15 00:00: 00 Yes [id number] 2{puff} Inhale 2 Puffs every 6 (six) hours as needed for Wheezing or Shortness of Breath. [facility] azithromyci n 250 mg tablet 0 -15 00:00: 00 Yes [id number] 250mg Take 1 tablet by mouth daily. Take 500 mg day 1, then 250 mg days 2 to 5. [facility] benzonatate (TESSALON PERLES) 100 mg capsule 0 -15 00:00: 00 Yes [id number] 100mg Take 1 capsule by mouth 3 (three) times daily as needed for Cough. [facility] methylPREDN ISolone (MEDROL, ARIANA,) 4 mg tablets 2019-0 4-15 00:00: 00 Yes [id number] Take by mouth SEE-INSTRU CTIONS. follow package directions [facility] albuterol 90 mcg/actuati on inhaler 2020-0 4-15 00:00: 00 Yes [id number] 2{puff} Inhale 2 Puffs every 6 (six) hours as needed for Wheezing or Shortness of Breath. [facility] azithromyci n 250 mg tablet 415 00:00: 00 Yes [id number] 250mg Take 1 tablet by mouth daily. Take 500 mg day 1, then 250 mg days 2 to 5. [facility] benzonatate (TESSALON PERLES) 100 mg capsule 15 00:00: 00 Yes [id number] 100mg Take 1 capsule by mouth 3 (three) times daily as needed for Cough. [facility] methylPREDN ISolone (MEDROL, ARIANA,) 4 mg tablets 15 00:00: 00 Yes [id number] Take by mouth SEE-INSTRU CTIONS. follow package directions [facility] albuterol 90 mcg/actuati on inhaler 15 00:00: 00 Yes [id number] 2{puff} Inhale 2 Puffs every 6 (six) hours as needed for Wheezing or Shortness of Breath. [facility] azithromyci n 250 mg tablet 15 00:00: 00 Yes [id number] 250mg Take 1 tablet by mouth daily. Take 500 mg day 1, then 250 mg days 2 to 5. [facility] benzonatate (TESSALON PERLES) 100 mg capsule 15 00:00: 00 Yes [id number] 100mg Take 1 capsule by mouth 3 (three) times daily as needed for Cough. [facility] methylPREDN ISolone (MEDROL, ARIANA,) 4 mg tablets 415 00:00: 00 Yes [id number] Take by mouth SEE-INSTRU CTIONS. follow package directions [facility] albuterol 90 mcg/actuati on inhaler 0 415 00:00: 00 Yes [id number] 2{puff} Inhale 2 Puffs every 6 (six) hours as needed for Wheezing or Shortness of Breath. [facility] azithromyci n 250 mg tablet 0 15 00:00: 00 Yes [id number] 250mg Take 1 tablet by mouth daily. Take 500 mg day 1, then 250 mg days 2 to 5. [facility] benzonatate (TESSALON PERLES) 100 mg capsule 2019-0 15 00:00: 00 Yes [id number] 100mg Take 1 capsule by mouth 3 (three) times daily as needed for Cough. [facility] methylPREDN ISolone (MEDROL, ARIANA,) 4 mg tablets 0 15 00:00: 00 Yes [id number] Take by mouth SEE-INSTRU CTIONS. follow package directions [facility] albuterol 90 mcg/actuati on inhaler 0 15 00:00: 00 Yes [id number] 2{puff} Inhale 2 Puffs every 6 (six) hours as needed for Wheezing or Shortness of Breath. [facility] azithromyci n 250 mg tablet 15 00:00: 00 Yes [id number] 250mg Take 1 tablet by mouth daily. Take 500 mg day 1, then 250 mg days 2 to 5. [facility] benzonatate (TESSALON PERLES) 100 mg capsule 15 00:00: 00 Yes [id number] 100mg Take 1 capsule by mouth 3 (three) times daily as needed for Cough. [facility] methylPREDN ISolone (MEDROL, ARIANA,) 4 mg tablets 15 00:00: 00 Yes [id number] Take by mouth SEE-INSTRU CTIONS. follow package directions [facility] albuterol 90 mcg/actuati on inhaler 15 00:00: 00 Yes [id number] 2{puff} Inhale 2 Puffs every 6 (six) hours as needed for Wheezing or Shortness of Breath. [facility] azithromyci n 250 mg tablet 2019-0 15 00:00: 00 Yes [id number] 250mg Take 1 tablet by mouth daily. Take 500 mg day 1, then 250 mg days 2 to 5. [facility] benzonatate (TESSALON PERLES) 100 mg capsule 10-17 00:00: 00 Yes [id number] 100mg Take 1 capsule by mouth 3 (three) times daily as needed for Cough. [facility] methylPREDN ISolone (MEDROL, ARIANA,) 4 mg tablets 10-17 00:00: 00 Yes [id number] Take by mouth SEE-INSTRU CTIONS. follow package directions [facility] albuterol 90 mcg/actuati on inhaler 10-17 00:00: 00 Yes [id number] 2{puff} Inhale 2 Puffs every 6 (six) hours as needed for Wheezing or Shortness of Breath. [facility] azithromyci n 250 mg tablet 10-17 00:00: 00 Yes [id number] 250mg Take 1 tablet by mouth daily. Take 500 mg day 1, then 250 mg days 2 to 5. [facility] benzonatate (TESSALON PERLES) 100 mg capsule 10-17 00:00: 00 Yes [id number] 100mg Take 1 capsule by mouth 3 (three) times daily as needed for Cough. [facility] methylPREDN ISolone (MEDROL, ARIANA,) 4 mg tablets 10-17 00:00: 00 Yes [id number] Take by mouth SEE-INSTRU CTIONS. follow package directions [facility] Vital Signs Vital Name Observation Time Observation Value Comments S cyrus Systolic blood pressure 2023-01-01 19:00:00 112 mm[Hg] manual [facility] Diastolic blood pressure 2023-01-01 19:00:00 70 mm[Hg] manual [facility] Heart rate 2023-01-01 19:00:00 109 /min [facility] Respiratory rate 2023-01-01 19:00:00 24 /min [facility] Body weight 2023-01-01 19:00:00 35.925 kg [facility] BMI 2023-01-01 19:00:00 11.36 kg/m2 [facility] Oxygen saturation in Arterial blood by Pulse oximetry 2023-01-01 19:00:00 98 /min arrived wearing pulsed NC 1l/m; 6MW completed on 1-2l/m con't NC [facility] Systolic blood pressure 2022-12-17 18:00:00 128 mm[Hg] manual [facility] Diastolic blood pressure 2022-12-17 18:00:00 68 mm[Hg] manual [facility] Heart rate 2022-12-17 18:00:00 101 /min [facility] Respiratory rate 2022-12-17 18:00:00 22 /min [facility] Body weight 2022-12-17 18:00:00 35.925 kg [facility] BMI 2022-12-17 18:00:00 11.36 kg/m2 [facility] Oxygen saturation in Arterial blood by Pulse oximetry 2022-12-17 18:00:00 93 /min arrived on 1 l/m pulsed NC; exercised on 1- 2 l/m con't NC [facility] Systolic blood pressure 2022-12-15 18:00:00 122 mm[Hg] manual [facility] Diastolic blood pressure 2022-12-15 18:00:00 74 mm[Hg] manual [facility] Heart rate 2022-12-15 18:00:00 94 /min [facility] Respiratory rate 2022-12-15 18:00:00 22 /min [facility] Body weight 2022-12-15 18:00:00 35.653 kg [facility] BMI 2022-12-15 18:00:00 11.28 kg/m2 [facility] Oxygen saturation in Arterial blood by Pulse oximetry 2022-12-15 18:00:00 94 /min arrived on 1 l/m pulsed NC; exercised on 1 l/m con't NC [facility] Systolic blood pressure 2022-12-10 18:00:00 126 mm[Hg] manual [facility] Diastolic blood pressure 2022-12-10 18:00:00 72 mm[Hg] manual [facility] Heart rate 2022-12-10 18:00:00 132 /min [facility] Respiratory rate 2022-12-10 18:00:00 22 /min [facility] Body weight 2022-12-10 18:00:00 35.925 kg [facility] BMI 2022-12-10 18:00:00 11.36 kg/m2 [facility] Oxygen saturation in Arterial blood by Pulse oximetry 2022-12-10 18:00:00 95 /min arrived on 1 l/m pulsed NC; exercised on 1 l/m con't NC [facility] Systolic blood pressure 2022-12-08 18:00:00 110 mm[Hg] manual, taken twice, hard to hear today [facility] Diastolic blood pressure 2022-12-08 18:00:00 70 mm[Hg] manual, taken twice, hard to hear today [facility] Heart rate 2022-12-08 18:00:00 100 /min [facility] Respiratory rate 2022-12-08 18:00:00 22 /min [facility] Body weight 2022-12-08 18:00:00 35.381 kg [facility] BMI 2022-12-08 18:00:00 11.19 kg/m2 [facility] Oxygen saturation in Arterial blood by Pulse oximetry 2022-12-08 18:00:00 97 /min arrived on 1 l/m pulsed NC; exercised on 1-2 l/m con't NC [facility] Systolic blood pressure 2022-12-03 18:00:00 130 mm[Hg] manual; taken twice due to higher than normal systolic reading [facility] Diastolic blood pressure 2022-12-03 18:00:00 70 mm[Hg] manual; taken twice due to higher than normal systolic reading [facility] Heart rate 2022-12-03 18:00:00 110 /min [facility] Respiratory rate 2022-12-03 18:00:00 24 /min [facility] Body weight 2022-12-03 18:00:00 35.834 kg [facility] BMI 2022-12-03 18:00:00 11.34 kg/m2 [facility] Oxygen saturation in Arterial blood by Pulse oximetry 2022-12-03 18:00:00 88 /min arrived on 1 l/m pulsed NC; exercised on 1-2 l/m con't NC [facility] Systolic blood pressure 2022-12-01 18:00:00 118 mm[Hg] manual [facility] Diastolic blood pressure 2022-12-01 18:00:00 70 mm[Hg] manual [facility] Heart rate 2022-12-01 18:00:00 104 /min [facility] Respiratory rate 2022-12-01 18:00:00 22 /min [facility] Body weight 2022-12-01 18:00:00 35.834 kg [facility] BMI 2022-12-01 18:00:00 11.34 kg/m2 [facility] Oxygen saturation in Arterial blood by Pulse oximetry 2022-12-01 18:00:00 95 /min arrived wearing 1 l/m pulsed NC; exercised on 1 l/m con't NC [facility] Systolic blood pressure 2022-11-26 18:00:00 130 mm[Hg] [facility] Diastolic blood pressure 2022-11-26 18:00:00 60 mm[Hg] [facility] Heart rate 2022-11-26 18:00:00 91 /min [facility] Body weight 2022-11-26 18:00:00 35.925 kg [facility] BMI 2022-11-26 18:00:00 11.36 kg/m2 [facility] Oxygen saturation in Arterial blood by Pulse oximetry 2022-11-26 18:00:00 93 /min [facility] Systolic blood pressure 2022-11-24 18:00:00 130 mm[Hg] [facility] Diastolic blood pressure 2022-11-24 18:00:00 70 mm[Hg] [facility] Heart rate 2022-11-24 18:00:00 117 /min [facility] Body weight 2022-11-24 18:00:00 35.925 kg [facility] BMI 2022-11-24 18:00:00 11.36 kg/m2 [facility] Oxygen saturation in Arterial blood by Pulse oximetry 2022-11-24 18:00:00 91 /min [facility] Systolic blood pressure 2022-11-19 18:00:00 112 mm[Hg] manual [facility] Diastolic blood pressure 2022-11-19 18:00:00 54 mm[Hg] manual [facility] Heart rate 2022-11-19 18:00:00 80 /min [facility] Respiratory rate 2022-11-19 18:00:00 24 /min [facility] Body weight 2022-11-19 18:00:00 36.016 kg [facility] BMI 2022-11-19 18:00:00 11.39 kg/m2 [facility] Oxygen saturation in Arterial blood by Pulse oximetry 2022-11-19 18:00:00 94 /min arrived on 1 l/m pulsed NC; exercised on 1 l/m con't NC [facility] Systolic blood pressure 2022-11-12 18:00:00 126 mm[Hg] manual [facility] Diastolic blood pressure 2022-11-12 18:00:00 76 mm[Hg] manual [facility] Heart rate 2022-11-12 18:00:00 105 /min [facility] Respiratory rate 2022-11-12 18:00:00 22 /min [facility] Body weight 2022-11-12 18:00:00 36.651 kg [facility] BMI 2022-11-12 18:00:00 11.59 kg/m2 [facility] Oxygen saturation in Arterial blood by Pulse oximetry 2022-11-12 18:00:00 93 /min arrived on 1 l/m pulsed NC; exercised on 1 l/m con't NC [facility] Systolic blood pressure 2022-11-10 18:00:00 130 mm[Hg] manual [facility] Diastolic blood pressure 2022-11-10 18:00:00 76 mm[Hg] manual [facility] Heart rate 2022-11-10 18:00:00 98 /min [facility] Respiratory rate 2022-11-10 18:00:00 22 /min [facility] Body weight 2022-11-10 18:00:00 36.56 kg [facility] BMI 2022-11-10 18:00:00 11.56 kg/m2 [facility] Oxygen saturation in Arterial blood by Pulse oximetry 2022-11-10 18:00:00 95 /min arrived on 1 l/m pulsed NC; exercised on 1 l/m con't NC [facility] Heart rate 2022-11-05 18:00:00 99 /min [facility] Respiratory rate 2022-11-05 18:00:00 22 /min [facility] Body weight 2022-11-05 18:00:00 36.469 kg [facility] BMI 2022-11-05 18:00:00 11.54 kg/m2 [facility] Oxygen saturation in Arterial blood by Pulse oximetry 2022-11-05 18:00:00 95 /min arrived on 1 l/m pulsed NC; exercised on 1 l/m con't NC [facility] Systolic blood pressure 2022-11-03 18:00:00 136 mm[Hg] [facility] Diastolic blood pressure 2022-11-03 18:00:00 60 mm[Hg] [facility] Heart rate 2022-11-03 18:00:00 93 /min [facility] Body weight 2022-11-03 18:00:00 36.469 kg [facility] BMI 2022-11-03 18:00:00 11.54 kg/m2 [facility] Oxygen saturation in Arterial blood by Pulse oximetry 2022-11-03 18:00:00 96 /min [facility] Systolic blood pressure 2022-10-29 18:00:00 126 mm[Hg] [facility] Diastolic blood pressure 2022-10-29 18:00:00 64 mm[Hg] [facility] Heart rate 2022-10-29 18:00:00 89 /min [facility] Body weight 2022-10-29 18:00:00 36.469 kg [facility] BMI 2022-10-29 18:00:00 11.54 kg/m2 [facility] Oxygen saturation in Arterial blood by Pulse oximetry 2022-10-29 18:00:00 98 /min [facility] Systolic blood pressure 2022-10-27 20:00:00 132 mm[Hg] manual [facility] Diastolic blood pressure 2022-10-27 20:00:00 66 mm[Hg] manual [facility] Heart rate 2022-10-27 20:00:00 75 /min [facility] Respiratory rate 2022-10-27 20:00:00 22 /min [facility] Body weight 2022-10-27 20:00:00 37.195 kg [facility] BMI 2022-10-27 20:00:00 11.77 kg/m2 [facility] Oxygen saturation in Arterial blood by Pulse oximetry 2022-10-27 20:00:00 96 /min arrived on 4 l/m pulsed NC (decrease once sit down); exercised on 1 l/m con't NC [facility] Systolic blood pressure 2022-10-21 18:00:00 126 mm[Hg] manual; right arm 124/68 manual [facility] Diastolic blood pressure 2022-10-21 18:00:00 68 mm[Hg] manual; right arm 124/68 manual [facility] Heart rate 2022-10-21 18:00:00 90 /min [facility] Respiratory rate 2022-10-21 18:00:00 22 /min [facility] Body weight 2022-10-21 18:00:00 37.104 kg [facility] BMI 2022-10-21 18:00:00 11.74 kg/m2 [facility] Oxygen saturation in Arterial blood by Pulse oximetry 2022-10-21 18:00:00 98 /min arrived on 4 l/m pulsed NC; 6MW on 1 l/m con't NC [facility] Systolic blood pressure 2019-10-30 21:05:00 145 mm[Hg] [facility] Diastolic blood pressure 2019-10-30 21:05:00 89 mm[Hg] [facility] Oxygen saturation in Arterial blood by Pulse oximetry 2019-10-30 21:05:00 96 /min [facility] Heart rate 2019-10-30 21:02:00 92 /min [facility] Body temperature 2019-10-30 21:02:00 37 Juliet [facility] Respiratory rate 2019-10-30 21:02:00 18 /min [facility] Body height 2019-10-30 21:02:00 177.8 cm [facility] Body weight 2019-10-30 21:02:00 40.824 kg [facility] BMI 2019-10-30 21:02:00 12.91 kg/m2 [facility] Systolic blood pressure 2019-10-18 16:47:00 125 mm[Hg] [facility] Diastolic blood pressure 2019-10-18 16:47:00 83 mm[Hg] [facility] Heart rate 2019-10-18 16:47:00 58 /min [facility] Body temperature 2019-10-18 16:47:00 37.33 Juliet [facility] Respiratory rate 2019-10-18 16:47:00 16 /min [facility] Body height 2019-10-18 16:47:00 177.8 cm [facility] Body weight 2019-10-18 16:47:00 41.731 kg [facility] BMI 2019-10-18 16:47:00 13.20 kg/m2 [facility] Oxygen saturation in Arterial blood by Pulse oximetry 2019-10-18 16:47:00 98 /min [facility] Procedures Procedure Date / Time Performed Performing Clinician Source AUTHORIZATION FOR RELEASE OF PHI 2023-01-12 05:01:00 Doctor Unassigned, [place] [facility] PULMONARY REHAB ITP REPORT 2023-01-02 01:46:00 Doctor Unassigned, [place] [facility] PULMONARY REHAB SESSION REPORT 2022-12-10 05:00:00 Doctor Unassigned, [place] [facility] PULMONARY REHAB SESSION REPORT 2022-12-01 05:00:00 Doctor Unassigned, [place] [facility] PULMONARY REHAB SESSION REPORT 2022-11-19 05:00:00 Doctor Unassigned, [place] [facility] PULMONARY REHAB SESSION REPORT 2022-11-05 05:00:00 Doctor Unassigned, [place] [facility] PULMONARY REHAB SESSION REPORT 2022-10-27 05:00:00 Doctor Unassigned, [place] [facility] REFERRAL- REQUEST/RESPONSE 2022-10-14 05:01:00 Doctor Unassigned, [place] [facility] Encounters Start Date/Time End Date/Time Encounter Type Admission Type Attending [facility] Care Facility Care Department Encounter ID Source 2023-01-12 00:00:00 2023-01-12 00:00:00 Letter (Out) Elo Faulkner [facility] 1.2840.114 350.1.13.10 4.2.7.2.686 [id number] [facility] 2023-01-12 00:00:00 2023-01-12 00:00:00 Orders Only Doctor Unassigned, [place] [facility] [id number] 350.1.13.10 4.2.7.2.686 [id number] 009 [id number] [facility] 2023-01-01 14:00:00 2023-01-01 17:18:31 Outpatient R ELIEZER ALARCON [facility] [id number] [facility] 2023-01-01 14:00:00 2023-01-01 17:18:31 Ancillary Visit Therapist, [facility] Eliezer Alarcon [facility] 1.2840.114 350.1.13.10 4.2.7.2.686 [id number] [facility] 2023-01-01 00:00:00 2023-01-01 00:00:00 Orders Only Doctor Unassigned, [place] [facility] 1.2840.114 350.1.13.10 4.2.7.2.686 [id number] [id number] [facility] 2022-12-29 00:00:00 2022-12-29 00:00:00 Telephone Elo Faulkner [facility] [id number] 350.1.13.10 4.2.7.2.686 [id number] [facility] 2022-12-23 00:00:00 2022-12-23 00:00:00 Telephone Elo Faulkner [facility] 1.2840.114 350.1.13.10 4.2.7.2.686 [id number] [facility] 2022-12-17 13:00:00 2022-12-17 15:09:45 Ancillary Visit Therapist, Ana AlarconEliezer [facility] 1.2840.114 350.1.13.10 4.2.7.2.686 [id number] [facility] 2022-12-15 13:00:00 2022-12-15 14:53:44 Ancillary Visit Therapist, Ana AlarconEliezer [facility] 1.2840.114 350.1.13.10 4.2.7.2.686 [id number] [facility] 2022-12-10 13:00:00 2022-12-10 14:59:37 Ancillary Visit Therapist, Ana AlarconEliezer [facility] 1.2840.114 350.1.13.10 4.2.7.2.686 [id number] [facility] 2022-12-10 00:00:00 2022-12-10 00:00:00 Orders Only Doctor Unassigned, [place] [facility] 1.2840.114 350.1.13.10 4.2.7.2.686 [id number] [facility] 2022-12-08 13:00:00 2022-12-08 15:30:48 Ancillary Visit Therapist, Ana Alarcon Eliezer Alonzo [facility] 1.2840.114 350.1.13.10 4.2.7.2.686 [id number] [facility] 2022-12-03 13:00:00 2022-12-03 14:52:54 Ancillary Visit Therapist, Ana Alarcon Eliezer Alonzo [facility] 1.2840.114 350.1.13.10 4.2.7.2.686 [id number] [facility] 2022-12-01 13:00:00 2022-12-01 14:46:02 Outpatient Can COOPERELIEZER Borden [facility] [id number] [facility] 2022-12-01 13:00:00 2022-12-01 14:46:02 Ancillary Visit Therapist, Ana AlarconEliezer [facility] 1.2840.114 350.1.13.10 4.2.7.2.686 [id number] [facility] 2022-12-01 00:00:00 2022-12-01 00:00:00 Orders Only Doctor Unassigned, [place] [facility] 1.2840.114 350.1.13.10 4.2.7.2.686 [id number] [facility] 2022-11-26 13:00:00 2022-11-26 15:21:07 Ancillary Visit Therapist, Ana AlarconEliezer [facility] 1.2.840.114 350.1.13.10 4.2.7.2.686 [id number] [facility] 2022-11-24 13:00:00 2022-11-24 14:43:53 Ancillary Visit Therapist, Ana AlarconEliezer [facility] 1.2840.114 350.1.13.10 4.2.7.2.686 [id number] [facility] 2022-11-19 13:00:00 2022-11-19 14:34:22 Ancillary Visit Therapist, Ana AlarconEliezer [facility] 1.2.840.114 350.1.13.10 4.2.7.2.686 [id number] [facility] 2022-11-19 00:00:00 2022-11-19 00:00:00 Orders Only Doctor Unassigned, [place] [facility] 1.2.840.114 350.1.13.10 4.2.7.2.686 [id number] [facility] 2022-11-17 00:00:00 2022-11-17 00:00:00 Telephone Faulkner Elo C [facility] 1.2.840.114 350.1.13.10 4.2.7.2.686 [id number] [facility] 2022-11-12 13:00:00 2022-11-12 14:28:39 Ancillary Visit Therapist, Ana Pulmonary Eliezer Alarcon [facility] 1.2.840.114 350.1.13.10 4.2.7.2.686 [id number] [facility] 2022-11-10 13:00:00 2022-11-10 14:29:40 Ancillary Visit Therapist, Eliezer Valente [facility] 1.2.840.114 350.1.13.10 4.2.7.2.686 [id number] [facility] 2022-11-05 13:00:00 2022-11-05 16:26:42 Ancillary Visit Therapist, Ana Alarcon Eliezer Cheri [facility] 1.2.840.114 350.1.13.10 4.2.7.2.686 [id number] [facility] 2022-11-05 00:00:00 2022-11-05 00:00:00 Orders Only Doctor Unassigned, [place] [facility] 1.2.840.114 350.1.13.10 4.2.7.2.686 [id number] [facility] 2022-11-03 13:00:00 2022-11-03 14:47:14 Ancillary Visit Therapist, Ana Pulmonary Eliezer Alarcon [facility] 1.2.840.114 350.1.13.10 4.2.7.2.686 [id number] [facility] 2022-10-29 13:00:00 2022-10-29 15:40:03 Ancillary Visit Therapist, Eliezer Valente [facility] 1.2840.114 350.1.13.10 4.2.7.2.686 [id number] [facility] 2022-10-29 13:00:00 2022-10-29 15:40:03 Outpatient ELIEZER GONG [facility] [id number] [facility] 2022-10-27 15:00:00 2022-10-27 16:58:47 Ancillary Visit Therapist, Eliezer Valente [facility] 1.2840.114 350.1.13.10 4.2.7.2.686 [id number] [facility] 2022-10-27 00:00:00 2022-10-27 00:00:00 Orders Only Doctor Unassigned, [place] [facility] 1.2.840.114 350.1.13.10 4.2.7.2.686 [id number] [facility] 2022-10-26 00:00:00 2022-10-26 00:00:00 Telephone Elo Faulkner [facility] 1.2840.114 350.1.13.10 4.2.7.2.686 [id number] [facility] 2022-10-21 13:00:00 2022-10-21 15:46:49 Ancillary Visit Therapist, Eliezer Valente [facility] 1.2840.114 350.1.13.10 4.2.7.2.686 [id number] [facility] 2022-10-15 00:00:00 2022-10-15 00:00:00 Telephone Elo Faulkner [facility] 1.114 350.1.13.10 4.2.7.2.686 [id number] [facility] 2022-10-14 00:00:00 2022-10-14 00:00:00 Orders Only Doctor Unassigned, [place] [facility] 1.114 350.1.13.10 4.2.7.2.686 [id number] [facility] 2019-10-30 15:52:39 2019-10-30 16:27:25 Urgent Care Pob1, Acute Care Clinic Verito Rosariothia [facility] 1..114 350.1.13.10 4.2.7.2.686 [id number] [facility] 2019-10-30 16:00:00 2019-10-30 16:00:00 Outpatient R SISI ROSARIO [facility] [id number] [facility] 2019-10-30 00:00:00 2019-10-30 00:00:00 Nurse Triage Pcp, Patient Does Not Have A [facility] 1.114 350.1.13.10 4.2.7.2.686 [id number] [facility] 2019-10-30 00:00:00 2019-10-30 00:00:00 Telephone Taniya Ragland [facility] 1.114 350.1.13.10 4.2.7.2.686 [id number] [facility] 2019-10-18 11:22:01 2019-10-18 12:39:44 Urgent Care Pob1, Acute Care Clinic Syl Del Valle [facility] 1..114 350.1.13.10 4.2.7.2.686 [id number] [facility] 2019-10-18 11:20:00 2019-10-18 11:20:00 Outpatient SYL HENDERSON [facility] [id number] [facility] 2019-10-18 00:00:00 2019-10-18 00:00:00 Telephone Yolanda Harrell [facility] 1..840.114 350.1.13.10 4.2.7.2.686 [id number] [facility]
[2023-09-28] MEDS ORDERED: DOCUSATE NA 100 MG CAP PO PRN (16:09)
[2023-09-28] MEDS ORDERED: DOCUSATE NA/SENNA CONC 1 TAB PO PRN (16:10)
[2023-09-28] MEDS ORDERED: ALBUTEROL IH PRN (16:56)
[2023-09-28] MEDS ORDERED: MELATONIN 3 MG TABLET PO PRN (17:32)
[2023-09-28] MEDS: GLYCOPYRROLATE IH SCH (20:00)
[2023-09-28] MEDS: FORMOTEROL IH SCH (20:00)
[2023-09-28] MEDS: BUDESONIDE IH SCH (20:00)
[2023-09-28] MEDS: TRAZODONE 50 MG TABLET PO SCH (20:12)
[2023-09-28] MEDS: APIXABAN 2.5 MG TABLET PO SCH (20:12)
[2023-09-28] MEDS: ENSURE CLEAR 200 ML CAN PO SCH (20:13)
[2023-09-28] MEDS: MUPIROCIN 2% OINT 22GM TUBE TOP SCH (20:13)
[2023-09-29 04:07] LABS: Absolute Lymphocytes (CBC) 0.6 K/uL (0.7-4.9); Absolute Monocytes 0.5 K/uL (0.1-1.3); Absolute Neutrophil 5.2 K/uL (1.8-8.0); Basophils % 0.5 % (0-1.3); Eosinophils % 0.3 % (0-4.4); Hematocrit 23.3 % (36.0-45.0); Hemoglobin 7.8 g/dL (12.0-15.0); Lymphocytes % 9.5 % (15.3-44.8); MCH 30.8 pg (27.0-35.0); MCHC 33.5 g/dL (32.0-36.0); MCV 91.9 fL (80-100); MPV 7.4 fL (7.6-11.3); Monocytes % 8.2 % (3.3-12.3); Neutrophils % 81.5 % (41.7-73.7); Platelets 393 thou/uL (152-406); RBC Red Blood Cell Count 2.53 M/uL (3.86-4.86); Red Cell Distribution Width 14.9 % (12.1-15.2)
[2023-09-29 04:18] LABS: Anion Gap 3.2 mEq/L (5.0-15.0); Magnesium 1.9 mg/dL (1.6-2.4); Potassium 3.2 mEq/L (3.5-5.1); Prealbumin 10.1 mg/dL (20-40)
--- NOTE | 2023-09-29 05:17 | HP ---
Date of Admission: 09/28/2023 Time Of Service: 6 p.m. Chief Complaint: "I fell at home and broke my left hip." History Of Present Illness: Ms. Ring is a 63-year-old right-handed patient with COPD , CHF, tobacco use, and severe malnutrition with BMI of 11.5, who fell at home, but as she lives [place] and did not get any help from anyone, remained in pain and could hardly move around. She had diffi culty getting up and eating for at least 5 days. At [facility], her albumin was down to 2.4 and potassium slightly low at 3.3. Hemoglobin and hematocrit down to 10.[address] scan of the abdomen and pelvis revealed a left femoral neck and head junction fracture with fractured superior a nd inferior bilateral pubic rami at the junction of the pubic bone. There is a right inferior ramus and left sacral alar fracture. She was in significant pain. Orthopedic service was consulted. Violeta leung, given the patient's very malnourished state with BMI of 11.5 and the need for pelvic fracture to heal, surgery was not done. She was referred for rehab where she may receive nutrition and begin to recover prior to hip surgery. The patient does note that she has very difficult time chewing becaus e of very poor dentition and her food consistency over the several weeks has been more soft or pureed as she is unable to bite and chew. The orthopedic physician did indicate she may be at weightbearin g as tolerated status with pain management. Her hospital course being complicated by MRSA infection of the left knee wound and she has been treated with vancomycin intravenously. She has severe malnut rition and anemia with failure to thrive. As the patient's condition is very complicated and she req uires aggressive rehabilitation, she was referred for inpatient rehabilitation. She was found to be functioning well below her prior level by Physical and Occupational Therapy and also would need speec h therapy for swallowing. As a result, she is admitted to the inpatient rehabilitation facility for physical, occupational, and speech therapy along with medical evaluation and management on a daily ba sis, 24 hours jail and social service evaluation for discharge planning. Past Medical History: As noted above. Allergies: CODEINE AND DIPHENHYDRAMINE. Social History: The patient lives alone. Tobacco abuse, COPD, and diastolic congestive heart failur e. Imaging Studies: As noted. CT scan of the pelvis reported above. Family History: Noncontributory. Medications: Tylenol Extra Strength 500 mg every 4 hours as needed, Diamox 250 mg daily, albuterol n ebulizer 2.5 mg every 6 hours for COPD, Eliquis 2.5 mg twice daily, Colace 100 mg daily, Ensure Clear 237 mL 3 times daily, melatonin 3 mg at bedtime, trazodone 50 mg at night, Senokot-S 2 tablets at be dtime, prednisone 10 mg daily, Zofran 4 mg every 4 hours as needed. Review of Systems: She does report difficulty chewing and eating. Very poor dentition. Only able to eat fairly chopped or pureed food. Otherwise, some mild myalgias, arthralgias at her fracture site. She has not had s urgery. Very emaciated, very thin and with some difficulty maintaining good oral intake. Current Level Of Functioning: She is supervision for her eating, oral hygiene supervision. Moderate assistance for toilet hygiene, showering. Moderate assistance, upper body dressing. Contact guard assistance, lower body dressing. Maximum assistance, donning and doffing footwear. Maximum assistan ce, rolling right to left, left to right, [id number] and slide on a sliding board, maximum assistan ce. Transferring from bed to chair to toilet to shower, maximal assistance. Ambulation, she ambulat ed 4 feet with maximal assistance and a rolling walker. Physical Examination: Vital Signs: Blood pressure 116/57, pulse of 106, respiratory rate 16, temperature 98, oxygen satura tion 92%. General: Ms. Ring is lying bed, in no significant distress. She has very poor dentition. She appears very cachectic with scalloped looking temporal regions, very gaunt appearing and somewhat di sheveled. She also is very thin in the arms and legs with significant wasting noted in all muscle gr oups and around the chest, the arms, the back, and the legs proximally and distally. Lungs: She does have fair air movement, although slightly decreased sounds. Abdomen: Soft. Extremities: Trace edema in the extremities. Neurologic: In terms of strength, she is diffusely weak around 4/5 in upper lower extremity. Coordi nation is intact. Vital Signs: Her height is 65 inches, weight of 75 pounds, BMI of 12.47. Laboratory Studies: As noted, she is significantly malnourished. White blood cell count 9, hemoglob in 9, hematocrit 27, platelets 238. Sodium 140, potassium 4.1, glucose 126, BUN 15, creatinine 0.23, calcium 8.3. Rehabilitation And Medical Assessment And Plan: Ms. Ring is admitted to the rehabilitation [facility] with impairment category 07 orthopedic, lower extremity fracture. Her impairment group code is 08. 11 status post unilateral hip fracture. Etiologic diagnosis: Left femoral head and neck fracture. Additional comorbidities: COPD, diastolic congestive heart failure, very severely malnourished, low caloric malnutrition. She has a superior and inferior bilateral pubic rami fractures and left knee a nd hip wounds and MRSA with vancomycin. Plan: 1.She will have physical, occupational, and speech therapy for 3-1/2 hours 5 of 7 days. 2.She will continue with her Diamox for fluid management, albuterol nebulizer for COPD, Tylenol for pain, Eliquis 2.5 mg twice daily for DVT prophylaxis, Colace for constipation, melatonin 3 mg at [facility] for insomnia, Zofran for nausea. Continue with prednisone for adrenal insufficiency, Senokot-S als o for constipation, and trazodone for insomnia. Comorbidities That Are Impacting Rehabilitation: Currently, she is very cachectic and wasted and req uires significant nutrition to begin to heal, which likely will prolong the healing process prior to her being able to receive surgery safely. Also, high risk of multiple bone fractures. Given the pat ient's very weakened state, she will have if need be bed alarm, chair alarm, ambulate with a walker a t all times and gait belt and be careful in terms of lifting as she is at high risk of fractures even without falling. Rehab Specific Plan: Ms. Ring will have physical, occupational, and speech therapy for 3-1/2 h ours 5 of 7 days to improve her ability to transfer for bed to chair to toilet to shower, to perform toileting and showering, to be able to ambulate 250 feet with modified independence, to go up and hellen n 10 steps with modified independence, bed to wheelchair with modified independence and perform cogni tive functioning with modified independence, to be able to the eat a nutritious meal and gain weight with independence. Ms. Ring has a good understanding of the process of admission to inpatient rehabilitation facil [facility] and that she would benefit from physical, occupational, and speech therapy. If need be, addition al help from the orthopedic service, infectious disease service, and hospitalist service will be cons ulted. Given her complex medical condition and risk of further complications, rehabilitation cannot be safely or affectively carried out at a lower level facility such as a jail facility. Barriers To Discharge: She has again significant malnutrition and will require a prolonged period to regain strength, but she is willing to work hard and eat and she has no issues with that. She would potentially have to go to jail before coming back for surgery. Length Of Stay: Around 12 to 14 days. Disposition: Home, but she may have to go to jail depending how well she does. Prognosis: Fair. Rehabilitation Specific Goals: 1.Become independent with upper and lower body dressing, toileting, showering, donning and doffing h er shoes. 2.Independently ambulate 250 feet with a rolling walker. 3.Independently propel a wheelchair 250 feet. 4.Independently go up and down 10 steps with bilateral handrails. 5.Independently perform all cognitive functioning. The above goals were reviewed with Ms. Ring and she is in agreement. By signing this document, I acknowledge I personally performed a full physical examination on Ms. Forest wheeler no later than 24 hours after her admission to the inpatient rehabilitation facility and deter mined that she is able to tolerate the above course of treatment at an intensive level for a reasonab le period of time. A detailed individualized plan of care for her will be completed by hospital day 4 based on the preadmission screen, history and physical therapy evaluations. DAPHNIE Voice ID: [id number]
[2023-09-29] MEDS: acetaZOLAMIDE 250 MG TAB PO SCH (07:42)
[2023-09-29] MEDS: MEGESTROL 40 MG TAB PO SCH (07:43)
[2023-09-29] MEDS: predniSONE 10 MG TAB PO SCH (07:43)
[2023-09-30] MEDS: FERROUS SULFATE 325 MG TAB PO SCH (08:18)
[2023-09-30] MEDS: FE SULF/FA/VIT B COMP & C TAB PO SCH (08:18)
[2023-09-30 12:17] LABS: Specific Gravity 1.013 (1.005-1.030); Sqamous Epithelial <5 /HPF (None Seen); Urine Bacteria None Seen /HPF (<20); Urine Bilirubin NEGATIVE (Negative); Urine Blood Negative (Negative); Urine Clarity Clear (Clear); Urine Color Yellow (Yellow); Urine Culture Reflex Order NOT NEEDED; Urine Glucose NEGATIVE (Negative); Urine Ketones NEGATIVE (Negative); Urine Micro Reflex YN NO BILL MICROSCOPIC; Urine Mucus Slight /HPF (None Seen); Urine Nitrite NEGATIVE (Negative); Urine Protein NEGATIVE (Negative); Urine RBC <5 /HPF (None Seen); Urine Urobilinogen Normal (Normal); Urine WBC <5 /HPF (<5)
[2023-09-30] MEDS: POTASSIUM CL SA 10 MEQ TAB PO SCH (19:33)
--- NOTE | 2023-09-30 21:51 | PN ---
Date of Progress Note: 09/30/2023 Time Of Service: 1:40 p.m. Subjective: Ms. Ring is doing well. She has no significant complaints. She does have good he mostasis at the left hip surgical site. She does report some ongoing difficulty with swallowing and some burning of the mouth when there is food. She is very malnourished over an extended period of ti me with very little caloric intake. However, she is drinking the Clear Ensure 3 times daily. She di d have significant complaints about the quality and nature of the food, which should be in a close to pureed status versus a solid as she has significant difficulty chewing because of poor dentures and mouth pain and those were addressed with the patient and the communication through the nurse was with the dining staff to address those issues. Objective: She does again report some pain in her mouth as she tries to chew and some weakness in ex tremities due to significant wasting and weakness in all extremities. Physical Examination: Vital Signs: Blood pressure 101/49, pulse 70, respiratory rate 16, temperature 97.9, oxygen saturati on 90%. Weight is just 80 pounds. Height is 5 feet 10 inches. BMI is 11.5. General: Ms. Ring is resting in bed. She appears significantly emaciated and cachectic with s caphoid abdomen and scalloped temporal regions. She has very thin-appearing arms. She has very poor dentition, but unstable-appearing teeth. Extremities: In terms of her surgical site, the left hip has good hemostasis. No significant edema noted. Laboratory Studies: White blood cell count 6.3, hemoglobin 7.8, platelets 393. Sodium 141, potassiu m low at 3.2. She does have potassium replacement today. Carbon dioxide 40, BUN 13, creatinine 0.33 , glucose 90, calcium 8.2, magnesium 1.9, albumin 2.0, prealbumin 10.1. Urinalysis was normal. X-ray/imaging: No new x-rays or imaging. Medications: Diamox 250 mg daily, Tylenol 500 mg every 4 hours as needed, albuterol nebulizer 2.5 mg every 6 hours as needed, Eliquis 2.5 mg twice daily, Colace 100 mg daily, Ensure Clear 237 mL 3 time s daily, ferrous sulfate 325 mg daily, Megace for poor appetite 40 mg twice daily, melatonin 3 mg at bedtime, Hemocyte Plus 1 tablet daily, Zofran 4 mg every 6 hours as needed, potassium 10 mEq twice da thomas, Deltasone 10 mg daily, Senokot-S 2 at bedtime, trazodone 50 mg at night for insomnia. Progress Made With Physical, Occupational, And Speech Therapy: She is being evaluated by Speech Ther apy today. She was noted to be very demanding per the staff. She did her activities of daily living . She did use 2 to 3 L of oxygen via nasal cannula. She did express the need to have toenails cut a nd she will have Dr. Rivera of Podiatry Service come by to evaluate her. She did continue to improve her strength and endurance for the therapist. She did tolerate 5 minutes of bilateral upper extremit y exercises without a rest break. With physical therapy, she ambulated 25 feet and 20 feet with mini mum assistance with a rolling walker and use bilateral upper extremities to mobilize a wheelchair 40 feet twice and 30 feet with minimum assistance. Ms. Ring is making fair progress with her physical and occupational therapy. She is limited by severe malnutrition and cachexia. Assessment: Ms. Ring is a 63-year-old patient admitted to rehabilitation unit with left hip fr acture, status post surgical repair. She is significantly emaciated. She has very poor dentures, di fficulty with chewing and swallowing and has a very thin consistency diet. In addition, she has very poor appetite. She is on Megace for appetite stimulation. She has Eliquis 2.5 mg twice a day for D VT prophylaxis, ferrous sulfate for anemia, Zofran for nausea, potassium for hypokalemia, Desyrel for insomnia. Comorbidities That Are Impacting Rehabilitation: Difficulty eating and severe malnutrition with her at an increased risk of aspiration pneumonia, cellulitis, urinary tract infection, and poor healing a nd those are medicated as noted with supplementation of protein, iron, and with her therapeutic exercise s. LB/MODL Voice ID: [id number] Report ID: [id number]
--- NOTE | 2023-10-01 13:50 | P.RH.PN ---
Estimated Length of Stay: 14 Expected Discharge Date: 10/08/23 Discharge Disposition Plan: Home Family Support: Yes [facility] Goal: Mobility, Transfers, Self Care Vital Signs: Last Vital Signs Temp 98.5 F 10/01/23 08:00 Pulse 82 10/01/23 08:00 Resp 16 10/01/23 08:00 BP 95/53 L 10/01/23 08:00 Pulse Ox 98 10/01/23 08:00 Laboratory: Laboratory Last Values WBC 6.30 thou/uL (4.3-10.9) 09/29/23 03:36 RBC 2.53 M/uL (3.86-4.86) L 09/29/23 03:36 Hgb 7.8 g/dL (12.0-15.0) L 09/29/23 03:36 Hct 23.3 % (36.0-45.0) L 09/29/23 03:36 MCV 91.9 fL (80-100) 09/29/23 03:36 MCH 30.8 pg (27.0-35.0) 09/29/23 03:36 MCHC 33.5 g/dL (32.0-36.0) 09/29/23 03:36 RDW 14.9 % (12.1-15.2) 09/29/23 03:36 Plt Count 393 thou/uL (152-406) 09/29/23 03:36 MPV 7.4 fL (7.6-11.3) L 09/29/23 03:36 Neutrophils % 81.5 % (41.7-73.7) H 09/29/23 03:36 Lymphocytes % 9.5 % (15.3-44.8) L 09/29/23 03:36 Monocytes % 8.2 % (3.3-12.3) 09/29/23 03:36 Eosinophils % 0.3 % (0-4.4) 09/29/23 03:36 Basophils % 0.5 % (0-1.3) 09/29/23 03:36 Absolute Neutrophils 5.2 K/uL (1.8-8.0) 09/29/23 03:36 Absolute Lymphocytes 0.6 K/uL (0.7-4.9) L 09/29/23 03:36 Absolute Monocytes 0.5 K/uL (0.1-1.3) 09/29/23 03:36 Absolute Eosinophils 0.0 K/uL (0-0.5) 09/29/23 03:36 Absolute Basophils 0.0 K/uL (0-0.5) 09/29/23 03:36 Sodium 141 mEq/L (136-145) 09/29/23 03:36 Potassium 3.2 mEq/L (3.5-5.1) L 09/29/23 03:36 Chloride 101 mEq/L (98-107) 09/29/23 03:36 Carbon Dioxide 40 mEq/L (21-32) H 09/29/23 03:36 Anion Gap 3.2 mEq/L (5.0-15.0) L 09/29/23 03:36 BUN 13 mg/dL (7-18) 09/29/23 03:36 Creatinine 0.33 mg/dL (0.55-1.02) L 09/29/23 03:36 Est GFR (CKD-EPI) 116 ml/min (=/>90) 09/29/23 03:36 Glucose 90 mg/dL (74-106) 09/29/23 03:36 Calcium 8.2 mg/dL (8.5-10.1) L 09/29/23 03:36 Magnesium 1.9 mg/dL (1.6-2.4) 09/29/23 03:36 Albumin 2.0 g/dL (3.4-5.0) L 09/29/23 03:36 Prealbumin 10.1 mg/dL (20-40) L 09/29/23 03:36 Urine Color Yellow (Yellow) 09/30/23 11:30 Urine Clarity Clear (Clear) 09/30/23 11:30 Urine pH 6.0 (5.0-7.0) 09/30/23 11:30 Ur Specific [place] 1.013 (1.005-1.030) 09/30/23 11:30 Glucose (UA)(Auto) Negative (Negative) 09/30/23 11:30 Urine Ketones Negative (Negative) 09/30/23 11:30 Urine Blood Negative (Negative) 09/30/23 11:30 Urine Nitrite Negative (Negative) 09/30/23 11:30 Urine Bilirubin Negative (Negative) 09/30/23 11:30 Urine Urobilinogen Normal (Normal) 09/30/23 11:30 Ur Leukocyte Esterase Negative Scarlet/uL (Negative) 09/30/23 11:30 Urine RBC <5 /HPF (None Seen) 09/30/23 11:30 Urine WBC <5 /HPF (<5) 09/30/23 11:30 Ur Squamous Epith Cells <5 /HPF (None Seen) 09/30/23 11:30 Urine Bacteria None seen /HPF (<20) 09/30/23 11:30 Urine Mucus Slight /HPF (None Seen) 09/30/23 11:30 Urine Culture Reflexed Not needed 09/30/23 11:30 Urine Total Protein Negative (Negative) 09/30/23 11:30 Weight: 80 lb Wound Present: Yes Negative Pressure Wound Therapy Present: No Physician Update: Labs were reviewed and are stable. She is touch down weight bearing. Met 2/5 short term and 0/5 group home goals. Impaired standing balance. Min assist bed mobility and transfers. 35' feet with TDWB. WC 50' x 2. Short term goal with physical therapy 07/08. Comment: pt peeling skin. instructed to stop and educted why. still did it. emolulant lotion applied Summary: Patient's care plan and group home goals have been reviewed and revised as necessary. Please see the Rehabilitation Signature page for all necessary signatures.
[2023-10-01] MEDS: BENZONATATE 100 MG CAP PO PRN (21:59)
[2023-10-01] MEDS: ACETAMINOPHEN 500 MG TAB PO PRN (21:59)
[2023-10-03 06:22] LABS: Absolute Lymphocytes (CBC) 0.8 K/uL (0.7-4.9); Absolute Monocytes 0.7 K/uL (0.1-1.3); Anion Gap 2.8 mEq/L (5.0-15.0); Basophils % 0.3 % (0-1.3); Eosinophils % 0.5 % (0-4.4); Hemoglobin 7.7 g/dL (12.0-15.0); Lymphocytes % 12.5 % (15.3-44.8); MCH 31.5 pg (27.0-35.0); MCHC 33.6 g/dL (32.0-36.0); MCV 93.9 fL (80-100); MPV 6.8 fL (7.6-11.3); Monocytes % 10.6 % (3.3-12.3); Neutrophils % 76.1 % (41.7-73.7); Nucleated Red Blood Cells % 0.1 % (0-0); Platelets 391 thou/uL (152-406); Potassium 3.8 mEq/L (3.5-5.1); RBC Red Blood Cell Count 2.45 M/uL (3.86-4.86); Red Cell Distribution Width 15.8 % (12.1-15.2)
--- NOTE | 2023-10-04 08:38 | P.CNS ---
Date of Consult: 10/04/23 Reason for Consult: Painful toenails Allergies codeine Allergy (Verified 09/16/23 00:15) seecom diphenhydramine [From Benadryl] Allergy (Verified 09/16/23 00:14) Hives/Rash Home Medications: Albuterol Inhaler [Ventolin Inhaler*] 2 puff IH Q6H PRN 30 Days #1 hfa.aer.ad 07/25/20 acetaZOLAMIDE [Diamox*] 250 mg PO DAILY 30 Days #30 tab 07/25/20 Budesonide/Glycopyr/Formoterol [Breztri Aerosphere Inhaler] 1 puff IH BID 09/15/23 predniSONE [Deltasone*] 10 mg PO DAILY 09/16/23 Acetaminophen [Tylenol Extra Strength] 500 mg PO Q4H PRN 09/28/23 Docusate [Colace Cap] 100 mg PO DAILY PRN 09/28/23 Mupirocin Oint [Bactroban 2% Ointment] 1 pritesh TOP BID 09/28/23 - Past Medical/Surgical History Diabetic: No -: Tobacco use -: End-stage COPD -: Chronic diastolic ingestive heart failure Psychosocial/ Personal History: Lives at home alone - Family History Father Medical History: Heart disease Notes: Pt. reports both parents having "some kind of heart disease" that lasted for a long time, resulting to surgeries and stent placement. - Social History Alcohol use: No CD- Drugs: No Caffeine use: No Place of Residence: Home Review of Systems 10-point ROS is otherwise unremarkable Physical Examination Temp Pulse Resp BP Pulse Ox 98.0 F 77 16 94/52 L 97 10/04/23 07:32 10/04/23 07:32 10/04/23 07:32 10/04/23 07:32 10/04/23 07:32 General: Alert, In no apparent distress, Oriented x3 Cardiovascular: No edema, Abnormal pulses (1/4 dp, 0/4 pt pulses bilateral lower extremity) Musculoskeletal: No clubbing, No swelling, No contractures, No erythema, No tenderness, No warmth Integumentary: No rashes, No breakdown, No significant lesion, No tenderness/swelling, No erythema, No warmth, No cyanosis, Other (Thickened, hypertrophic nails with subungual debris x 10, thin, atrophic skin bilateral) Neurological: Sensation intact - Problems (1) Tinea unguium Current Visit: Yes Status: Acute (2) Generalized atherosclerosis without gangrene Current Visit: Yes Status: Acute Conclusions/Impression: mechanical debridement of nails x 10 Physician Review: Patient Assessed, Agree with Above Assessment and Plan
--- NOTE | 2023-10-05 00:38 | PN ---
Date of Progress Note: 10/04/2023 Time Of Service: 1:10 p.m. Subjective: Ms. Ring is resting in bed. She does report feeling somewhat better. She says th e food is a little bit better today than it has been. She also had visited Dr. Rivera of podiatry [facility] for debridement of her nails. She is worried about being discharged too soon and said that she would like to stay as long as possible in rehabilitation. Objective: Improved pain in her mouth, improved burning, and able to tolerate the food a little bit better as the consistency is now between pureed and minced and that is better for her to chew. Physical Examination: Vital Signs: Blood pressure 92/52, pulse 77, respiratory rate 16, temperature 98.0, oxygen 97%. Omega ght 80 pounds, height 5 feet 10 inches, BMI 11.5. General: Ms. Ring is resting in bed. She is in between therapy sessions. She has very poor d entition. HEENT: She is normocephalic. She is atraumatic. She is very cachectic-appearing in upper and lower extremities and scaphoid with scalloped looking temporal regions. She has very thin arms and legs. Lungs: Otherwise, good air movement. Abdomen: Soft. Laboratory Studies: Yesterday, white blood cell count 6.5, hemoglobin 7.7, platelets 391. Sodium 13 8, potassium 3.1, chloride 101, carbon dioxide 38, BUN 18, creatinine 0.31, glucose 88, calcium 8.2. Consultation: She was seen by Dr. Rivera and has had mechanical debridement of nails in her feet. Medications: Her medications have been reviewed. She is receiving Tessalon Perles for cough. She h as DVT prophylaxis and on prednisone. Medications for constipation, for anemia. Protein supplementa tion for severe malnutrition. Eliquis for DVT prophylaxis. Nebulizer treatment with albuterol. Progress Made With Physical And Occupational Therapy: Today, she did multiple [id number]-[id number] transfers with contact guard assistance and occasionally minimum assistance. She completed an additional tria l of [id number]-xh-evapx with contact guard assistance. She is able to ambulate 95 feet twice with minimal assistance using a rolling walker. Oxygen saturation dropped to 92%. Heart rate 113. She recovered in 2-3 minutes with oxygen saturation up to 96. She did wheelchair mobilization for 80 feet, standb y assistance. With occupational therapy, [id number]-rq-[id number] transfers. With lower left lower extremity o ut of bed required contact guard assistance. She did decline a shower and wanted to do the shower la ter in the week. Exercise with Thera-Band 4 sets of 10. Improve upper extremity strength. It is no vasyl, she is not compliant with touchdown weightbearing where she has the left hip fracture. Ms. Ring is making slow progress with physical and occupational therapy. She is highly malnour ished and has some difficulty maintaining weightbearing status, which is touchdown with the left hip fracture. Assessment: Ms. Ring is a 63-year-old patient in the rehabilitation unit with left hip fractur e, status post repair. She is very malnourished and is on protein supplementation along with iron boyer pplementation. She has Megace for appetite stimulation. She is taking Eliquis 2.5 mg twice daily fo r DVT prophylaxis. She has Zofran for nausea. Potassium for hypokalemia. Plan: She will continue physical, occupational, and speech therapy as noted. Continue all medicatio ns as noted. Comorbidities That Are Impacting The Rehabilitation: She is very, very weak due to severe malnutriti on and cachexia. Stimulation is beginning to improve. She may require a much longer time to recover than the inpatient rehab unit will allow for her to return home. Therefore, fpc may be appropriate after discharge from the inpatient unit. SHARIFA/MELISSA Voice ID: [id number] Report ID: [id number]
[2023-10-05 18:40] VITALS: BMI 10.3
--- NOTE | 2023-10-05 21:41 | PN ---
Date of Progress Note: 10/05/2023 Time Of Service: 1:15 p.m. Subjective: Ms. Ring is sitting in a chair beside the bed. She is feeling somewhat better tod ay than yesterday and the food was better, but still not ideal. Objective: No fevers, chills. Still has significant peeling of the skin in the lower extremities af ter she had her shower today, appearing very thin, emaciated, and cachectic. Physical Examination: Vital Signs: Blood pressure 106/55, pulse 82, respiratory rate 17, temperature 98.0, oxygen saturati on 95%. General: As noted, Ms. Ring is very emaciated with scalloped temples and scaphoid abdomen, xochitl y hollowed-appearing cervical and anterior chest and shoulder with very thin arms and legs. The skin on her feet peeling significantly. She has diffuse weakness in extremities. In addition, her left hip fracture surgical site has good hemostasis. Laboratory Studies: No new laboratory studies. X-ray/imaging: No new x-rays or imaging. Medications: Her medications have been reviewed and are unchanged. Progress Made With Physical And Occupational Therapy: Today with physical therapy, she ambulated 65 feet with touchdown weightbearing, 125 feet again with touchdown weightbearing, and using a rolling w alker and contact guard assistance as well. She mobilized wheelchair 150 feet and another 100 feet w ith modified independence. With occupational therapy, standby assistance for shower and toilet trans magdaleno. The patient did require multiple rest breaks as noted by the occupational therapist. She is in dependent with upper and body dressing, partial assist for lower body dressing and footwear. Ms. Ring is making fair progress so far. She is still significantly limited by her highly maln ourished state with BMI of 10. Ms. Ring is a 63-year-old patient in the rehabilitation unit with left hip fracture, status pos t repair. She is highly malnourished on protein supplementation, iron supplementation, Megace for ap petite stimulation. She has Eliquis for DVT prophylaxis, Zofran for nausea, and potassium for hypoka lemia. Plan: 1.Continue physical, occupational, and speech therapy. 2.Her comorbidities are managed by continuing her list of medications including protein supplementat ion. She has minced and chopped food with lower consistency, difficulty with chewing at this point. She again is making fair progress. Barriers To Discharge: She is highly malnourished and would likely take a longer time to heal the le ft hip fracture. She is working today much better with all therapy and she is eating better and the goal is to gain weight and heal. SHARIFA/MELISSA Voice ID: [id number] Report ID: [id number]
--- NOTE | 2023-10-06 13:39 | P.RH.PN ---
Estimated Length of Stay: 14 Expected Discharge Date: 10/08/23 Discharge Disposition Plan: Home Family Support: Yes Long-Term Goal: Mobility, Transfers, Self Care Vital Signs: Last Vital Signs Temp 96.8 F 10/06/23 06:44 Pulse 74 10/06/23 06:44 Resp 19 10/06/23 06:44 BP 101/50 L 10/06/23 06:44 Pulse Ox 99 10/06/23 06:44 Laboratory: Laboratory Last Values WBC 6.50 thou/uL (4.3-10.9) 10/03/23 05:30 RBC 2.45 M/uL (3.86-4.86) L 10/03/23 05:30 Hgb 7.7 g/dL (12.0-15.0) L 10/03/23 05:30 Hct 23.0 % (36.0-45.0) L 10/03/23 05:30 MCV 93.9 fL (80-100) 10/03/23 05:30 MCH 31.5 pg (27.0-35.0) 10/03/23 05:30 MCHC 33.6 g/dL (32.0-36.0) 10/03/23 05:30 RDW 15.8 % (12.1-15.2) H 10/03/23 05:30 Plt Count 391 thou/uL (152-406) 10/03/23 05:30 MPV 6.8 fL (7.6-11.3) L 10/03/23 05:30 Neutrophils % 76.1 % (41.7-73.7) H 10/03/23 05:30 Lymphocytes % 12.5 % (15.3-44.8) L 10/03/23 05:30 Monocytes % 10.6 % (3.3-12.3) 10/03/23 05:30 Eosinophils % 0.5 % (0-4.4) 10/03/23 05:30 Basophils % 0.3 % (0-1.3) 10/03/23 05:30 Absolute Neutrophils 5.0 K/uL (1.8-8.0) 10/03/23 05:30 Absolute Lymphocytes 0.8 K/uL (0.7-4.9) 10/03/23 05:30 Absolute Monocytes 0.7 K/uL (0.1-1.3) 10/03/23 05:30 Absolute Eosinophils 0.0 K/uL (0-0.5) 10/03/23 05:30 Absolute Basophils 0.0 K/uL (0-0.5) 10/03/23 05:30 Sodium 138 mEq/L (136-145) 10/03/23 05:30 Potassium 3.8 mEq/L (3.5-5.1) 10/03/23 05:30 Chloride 101 mEq/L (98-107) 10/03/23 05:30 Carbon Dioxide 38 mEq/L (21-32) H 10/03/23 05:30 Anion Gap 2.8 mEq/L (5.0-15.0) L 10/03/23 05:30 BUN 18 mg/dL (7-18) 10/03/23 05:30 Creatinine 0.31 mg/dL (0.55-1.02) L 10/03/23 05:30 Est GFR (CKD-EPI) 117 ml/min (=/>90) 10/03/23 05:30 Glucose 88 mg/dL (74-106) 10/03/23 05:30 Calcium 8.2 mg/dL (8.5-10.1) L 10/03/23 05:30 Magnesium 1.9 mg/dL (1.6-2.4) 09/29/23 03:36 Albumin 2.0 g/dL (3.4-5.0) L 09/29/23 03:36 Prealbumin 10.1 mg/dL (20-40) L 09/29/23 03:36 Urine Color Yellow (Yellow) 09/30/23 11:30 Urine Clarity Clear (Clear) 09/30/23 11:30 Urine pH 6.0 (5.0-7.0) 09/30/23 11:30 Ur Specific [place] 1.013 (1.005-1.030) 09/30/23 11:30 Glucose (UA)(Auto) Negative (Negative) 09/30/23 11:30 Urine Ketones Negative (Negative) 09/30/23 11:30 Urine Blood Negative (Negative) 09/30/23 11:30 Urine Nitrite Negative (Negative) 09/30/23 11:30 Urine Bilirubin Negative (Negative) 09/30/23 11:30 Urine Urobilinogen Normal (Normal) 09/30/23 11:30 Ur Leukocyte Esterase Negative [place]/uL (Negative) 09/30/23 11:30 Urine RBC <5 /HPF (None Seen) 09/30/23 11:30 Urine WBC <5 /HPF (<5) 09/30/23 11:30 Ur Squamous Epith Cells <5 /HPF (None Seen) 09/30/23 11:30 Urine Bacteria None seen /HPF (<20) 09/30/23 11:30 Urine Mucus Slight /HPF (None Seen) 09/30/23 11:30 Urine Culture Reflexed Not needed 09/30/23 11:30 Urine Total Protein Negative (Negative) 09/30/23 11:30 Weight: 71 lb 14.4 oz Wound Present: Yes Closed Surgical Incision Present: No Negative Pressure Wound Therapy Present: No Physician Update: Labs reviewed. Severe malnutrition. She has multiple stage II ulcers. She was treated with Vanc for MRSA. Making slow progress with all therapy. She will be discharged to [facility] [place] on Wednesday. Comment: pt has peeling skin. instructed not to pick at skin and educted why. patient continues to pick at skin. emolulant, has bandaids applied. Summary: Patient's care plan and long term care pharmacist goals have been reviewed and revised as necessary. Please see the Rehabilitation Signature page for all necessary signatures.
--- NOTE | 2023-10-06 17:20 | RAD REPORT ---
[facility]26 [facility] CLINICAL HISTORY: cough COMPARISON: Chest Single View dated 09/15/2023; Chest Single View dated 07/22/2020 TECHNIQUE: Portable AP view of the chest. FINDINGS: Hyperinflation and hyperlucency suggesting COPD. Developing patchy retrocardiac airspace o pacification. No pneumothorax or effusion. The cardiomediastinal contours are unremarkable. IMPRESSION: Developing retrocardiac airspace opacification, concerning for pneumonia versus atelecta sis.
[2023-10-07 04:11] LABS: Absolute Basophils 0.1 K/uL (0-0.5); Absolute Eosinophils 0.1 K/uL (0-0.5); Absolute Lymphocytes (CBC) 1.1 K/uL (0.7-4.9); Absolute Neutrophil 7.7 K/uL (1.8-8.0); Basophils % 0.8 % (0-1.3); Eosinophils % 0.5 % (0-4.4); Hematocrit 25.5 % (36.0-45.0); Hemoglobin 8.7 g/dL (12.0-15.0); Lymphocytes % 11.4 % (15.3-44.8); MCHC 34.3 g/dL (32.0-36.0); MCV 96.2 fL (80-100); MPV 7.2 fL (7.6-11.3); Monocytes % 9.6 % (3.3-12.3); Neutrophils % 77.7 % (41.7-73.7); Platelets 516 thou/uL (152-406); RBC Red Blood Cell Count 2.65 M/uL (3.86-4.86); Red Cell Distribution Width 16.9 % (12.1-15.2)
[2023-10-07 04:35] LABS: Albumin 2.3 g/dL (3.4-5.0); Magnesium 2.2 mg/dL (1.6-2.4); Prealbumin 12.9 mg/dL (20-40)
--- NOTE | 2023-10-07 18:31 | P.PN ---
Subjective Date of Service: 10/07/23 Patient has no new complaint. No recorded fever. Her oral intake is improving. Physical Examination - Vital Signs Temperature: 98.6 F Blood Pressure: 115/56 Pulse: 72 Respirations: 17 Pulse Ox (%): 98 - Studies Laboratory Data (last 24 hrs) 10/07/23 10/07/23 03:53 03:53 WBC 9.90 Hgb 8.7 L Hct 25.5 L Plt Count 516 H Sodium 140 Potassium 4.0 BUN 13 Creatinine 0.38 L Glucose 115 H Magnesium 2.2 Assessment And Plan - Plan Physical examination General: Alert and oriented x3, NAD, cachectic. HEENT: Conjunctiva not pale, anicteric sclera Neck: Supple, no elevated JVD Heart: Heart sounds 1 and 2 normal, regular rhythm, normal rate, no pedal edema Lungs: Clear to auscultation bilaterally, adequate breath sounds bilaterally, no rhonchi or crackles. Abdomen: Soft, nondistended, nontender, normal bowel sounds. Extremities: No tenderness, no deformity Skin: Skin on her feet are peeling. Healing left hip surgical wound Neuro: No focal motor deficit. Normal speech. Psychiatry: Normal mood, no agitation. Progress Made With Physical And Occupational Therapy: Patient did bed mobility with moderate assist including turning in bed, supine<>sit using bedrails. Patient completed multiple sit<>stand transfers with CGA, completed stand pivot transfers with CGA. Patient ambulated 40' with RW and CGA, Patient completed wheelchair mobility and propelled for 150'. Ms. Ring is making gradual progress. She is still significantly limited by her highly malnourished state and stamina. Ms. Ring is a 63-year-old patient in the rehabilitation unit with left hip fracture, status post repair. She has severe protein calorie malnutrition on protein supplementation, iron supplementation, Megace for appetite stimulation. She has Eliquis for DVT prophylaxis, Zofran for nausea, and potassium for hypokalemia. Continue physical, occupational, and speech therapy. Nutritional supplementation for malnutrition. Minced and chopped diet as tolerated. Patient stated she was using EPAP at home which I suspect is for ventilatory support due to her malnourished state. Respiratory therapy consult to evaluate for CPAP/EPAP.
--- NOTE | 2023-10-08 18:19 | P.PN ---
Subjective Date of Service: 10/08/23 Patient feels that she is eating well and getting stronger. She has no other complaint. Physical Examination - Vital Signs Temperature: 97.8 F Blood Pressure: 93/54 Pulse: 68 Respirations: 16 Pulse Ox (%): 98 Assessment And Plan - Plan Physical examination General: Alert and oriented x3, NAD, cachectic. HEENT: anicteric sclera Neck: Supple, no elevated JVD Heart: Heart sounds 1 and 2 normal, regular rhythm, normal rate, no pedal edema Lungs: Clear to auscultation bilaterally, adequate breath sounds bilaterally, no rhonchi or crackles. Abdomen: Soft, nondistended, nontender, normal bowel sounds. Extremities: No tenderness, no deformity Skin: Skin on her feet are peeling. Healing left hip surgical wound Neuro: No focal motor deficit. Normal speech. Psychiatry: Normal mood, no agitation. Progress Made With Physical And Occupational Therapy: Patient did bed mobility with moderate assist including turning in bed, supine<>sit using bedrails. Patient completed multiple sit<>stand transfers with CGA, completed stand pivot transfers with CGA. Patient ambulated 50' with RW and CGA, 10 feet more than yesterday, mobility limited by hip pain and shoulder pain. Patient completed wheelchair mobility and propelled for 150'. Ms. Ring is making gradual progress. She is still significantly limited by her highly malnourished state and stamina. Ms. Ring is a 63-year-old patient in the rehabilitation unit with left hip fracture, status post repair. She has severe protein calorie malnutrition on protein supplementation, iron supplementation, Megace for appetite stimulation. She has Eliquis for DVT prophylaxis, Zofran for nausea, and potassium for hypokalemia. Continue physical, occupational, and speech therapy. Nutritional supplementation for malnutrition. Advised high-calorie small frequent meals. Minced, and chopped diet as tolerated.
[2023-10-10 07:41] LABS: Absolute Lymphocytes (CBC) 0.9 K/uL (0.7-4.9); Absolute Monocytes 1.1 K/uL (0.1-1.3); Absolute Neutrophil 12.1 K/uL (1.8-8.0); Basophils % 0.3 % (0-1.3); Eosinophils % 0.3 % (0-4.4); Hematocrit 27.6 % (36.0-45.0); MCH 31.5 pg (27.0-35.0); MCHC 32.4 g/dL (32.0-36.0); MCV 97.2 fL (80-100); MPV 6.7 fL (7.6-11.3); Monocytes % 7.8 % (3.3-12.3); Neutrophils % 85.6 % (41.7-73.7); Nucleated Red Blood Cells % 0.1 % (0-0); Platelets 548 thou/uL (152-406); RBC Red Blood Cell Count 2.84 M/uL (3.86-4.86); Red Cell Distribution Width 17.3 % (12.1-15.2)
[2023-10-10 07:52] LABS: Anion Gap 4.7 mEq/L (5.0-15.0); Potassium 3.7 mEq/L (3.5-5.1)
--- NOTE | 2023-10-10 08:07 | RAD REPORT ---
EXAM DESCRIPTION: RAD - Chest Single View - 10/10/2023 7:57 am CLINICAL HISTORY: cough COMPARISON: <Comparisons> FINDINGS: Lines: None. Lungs: Marked worsening aeration of the lungs with retrocardiac opacities and significant new airspac e disease in the right mid lung right lung base. Emphysema. Pleural: Blunting the costophrenic angles . Cardiac: The heart size is within normal limits. Mediastinum: Within normal limits. Bones: No acute fractures. Other: None IMPRESSION: Worsening multifocal airspace disease concerning for pneumonia. There has been significa nt progression in the right mid lung and right lung base compared with 10/06/2023.
[2023-10-10 08:49] LABS: Basophilic Stippling 1+; Blood Morphology Comment NOTED (NOT SEEN); Platelet Estimate INCR; Rouleau NOTED; Stomatocytes 2+; White Blood Cell Scan OK (OK)
[2023-10-10] MEDS: ONDANSETRON 4 MG (ODT) TAB PO PRN (09:44)
[2023-10-10] MEDS: ALBUTEROL 2.5 MG/3 ML NEB SOL NEB PRN (10:30)
--- NOTE | 2023-10-10 18:34 | P.PN ---
Date of Service: 10/10/23 Chest x-ray results reviewed today and it reported worsening multifocal airspace disease concerning for pneumonia. Patient also has leukocytosis. Note that she is on prednisone. Patient has intermittent borderline low BP. Plan: Start Levaquin for pneumonia Monitor CBC Chest physiotherapy-incentive spirometry. Check CRP and procalcitonin.
[2023-10-10] MEDS: levoFLOXacin 750 MG TAB PO SCH (19:00)
[2023-10-11 04:12] LABS: Absolute Lymphocytes (CBC) 0.8 K/uL (0.7-4.9); Absolute Neutrophil 12.4 K/uL (1.8-8.0); Basophils % 0.2 % (0-1.3); Eosinophils % 0.1 % (0-4.4); Hematocrit 26.3 % (36.0-45.0); Hemoglobin 8.3 g/dL (12.0-15.0); Lymphocytes % 5.5 % (15.3-44.8); MCH 31.1 pg (27.0-35.0); MCHC 31.6 g/dL (32.0-36.0); MCV 98.4 fL (80-100); MPV 7.2 fL (7.6-11.3); Monocytes % 7.1 % (3.3-12.3); Platelets 458 thou/uL (152-406); RBC Red Blood Cell Count 2.67 M/uL (3.86-4.86); Red Cell Distribution Width 17.3 % (12.1-15.2)
[2023-10-11 04:15] LABS: Neutrophils % 87.1 % (41.7-73.7)
[2023-10-11 04:35] LABS: Anion Gap 1.3 mEq/L (5.0-15.0); Potassium 4.3 mEq/L (3.5-5.1)
--- NOTE | 2023-10-11 17:04 | P.PN ---
Subjective Date of Service: 10/11/23 No major changes. No issues overnight. No recorded fever. She is tolerating diet. Physical Examination - Vital Signs Temperature: 97.2 F Blood Pressure: 92/49 Pulse: 118 Respirations: 20 Pulse Ox (%): 98 - Studies Laboratory Data (last 24 hrs) 10/11/23 10/11/23 03:19 03:19 WBC 14.30 H Hgb 8.3 L Hct 26.3 L Plt Count 458 H Sodium 138 Potassium 4.3 D BUN 19 H Creatinine 0.25 L Glucose 70 L Assessment And Plan - Plan Physical examination General: Alert and oriented x3, NAD, cachectic. Neck: Supple, no elevated JVD Heart: Heart sounds 1 and 2 normal, regular rhythm, normal rate, no pedal edema Lungs: Adequate breath sounds bilaterally, no rhonchi. Mild bilateral crackles. Abdomen: Soft, nondistended, nontender, normal bowel sounds. Extremities: No tenderness, no deformity Skin: Skin on her feet are peeling. Healing left hip surgical wound Neuro: No focal motor deficit. Normal speech. Psychiatry: Normal mood, no agitation. Progress Made With Physical And Occupational Therapy: Patient is performing mobility with moderate assist including turning in bed, supine<>sit using bedrails. Patient completed multiple sit<>stand transfers with CGA, completed stand pivot transfers with CGA. Patient ambulated with RW and CGA, mobility limited by hip pain. Patient completed wheelchair mobility. Ms. Ring is making gradual progress. Ms. Ring is a 63-year-old patient in the rehabilitation unit with left hip fracture, status post repair. She has severe protein calorie malnutrition on protein supplementation, iron supplementation, Megace for appetite stimulation. She has Eliquis for DVT prophylaxis, Zofran for nausea, and potassium for hypokalemia. Continue physical, occupational, and speech therapy. Nutritional supplementation for malnutrition. High-calorie small frequent meals recommended. Minced, and chopped diet as tolerated. Watch for aspiration. Not much change in bilateral pulmonary infiltrate, associated elevated procalcitonin. Restarted antibiotics-oral Levaquin.
[2023-10-11 23:44] VITALS: O2SAT 95
[2023-10-12 06:53] VITALS: BP 113/58; TEMP 98
--- NOTE | 2023-10-13 02:27 | PN ---
Date of Progress Note: 10/12/2023 Time Of Service: 1:40 p.m. Subjective: Ms. Ring is lying in bed, she is in no significant distress. She is on the phone speaking with the family. She has made great progress, but still needs significant help to continue and will be discharged to skilled today. Objective: Mild difficulty with myalgias, arthralgias. No rash. She still has somewhat flat and de pressed mood, but otherwise no other findings on her objective. Vital Signs: Blood pressure 132/58, pulse 97, respiratory rate 19, temperature 98, oxygen saturation 95%. General: As noted, she is very cachectic, emaciated and thin in arms and legs. Her weight has been very low around 70, BMI of 10, height 5 feet 10 inches. She has no focal deficits. Her right hip ar ea of surgery has good hemostasis, no issues there. Laboratory Studies: White blood cell count was up to 14.3 on the 8th with neutrophils 87.1. Sodium 138, potassium 4.3, BUN 19, creatinine 0.25, glucose of 70, calcium 8.6. On the , procalcitonin w as 1.13. X-ray/imaging: Chest x-ray was done on 10/10/2023, did show worsening multifocal airspace concerning for pneumonia. This did show significant progression in the right mid lung and right base compared to 10/05. She was continued on Levaquin 750 mg every 24 hours. Medications: Diamox 250 mg daily, Tylenol 5 mg every 4 hours, nebulizer 2.5 mg every 4 hours as need ed, Eliquis 2.5 mg twice daily, Tessalon Perles 100 mg twice daily, Ensure Clear 237 mL twice daily, Colace 100 mg daily, ferrous sulfate 325 mg daily, Levaquin 750 mg daily for pneumonia, melatonin 3 m g at bedtime, Hemocyte Plus 1 tablet with breakfast, Zofran 4 mg every 6 hours as needed, potassium 1 0 mEq twice daily, prednisone 10 mg daily, Desyrel 50 mg at bedtime for insomnia, Senokot-S 2 at bedt mariluz. Progress Made With Physical And Occupational Therapy: With physical therapy, bed mobility done in th e morning and afternoon sessions, done independently. Supine to sit transfers done independently. M ultiple sit to stand transfers done independently. She did ambulate 20 feet with standby assistance for touchdown weightbearing to right lower extremity. Wheelchair mobilization done independently, 47 0 feet twice. In terms of occupational, independent for toilet transfers, [id number] transfers als o with grab bars, supervision for wheelchair to edge of bed transfer, standby assist for toilet hygie ne due to bilateral lower extremity weakness, supervision for bathing and at the sink. Ms. Ring require significant more improvement to be able to return home and she will be going t o nursing home. Assessment: Ms. Ring is a 63-year-old patient in the rehabilitation unit with left hip fractur e status post surgical repair. She has severe malnutrition and is very weak, very emaciated in terms of upper and lower extremities and is cachectic. She has poor appetite. She has nausea, hypokalemi a, and significant difficulty with chewing and swallowing. Plan: She will continue after discharge to skilled with her physical, occupational, and speech thera py. Continue medications as noted. Continue with a very soft pureed diet. Continue with her pneumo abiel treatment with Levaquin and she should have followup chest x-ray, will be done in a skilled nursi ng and again continue with aggressive therapy and she will be discharged today. LB/MODL Voice ID: [id number] Report ID: [id number]
--- NOTE | 2023-10-13 12:38 | EKG ---
Test Date: 2023-10-10 Test Time: 12:38:32 Clinical Laboratory Science Professor: JB MEASUREMENT RESULTS: Intervals: Rate: 124 DC: 132 QRSD: 76 QT: 288 QTc: 413 [place]: P: 81 DC: 132 QRS: 86 T: 49 INTERPRETIVE STATEMENTS: Sinus tachycardia Anterior infarct, age undetermined Abnormal ECG Compared to ECG 09/15/2023 09:19:11 Atrial premature complex(es) no longer present ST (T wave) deviation no longer present Possible ischemia no longer present Myocardial infarct finding still present Electronically Signed On 10-13-23 12:34:21 CDT by Valeriano Navarro
--- NOTE | 2023-11-01 00:24 | DS ---
Date of Discharge: 10/12/2023 Discharge Condition: Good. Discharge Diagnoses: Left hip fracture, status post repair of the femoral neck fracture, COPD, diast olic congestive heart failure, severe malnutrition, low caloric malnutrition, she has also superior a nd inferior bilateral pubic rami fracture, left knee and hip wounds and MRSA, treated with vancomycin . Allergies: CODEINE, DIPHENHYDRAMINE. Medications: Prednisone 10 mg daily, Diamox 250 mg daily, mupirocin ointment apply topically twice d aily, Colace 100 mg daily as needed, she is on nebulizer inhaler 1 puff twice daily, Ventolin inhaler 2 puffs every 6 hours as needed, Tylenol Extra Strength 500 mg 6 hours as needed, potassium 10 mEq t wice daily, Zofran 4 mg every 6 hours, Levaquin 750 mg daily, Hemocyte Plus 1 tablet daily, ferrous s ulfate 325 mg daily, Ensure Clear 237 mL 3 times daily, senna-S 2 at bedtime each. Laboratory Studies: She did have elevated white count at discharge of 14.3 with 87.1% neutrophils. Sodium 138, potassium 4.6, chloride 97, creatinine 0.25, glucose 70, calcium 8.6. Procalcitonin on 7th was 1.13 and she was on antibiotics. X-ray/imaging: Chest x-ray on 10/10/2023, compared to one on 10/06/2023, showed worsening multifocal airspace disease concerning for pneumonia, again being treated for pneumonia. There was significant progression in the right mid lung and right lung base compared to 10/06/2023. Synopsis Of Events That Led To Admission: Ms. Ring is a 63-year-old patient with multiple medi joshua problems including severe malnutrition and BMI of 11.5, who fell at home. She lives alone and wa s not able to get any help. She remained on the floor for an extended period of time. She was broug ht to the hospital, had low albumin of 2.4, low potassium of 3.3, hemoglobin low at 10. CT scan of abdomen and pelvis identified left femoral neck and head fracture and a fracture of superior and i nferior bilateral pubic rami at the junction of the pubic bone. Also right inferior superior ramus a nd left sacral alar fracture. She was seen by Orthopedic Service. Given her state of severe malnutr ition, BMI of 11, and need for pelvic area to heal, surgery was initially done. She was referred to rehab and began to recover from hip surgery. She had again poor malnutrition, poor oral intake. She did have significant denture issues and was really only able to eat very pureed food, not able to ch ew much. She was on a touchdown weightbearing. During her hospital course, she was treated for MRSA and left knee wound and was treated with vancomycin intravenously. Received protein supplementation and iron due to again severe anemia and severe malnutrition. Hospitalization: She did have pneumonia and was treated for as noted severe malnutrition, treated wi th protein supplementation, electrolyte abnormality, also address issues of pain and sleep, bowel mov ements, all addressed. Progress Made With Physical And Occupational Therapy: By hospital discharge, with rolling walker sta nd-to-pivot technique. She had touchdown weightbearing status. She covered 20 feet. Did maintain h er ability to ambulate with cuing. She mobilized a wheelchair 170 feet twice, once she was able to c omplete 250 feet in wheelchair. She did meet all of her long-term and short-term goals except the to adrián distance. Recommended she continue with aggressive therapy after discharge. With occupational t herapy, independent with eating, grooming, showering supervision, upper body dressing independent, lo wer body dressing required a molding supervisor and supervision, toileting supervision, 25/01 supervision was act ually required by her discharge and she did go to pen[facility]iary. SHARIFA/MELISSA Voice ID: [id number] Report ID: [id number]
== END 2023-10-12 14:10 | DRG 559 ==
LOC: 5TH 15:15
PROVIDERS: ADMIT Psychiatry & Neurology Neurology with Special Qualifications in Child Neurology; ATTEND Psychiatry & Neurology Neurology with Special Qualifications in Child Neurology
PROC: 0HBRXZZ Excision of Toe Nail, External Approach (ICD-10-PCS; principal; 2023-10-04)
PROC: 0HBRXZZ Excision of Toe Nail, External Approach (ICD-10-PCS; 2023-10-04)
PROC: 0HBRXZZ Excision of Toe Nail, External Approach (ICD-10-PCS; 2023-10-04)
PROC: 0HBRXZZ Excision of Toe Nail, External Approach (ICD-10-PCS; 2023-10-04)
PROC: 0HBRXZZ Excision of Toe Nail, External Approach (ICD-10-PCS; 2023-10-04)
PROC: 0HBRXZZ Excision of Toe Nail, External Approach (ICD-10-PCS; 2023-10-04)
PROC: 0HBRXZZ Excision of Toe Nail, External Approach (ICD-10-PCS; 2023-10-04)
PROC: 0HBRXZZ Excision of Toe Nail, External Approach (ICD-10-PCS; 2023-10-04)
PROC: 0HBRXZZ Excision of Toe Nail, External Approach (ICD-10-PCS; 2023-10-04)
PROC: 0HBRXZZ Excision of Toe Nail, External Approach (ICD-10-PCS; 2023-10-04)
DX: S72.002D Fracture of unspecified part of neck of left femur, subsequent encounter for closed fracture with routine healing (principal); E43 Unspecified severe protein-calorie malnutrition; J18.9 Pneumonia, unspecified organism; Z68.1 Body mass index [BMI] 19.9 or less, adult; I50.30 Unspecified diastolic (congestive) heart failure; R64 Cachexia; I50.32 Chronic diastolic (congestive) heart failure; S32.592D Other specified fracture of left pubis, subsequent encounter for fracture with routine healing; S32.591D Other specified fracture of right pubis, subsequent encounter for fracture with routine healing; S81.002D Unspecified open wound, left knee, subsequent encounter; B35.1 Tinea unguium; I70.91 Generalized atherosclerosis; R62.7 Adult failure to thrive; J44.9 Chronic obstructive pulmonary disease, unspecified; D64.9 Anemia, unspecified; B95.62 Methicillin resistant Staphylococcus aureus infection as the cause of diseases classified elsewhere; E87.6 Hypokalemia; G47.00 Insomnia, unspecified; F17.200 Nicotine dependence, unspecified, uncomplicated
CPT/HCPCS: 36415; 71045; 80048; 81001; 82040; 83735; 84134; 84145; 85025; 86140; 87086; 87088; 92523; 93005; 94010; 94640; 97110; 97112; 97116; 97163; 97165; 97530; 97542; J7512; J7613; Q0162

== ENCOUNTER 2024-02-17 12:26 | Inpatient (IN) | payer OTHER ==
[2024-02-17] MEDS ORDERED: METHYLPREDNISOLONE 125 MG INJ ONE (12:46)
[2024-02-17] MEDS ORDERED: IPRATROPIUM BROM 0.5MG/2.5ML ONE (12:46)
[2024-02-17] MEDS ORDERED: ALBUTEROL 2.5 MG/3 ML NEB SOL ONE (12:46)
[2024-02-17 12:48] LABS: Absolute Lymphocytes (CBC) 0.4 K/uL (0.7-4.9); Absolute Monocytes 0.4 K/uL (0.1-1.3); Absolute Neutrophil 12.7 K/uL (1.8-8.0); Basophils % 0.3 % (0-1.3); Hematocrit 36.9 % (36.0-45.0); Lymphocytes % 2.8 % (15.3-44.8); MCH 28.9 pg (27.0-35.0); MCV 96.5 fL (80-100); MPV 8.1 fL (7.6-11.3); Monocytes % 2.9 % (3.3-12.3); Platelets 286 thou/uL (152-406); RBC Red Blood Cell Count 3.82 M/uL (3.86-4.86); Red Cell Distribution Width 15.7 % (12.1-15.2)
--- NOTE | 2024-02-17 12:51 | RAD REPORT ---
EXAM DESCRIPTION: RAD - Chest Single View - 02/17/2024 12:46 pm CLINICAL HISTORY: Dyspnea;COPD Chest pain. COMPARISON: Chest Single View dated 10/10/2023; Chest Single View dated 10/06/2023; Chest Single View da vasyl 09/15/2023; Chest Single View dated 07/22/2020 FINDINGS: Portable technique limits examination quality. Advanced diffuse COPD is present. Ill-defined reticular opacities in both lung bases, greater on the right, appears mildly less prominent than on 10/10/2023 study. This may represent mild improvement in chronic infection. Small bilateral pleural effusions versus pleural thickening. Cardiac size is uppe r limit normal.
[2024-02-17 13:01] LABS: PT Prothrombin Time 15.1 SECONDS (9.4-12.5); Protime INR 1.36
[2024-02-17] MEDS ORDERED: AZITHROMYCIN 500 MG INJ IVPB ONE (13:24)
[2024-02-17] MEDS ORDERED: CEFTRIAXONE 1000 MG/VIAL ONE (13:24)
[2024-02-17] MEDS ORDERED: NA CHLORIDE 0.9% 250 ML ONE (13:24)
[2024-02-17 13:28] LABS: Basophilic Stippling 1+; Blood Morphology Comment NOTED (NOT SEEN); Platelet Estimate ADEQ; White Blood Cell Scan OK (OK)
[2024-02-17 13:42] LABS: ALT/SGPT 20 U/L (13-56); AST/SGOT 21 U/L (15-37); Albumin 2.9 g/dL (3.4-5.0); Albumin/Globulin Ratio 0.8 (1.1-1.8); Alkaline Phosphatase 69 U/L (45-117); BUN Blood Urea Nitrogen 36 mg/dL (7-18); Bilirubin Direct 0.2 mg/dL (0-0.2); Bilirubin Indirect, Calculated 0.3 mg/dL (0.2-0.8); Bilirubin Total 0.5 mg/dL (0.2-1.0); Globulin 3.7 g/dL (2.3-3.5); Glomerular Filtration Rate 99 ml/min (=/>90); Glucose Level 188 mg/dL (74-106); NT PRO-BNP 2947 pg/mL (<125); Protein, Total 6.6 g/dL (6.4-8.2); Troponin High Sensitivity 29.3 pg/mL (<58.9)
[2024-02-17 13:46] LABS: Bicarbonate > 45 mEq/L (21-32); Potassium 3.9 mEq/L (3.5-5.1); Sodium Level 133 mEq/L (136-145)
[2024-02-17 13:48] LABS: Anion Gap 4.9 mEq/L (5.0-15.0)
[2024-02-17 13:57] LABS: SARS-CoV-2 Antigen CONTROL BLUE LINE VIS/BG OK
[2024-02-17 13:58] LABS: SARS-CoV-2 Antigen Rapid Res Positive (Negative)
--- NOTE | 2024-02-17 14:02 | EDPHYS ---
Physician Documentation [facility] Name: Valeria Ring Age: 63 yrs Sex: Female : 1960 Arrival Date: 02/17/2024 Time: 12:26 Bed 6 Private MD: ED Physician Toni Virgen HPI: 02/16 13:10 63-year-old female with history of COPD, CHF now presents to the ED with chief sp3 complaint shortness of breath for the last 2 to 3 days along with mild cough. She denies any chest pain, fever abdominal pain, syncope, nausea vomiting diarrhea, focal neurological deficit, known sick contacts, travel history, prolonged immobilization, or any other signs or symptoms on ROS at this time. EMS reports pulse oxygenation room air in the 80s.. Historical: - Allergies: 12:33 Benadryl; rs5 12:33 Codeine; rs5 12:33 "all histamines"; rs5 - PMHx: 12:33 COPD; insomnia; CHF; broken hip left (CHF); rs5 - Immunization history:: Adult Immunizations up to date. - Infectious Disease History:: Denies. - Social history:: Smoking status: Patient/guardian denies using tobacco, but has a distant history of tobacco abuse. ROS: 13:10 Constitutional: Negative for fever, chills, and weight loss, Eyes: Negative for injury, sp3 pain, redness, and discharge, ENT: Negative for injury, pain, and discharge, Neck: Negative for injury, pain, and swelling, Cardiovascular: Negative for chest pain, palpitations, and edema, Abdomen/GI: Negative for abdominal pain, nausea, vomiting, diarrhea, and constipation, Back: Negative for injury and pain, MS/Extremity: Negative for injury and deformity, Skin: Negative for injury, rash, and discoloration, Neuro: Negative for headache, weakness, numbness, tingling, and seizure, Psych: Negative for depression, anxiety, suicide ideation, homicidal ideation, and hallucinations, Allergy/Immunology: Negative for hives, rash, and allergies, Endocrine: Negative for neck swelling, polydipsia, polyuria, polyphagia, and marked weight changes, Hematologic/Lymphatic: Negative for swollen nodes, abnormal bleeding, and unusual bruising, 13:10 All other systems are negative, Exam: 13:10 Constitutional: This is a well developed, well nourished patient who is awake, alert, sp3 and in no acute distress. Head/Face: Normocephalic, atraumatic. Eyes: Pupils equal round and reactive to light, extra-ocular motions intact. Lids and lashes normal. Conjunctiva and sclera are non-icteric and not injected. Cornea within normal limits. Periorbital areas with no swelling, redness, or edema. ENT: Nares patent. No nasal discharge, no septal abnormalities noted. External auditory canals are clear. Oropharynx with no redness, swelling, or masses, exudates, or evidence of obstruction, uvula midline. Mucous membranes moist. Neck: Trachea midline, no thyromegaly or masses palpated, and no cervical lymphadenopathy. Supple, full range of motion without nuchal rigidity, or vertebral point tenderness. No Meningismus. Chest/axilla: Normal chest wall appearance and motion. Nontender with no deformity. No lesions are appreciated. Cardiovascular: Regular rate and rhythm with a normal S1 and S2. No gallops, murmurs, or rubs. Normal PMI, no JVD. No pulse deficits. Abdomen/GI: Soft, non-tender, with normal bowel sounds. No distension or tympany. No guarding or rebound. No evidence of tenderness throughout. Back: No spinal tenderness. No costovertebral tenderness. Full range of motion. Skin: Warm, dry with normal turgor. Normal color with no rashes, no lesions, and no evidence of cellulitis. MS/ Extremity: Pulses equal, no cyanosis. Neurovascular intact. Full, normal range of motion. Neuro: Awake and alert, GCS 15, oriented to person, place, time, and situation. Cranial nerves II-XII grossly intact. Motor strength 5/5 in all extremities. Sensory grossly intact. Cerebellar exam normal. Normal gait. 13:10 Respiratory: Coarse breath sounds bilaterally with rhonchi noted. Pulse oxygenation room air at 88%. Oxygen applied., 13:14 ECG was reviewed by the Attending Physician. EKG demonstrates sinus tachycardia at 120 sp3 bpm with normal axis, QTc of 538 with prolonged QT otherwise normal intervals, normal QRS, nonspecific diffuse ST's ST changes without evidence of acute ischemia. Vital Signs: 12:31 BP 128 / 88; Pulse 70; Resp 17; Temp 97.8(O); Pulse Ox 93% on 4 lpm NC; rs5 12:37 BP 118 / 74; Pulse 112; Resp 19; Pulse Ox 93% on 3 lpm NC; rs5 13:00 BP 118 / 74; Pulse 122; Resp 20; Pulse Ox 93% on 4 lpm NC; me1 14:00 BP 109 / 78; Pulse 111; Resp 20; Pulse Ox 90% on 4 lpm NC; me1 15:00 BP 102 / 73; Pulse 103; Resp 18; Pulse Ox 100% on 4 lpm NC; me1 16:00 BP 94 / 64; Pulse 67; Resp 18; Pulse Ox 100% on 4 lpm NC; me1 17:00 BP 103 / 78; Pulse 113; Resp 19; Pulse Ox 95% on 4 lpm NC; me1 MDM: 12:30 Patient medically screened. sp3 13:11 Data reviewed: vital signs, nurses notes, old medical records, lab test result(s), EKG, sp3 radiologic studies. ED course: 63-year-old female with shortness of breath. Differential diagnosis includes COPD exacerbation, pneumonia, CHF electrolyte abnormality, with a pulmonary insult. Workup will include laboratory values, chest x-ray, EKG, swabs and general supportive care. Nebulizer and Solu-Medrol also ordered. Probable admission after workup is complete.. 13:58 ED course: Patient with positive COVID-19 result coupled with COPD coupled also with sp3 BNP of 2900. Multi insult pathology on this patient. Fluid bolus held secondary to CHF even though infection is present along with leukocytosis and tachycardia. Antibiotics on board. Patient will be admitted to the hospitalist service.. 02/16 13:13 Order name: Strep sp3 02/16 12:31 Order name: Basic Metabolic Panel; Complete Time: 13:58 sp3 02/16 12:31 Order name: CBC with Diff; Complete Time: 13:58 sp3 02/16 12:31 Order name: LFT's; Complete Time: 13:58 sp3 02/16 12:31 Order name: Magnesium; Complete Time: 13:58 sp3 02/16 12:31 Order name: NT PRO-BNP; Complete Time: 13:58 sp3 02/16 12:31 Order name: PT-INR; Complete Time: 13:12 sp3 02/16 12:31 Order name: Troponin HS; Complete Time: 13:58 sp3 02/16 12:59 Order name: CBC Smear Scan; Complete Time: 13:58 EDMS 02/16 13:13 Order name: Blood Culture Adult (2) sp3 02/16 13:13 Order name: Lactate w/ 2H reflex if indic.; Complete Time: 14:45 sp3 02/16 13:13 Order name: Flu; Complete Time: 14:45 sp3 02/16 13:13 Order name: SARS RAPID; Complete Time: 14:45 sp3 02/16 14:01 Order name: Throat Culture EDMS 02/16 15:56 Order name: Thyroid Stimulating Hormone EDMS 02/16 15:56 Order name: Urinalysis w/ reflexes EDMS 02/16 15:56 Order name: CBC with Automated Diff EDMS 02/16 15:56 Order name: CBC with Automated Diff EDMS 02/16 15:56 Order name: CBC with Automated Diff EDMS 02/16 15:56 Order name: CBC with Automated Diff EDMS 02/16 15:56 Order name: Comprehensive Metabolic Panel EDMS 02/16 15:56 Order name: Comprehensive Metabolic Panel EDMS 02/16 15:56 Order name: Comprehensive Metabolic Panel EDMS 02/16 15:56 Order name: Comprehensive Metabolic Panel EDMS 02/16 15:56 Order name: Lipid Profile EDMS 02/16 15:56 Order name: Lipid Profile EDMS 02/16 15:56 Order name: Magnesium EDMS 02/16 15:56 Order name: Magnesium EDMS 02/16 15:56 Order name: Magnesium EDMS 02/16 15:56 Order name: Magnesium EDMS 02/16 15:56 Order name: Phosphorus EDMS 02/16 15:56 Order name: Phosphorus EDMS 02/16 15:56 Order name: Phosphorus EDMS 02/16 15:56 Order name: Phosphorus EDMS 02/16 15:56 Order name: Protime (+INR) EDMS 02/16 15:56 Order name: Protime (+INR) EDMS 02/16 15:58 Order name: Ferritin EDMS 02/16 15:58 Order name: Iron EDMS 02/16 12:31 Order name: XRAY Chest (1 view); Complete Time: 12:52 sp3 02/16 14:17 Order name: Chest For Pe Angio; Complete Time: 14:45 EDMS 02/16 12:31 Order name: EKG; Complete Time: 12:32 sp3 02/16 15:56 Order name: CONS Physician Consult EDTN 02/16 15:56 Order name: Occupational Therapy Consult EDTN 02/16 12:31 Order name: Cardiac monitoring; Complete Time: 13:05 sp3 02/16 12:31 Order name: EKG - Nurse/Tech; Complete Time: 13:05 sp3 02/16 12:31 Order name: IV Saline Lock; Complete Time: 13:05 sp3 02/16 12:31 Order name: Labs collected and sent; Complete Time: 13:05 sp3 02/16 12:31 Order name: O2 Per Protocol; Complete Time: 13:05 sp3 02/16 12:31 Order name: O2 Sat Monitoring; Complete Time: 13:05 sp3 Administered Medications: 13:05 Drug: DuoNeb Nebulize (3:1) (2.5 mg - 0.5 mg) 3 ml Nebulizer once Route: Nebulizer; rs5 16:03 Follow up: Response: No adverse reaction; Wheezing diminished me1 13:05 Drug: MethylPrednisoLONE IVP 125 mg IVP once Route: IVP; Site: right antecubital; rs5 16:03 Follow up: Response: No adverse reaction; Wheezing diminished me1 13:25 Drug: Zithromax IVPB 500 mg IVPB once over 1 hrs; mix in 250 mL NS Route: IVPB; Infused rs5 Over: 1 hrs; Site: right antecubital; 15:49 Follow up: Response: No adverse reaction; IV Status: Completed infusion me1 13:35 Drug: Rocephin IV 1 grams IV at calculated rate once; Given slow IV push per pharmacy rs5 instructions Route: IV; Rate: calculated rate; Site: right antecubital; 16:02 Follow up: Response: No adverse reaction; IV Status: Completed infusion me1 Disposition: 14:01 Critical Care:. sp3 Disposition Summary: 02/17/24 14:01 Hospitalization Ordered Notes: Hospitalization Status: Inpatient Admission sp3 Provider: Melissa Elizabeth Location: Telemetry/MedSurg (Inpatient) sp3 Condition: Stable sp3 Problem: an acute exacerbation sp3 Symptoms: have worsened sp3 Bed/Room Type: Standard sp3 Room Assignment: 402(02/17/24 16:01) iw Diagnosis - COPD exacerbation, CHF exacerbation, COVID-19, respiratory distress, hypoxia sp3 Forms: - Medication Reconciliation Form sp3 - SBAR form sp3 - Leadership Thank You Letter sp3 Critical care time excluding procedures: 14:01 Critical care time: Bedside Care: 10 minutes, Consultation: 10 minutes, Family sp3 Intervention: 10 minutes. Total time: 30 minutes Signatures: Dispatcher [employer] Galina Farley RN RN iw Toni Virgen MD MD sp3 Eric Green RN RN rs5 Destiny Alvarez RN me1 Corrections: (The following items were deleted from the chart) 16:01 14:01 sp3 iw
--- NOTE | 2024-02-17 14:02 | ER ---
Nurse's Notes [facility] Name: Valeria Ring Age: 63 yrs Sex: Female : 1960 Arrival Date: 02/17/2024 Time: 12:26 Bed 6 Private MD: Diagnosis: COPD exacerbation, CHF exacerbation, COVID-19, respiratory distress, hypoxia Presentation: 02/16 12:31 Chief complaint: EMS states: Family toned out EMS for SOB and generalized weakness. rs5 Coronavirus screen: At this time, the client does not indicate any symptoms associated with coronavirus-19. Ebola Screen: No symptoms or risks identified at this time. Initial Sepsis Screen: Does the patient meet any 2 criteria? No. Patient's initial sepsis screen is negative. Does the patient have a suspected source of infection? No. Patient's initial sepsis screen is negative. Risk Assessment: Do you want to hurt yourself or someone else? Patient reports no desire to harm self or others. Onset of symptoms was February 17, 2024. 12:31 Method Of Arrival: EMS: [facility] rs5 12:31 Acuity: RADHA 3 rs5 Triage Assessment: 12:31 General: Appears in no apparent distress. uncomfortable, Behavior is calm, cooperative. rs5 Respiratory: Respiratory: Onset: The symptoms/episode began/occurred gradually. Historical: - Allergies: 12:33 Benadryl; rs5 12:33 Codeine; rs5 12:33 "all histamines"; rs5 - PMHx: 12:33 COPD; insomnia; CHF; broken hip left (CHF); rs5 - Immunization history:: Adult Immunizations up to date. - Infectious Disease History:: Denies. - Social history:: Smoking status: Patient/guardian denies using tobacco, but has a distant history of tobacco abuse. Screenin:32 [facility] ED Fall Risk Assessment (Adult) History of falling in the last 3 months, rs5 including since admission Yes- single mechanical fall (1 pt) Confusion or Disorientation No (0 pts) Intoxicated or Sedated No (0 pts) Impaired Gait Yes (1 pt) Mobility Assist Device Used Yes (1 pt) Altered Elimination No (0 pt) Score/Fall Risk Level 3 or more points = High Risk Oriented to surroundings, Maintained a safe environment, Provided non-skid footwear. Abuse screen: Denies threats or abuse. Nutritional screening: No deficits noted. Tuberculosis screening: No symptoms or risk factors identified. Assessment: 12:34 General: Appears in no apparent distress. uncomfortable, Behavior is calm, cooperative. rs5 Pain: Denies pain. Neuro: Level of Consciousness is awake, alert, obeys commands, Oriented to person, place, time, situation. Cardiovascular: Patient's skin is warm and dry. Cardiovascular: Rhythm is sinus tachycardia. Respiratory: Reports shortness of breath cough that is Airway is patent Respiratory effort is even, unlabored, Respiratory pattern is regular, symmetrical, GI: Abdomen is flat, non-distended, Abd is soft and non tender X 4 quads. : No signs and/or symptoms were reported regarding the genitourinary system. EENT: No signs and/or symptoms were reported regarding the EENT system. Derm: Skin is intact, Skin is pink, warm \\T\\ dry. Musculoskeletal: Range of motion: limited in left hip. 12:35 Reassessment: provider notified of elevated pulse. rs5 13:41 Reassessment: Patient and/or family updated on plan of care and expected duration. Pain rs5 level reassessed. Patient is alert, oriented x 3, equal unlabored respirations, skin warm/dry/pink. Patient states feeling better. Vital Signs: 12:31 BP 128 / 88; Pulse 70; Resp 17; Temp 97.8(O); Pulse Ox 93% on 4 lpm NC; rs5 12:37 BP 118 / 74; Pulse 112; Resp 19; Pulse Ox 93% on 3 lpm NC; rs5 13:00 BP 118 / 74; Pulse 122; Resp 20; Pulse Ox 93% on 4 lpm NC; me1 14:00 BP 109 / 78; Pulse 111; Resp 20; Pulse Ox 90% on 4 lpm NC; me1 15:00 BP 102 / 73; Pulse 103; Resp 18; Pulse Ox 100% on 4 lpm NC; me1 16:00 BP 94 / 64; Pulse 67; Resp 18; Pulse Ox 100% on 4 lpm NC; me1 17:00 BP 103 / 78; Pulse 113; Resp 19; Pulse Ox 95% on 4 lpm NC; me1 ED Course: 12:30 Patient arrived in ED. rs5 12:30 Toni Virgen MD is Attending Physician. sp3 12:31 Eric Green, BALAJI is Primary Nurse. rs5 12:32 Patient has correct armband on for positive identification. Placed in gown. Bed in low rs5 position. Call light in reach. Side rails up X2. 12:32 Arm band placed on Patient placed in an exam room. me1 12:33 Triage completed. rs5 12:40 Inserted saline lock: 20 gauge in right forearm, using aseptic technique. rs5 12:40 No provider procedures requiring assistance completed. rs5 12:48 XRAY Chest (1 view) In Process Unspecified. EDMS 13:07 EKG done, by ED staff, reviewed by Toni Virgen MD. cc6 13:52 First set of blood cultures drawn by me. cc6 14:00 Melissa Elizabeth MD is Hospitalizing Provider. sp3 14:31 Chest For Pe Angio In Process Unspecified. EDMS 16:02 Provided Education on: POC. Verbalized understanding. . me1 16:14 1522 CM met with patient at bedside in the ED exam room. Patient identified by name and ane . Demographic sheet confirmed. states she lives alone in a one story home. She uses a wheelchair, walker and has a home oxygen concentrator through [facility]. She states she has an MPOA,"ready to sign" at her home but NOT in place currently. states she was scheduled to start HH services with [facility]. Patient states she prefers to return home with HH through [facility] once discharged. CM team will continue to follow and coordinate care. 17:34 Patient admitted, IV remains in place. me1 Administered Medications: 13:05 Drug: DuoNeb Nebulize (3:1) (2.5 mg - 0.5 mg) 3 ml Nebulizer once Route: Nebulizer; rs5 16:03 Follow up: Response: No adverse reaction; Wheezing diminished me1 13:05 Drug: MethylPrednisoLONE IVP 125 mg IVP once Route: IVP; Site: right antecubital; rs5 16:03 Follow up: Response: No adverse reaction; Wheezing diminished me1 13:25 Drug: Zithromax IVPB 500 mg IVPB once over 1 hrs; mix in 250 mL NS Route: IVPB; Infused rs5 Over: 1 hrs; Site: right antecubital; 15:49 Follow up: Response: No adverse reaction; IV Status: Completed infusion me1 13:35 Drug: Rocephin IV 1 grams IV at calculated rate once; Given slow IV push per pharmacy rs5 instructions Route: IV; Rate: calculated rate; Site: right antecubital; 16:02 Follow up: Response: No adverse reaction; IV Status: Completed infusion me1 Medication: 13:42 VIS not applicable for this client. rs5 Outcome: 14:01 Decision to Hospitalize by Provider. sp3 17:34 Admitted to Tele accompanied by tech, via stretcher, room 402, with chart, Report me1 called to faxed, receipt confirmed with Janice 17:34 Condition: stable 17:34 Instructed on the need for admit, 17:35 Patient left the ED. me1 Signatures: Dispatcher [employer] Toni Khan MD MD sp3 Eric Green, RN RN rs5 Destiny Alvarez RN RN me1 Sunshine Alvarez RN RN cc6 Comfort Herrmann RN RN ane Corrections: (The following items were deleted from the chart) 13:16 12:31 BP 128 / 88; Pulse 70bpm; Resp 17bpm; Pulse Ox 93% 4 lpm Nasal Cannula; Temp rs5 97.8F Oral; rs5 13:41 12:35 General: Appears in no apparent distress. uncomfortable, Behavior is calm, rs5 cooperative, rs5
--- NOTE | 2024-02-17 14:10 | P.HP ---
Certification for Inpatient Patient admitted to: Inpatient With expected LOS: >2 Midnights <Deisy Zhou - Last Filed: 02/17/24 15:55> Patient History Date of Service: 02/17/24 Reason for admission: COPD exacerbation, Covid, CHF History of Present Illness: Ms. Ring is a 63-year-old with a past medical history of COPD, CHF, and recent left hip fracture. She presents to the ED today today with chief complaint of shortness of breath for the last 2 to 3 days. Associated with a mild cough, shortness of breath, and low oxygen saturation. She denies any chest pain, fever, abdominal pain, syncope, nausea, vomiting, diarrhea, focal neurological deficit, or known sick contacts. EMS reports pulse oxygenation on room air in the 80s. She will be admitted for treatment of COPD exacerbation, CHF, and COVID positive status. Will consider CT to rule out PE as patient recently had a hip fracture and now has COVID. CT negative for PE. Labs significant for a white count of 13.5 with 94% neutrophils, mildly dehydrated with a sodium of 133 and a chloride of 87 blood glucose 188. Creatinine 0.64 with a GFR of 99, and a proBNP of 2947. Blood cultures are pending. Emergency room EKG showed sinus tachycardia with PACs and a prolonged QT C of 538 Home medications list reviewed: Yes - Past Medical/Surgical History Diabetic: No -: Remote tobacco use -: End-stage COPD -: Chronic diastolic ingestive heart failure -: Left hip Psychosocial/ Personal History: Lives at home alone - Family History Father -: Heart disease Notes: Pt. reports both parents having "some kind of heart disease" that lasted for a long time, resulting to surgeries and stent placement. - Social History Smoking Status: Former smoker Alcohol use: No CD- Drugs: No Caffeine use: No <Deisy Zhou - Last Filed: 02/17/24 15:55> Date of Service: 02/17/24 <Melissa Elizabeth - Last Filed: 02/17/24 17:43> Allergies codeine Allergy (Verified 09/16/23 00:15) seecom diphenhydramine [From Benadryl] Allergy (Verified 09/16/23 00:14) Hives/Rash Home Medications: Albuterol Inhaler [Ventolin Inhaler*] 2 puff IH Q6H PRN 30 Days #1 hfa.aer.ad 07/25/20 acetaZOLAMIDE [Diamox*] 250 mg PO DAILY 30 Days #30 tab 07/25/20 Budesonide/Glycopyr/Formoterol [Breztri Aerosphere Inhaler] 1 puff IH BID 09/15/23 predniSONE [Deltasone*] 10 mg PO DAILY 09/16/23 Acetaminophen [Tylenol Extra Strength] 500 mg PO Q4H PRN 09/28/23 Docusate [Colace Cap*] 100 mg PO DAILY PRN 09/28/23 Mupirocin Oint [Bactroban 2% Ointment*] 1 pritesh TOP BID 09/28/23 Docusate/Senna [Senokot-S*] 2 tab PO BEDTIME PRN tab 10/06/23 Ensure Clear 237 ml PO TID can 10/06/23 Ferrous Sulfate [Ferrous Sulfate*] 325 mg PO DAILY #30 tab 10/06/23 Iron/FA/Vit B-Com W/C [Hemocyte Plus*] 1 tab PO DAILY WITH BREAKFAST #30 tab 10/06/23 Mupirocin Oint [Bactroban 2% Ointment*] 1 appl TOP BID #1 tube 10/06/23 Ondansetron [Zofran (Odt)*] 4 mg PO Q6H PRN #30 tab 10/06/23 Potassium Oral Tab [Klor-Con 10 mEq Tab*] 10 meq PO BID #60 tab 10/06/23 Levofloxacin [Levaquin] 750 mg PO 2100 #5 10/12/23 Review of Systems 10-point ROS is otherwise unremarkable General: Weakness, Malaise Respiratory: Shortness of Breath, SOB with Excertion, As per HPI <Zhou,Deisy Joaquín - Last Filed: 02/17/24 15:55> Physical Examination - Studies Laboratory Data (last 24 hrs) 02/17/24 02/17/24 02/17/24 12:40 12:40 12:40 WBC 13.50 H Hgb 11.0 L Hct 36.9 Plt Count 286 PT 15.1 H INR 1.36 Sodium 133 L Potassium 3.9 BUN 36 H Creatinine 0.64 Glucose 188 H Magnesium 2.0 Total Bilirubin 0.5 AST 21 ALT 20 Alkaline Phosphatase 69 Microbiology Data (last 24 hrs): 02/17/24 13:20 Throat Group A Streptococcus Rapid Screen - Final 02/17/24 13:20 Nasopharnyx Influenza Type A Antigen Screen - Final 02/17/24 13:20 Nasopharnyx Influenza Type B Antigen Screen - Final <Deisy Zhou - Last Filed: 02/17/24 15:55> - Studies Laboratory Data (last 24 hrs) 02/17/24 02/17/24 02/17/24 12:40 12:40 12:40 WBC 13.50 H Hgb 11.0 L Hct 36.9 Plt Count 286 PT 15.1 H INR 1.36 Sodium 133 L Potassium 3.9 BUN 36 H Creatinine 0.64 Glucose 188 H Magnesium 2.0 Total Bilirubin 0.5 AST 21 ALT 20 Alkaline Phosphatase 69 Microbiology Data (last 24 hrs): 02/17/24 13:20 Throat Group A Streptococcus Rapid Screen - Final 02/17/24 13:20 Nasopharnyx Influenza Type A Antigen Screen - Final 02/17/24 13:20 Nasopharnyx Influenza Type B Antigen Screen - Final <TaiagathaDarrell jeromeannasue C - Last Filed: 02/17/24 17:43> Assessment and Plan - Plan COPD Nebulizer Pulmonary toilet Steroids Consult to Dr. Zavala CHF Monitor and trend Strict MOUSTAPHA Daily weight Continue Diamox Lasix COVID Pulmonary toilet Treat symptoms MVI Frailty/malnutrition Ensure clear to 37 mL p.o. 3 times daily Iron levels OT assessment TSH VTE/GI prophylaxis Full code Activity safety precautions, fall risk Regular diet with supplements - Advance Directives Does patient have a Living Will: No Does patient have a Durable POA for Healthcare: No <Deisy Zhou Joaquín - Last Filed: 02/17/24 15:55> - Plan Pt seen and examined. I agree with the note by the LOBSTERMAN. Pt is a 63 yo female with past medical history of f COPD, CHF, and recent left hip fracture who present with SOB x 2 3 day. The SOB is associated with mild cough. On admission, lab studies show wbc 13.5, Hgb 11, K 3.9, Cr 0.64, BNP 2947. On admission, oxygen saturation was 80%. AT bedside, pt is in NAD. A/P: Acute COPD exacerbation: Will continue steroid, abx, duoneb and oxygen. Consulted Pulm COVID: Will continue enhanced resp precaution, steroid, vitamin C, Vitamin D and zinc sulfate. Acute resp failure with hypoxia: Likely due to COPD and COVID. Will f/u CAT chest to r/o PE. Hx of CHF: Will continue lasix, strict I/O and daily meds. Severe malnutrition: Pt has not been eating due to painful gums. She lost some teeth. Will continue pureed diet. DVT ppx: SCD Code: full <Melissa Elizabeth - Last Filed: 02/17/24 17:43>
--- NOTE | 2024-02-17 14:44 | RAD REPORT ---
EXAM DESCRIPTION: CT - Chest For Pe Angio - 02/17/2024 2:29 pm CLINICAL HISTORY: Chest pain. r/o PE COMPARISON: Chest For Pe Angio dated 07/22/2020 TECHNIQUE: CT angiogram of the pulmonary arteries was performed with MIP. All CT scans are performed using dose optimization technique as appropriate and may include automated exposure control or mA/KV adjustment according to patient size. FINDINGS: No evidence of pulmonary thromboembolism. No acute aortic finding demonstrated. Advanced emphysematous changes are present. Reticular infiltrate pattern is present in both lower lob es. Mild airspace consolidation also seen in the superior segment both lower lobes inferior right mid dle. No significant pericardial or pleural fluid. No concerning bony finding. IMPRESSION: No evidence of pulmonary thromboembolism. Advanced COPD with reticular infiltrate as well as small areas of airspace consolidation likely indic ating chronic infection. PRITESH infection may be considered.
[2024-02-17] MEDS: CEFTRIAXONE 1,000 MG in NA CHLORIDE 0.9% 50 ML IVPB SCH (18:03)
[2024-02-17] MEDS: dexAMETHasone 4 MG/ML VIAL IV SCH (18:04)
[2024-02-17 18:34] LABS: Ferritin 62.4 ng/mL (8-388)
[2024-02-17 18:41] VITALS: BMI 11.1
[2024-02-17] MEDS: ENSURE CLEAR 200 ML CAN PO SCH (21:00)
[2024-02-17] MEDS ORDERED: predniSONE 20 MG TAB PO SCH (21:00)
[2024-02-17] MEDS: APIXABAN 2.5 MG TABLET PO SCH (21:10)
[2024-02-17] MEDS: FAMOTIDINE 20 MG TAB PO SCH (21:10)
[2024-02-17] MEDS: TRAZODONE 50 MG TABLET PO SCH (21:10)
[2024-02-17] MEDS: levoFLOXacin 500 MG TAB PO SCH (21:14)
[2024-02-17] MEDS: ARFORMOTEROL TARTRATE 15 MCG/2 ML VIAL.NEB NEB SCH (21:15)
[2024-02-17] MEDS: IPRATROPIUM BROM 0.5MG/2.5ML NEB SCH (21:16)
--- NOTE | 2024-02-17 21:22 | P.CNS ---
Date of Consult: 02/17/24 Reason for Consult: COPD exacerbation Chief Complaint: COPD exacerbation, Covid, CHF History of Present Illness: Patient is 63 years of age with history of terminal COPD admitted with worsening cough congestion and positive for COVID admitted to the hospital for weakness worsening shortness of breath patient is compliant with her inhalers at home Allergies codeine Allergy (Verified 09/16/23 00:15) seecom diphenhydramine [From Benadryl] Allergy (Verified 09/16/23 00:14) Hives/Rash Home Medications: Albuterol Inhaler [Ventolin Inhaler*] 2 puff IH Q6H PRN 30 Days #1 hfa.aer.ad 07/25/20 acetaZOLAMIDE [Diamox*] 250 mg PO DAILY 30 Days #30 tab 07/25/20 Budesonide/Glycopyr/Formoterol [Breztri Aerosphere Inhaler] 1 puff IH BID 09/15/23 predniSONE [Deltasone*] 10 mg PO DAILY 09/16/23 Acetaminophen [Tylenol Extra Strength] 500 mg PO Q4H PRN 09/28/23 Ferrous Sulfate [Ferrous Sulfate*] 325 mg PO DAILY #30 tab 10/06/23 Iron/FA/Vit B-Com W/C [Hemocyte Plus*] 1 tab PO DAILY WITH BREAKFAST #30 tab 10/06/23 Ondansetron [Zofran (Odt)*] 4 mg PO Q6H PRN #30 tab 10/06/23 Apixaban [Eliquis] 2.5 mg PO BID 02/17/24 Ascorbic Acid 500 mg PO BID 02/17/24 Hydrocodone 5/APAP 325 [Bonifay 5/325] 1 tab PO Q6H PRN 02/17/24 LIDOCAINE 4% Topical Solution [Xylocaine 4% Topical Solution] 40 mg MM BID 02/17/24 Polyethylene Glycol 3350 [Miralax] 17 gm PO DAILYPRN PRN 02/17/24 Trazodone [Desyrel] 50 mg PO BEDTIME 02/17/24 - Past Medical/Surgical History Diabetic: No -: Remote tobacco use -: End-stage COPD -: Chronic diastolic ingestive heart failure -: shingles in aug 2023 -: emphesyma -: pulmonary htn -: tubal ligation -: trans ulner surgery on left arm Psychosocial/ Personal History: Lives at home alone - Family History Father Medical History: Heart disease Notes: Pt. reports both parents having "some kind of heart disease" that lasted for a long time, resulting to surgeries and stent placement. - Social History Smoking Status: Former smoker Alcohol use: No CD- Drugs: No Caffeine use: No Place of Residence: Home Review of Systems 10-point ROS is otherwise unremarkable General: Weakness Respiratory: Cough, Shortness of Breath Physical Examination Temp Pulse Resp BP Pulse Ox 97.8 F 67 18 94/64 02/17/24 12:31 02/17/24 16:00 02/17/24 16:00 02/17/24 16:00 General: In no apparent distress, Oriented x3 Respiratory: Clear to auscultation bilaterally, Diminished Cardiovascular: No edema, Regular rate/rhythm, Normal S1 S2 Gastrointestinal: Normal bowel sounds, Soft and benign Laboratory Data (last 24 hrs) 02/17/24 02/17/24 02/17/24 12:40 12:40 12:40 WBC 13.50 H Hgb 11.0 L Hct 36.9 Plt Count 286 PT 15.1 H INR 1.36 Sodium 133 L Potassium 3.9 BUN 36 H Creatinine 0.64 Glucose 188 H Magnesium 2.0 Total Bilirubin 0.5 AST 21 ALT 20 Alkaline Phosphatase 69 - Problems (1) COPD exacerbation Current Visit: Yes Status: Acute Plan: Patient is 63 years of age well-known to ms terminal COPD with a history of significant weight loss and debilitation very cachectic admitted with worsening dyspnea weakness her bicarbonate is very elevated DC diuretics start on IV fluids check arterial blood gases start patient on a BiPAP patient has some infiltrates worse in the right lower lobe which appear to be chronic she also has a lower lobe bronchiectasis start patient on levofloxacin sputum cultures continue with bronchodilators steroids have ordered arterial blood gases start patient on BiPAP
[2024-02-17] MEDS: NA CHLORIDE 0.9% 1,000 ML IV SCH (21:45)
[2024-02-17] MEDS: levoFLOXacin 500 MG TAB PO ONE (21:45)
[2024-02-18] MEDS: methocarbamoL 500 MG TAB PO PRN (05:02)
[2024-02-18 06:19] LABS: Absolute Lymphocytes (CBC) 0.3 K/uL (0.7-4.9); Absolute Monocytes 0.2 K/uL (0.1-1.3); Absolute Neutrophil 6.3 K/uL (1.8-8.0); Basophils % 0.1 % (0-1.3); Hematocrit 33.4 % (36.0-45.0); Hemoglobin 10.7 g/dL (12.0-15.0); MCH 29.6 pg (27.0-35.0); MCHC 31.9 g/dL (32.0-36.0); MCV 92.5 fL (80-100); MPV 7.6 fL (7.6-11.3); Monocytes % 3.1 % (3.3-12.3); Neutrophils % 92.8 % (41.7-73.7); Platelets 271 thou/uL (152-406); RBC Red Blood Cell Count 3.61 M/uL (3.86-4.86); Red Cell Distribution Width 15.8 % (12.1-15.2)
[2024-02-18 06:21] LABS: PT Prothrombin Time 14.8 SECONDS (9.4-12.5); Protime INR 1.33
[2024-02-18 06:43] LABS: ALT/SGPT 18 U/L (13-56); AST/SGOT 18 U/L (15-37); Albumin 2.6 g/dL (3.4-5.0); Albumin/Globulin Ratio 0.8 (1.1-1.8); Alkaline Phosphatase 55 U/L (45-117); Anion Gap 1.6 mEq/L (5.0-15.0); BUN Blood Urea Nitrogen 25 mg/dL (7-18); Bilirubin Total 0.3 mg/dL (0.2-1.0); Globulin 3.2 g/dL (2.3-3.5); Glomerular Filtration Rate 107 ml/min (=/>90); Glucose Level 122 mg/dL (74-106); HDL Cholesterol 74 mg/dL (40-60); LDL Cholesterol, Calculated 58 mg/dL (<130); LDL Cholesterol,Calc NonReport 58; Magnesium 1.9 mg/dL (1.6-2.4); Potassium 3.6 mEq/L (3.5-5.1); Protein, Total 5.8 g/dL (6.4-8.2); Sodium Level 136 mEq/L (136-145)
[2024-02-18 06:45] LABS: Bicarbonate > 45 mEq/L (21-32)
[2024-02-18] MEDS ORDERED: FENTANYL CITR 100 MCG/2 ML IV PRN (07:54)
[2024-02-18] MEDS: MULTIVITAMIN TAB PO SCH (08:47)
[2024-02-18] MEDS: levoFLOXacin 250 MG TAB PO SCH (08:47)
[2024-02-18] MEDS: VITAMIN D 1000 UNIT TAB PO SCH (08:48)
[2024-02-18] MEDS: acetaZOLAMIDE 250 MG TAB PO SCH (08:48)
[2024-02-18] MEDS: ASCORBIC ACID 500 MG TABLET PO SCH (08:48)
[2024-02-18] MEDS: FERROUS SULFATE 325 MG TAB PO SCH (08:48)
[2024-02-18] MEDS ORDERED: ZINC SULFATE 220 MG CAP PO SCH (09:00)
[2024-02-18] MEDS ORDERED: ENOXAPARIN 40 MG/0.4 ML SQ SCH (09:00)
[2024-02-18] MEDS ORDERED: FUROSEMIDE 20 MG/ 2ML VIAL IV SCH (09:00)
[2024-02-18] MEDS ORDERED: Budesonide/Glycopyr/Formoterol [Breztri Aerosphere Inhaler] 10.7 GM Hfa IH SCH (09:00)
--- NOTE | 2024-02-18 09:00 | P.PN ---
Subjective Date of Service: 02/18/24 Chief Complaint: COPD exacerbation, Covid, CHF Subjective: Other (Pt states her breathing is a little better but she does not like the bed and her hip is uncomfortable. She have BiPap orders but declined. She is currently on 3.5L O2 via NC.) <Deisy Zhou - Last Filed: 02/18/24 08:55> Date of Service: 02/19/24 <Arthur Zavala - Last Filed: 02/19/24 09:59> Date of Service: 02/18/24 <GrimesEnriquekailyn Domonique - Last Filed: 02/21/24 15:46> Review of Systems 10-point ROS is otherwise unremarkable Respiratory: Cough, Shortness of Breath Musculoskeletal: Other (hip pain) <Rajni Zhousreekanth Yanes - Last Filed: 02/18/24 08:55> Physical Examination - Vital Signs Temperature: 97.0 F Blood Pressure: 116/70 Pulse: 105 Respirations: 18 Pulse Ox (%): 98 - Physical Exam General: Alert, In no apparent distress, Oriented x3, Cachectic HEENT: Atraumatic, Normocephalic Neck: Supple Respiratory: Normal air movement, Diminished, Expiratory wheezes Cardiovascular: Regular rate/rhythm, Normal S1 S2 Capillary refill: <2 Seconds Gastrointestinal: Soft and benign Musculoskeletal: No clubbing, Other (pelvic/hip discomfort. 4mo ago with fx. too frail to operate) Integumentary: No rashes Neurological: Normal speech, Normal tone, Normal affect Lymphatics: No axilla or inguinal lymphadenopathy External genitalia: Deferred Rectal: Deferred - Studies Laboratory Data (last 24 hrs) 02/17/24 02/17/24 02/17/24 12:40 12:40 12:40 WBC 13.50 H Hgb 11.0 L Hct 36.9 Plt Count 286 PT 15.1 H INR 1.36 Sodium 133 L Potassium 3.9 BUN 36 H Creatinine 0.64 Glucose 188 H Magnesium 2.0 Total Bilirubin 0.5 AST 21 ALT 20 Alkaline Phosphatase 69 Microbiology Data (last 24 hrs): 02/17/24 13:20 Throat Group A Streptococcus Rapid Screen - Final 02/17/24 13:20 Nasopharnyx Influenza Type A Antigen Screen - Final 02/17/24 13:20 Nasopharnyx Influenza Type B Antigen Screen - Final <Deisy Zhou - Last Filed: 02/18/24 08:55> - Studies Microbiology Data (last 24 hrs): 02/17/24 13:20 Throat Group A Streptococcus Rapid Screen - Final 02/17/24 13:20 Throat Culture & Sensitivity - Final NORMAL UPPER RESPIRATORY MALLORY GROWN. 02/17/24 13:52 Blood - Blood Gram Stain - Final <Arthur Zavala - Last Filed: 02/19/24 09:59> Assessment And Plan - Plan COPD Nebulizer Pulmonary toilet Steroids Consult to Dr. Zavala Hypercapnia 02/18/24 increased lab CO2 >45, reiterated need for bipap. Pt has one at home that she has not used x 4 months. Will have someone bring it as she likes the mask better. CHF Monitor and trend Strict I&O Daily weight Continue Diamox Lasix Eliquis COVID Pulmonary toilet Treat symptoms MVI Pepcid Frailty/malnutrition Ensure clear to 37 mL p.o. 3 times daily Iron levels OT assessment TSH VTE/GI prophylaxis Eliquis/pepcid Full code Activity safety precautions, fall risk Regular diet with supplements <Deisy Zhou - Last Filed: 02/18/24 08:55> - Current Problems (Diagnosis) (1) COPD exacerbation Current Visit: Yes Status: Acute (2) Normocytic anemia Current Visit: Yes Status: Acute Plan: Patient was started on iron infusion normocytic anemia low iron levels and level is normal will check TIBC if that is normal DC IV iron <Arthur Zavala - Last Filed: 02/19/24 09:59> Date of Service: 02/18/24 Patient was seen and examined. Events of the last 24 hours have been noted. Spoke with with [facility] regarding patient's clinical picture after evaluating and examining the patient independently. I performed a substantial part of the MDM during this patient's care today. I personally made or approved the documented management plan and acknowledge its risk of complications. I agree with the findings and documentation provided in the [facility]'s notes. <Cam Grimes - Last Filed: 02/21/24 15:46>
--- OUTSIDE RECORDS SUMMARY | 2024-02-18 09:40 | XMS REPORT | Continuity of Care Document ---
Author Name Unknown Address [address] [place] [address] [facility] thconnect Address [address] [place] [address] Care Team Providers Care Subassembler Name Role Phone Jame Solares MD Primary Care Physician + [phone] Noemi Gabriel Attending Clinician Unavail able Elo Castro Attending Clinician Unavailab le Doctor Unassigned, [place] Attending Clinician U ELIEZER Monae Attending Clinician Unavaila ble Therapist, [facility] Attending Clinician Cathryn Eliezer Pearson MD Attending Clinician Pob[facility] Attending Clinician UnaSisi Jain Attending Clinician [phone] SISI ROSARIO Attending Clinician Unavailable Pcp, Patient Does Not Have A Attending Clinician Taniya Ragland RN Attending Clinician Syl Stapleton Attending Clinician [phone] SYL DEL VALLE Attending Clinician Unavailable Yolanda Harrell RN Attending Clinician Unavailable Payers Payer Name Policy Type Policy Number Effective Date Expirati on Date Source Problems Condition Name Condition Details Condition Category Status Onset Date Resolution Date Last Treatment Date Treating Clinician Comments Source Chronic bronchitis , unspecifie d chronic bronchitis type Chronic bronchitis , unspecifie d chronic bronchitis type Disease Active 20200 15 00:00: 00 [facility] Cough Cough Disease Active 0 15 00:00: 00 [facility] Tobacco abuse Tobacco abuse Disease Active 20200 4-15 00:00: 00 [facility] Allergies, Adverse Reactions, Alerts Allergy Name Allergy Type Status Severity Reaction(s) Onset Date Inactive Date Treating Clinician Comments Source Antihist imine Propensi ty to adverse reaction s Active Anxiety 4-15 00:00: 00 [facility] Codeine Propensi ty to adverse reaction s Active Anxiety 4-15 00:00: 00 [facility] ANTIHIST IMINE DRUG Active High Anxiety 4-15 00:00: 00 [facility] CODEINE DRUG INGREDI Active High Anxiety 4-15 00:00: 00 [facility] NO KNOWN ALLERGIE S Drug Class Active [facility] Social History Social Habit Start Date Stop Date Quantity Comments Source Gender identity [facility] History of tobacco use Passive smoker [facility] Exposure to SARS-CoV-2 (event) 2022-11-21 00:00:00 2022-12-01 13:12:00 Not sure [facility] Cigarettes smoked current (pack per day) - Reported 2022-10-21 00:00:00 2022-10-21 00:00:00 [facility] Cigarette pack-years 2022-10-21 00:00:00 2022-10-21 00:00:00 [facility] Alcohol intake 2022-10-21 00:00:00 2022-10-21 00:00:00 Ex-drinker (finding) [facility] History of Social function 2022-10-21 00:00:00 2022-10-21 00:00:00 [facility] Tobacco use and exposure 2022-10-21 00:00:00 2022-10-21 00:00:00 Smokeless tobacco non-user [facility] Sex Ass[birth year] At 1960 00:00:00 1960 00:00:00 [facility] Smoking Status Start Date Stop Date Source Smokes tobacco daily 2022-10-21 00:00:00 [facility] Medications Ordered Medication Name Filled Medication Name Start Date Stop Date Current Medication? Ordering Clinician Indication Dosage Frequency Signature (SIG) Comments Components Source trazodone HCl (TRAZODONE ORAL) 10-21 14:15: 09 Yes 1{tbl} Take 1 tablet by mouth every morning and at bedtime. Indication s: only takes HS [facility] acetaZOLAMI DE 250 mg tablet 10-21 14:15: 09 Yes 250mg Take 1 tablet by mouth in the morning. Indication s: Dr. Zavala [facility] predniSONE 10 mg tablet 10-21 14:15: 09 Yes 10mg Take 1 tablet by mouth in the morning. Indication s: Dr Zavala [facility] aspirin 81 mg EC tablet 10-21 14:15: 09 Yes 81mg Take 1 tablet by mouth in the morning. [facility] budesonide- glycopyr-fo rmoterol (BREZTRI AEROSPHERE) 160-9-4.8 mcg/actuati on HFAA 10-21 14:15: 09 Yes 2{inhal er} Inhale 2 Inhalers in the morning and 2 Inhalers in the evening. Indication s: Dr. Zavala [facility] trazodone HCl (TRAZODONE ORAL) 10-29 21:03: 31 Yes Take by mouth. [facility] trazodone HCl (TRAZODONE ORAL) 10-29 16:03: 31 Yes Take by mouth. [facility] albuterol 90 mcg/actuati on inhaler 10-17 00:00: 00 Yes [id number] 2{puff} Inhale 2 Puffs every 6 (six) hours as needed for Wheezing or Shortness of Breath. [facility] azithromyci n 250 mg tablet 10-17 00:00: 00 Yes [id number] 250mg Take 1 tablet by mouth daily. Take 500 mg day 1, then 250 mg days 2 to 5. [facility] benzonatate (TESSALON PERLES) 100 mg capsule 10-17 00:00: 00 Yes [id number] 100mg Take 1 capsule by mouth 3 (three) times daily as needed for Cough. [facility] methylPREDN ISolone (MEDROL, ARIANA,) 4 mg tablets 15 00:00: 00 Yes [id number] Take by mouth SEE-INSTRU CTIONS. follow package directions [facility] Vital Signs Vital Name Observation Time Observation Value Comments [facility] Systolic blood pressure 2023-01-01 19:00:00 112 mm[Hg] manual [facility] Diastolic blood pressure 2023-01-01 19:00:00 70 mm[Hg] manual [facility] Heart rate 2023-01-01 19:00:00 109 /min [facility] Respiratory rate 2023-01-01 19:00:00 24 /min [facility] Body weight 2023-01-01 19:00:00 35.925 kg [facility] BMI 2023-01-01 19:00:00 11.36 kg/m2 [facility] Oxygen saturation in Arterial blood by Pulse oximetry 2023-01-01 19:00:00 98 /min arrived wearing pulsed NC 1l/m; 6MW completed on 1-2l/m con't NC [facility] Systolic blood pressure 2022-12-17 18:00:00 128 mm[Hg] manual [facility] Diastolic blood pressure 2022-12-17 18:00:00 68 mm[Hg] manual [facility] Heart rate 2022-12-17 18:00:00 101 /min [facility] Respiratory rate 2022-12-17 18:00:00 22 /min [facility] Body weight 2022-12-17 18:00:00 35.925 kg [facility] BMI 2022-12-17 18:00:00 11.36 kg/m2 [facility] Oxygen saturation in Arterial blood by Pulse oximetry 2022-12-17 18:00:00 93 /min arrived on 1 l/m pulsed NC; exercised on 1- 2 l/m con't NC [facility] Systolic blood pressure 2022-12-15 18:00:00 122 mm[Hg] manual [facility] Diastolic blood pressure 2022-12-15 18:00:00 74 mm[Hg] manual [facility] Heart rate 2022-12-15 18:00:00 94 /min [facility] Respiratory rate 2022-12-15 18:00:00 22 /min [facility] Body weight 2022-12-15 18:00:00 35.653 kg [facility] BMI 2022-12-15 18:00:00 11.28 kg/m2 [facility] Oxygen saturation in Arterial blood by Pulse oximetry 2022-12-15 18:00:00 94 /min arrived on 1 l/m pulsed NC; exercised on 1 l/m con't NC [facility] Systolic blood pressure 2022-12-10 18:00:00 126 mm[Hg] manual [facility] Diastolic blood pressure 2022-12-10 18:00:00 72 mm[Hg] manual [facility] Heart rate 2022-12-10 18:00:00 132 /min [facility] Respiratory rate 2022-12-10 18:00:00 22 /min [facility] Body weight 2022-12-10 18:00:00 35.925 kg [facility] BMI 2022-12-10 18:00:00 11.36 kg/m2 [facility] Oxygen saturation in Arterial blood by Pulse oximetry 2022-12-10 18:00:00 95 /min arrived on 1 l/m pulsed NC; exercised on 1 l/m con't NC [facility] Systolic blood pressure 2022-12-08 18:00:00 110 mm[Hg] manual, taken twice, hard to hear today [facility] Diastolic blood pressure 2022-12-08 18:00:00 70 mm[Hg] manual, taken twice, hard to hear today [facility] Heart rate 2022-12-08 18:00:00 100 /min [facility] Respiratory rate 2022-12-08 18:00:00 22 /min [facility] Body weight 2022-12-08 18:00:00 35.381 kg [facility] BMI 2022-12-08 18:00:00 11.19 kg/m2 [facility] Oxygen saturation in Arterial blood by Pulse oximetry 2022-12-08 18:00:00 97 /min arrived on 1 l/m pulsed NC; exercised on 1-2 l/m con't NC [facility] Systolic blood pressure 2022-12-03 18:00:00 130 mm[Hg] manual; taken twice due to higher than normal systolic reading [facility] Diastolic blood pressure 2022-12-03 18:00:00 70 mm[Hg] manual; taken twice due to higher than normal systolic reading [facility] Heart rate 2022-12-03 18:00:00 110 /min [facility] Respiratory rate 2022-12-03 18:00:00 24 /min [facility] Body weight 2022-12-03 18:00:00 35.834 kg [facility] BMI 2022-12-03 18:00:00 11.34 kg/m2 [facility] Oxygen saturation in Arterial blood by Pulse oximetry 2022-12-03 18:00:00 88 /min arrived on 1 l/m pulsed NC; exercised on 1-2 l/m con't NC [facility] Systolic blood pressure 2022-12-01 18:00:00 118 mm[Hg] manual [facility] Diastolic blood pressure 2022-12-01 18:00:00 70 mm[Hg] manual [facility] Heart rate 2022-12-01 18:00:00 104 /min [facility] Respiratory rate 2022-12-01 18:00:00 22 /min [facility] Body weight 2022-12-01 18:00:00 35.834 kg [facility] BMI 2022-12-01 18:00:00 11.34 kg/m2 [facility] Oxygen saturation in Arterial blood by Pulse oximetry 2022-12-01 18:00:00 95 /min arrived wearing 1 l/m pulsed NC; exercised on 1 l/m con't NC [facility] Systolic blood pressure 2022-11-26 18:00:00 130 mm[Hg] [facility] Diastolic blood pressure 2022-11-26 18:00:00 60 mm[Hg] [facility] Heart rate 2022-11-26 18:00:00 91 /min [facility] Body weight 2022-11-26 18:00:00 35.925 kg [facility] BMI 2022-11-26 18:00:00 11.36 kg/m2 [facility] Oxygen saturation in Arterial blood by Pulse oximetry 2022-11-26 18:00:00 93 /min [facility] Systolic blood pressure 2022-11-24 18:00:00 130 mm[Hg] [facility] Diastolic blood pressure 2022-11-24 18:00:00 70 mm[Hg] [facility] Heart rate 2022-11-24 18:00:00 117 /min [facility] Body weight 2022-11-24 18:00:00 35.925 kg [facility] BMI 2022-11-24 18:00:00 11.36 kg/m2 [facility] Oxygen saturation in Arterial blood by Pulse oximetry 2022-11-24 18:00:00 91 /min [facility] Systolic blood pressure 2022-11-19 18:00:00 112 mm[Hg] manual [facility] Diastolic blood pressure 2022-11-19 18:00:00 54 mm[Hg] manual [facility] Heart rate 2022-11-19 18:00:00 80 /min [facility] Respiratory rate 2022-11-19 18:00:00 24 /min [facility] Body weight 2022-11-19 18:00:00 36.016 kg [facility] BMI 2022-11-19 18:00:00 11.39 kg/m2 [facility] Oxygen saturation in Arterial blood by Pulse oximetry 2022-11-19 18:00:00 94 /min arrived on 1 l/m pulsed NC; exercised on 1 l/m con't NC [facility] Systolic blood pressure 2022-11-12 18:00:00 126 mm[Hg] manual [facility] Diastolic blood pressure 2022-11-12 18:00:00 76 mm[Hg] manual [facility] Heart rate 2022-11-12 18:00:00 105 /min [facility] Respiratory rate 2022-11-12 18:00:00 22 /min [facility] Body weight 2022-11-12 18:00:00 36.651 kg [facility] BMI 2022-11-12 18:00:00 11.59 kg/m2 [facility] Oxygen saturation in Arterial blood by Pulse oximetry 2022-11-12 18:00:00 93 /min arrived on 1 l/m pulsed NC; exercised on 1 l/m con't NC [facility] Systolic blood pressure 2022-11-10 18:00:00 130 mm[Hg] manual [facility] Diastolic blood pressure 2022-11-10 18:00:00 76 mm[Hg] manual [facility] Heart rate 2022-11-10 18:00:00 98 /min [facility] Respiratory rate 2022-11-10 18:00:00 22 /min [facility] Body weight 2022-11-10 18:00:00 36.56 kg [facility] BMI 2022-11-10 18:00:00 11.56 kg/m2 [facility] Oxygen saturation in Arterial blood by Pulse oximetry 2022-11-10 18:00:00 95 /min arrived on 1 l/m pulsed NC; exercised on 1 l/m con't NC [facility] Heart rate 2022-11-05 18:00:00 99 /min [facility] Respiratory rate 2022-11-05 18:00:00 22 /min [facility] Body weight 2022-11-05 18:00:00 36.469 kg [facility] BMI 2022-11-05 18:00:00 11.54 kg/m2 [facility] Oxygen saturation in Arterial blood by Pulse oximetry 2022-11-05 18:00:00 95 /min arrived on 1 l/m pulsed NC; exercised on 1 l/m con't NC [facility] Systolic blood pressure 2022-11-03 18:00:00 136 mm[Hg] [facility] Diastolic blood pressure 2022-11-03 18:00:00 60 mm[Hg] [facility] Heart rate 2022-11-03 18:00:00 93 /min [facility] Body weight 2022-11-03 18:00:00 36.469 kg [facility] BMI 2022-11-03 18:00:00 11.54 kg/m2 [facility] Oxygen saturation in Arterial blood by Pulse oximetry 2022-11-03 18:00:00 96 /min [facility] Systolic blood pressure 2022-10-29 18:00:00 126 mm[Hg] [facility] Diastolic blood pressure 2022-10-29 18:00:00 64 mm[Hg] [facility] Heart rate 2022-10-29 18:00:00 89 /min [facility] Body weight 2022-10-29 18:00:00 36.469 kg [facility] BMI 2022-10-29 18:00:00 11.54 kg/m2 [facility] Oxygen saturation in Arterial blood by Pulse oximetry 2022-10-29 18:00:00 98 /min [facility] Systolic blood pressure 2022-10-27 20:00:00 132 mm[Hg] manual [facility] Diastolic blood pressure 2022-10-27 20:00:00 66 mm[Hg] manual [facility] Heart rate 2022-10-27 20:00:00 75 /min [facility] Respiratory rate 2022-10-27 20:00:00 22 /min [facility] Body weight 2022-10-27 20:00:00 37.195 kg [facility] BMI 2022-10-27 20:00:00 11.77 kg/m2 [facility] Oxygen saturation in Arterial blood by Pulse oximetry 2022-10-27 20:00:00 96 /min arrived on 4 l/m pulsed NC (decrease once sit down); exercised on 1 l/m con't NC [facility] Systolic blood pressure 2022-10-21 18:00:00 126 mm[Hg] manual; right arm 124/68 manual [facility] Diastolic blood pressure 2022-10-21 18:00:00 68 mm[Hg] manual; right arm 124/68 manual [facility] Heart rate 2022-10-21 18:00:00 90 /min [facility] Respiratory rate 2022-10-21 18:00:00 22 /min [facility] Body weight 2022-10-21 18:00:00 37.104 kg [facility] BMI 2022-10-21 18:00:00 11.74 kg/m2 [facility] Oxygen saturation in Arterial blood by Pulse oximetry 2022-10-21 18:00:00 98 /min arrived on 4 l/m pulsed NC; 6MW on 1 l/m con't NC [facility] Systolic blood pressure 2019-10-30 21:05:00 145 mm[Hg] [facility] Diastolic blood pressure 2019-10-30 21:05:00 89 mm[Hg] [facility] Oxygen saturation in Arterial blood by Pulse oximetry 2019-10-30 21:05:00 96 /min [facility] Heart rate 2019-10-30 21:02:00 92 /min [facility] Body temperature 2019-10-30 21:02:00 37 Juliet [facility] Respiratory rate 2019-10-30 21:02:00 18 /min [facility] Body height 2019-10-30 21:02:00 177.8 cm [facility] Body weight 2019-10-30 21:02:00 40.824 kg [facility] BMI 2019-10-30 21:02:00 12.91 kg/m2 [facility] Systolic blood pressure 2019-10-18 16:47:00 125 mm[Hg] [facility] Diastolic blood pressure 2019-10-18 16:47:00 83 mm[Hg] [facility] Heart rate 2019-10-18 16:47:00 58 /min [facility] Body temperature 2019-10-18 16:47:00 37.33 Juliet [facility] Respiratory rate 2019-10-18 16:47:00 16 /min [facility] Body height 2019-10-18 16:47:00 177.8 cm [facility] Body weight 2019-10-18 16:47:00 41.731 kg [facility] BMI 2019-10-18 16:47:00 13.20 kg/m2 [facility] Oxygen saturation in Arterial blood by Pulse oximetry 2019-10-18 16:47:00 98 /min [facility] Procedures Procedure Date / Time Performed Performing Clinician Source AUTHORIZATION FOR RELEASE OF PHI 2023-01-12 05:01:00 Doctor Unassigned, [place] [facility] PULMONARY REHAB ITP REPORT 2023-01-02 01:46:00 Doctor Unassigned, [place] [facility] PULMONARY REHAB SESSION REPORT 2022-12-10 05:00:00 Doctor Unassigned, [place] [facility] PULMONARY REHAB SESSION REPORT 2022-12-01 05:00:00 Doctor Unassigned, [place] [facility] PULMONARY REHAB SESSION REPORT 2022-11-19 05:00:00 Doctor Unassigned, [place] [facility] PULMONARY REHAB SESSION REPORT 2022-11-05 05:00:00 Doctor Unassigned, [place] [facility] PULMONARY REHAB SESSION REPORT 2022-10-27 05:00:00 Doctor Unassigned, [place] [facility] REFERRAL- REQUEST/RESPONSE 2022-10-14 05:01:00 Doctor Unassigned, [place] [facility] Encounters Start Date/Time End Date/Time Encounter Type Admission Type Attending [facility] Care Department Encounter ID Source 2024-02-17 13:11:00 [facility] [id number] [facility] 2024-02-11 14:35:00 Outpatient Noemi Gabriel [facility] [id number] [facility] 2023-01-12 00:00:00 2023-01-12 00:00:00 Letter (Out) Elo Faulkner [facility] 1..840.114 350.1.13.10 4.2.7.2.686 [id number] [facility] 2023-01-12 00:00:00 2023-01-12 00:00:00 Orders Only Doctor Unassigned, [place] [facility] 1.840.114 350.1.13.10 4.2.7.2.686 [id number] [id number] [facility] 2023-01-01 14:00:00 2023-01-01 17:18:31 Outpatient ELIEZER GONG [facility] [id number] [facility] 2023-01-01 14:00:00 2023-01-01 17:18:31 Ancillary Visit Therapist, Eliezer Valente [facility] 1.2.840.114 350.1.13.10 4.2.7.2.686 [id number] [facility] 2023-01-01 00:00:00 2023-01-01 00:00:00 Orders Only Doctor Unassigned, [place] [facility] 1.2.840.114 350.1.13.10 4.2.7.2.686 [id number] [facility] 2022-12-29 00:00:00 2022-12-29 00:00:00 Telephone Elo Faulkner [facility] 1.2.840.114 350.1.13.10 4.2.7.2.686 [id number] [facility] 2022-12-23 00:00:00 2022-12-23 00:00:00 Telephone Elo Faulkner [facility] 1.2.840.114 350.1.13.10 4.2.7.2.686 [id number] [facility] 2022-12-17 13:00:00 2022-12-17 15:09:45 Ancillary Visit Therapist, Eliezer Valente [facility] 1.2.840.114 350.1.13.10 4.2.7.2.686 [id number] [facility] 2022-12-15 13:00:00 2022-12-15 14:53:44 Ancillary Visit Therapist, Eliezer Valente [facility] 1.2.840.114 350.1.13.10 4.2.7.2.686 [id number] [facility] 2022-12-10 13:00:00 2022-12-10 14:59:37 Ancillary Visit Therapist, Ana HairEliezer [facility] 1.284.114 350.1.13.10 4.2.7.2.686 [id number] [facility] 2022-12-10 00:00:00 2022-12-10 00:00:00 Orders Only Doctor Unassigned, [place] [facility] 1.2.114 350.1.13.10 4.2.7.2.686 [id number] [facility] 2022-12-08 13:00:00 2022-12-08 15:30:48 Ancillary Visit Therapist, Eliezer Valente Cheri [facility] 1.114 350.1.13.10 4.2.7.2.686 [id number] [facility] 2022-12-03 13:00:00 2022-12-03 14:52:54 Ancillary Visit Therapist, Ana Hair Eliezer Alonzo [facility] 1.114 350.1.13.10 4.2.7.2.686 [id number] [facility] 2022-12-01 13:00:00 2022-12-01 14:46:02 Outpatient ELIEZER GONG [facility] [id number] [facility] 2022-12-01 13:00:00 2022-12-01 14:46:02 Ancillary Visit Therapist, Ana Hair Eliezer Alonzo [facility] 1.2114 350.1.13.10 4.2.7.2.686 [id number] [facility] 2022-12-01 00:00:00 2022-12-01 00:00:00 Orders Only Doctor Unassigned, [place] [facility] 1.2.114 350.1.13.10 4.2.7.2.686 [id number] [facility] 2022-11-26 13:00:00 2022-11-26 15:21:07 Ancillary Visit Therapist, Ana HairEliezer [facility] 1.2.840.114 350.1.13.10 4.2.7.2.686 [id number] [facility] 2022-11-24 13:00:00 2022-11-24 14:43:53 Ancillary Visit Therapist, Ana HairEliezer [facility] 1.2840.114 350.1.13.10 4.2.7.2.686 [id number] [facility] 2022-11-19 13:00:00 2022-11-19 14:34:22 Ancillary Visit Therapist, Ana HairEliezer [facility] 1.2840.114 350.1.13.10 4.2.7.2.686 [id number] [facility] 2022-11-19 00:00:00 2022-11-19 00:00:00 Orders Only Doctor Unassigned, [place] [facility] 1.2840.114 350.1.13.10 4.2.7.2.686 [id number] [facility] 2022-11-17 00:00:00 2022-11-17 00:00:00 Telephone Elo Faulkner [facility] 1.2840.114 350.1.13.10 4.2.7.2.686 [id number] [facility] 2022-11-12 13:00:00 2022-11-12 14:28:39 Ancillary Visit Therapist, Ana HairEliezer [facility] 1.2.840.114 350.1.13.10 4.2.7.2.686 [id number] [facility] 2022-11-10 13:00:00 2022-11-10 14:29:40 Ancillary Visit Therapist, Eliezer Valente [facility] 1.2.840.114 350.1.13.10 4.2.7.2.686 [id number] [facility] 2022-11-05 13:00:00 2022-11-05 16:26:42 Ancillary Visit Therapist, Eliezer Valente [facility] 1.2.840.114 350.1.13.10 4.2.7.2.686 [id number] [facility] 2022-11-05 00:00:00 2022-11-05 00:00:00 Orders Only Doctor Unassigned, [place] [facility] 1.2.840.114 350.1.13.10 4.2.7.2.686 [id number] [facility] 2022-11-03 13:00:00 2022-11-03 14:47:14 Ancillary Visit Therapist, Eliezer Valente [facility] 1.2.840.114 350.1.13.10 4.2.7.2.686 [id number] [facility] 2022-10-29 13:00:00 2022-10-29 15:40:03 Ancillary Visit Therapist, Eliezer Valente [facility] 1.2.840.114 350.1.13.10 4.2.7.2.686 [id number] [facility] 2022-10-29 13:00:00 2022-10-29 15:40:03 Outpatient ELIEZER GONG [facility] [id number] [facility] 2022-10-27 15:00:00 2022-10-27 16:58:47 Ancillary Visit Therapist, Ana Pulmonary Eliezer Hair [facility] 1.2.840.114 350.1.13.10 4.2.7.2.686 [id number] [facility] 2022-10-27 00:00:00 2022-10-27 00:00:00 Orders Only Doctor Unassigned, [place] [facility] 1.2.840.114 350.1.13.10 4.2.7.2.686 [id number] [facility] 2022-10-26 00:00:00 2022-10-26 00:00:00 Telephone Elo Faulkner [facility] 1.2840.114 350.1.13.10 4.2.7.2.686 [id number] [facility] 2022-10-21 13:00:00 2022-10-21 15:46:49 Ancillary Visit Therapist, Ana Pulmonary Eliezer Hair [facility] 1.2.840.114 350.1.13.10 4.2.7.2.686 [id number] [facility] 2022-10-15 00:00:00 2022-10-15 00:00:00 Telephone Elo Faulkner [facility] [id number] [facility] 2022-10-14 00:00:00 2022-10-14 00:00:00 Orders Only Doctor Unassigned, [place] [facility] [id number] [id number] [id number] [facility] 2019-10-30 15:52:39 2019-10-30 16:27:25 Urgent Care Pob1, Acute Care Clinic Verito Rosariothia [facility] [address] 1..114 [id number] [facility] 2019-10-30 16:00:00 2019-10-30 16:00:00 Outpatient R SISI ROSARIO [facility] [id number] [facility] 2019-10-30 00:00:00 2019-10-30 00:00:00 Nurse Triage Pcp, Patient Does Not Have A [facility] 1.0.114 [id number] [id number] [facility] 2019-10-30 00:00:00 2019-10-30 00:00:00 Telephone Taniya Ragland [facility] 1..114 [id number] [id number] [facility] 2019-10-18 11:22:01 2019-10-18 12:39:44 Urgent Care Pob1, Acute Care Clinic Syl Del Valle [facility] [address] 1.114 [id number] [facility] 2019-10-18 11:20:00 2019-10-18 11:20:00 Outpatient R SYL DEL VALLE [facility] [id number] [facility] 2019-10-18 00:00:00 2019-10-18 00:00:00 Telephone Yolanda Harrell [facility] 1.2.114 [id number] [id number] [id number] [facility]
[2024-02-18] MEDS: Budesonide/Glycopyr/Formoterol [Breztri Aerosphere Inhaler] 10.7 GM Hfa IH SCH (21:00)
[2024-02-19 08:23] LABS: Absolute Lymphocytes (CBC) 0.4 K/uL (0.7-4.9); Absolute Monocytes 0.7 K/uL (0.1-1.3); Absolute Neutrophil 5.4 K/uL (1.8-8.0); Basophils % 0.1 % (0-1.3); Hematocrit 32.5 % (36.0-45.0); Hemoglobin 10.2 g/dL (12.0-15.0); Lymphocytes % 5.6 % (15.3-44.8); MCH 29.6 pg (27.0-35.0); MCHC 31.4 g/dL (32.0-36.0); MCV 94.1 fL (80-100); MPV 7.4 fL (7.6-11.3); Monocytes % 10.6 % (3.3-12.3); Neutrophils % 83.7 % (41.7-73.7); Platelets 299 thou/uL (152-406); RBC Red Blood Cell Count 3.45 M/uL (3.86-4.86)
[2024-02-19 08:45] LABS: Albumin 2.4 g/dL (3.4-5.0); Albumin/Globulin Ratio 0.8 (1.1-1.8); Bilirubin Total 0.3 mg/dL (0.2-1.0); Magnesium 1.8 mg/dL (1.6-2.4); Phosphorus 2.8 mg/dL (2.5-4.9); Protein, Total 5.4 g/dL (6.4-8.2)
--- NOTE | 2024-02-19 09:58 | P.PN ---
Subjective Date of Service: 02/19/24 Chief Complaint: COPD exacerbation, Covid, Subjective: Improving (No change in patient's condition still has some shortness of breath) Review of Systems General: Weakness Respiratory: Shortness of Breath Physical Examination - Vital Signs Temperature: 97.2 F Blood Pressure: 125/59 Pulse: 66 Respirations: 12 Pulse Ox (%): 100 - Physical Exam General: Alert, Oriented x3 Respiratory: Clear to auscultation bilaterally, Normal air movement Cardiovascular: No edema, Regular rate/rhythm - Studies Microbiology Data (last 24 hrs): 02/17/24 13:20 Throat Group A Streptococcus Rapid Screen - Final 02/17/24 13:20 Throat Culture & Sensitivity - Final NORMAL UPPER RESPIRATORY MALLORY GROWN. 02/17/24 13:52 Blood - Blood Gram Stain - Final Assessment And Plan - Current Problems (Diagnosis) (1) COPD exacerbation Current Visit: Yes Status: Acute Plan: Patient is 63 years of age admitted with COPD exacerbation patient's condition is stable count is now normal refused arterial blood gases bicarbonate is declined with IV fluid and Lasix only use Diamox once a day to p.o. prednisone discharge on low-dose prednisone 10 mg twice a day for a week patient to levofloxacin for a week to 50 mg
[2024-02-19] MEDS: POTASSIUM 25 MEQ EFFERV TAB PO ONE ×2 (10:07→15:19)
[2024-02-19] MEDS: MAGNESIUM SULFATE 1 gm IVPB 1 GM/100 ML BAG IV ONE (10:07)
--- NOTE | 2024-02-19 13:55 | P.PN ---
Subjective Date of Service: 02/19/24 Chief Complaint: COPD exacerbation, Covid, Pt is resting comfortably in bed. She is waiting for PT eval. Pulm is following. No other complaints. Review of Systems General: Unremarkable Eyes: Unremarkable ENT: Unremarkable Respiratory: Unremarkable Cardiovascular: Unremarkable Gastrointestinal: Unremarkable Genitourinary: Unremarkable Musculoskeletal: Unremarkable Integumentary: Unremarkable Neurological: Unremarkable Lymphatics: Unremarkable Physical Examination - Vital Signs Temperature: 97.0 F Blood Pressure: 108/67 Pulse: 110 Respirations: 16 Pulse Ox (%): 95 - Physical Exam General: Alert, In no apparent distress, Oriented x3 HEENT: Atraumatic, Normocephalic, PERRLA Neck: Supple, 2+ carotid pulse no bruit, JVD not distended Respiratory: Clear to auscultation bilaterally, Normal air movement Cardiovascular: No edema, Normal pulses, Regular rate/rhythm, Normal S1 S2 Capillary refill: <2 Seconds Gastrointestinal: Normal bowel sounds, Soft and benign, Non-distended Musculoskeletal: No clubbing, No swelling, No contractures Integumentary: No rashes, No breakdown, No significant lesion Neurological: Normal gait, Normal speech, Normal strength at 5/5 x4 extr, Normal tone, Sensation intact Lymphatics: No axilla or inguinal lymphadenopathy - Studies Microbiology Data (last 24 hrs): 02/17/24 13:20 Throat Group A Streptococcus Rapid Screen - Final 02/17/24 13:20 Throat Culture & Sensitivity - Final NORMAL UPPER RESPIRATORY MALLORY GROWN. 02/17/24 13:52 Blood - Blood Gram Stain - Final Assessment And Plan - Plan Acute COPD exacerbation: Will continue steroid, abx, duoneb and oxygen. Consulted Pulm. COVID: Will continue enhanced resp precaution, steroid, vitamin C, Vitamin D and zinc sulfate. Acute resp failure with hypoxia: Likely due to COPD and COVID. Will f/u CAT chest to r/o PE. Iron def anemia: Hgb is 10.2. Will continu iron infusion and monitor H/H. Hypokalemia: K is 3.0. Will replete KCL. Hx of CHF: Will continue strict I/O and daily meds. Severe malnutrition: Pt has not been eating due to painful gums. She lost some teeth. Will continue pureed diet. Deconditioning: Consulted PT. DVT ppx: SCD Code: full Dispo: Pending hospital course
[2024-02-19] MEDS: POTASSIUM CL SA 10 MEQ TAB PO SCH (14:00)
[2024-02-19] MEDS: predniSONE 20 MG TAB PO SCH (20:42)
[2024-02-20 07:25] LABS: Absolute Lymphocytes (CBC) 0.3 K/uL (0.7-4.9); Absolute Monocytes 0.4 K/uL (0.1-1.3); Absolute Neutrophil 4.7 K/uL (1.8-8.0); Basophils % 0.1 % (0-1.3); Hematocrit 31.6 % (36.0-45.0); Hemoglobin 9.8 g/dL (12.0-15.0); Lymphocytes % 5.9 % (15.3-44.8); MCH 29.1 pg (27.0-35.0); MCHC 30.9 g/dL (32.0-36.0); MCV 94.3 fL (80-100); MPV 7.4 fL (7.6-11.3); Monocytes % 7.1 % (3.3-12.3); Neutrophils % 86.9 % (41.7-73.7); Platelets 299 thou/uL (152-406); RBC Red Blood Cell Count 3.36 M/uL (3.86-4.86); Red Cell Distribution Width 15.8 % (12.1-15.2)
[2024-02-20 07:56] LABS: ALT/SGPT 16 U/L (13-56); AST/SGOT 14 U/L (15-37); Albumin 2.4 g/dL (3.4-5.0); Albumin/Globulin Ratio 0.9 (1.1-1.8); Alkaline Phosphatase 46 U/L (45-117); Anion Gap 0.5 mEq/L (5.0-15.0); BUN Blood Urea Nitrogen 14 mg/dL (7-18); Bilirubin Total 0.3 mg/dL (0.2-1.0); Globulin 2.7 g/dL (2.3-3.5); Glomerular Filtration Rate 120 ml/min (=/>90); Glucose Level 165 mg/dL (74-106); Magnesium 1.9 mg/dL (1.6-2.4); Phosphorus 2.3 mg/dL (2.5-4.9); Potassium 4.5 mEq/L (3.5-5.1); Protein, Total 5.1 g/dL (6.4-8.2); Sodium Level 142 mEq/L (136-145)
[2024-02-20 07:59] LABS: Bicarbonate > 45 mEq/L (21-32)
--- NOTE | 2024-02-20 08:14 | P.PN ---
Subjective Date of Service: 02/20/24 Chief Complaint: COPD exacerbation, Covid, Pt is resting comfortably in bed. Pt denies any fever, body ache, diarrhea or nausea. She is waiting for PT eval. Pulm is following. No other complaints. Review of Systems General: Unremarkable Eyes: Unremarkable ENT: Unremarkable Respiratory: SOB with Excertion Cardiovascular: Unremarkable Gastrointestinal: Unremarkable Genitourinary: Unremarkable Musculoskeletal: Unremarkable Integumentary: Unremarkable Neurological: Unremarkable Lymphatics: Unremarkable Physical Examination - Vital Signs Temperature: 97.4 F Blood Pressure: 107/57 Pulse: 112 Respirations: 18 Pulse Ox (%): 94 - Physical Exam General: Alert, In no apparent distress, Oriented x3 HEENT: Atraumatic, Normocephalic Neck: Supple, 2+ carotid pulse no bruit Respiratory: Clear to auscultation bilaterally, Normal air movement Cardiovascular: No edema, Normal pulses, Regular rate/rhythm, Normal S1 S2 Capillary refill: <2 Seconds Gastrointestinal: Normal bowel sounds, Soft and benign, Non-distended Musculoskeletal: No clubbing, No swelling, No contractures Integumentary: No rashes, No breakdown, No significant lesion Neurological: Normal gait, Normal speech, Normal strength at 5/5 x4 extr Lymphatics: No axilla or inguinal lymphadenopathy - Studies Microbiology Data (last 24 hrs): 02/17/24 13:52 Blood - Blood Anaerobic Blood Culture - Final 02/17/24 13:52 Blood - Blood Gram Stain - Final 02/17/24 13:20 Throat Group A Streptococcus Rapid Screen - Final 02/17/24 13:20 Throat Culture & Sensitivity - Final NORMAL UPPER RESPIRATORY MALLORY GROWN. Assessment And Plan - Plan Acute COPD exacerbation: Will continue steroid, abx, duoneb and oxygen. Consulted Pulm. COVID: Will continue enhanced resp precaution, steroid, vitamin C, Vitamin D and zinc sulfate. Acute resp failure with hypoxia: Likely due to COPD and COVID. Will f/u CAT chest to r/o PE. Iron def anemia: Hgb is 9.8 <- 10.2. Will continu iron infusion and monitor H/H. Hypokalemia: K is 3.0. Will replete KCL. Hx of CHF: Will continue strict I/O and daily meds. Severe malnutrition: Pt has not been eating due to painful gums. She lost some teeth. Will continue pureed diet. Deconditioning: Consulted PT. DVT ppx: SCD Code: full Dispo: Pending hospital course
[2024-02-20] MEDS: SOD FERRIC GLUC COMPLX/SUCROSE 125 MG in NA CHLORIDE 0.9% 100 ML IV SCH (09:47)
[2024-02-20 19:54] VITALS: O2SAT 98
--- NOTE | 2024-02-21 12:15 | P.PN ---
Subjective Date of Service: 02/21/24 Chief Complaint: COPD exacerbation, Covid, Pt is resting comfortably in bed. Pt denies any fever, body ache, diarrhea or nausea. She is waiting for PT eval. Pulm is following. No other complaints. Review of Systems General: Unremarkable Eyes: Unremarkable ENT: Unremarkable Respiratory: Unremarkable Cardiovascular: Unremarkable Gastrointestinal: Unremarkable Genitourinary: Unremarkable Musculoskeletal: Other (hip pain due to fracture.) Integumentary: Unremarkable Neurological: Unremarkable Lymphatics: Unremarkable Physical Examination - Vital Signs Temperature: 96.0 F Blood Pressure: 139/84 Pulse: 79 Respirations: 16 Pulse Ox (%): 91 - Physical Exam General: Alert, In no apparent distress, Oriented x3 HEENT: Atraumatic, Normocephalic, PERRLA Neck: Supple, 2+ carotid pulse no bruit, JVD not distended Respiratory: Clear to auscultation bilaterally, Normal air movement Cardiovascular: No edema, Normal pulses, Regular rate/rhythm, Normal S1 S2 Capillary refill: <2 Seconds Gastrointestinal: Normal bowel sounds, Soft and benign, Non-distended Musculoskeletal: No clubbing, No swelling, No contractures Integumentary: No rashes, No breakdown, No significant lesion Neurological: Normal gait, Normal speech, Normal strength at 5/5 x4 extr Lymphatics: No axilla or inguinal lymphadenopathy Assessment And Plan - Plan Acute COPD exacerbation: Will continue steroid, abx, duoneb and oxygen. Consulted Pulm. COVID: Will continue enhanced resp precaution, steroid, vitamin C, Vitamin D and zinc sulfate. Acute resp failure with hypoxia: Likely due to COPD and COVID. Will f/u CAT chest to r/o PE. Iron def anemia: Hgb is 9.8 <- 10.2. Will continu iron infusion and monitor H/H. Hypokalemia:resolved. K is 4.5 <- 3.0. Will monitor K level. Hx of CHF: Will continue strict I/O and daily meds. Severe malnutrition: Pt has not been eating due to painful gums. She lost some teeth. Will continue pureed diet. Deconditioning: Consulted PT/OT. DVT ppx: SCD Code: full Dispo: Pending hospital course
--- NOTE | 2024-02-21 15:07 | P.DS ---
Admission Date: 02/17/24 Discharge Date: 02/21/24 Disposition: DC HOME/HOME HEALTH CARE Discharge Condition: GOOD Reason for Admission: COPD exacerbation, Covid, Brief History of Present Illness: Ms. Ring is a 63-year-old with a past medical history of COPD, CHF, and recent left hip fracture. She presents to the ED today today with chief complaint of shortness of breath for the last 2 to 3 days. Associated with a mild cough, shortness of breath, and low oxygen saturation. She denies any chest pain, fever, abdominal pain, syncope, nausea, vomiting, diarrhea, focal neurological deficit, or known sick contacts. EMS reports pulse oxygenation on room air in the 80s. She will be admitted for treatment of COPD exacerbation, CHF, and COVID positive status. Will consider CT to rule out PE as patient recently had a hip fracture and now has COVID. CT negative for PE. Labs significant for a white count of 13.5 with 94% neutrophils, mildly dehydrated with a sodium of 133 and a chloride of 87 blood glucose 188. Creatinine 0.64 with a GFR of 99, and a proBNP of 2947. Blood cultures are pending. Emergency room EKG showed sinus tachycardia with PACs and a prolonged QT C of 538 Hospital Course: Pt is a 63yo female with past medical history of COPD, CHF, and recent left hip fracture who presented with shortness of breath for 2 - 3 days. The SOB was associated with mild cough and hypoxia. On admission, CTA chest was negative for PE. Lab studies showed positive COVID. We admitted pt for acute resp failure due to COVID and COPD. We continued enhanced resp precaution, steroid, vitamin C, Vitamin D and zinc sulfate. We gave breathing treatment, steroid and abx for COPD exacerbation. Pt received iron infusion for iron def anemia. We repleted potassium and consulted [employer] Success [employer] for severe malnutrition. Physical therapist evaluated pt and cleared her for discharge with home health. Pt was in NAD prior to discharge. Vital Signs/Physical Exam: Temp Pulse Resp BP Pulse Ox 96.0 F L 79 16 139/84 91 02/21/24 12:17 02/21/24 12:17 02/21/24 12:17 02/21/24 12:17 02/21/24 12:17 Laboratory Data at Discharge: WBC 5.40 thou/uL (4.3-10.9) 02/20/24 06:37 Hgb 9.8 g/dL (12.0-15.0) L 02/20/24 06:37 Hct 31.6 % (36.0-45.0) L 02/20/24 06:37 Plt Count 299 thou/uL (152-406) 02/20/24 06:37 PT 14.8 SECONDS (9.4-12.5) H 02/18/24 05:55 INR 1.33 02/18/24 05:55 Sodium 142 mEq/L (136-145) 02/20/24 06:37 Potassium 4.5 mEq/L (3.5-5.1) D 02/20/24 06:37 BUN 14 mg/dL (7-18) 02/20/24 06:37 Creatinine 0.28 mg/dL (0.55-1.02) L 02/20/24 06:37 Glucose 165 mg/dL (74-106) H 02/20/24 06:37 Phosphorus 2.3 mg/dL (2.5-4.9) L 02/20/24 06:37 Magnesium 1.9 mg/dL (1.6-2.4) 02/20/24 06:37 Total Bilirubin 0.3 mg/dL (0.2-1.0) 02/20/24 06:37 AST 14 U/L (15-37) L 02/20/24 06:37 ALT 16 U/L (13-56) 02/20/24 06:37 Alkaline Phosphatase 46 U/L (45-117) 02/20/24 06:37 Triglycerides 105 mg/dL (<150) 02/18/24 05:55 Cholesterol 153 mg/dL (<200) 02/18/24 05:55 HDL Cholesterol 74 mg/dL (40-60) H 02/18/24 05:55 Cholesterol/HDL Ratio 2.07 02/18/24 05:55 Home Medications: Albuterol Inhaler [Ventolin Inhaler*] 2 puff IH Q6H PRN 30 Days #1 hfa.aer.ad 07/25/20 acetaZOLAMIDE [Diamox*] 250 mg PO DAILY 30 Days #30 tab 07/25/20 Budesonide/Glycopyr/Formoterol [Breztri Aerosphere Inhaler] 1 puff IH BID 09/15/23 predniSONE [Deltasone*] 10 mg PO DAILY 09/16/23 Acetaminophen [Tylenol Extra Strength] 500 mg PO Q4H PRN 09/28/23 Ferrous Sulfate [Ferrous Sulfate*] 325 mg PO DAILY #30 tab 10/06/23 Iron/FA/Vit B-Com W/C [Hemocyte Plus*] 1 tab PO DAILY WITH BREAKFAST #30 tab 10/06/23 Ondansetron [Zofran (Odt)*] 4 mg PO Q6H PRN #30 tab 10/06/23 Apixaban [Eliquis *] 2.5 mg PO BID 02/17/24 Ascorbic Acid 500 mg PO BID 02/17/24 Hydrocodone 5/APAP 325 [[place] 5/325*] 1 tab PO Q6H PRN 02/17/24 LIDOCAINE 4% Topical Solution [Xylocaine 4% Topical Solution*] 40 mg MM BID 02/17/24 Polyethylene Glycol 3350 [Miralax] 17 gm PO DAILYPRN PRN 02/17/24 Trazodone [Desyrel*] 50 mg PO BEDTIME 02/17/24 methocarbamoL [Methocarbamol] 500 mg PO Q4HP PRN 02/18/24 Cholecalciferol (Vitamin D3) [Vitamin D 1000 Iu Tab*] 1,000 unit PO DAILY 7 Days #7 tab 02/21/24 levoFLOXacin [Levaquin*] 250 mg PO DAILY 5 Days #5 tab 02/21/24 predniSONE [Deltasone*] 10 mg PO BID 7 Days #14 tab 02/21/24 New Medications: predniSONE [Deltasone*] 10 mg PO BID 7 Days #14 tab levoFLOXacin [Levaquin*] 250 mg PO DAILY 5 Days #5 tab Cholecalciferol (Vitamin D3) [Vitamin D 1000 Iu Tab*] 1,000 unit PO DAILY 7 Days #7 tab Physician Discharge Instructions: Continue home health. Take home meds as prescribed. Follow up with PCP within 2 - 3 weeks. Home Health: [facility] P:[phone] F:[phone] Diet: AHA Activity: Ad zulma Followup: Noemi Gabriel MD [Primary Care Provider] -
[2024-02-21 16:49] VITALS: BP 149/86; TEMP 98.1
--- NOTE | 2024-02-22 18:04 | EKG ---
Test Date: 2024-02-17 Test Time: 12:54:22 [employer]: [facility] MEASUREMENT RESULTS: Intervals: Rate: 122 PA: 164 QRSD: 80 QT: 336 QTc: 478 [place]: P: 58 PA: 164 QRS: 100 T: 161 INTERPRETIVE STATEMENTS: Sinus tachycardia with premature atrial complexes Left ventricular hypertrophy with repolarization abnormality Lateral infarct, age undetermined Abnormal ECG Compared to ECG 10/10/2023 12:38:32 Atrial premature complex(es) now present Left ventricular hypertrophy now present Early repolarization now present Myocardial infarct finding still present Electronically Signed On 02-22-24 17:52:39 CDT by Justen Mccain
== END 2024-02-21 16:50 | disposition home health service (06) | DRG 177 ==
LOC: ER 12:26 → ERHOLD 15:41 → 4TH 16:20
PROVIDERS: ADMIT Hospitalist; ATTEND Hospitalist
DX: U07.1 COVID-19 (principal); E43 Unspecified severe protein-calorie malnutrition; J96.01 Acute respiratory failure with hypoxia; R64 Cachexia; J44.1 Chronic obstructive pulmonary disease with (acute) exacerbation; I50.32 Chronic diastolic (congestive) heart failure; Z68.1 Body mass index [BMI] 19.9 or less, adult; I27.20 Pulmonary hypertension, unspecified; D50.9 Iron deficiency anemia, unspecified; E87.6 Hypokalemia
CPT/HCPCS: 36415; 71045; 71275; 80048; 80053; 80061; 80076; 82728; 83540; 83605; 83735; 83880; 84100; 84443; 84466; 84484; 85025; 85610; 87040; 87070; 87081; 87205; 87804; 87811; 93005; 94640; 94660; 94760; 96365; 96366; 96375; 97161; 97165; 99285; J0696; J1100; J2916; J2919; J3475; J7030; J7050; J7512; J7605; J7613; J7644; Q9967

== ENCOUNTER 2024-06-10 05:51 | Emergency (ER) | payer OTHER ==
--- OUTSIDE RECORDS SUMMARY | 2024-06-10 05:54 | XMS REPORT | Continuity of Care Document ---
Author Name Unknown Address [address] [facility] [address] [place] [address] [facility] Address [address] [facility] [address] [place] [address] Care Team Providers [employer] Development Analyst Name Role Phone Jame Solares MD Primary Care Physician + [phone] Noemi Gabriel Attending Clinician Unavail able Elo Castro Attending Clinician Unavailab le Doctor Unassigned, [place] Attending Clinician U ELIEZER Monae Attending Clinician Unavaila ble Therapist, [facility] Attending Clinician Cathryn Eliezer Pearson MD Attending Clinician [facility] Attending Clinician Sisi Fisher Attending Clinician [phone] SISI ROSARIO Attending Clinician Unavailable Pcp, Patient Does Not Have A Attending Clinician Taniya Ragland RN Attending Clinician Syl Stapleton Attending Clinician [phone] SYL DEL VALLE Attending Clinician Unavailable Yolanda Harrell RN Attending Clinician Unavailable Payers Payer Name Policy Type Policy Number Effective Date Expirati on Date Source Problems Condition Name Condition Details Condition Category Status Onset Date Resolution Date Last Treatment Date Treating Clinician Comments Source Chronic bronchitis , unspecifie d chronic bronchitis type Chronic bronchitis , unspecifie d chronic bronchitis type Disease Active 0 15 00:00: 00 [facility] Cough Cough Disease Active 0 15 00:00: 00 [facility] Tobacco abuse Tobacco abuse Disease Active 4-15 00:00: 00 [facility] Allergies, Adverse Reactions, Alerts Allergy Name Allergy Type Status Severity Reaction(s) Onset Date Inactive Date Treating Clinician Comments Source Antihist imine Propensi ty to adverse reaction s Active Anxiety 0 4-15 00:00: 00 [facility] Codeine Propensi ty to adverse reaction s Active Anxiety 4-15 00:00: 00 [facility] ANTIHIST IMINE DRUG Active High Anxiety 4-15 00:00: 00 [facility] CODEINE DRUG INGREDI Active High Anxiety 4-15 00:00: 00 [facility] NO KNOWN ALLERGIE S Drug Class Active [facility] Social History Social Habit Start Date Stop Date Quantity Comments Source Gender identity [facility] of [facility] use Passive smoker [facility] Exposure to SARS-CoV-2 (event) 2022-11-21 00:00:00 2022-12-01 13:12:00 Not sure [facility] Cigarettes smoked current (pack per day) - Reported 2022-10-21 00:00:00 2022-10-21 00:00:00 [facility] Cigarette pack-years 2022-10-21 00:00:00 2022-10-21 00:00:00 [facility] Alcohol intake 2022-10-21 00:00:00 2022-10-21 00:00:00 Ex-drinker (finding) [facility] History of Social function 2022-10-21 00:00:00 2022-10-21 00:00:00 [facility] Tobacco use and exposure 2022-10-21 00:00:00 2022-10-21 00:00:00 Smokeless tobacco non-user [facility] Alcoholic beverage intake 2022-10-21 00:00:00 2022-10-21 00:00:00 Ex-drinker (finding) [facility] Sex assigned at 1960 00:00:00 1960 00:00:00 [facility] Smoking Status Start Date Stop Date Source Smokes tobacco daily 2022-10-21 00:00:00 [facility] Medications Ordered Medication Name Filled Medication Name Start Date Stop Date Current Medication? Ordering Clinician Indication Dosage Frequency Signature (SIG) Comments Components Source trazodone HCl (TRAZODONE ORAL) 10-21 14:15: 09 Yes 1{tbl} Take 1 tablet by mouth every morning and at bedtime. Indication s: only takes HS [facility] acetaZOLAMI DE 250 mg tablet 10-21 14:15: 09 Yes 250mg Take 1 tablet by mouth in the morning. Indication s: Dr. Zavala [facility] predniSONE 10 mg tablet 10-21 14:15: 09 Yes 10mg Take 1 tablet by mouth in the morning. Indication s: Dr Zavala [facility] aspirin 81 mg EC tablet 10-21 14:15: 09 Yes 81mg Take 1 tablet by mouth in the morning. [facility] budesonide- glycopyr-fo rmoterol (BREZTRI AEROSPHERE) 160-9-4.8 mcg/actuati on HFAA 10-21 14:15: 09 Yes 2{inhal er} Inhale 2 Inhalers in the morning and 2 Inhalers in the evening. Indication s: Dr. Zavala [facility] trazodone HCl (TRAZODONE ORAL) 10-29 21:03: 31 Yes Take by mouth. [facility] trazodone HCl (TRAZODONE ORAL) 10-29 16:03: 31 Yes Take by mouth. [facility] albuterol 90 mcg/actuati on inhaler 10-17 00:00: 00 Yes [id number] 2{puff} Inhale 2 Puffs every 6 (six) hours as needed for Wheezing or Shortness of Breath. [facility] azithromyci n 250 mg tablet 10-17 00:00: 00 Yes [id number] 250mg Take 1 tablet by mouth daily. Take 500 mg day 1, then 250 mg days 2 to 5. [facility] benzonatate (TESSALON PERLES) 100 mg capsule 10-17 00:00: 00 Yes [id number] 100mg Take 1 capsule by mouth 3 (three) times daily as needed for Cough. [facility] methylPREDN ISolone (MEDROL, ARIANA,) 4 mg tablets 10-17 00:00: 00 Yes [id number] Take by mouth SEE-INSTRU CTIONS. follow package directions [facility] Vital Signs Vital Name Observation Time Observation Value Comments S ource Systolic blood pressure 2023-01-01 19:00:00 112 mm[Hg] manual [facility] Diastolic blood pressure 2023-01-01 19:00:00 70 mm[Hg] manual [facility] Heart rate 2023-01-01 19:00:00 109 /min [facility] Respiratory rate 2023-01-01 19:00:00 24 /min [facility] Body weight 2023-01-01 19:00:00 35.925 kg [facility] BMI 2023-01-01 19:00:00 11.36 kg/m2 [facility] Oxygen saturation in Arterial blood by Pulse oximetry 2023-01-01 19:00:00 98 /min arrived wearing pulsed NC 1l/m; 6MW completed on 1-2l/m con't NC [facility] Systolic blood pressure 2022-12-17 18:00:00 128 mm[Hg] manual [facility] Diastolic blood pressure 2022-12-17 18:00:00 68 mm[Hg] manual [facility] Heart rate 2022-12-17 18:00:00 101 /min [facility] Respiratory rate 2022-12-17 18:00:00 22 /min [facility] Body weight 2022-12-17 18:00:00 35.925 kg [facility] BMI 2022-12-17 18:00:00 11.36 kg/m2 [facility] Oxygen saturation in Arterial blood by Pulse oximetry 2022-12-17 18:00:00 93 /min arrived on 1 l/m pulsed NC; exercised on 1- 2 l/m con't NC [facility] Systolic blood pressure 2022-12-15 18:00:00 122 mm[Hg] manual [facility] Diastolic blood pressure 2022-12-15 18:00:00 74 mm[Hg] manual [facility] Heart rate 2022-12-15 18:00:00 94 /min [facility] Respiratory rate 2022-12-15 18:00:00 22 /min [facility] Body weight 2022-12-15 18:00:00 35.653 kg [facility] BMI 2022-12-15 18:00:00 11.28 kg/m2 [facility] Oxygen saturation in Arterial blood by Pulse oximetry 2022-12-15 18:00:00 94 /min arrived on 1 l/m pulsed NC; exercised on 1 l/m con't NC [facility] Systolic blood pressure 2022-12-10 18:00:00 126 mm[Hg] manual [facility] Diastolic blood pressure 2022-12-10 18:00:00 72 mm[Hg] manual [facility] Heart rate 2022-12-10 18:00:00 132 /min [facility] Respiratory rate 2022-12-10 18:00:00 22 /min [facility] Body weight 2022-12-10 18:00:00 35.925 kg [facility] BMI 2022-12-10 18:00:00 11.36 kg/m2 [facility] Oxygen saturation in Arterial blood by Pulse oximetry 2022-12-10 18:00:00 95 /min arrived on 1 l/m pulsed NC; exercised on 1 l/m con't NC [facility] Systolic blood pressure 2022-12-08 18:00:00 110 mm[Hg] manual, taken twice, hard to hear today [facility] Diastolic blood pressure 2022-12-08 18:00:00 70 mm[Hg] manual, taken twice, hard to hear today [facility] Heart rate 2022-12-08 18:00:00 100 /min [facility] Respiratory rate 2022-12-08 18:00:00 22 /min [facility] Body weight 2022-12-08 18:00:00 35.381 kg [facility] BMI 2022-12-08 18:00:00 11.19 kg/m2 [facility] Oxygen saturation in Arterial blood by Pulse oximetry 2022-12-08 18:00:00 97 /min arrived on 1 l/m pulsed NC; exercised on 1-2 l/m con't NC [facility] Systolic blood pressure 2022-12-03 18:00:00 130 mm[Hg] manual; taken twice due to higher than normal systolic reading [facility] Diastolic blood pressure 2022-12-03 18:00:00 70 mm[Hg] manual; taken twice due to higher than normal systolic reading [facility] Heart rate 2022-12-03 18:00:00 110 /min [facility] Respiratory rate 2022-12-03 18:00:00 24 /min [facility] Body weight 2022-12-03 18:00:00 35.834 kg [facility] BMI 2022-12-03 18:00:00 11.34 kg/m2 [facility] Oxygen saturation in Arterial blood by Pulse oximetry 2022-12-03 18:00:00 88 /min arrived on 1 l/m pulsed NC; exercised on 1-2 l/m con't NC [facility] Systolic blood pressure 2022-12-01 18:00:00 118 mm[Hg] manual [facility] Diastolic blood pressure 2022-12-01 18:00:00 70 mm[Hg] manual [facility] Heart rate 2022-12-01 18:00:00 104 /min [facility] Respiratory rate 2022-12-01 18:00:00 22 /min [facility] Body weight 2022-12-01 18:00:00 35.834 kg [facility] BMI 2022-12-01 18:00:00 11.34 kg/m2 [facility] Oxygen saturation in Arterial blood by Pulse oximetry 2022-12-01 18:00:00 95 /min arrived wearing 1 l/m pulsed NC; exercised on 1 l/m con't NC [facility] Systolic blood pressure 2022-11-26 18:00:00 130 mm[Hg] [facility] Diastolic blood pressure 2022-11-26 18:00:00 60 mm[Hg] [facility] Heart rate 2022-11-26 18:00:00 91 /min [facility] Body weight 2022-11-26 18:00:00 35.925 kg [facility] BMI 2022-11-26 18:00:00 11.36 kg/m2 [facility] Oxygen saturation in Arterial blood by Pulse oximetry 2022-11-26 18:00:00 93 /min [facility] Systolic blood pressure 2022-11-24 18:00:00 130 mm[Hg] [facility] Diastolic blood pressure 2022-11-24 18:00:00 70 mm[Hg] [facility] Heart rate 2022-11-24 18:00:00 117 /min [facility] Body weight 2022-11-24 18:00:00 35.925 kg [facility] BMI 2022-11-24 18:00:00 11.36 kg/m2 [facility] Oxygen saturation in Arterial blood by Pulse oximetry 2022-11-24 18:00:00 91 /min [facility] Systolic blood pressure 2022-11-19 18:00:00 112 mm[Hg] manual [facility] Diastolic blood pressure 2022-11-19 18:00:00 54 mm[Hg] manual [facility] Heart rate 2022-11-19 18:00:00 80 /min [facility] Respiratory rate 2022-11-19 18:00:00 24 /min [facility] Body weight 2022-11-19 18:00:00 36.016 kg [facility] BMI 2022-11-19 18:00:00 11.39 kg/m2 [facility] Oxygen saturation in Arterial blood by Pulse oximetry 2022-11-19 18:00:00 94 /min arrived on 1 l/m pulsed NC; exercised on 1 l/m con't NC [facility] Systolic blood pressure 2022-11-12 18:00:00 126 mm[Hg] manual [facility] Diastolic blood pressure 2022-11-12 18:00:00 76 mm[Hg] manual [facility] Heart rate 2022-11-12 18:00:00 105 /min [facility] Respiratory rate 2022-11-12 18:00:00 22 /min [facility] Body weight 2022-11-12 18:00:00 36.651 kg [facility] BMI 2022-11-12 18:00:00 11.59 kg/m2 [facility] Oxygen saturation in Arterial blood by Pulse oximetry 2022-11-12 18:00:00 93 /min arrived on 1 l/m pulsed NC; exercised on 1 l/m con't NC [facility] Systolic blood pressure 2022-11-10 18:00:00 130 mm[Hg] manual [facility] Diastolic blood pressure 2022-11-10 18:00:00 76 mm[Hg] manual [facility] Heart rate 2022-11-10 18:00:00 98 /min [facility] Respiratory rate 2022-11-10 18:00:00 22 /min [facility] Body weight 2022-11-10 18:00:00 36.56 kg [facility] BMI 2022-11-10 18:00:00 11.56 kg/m2 [facility] Oxygen saturation in Arterial blood by Pulse oximetry 2022-11-10 18:00:00 95 /min arrived on 1 l/m pulsed NC; exercised on 1 l/m con't NC [facility] Heart rate 2022-11-05 18:00:00 99 /min [facility] Respiratory rate 2022-11-05 18:00:00 22 /min [facility] Body weight 2022-11-05 18:00:00 36.469 kg [facility] BMI 2022-11-05 18:00:00 11.54 kg/m2 [facility] Oxygen saturation in Arterial blood by Pulse oximetry 2022-11-05 18:00:00 95 /min arrived on 1 l/m pulsed NC; exercised on 1 l/m con't NC [facility] Systolic blood pressure 2022-11-03 18:00:00 136 mm[Hg] [facility] Diastolic blood pressure 2022-11-03 18:00:00 60 mm[Hg] [facility] Heart rate 2022-11-03 18:00:00 93 /min [facility] Body weight 2022-11-03 18:00:00 36.469 kg [facility] BMI 2022-11-03 18:00:00 11.54 kg/m2 [facility] Oxygen saturation in Arterial blood by Pulse oximetry 2022-11-03 18:00:00 96 /min [facility] Systolic blood pressure 2022-10-29 18:00:00 126 mm[Hg] [facility] Diastolic blood pressure 2022-10-29 18:00:00 64 mm[Hg] [facility] Heart rate 2022-10-29 18:00:00 89 /min [facility] Body weight 2022-10-29 18:00:00 36.469 kg [facility] BMI 2022-10-29 18:00:00 11.54 kg/m2 [facility] Oxygen saturation in Arterial blood by Pulse oximetry 2022-10-29 18:00:00 98 /min [facility] Systolic blood pressure 2022-10-27 20:00:00 132 mm[Hg] manual [facility] Diastolic blood pressure 2022-10-27 20:00:00 66 mm[Hg] manual [facility] Heart rate 2022-10-27 20:00:00 75 /min [facility] Respiratory rate 2022-10-27 20:00:00 22 /min [facility] Body weight 2022-10-27 20:00:00 37.195 kg [facility] BMI 2022-10-27 20:00:00 11.77 kg/m2 [facility] Oxygen saturation in Arterial blood by Pulse oximetry 2022-10-27 20:00:00 96 /min arrived on 4 l/m pulsed NC (decrease once sit down); exercised on 1 l/m con't NC [facility] Systolic blood pressure 2022-10-21 18:00:00 126 mm[Hg] manual; right arm 124/68 manual [facility] Diastolic blood pressure 2022-10-21 18:00:00 68 mm[Hg] manual; right arm 124/68 manual [facility] Heart rate 2022-10-21 18:00:00 90 /min [facility] Respiratory rate 2022-10-21 18:00:00 22 /min [facility] Body weight 2022-10-21 18:00:00 37.104 kg [facility] BMI 2022-10-21 18:00:00 11.74 kg/m2 [facility] Oxygen saturation in Arterial blood by Pulse oximetry 2022-10-21 18:00:00 98 /min arrived on 4 l/m pulsed NC; 6MW on 1 l/m con't NC [facility] Systolic blood pressure 2019-10-30 21:05:00 145 mm[Hg] [facility] Diastolic blood pressure 2019-10-30 21:05:00 89 mm[Hg] [facility] Oxygen saturation in Arterial blood by Pulse oximetry 2019-10-30 21:05:00 96 /min [facility] Heart rate 2019-10-30 21:02:00 92 /min [facility] Body temperature 2019-10-30 21:02:00 37 Juliet [facility] Respiratory rate 2019-10-30 21:02:00 18 /min [facility] Body height 2019-10-30 21:02:00 177.8 cm [facility] Body weight 2019-10-30 21:02:00 40.824 kg [facility] BMI 2019-10-30 21:02:00 12.91 kg/m2 [facility] Systolic blood pressure 2019-10-18 16:47:00 125 mm[Hg] [facility] Diastolic blood pressure 2019-10-18 16:47:00 83 mm[Hg] [facility] Heart rate 2019-10-18 16:47:00 58 /min [facility] Body temperature 2019-10-18 16:47:00 37.33 Juliet [facility] Respiratory rate 2019-10-18 16:47:00 16 /min [facility] Body height 2019-10-18 16:47:00 177.8 cm [facility] Body weight 2019-10-18 16:47:00 41.731 kg [facility] BMI 2019-10-18 16:47:00 13.20 kg/m2 [facility] Oxygen saturation in Arterial blood by Pulse oximetry 2019-10-18 16:47:00 98 /min [facility] Procedures Procedure Date / Time Performed Performing Clinician Source AUTHORIZATION FOR RELEASE OF PHI 2023-01-12 05:01:00 Doctor Unassigned, [place] [facility] PULMONARY REHAB ITP REPORT 2023-01-02 01:46:00 Doctor Unassigned, [place] [facility] PULMONARY REHAB SESSION REPORT 2022-12-10 05:00:00 Doctor Unassigned, [place] [facility] PULMONARY REHAB SESSION REPORT 2022-12-01 05:00:00 Doctor Unassigned, [place] [facility] PULMONARY REHAB SESSION REPORT 2022-11-19 05:00:00 Doctor Unassigned, [place] [facility] PULMONARY REHAB SESSION REPORT 2022-11-05 05:00:00 Doctor Unassigned, [place] [facility] PULMONARY REHAB SESSION REPORT 2022-10-27 05:00:00 Doctor Unassigned, [place] [facility] REFERRAL- REQUEST/RESPONSE 2022-10-14 05:01:00 Doctor Unassigned, [place] [facility] Encounters Start Date/Time End Date/Time Encounter Type Admission Type Attending [facility] Facility Care Department Encounter ID Source 2024-02-17 13:11:00 Outpatient Noemi Gabriel [facility] [id number] 2024-02-11 14:35:00 Outpatient Noemi Gabriel [facility] [id number] 2024-02-10 00:00:00 2024-03-01 10:57:08 Letter (Out) Noemi Gabriel [facility] 1..840.114 350.1.13.10 4.2.7.2.686 [id number] [facility] 2023-01-12 00:00:00 2023-01-12 00:00:00 Letter (Out) Elo Faulkner [facility] 1..840.114 350.1.13.10 4.2.7.2.686 [id number] [facility] 2023-01-12 00:00:00 2023-01-12 00:00:00 Orders Only Doctor Unassigned, [place] [facility] 1.2.840.114 350.1.13.10 4.2.7.2.686 [id number] [facility] 2023-01-01 14:00:00 2023-01-01 17:18:31 Outpatient ELIEZER [facility]ONG [facility] [id number] [facility] 2023-01-01 14:00:00 2023-01-01 17:18:31 Ancillary Visit Therapist, Ana Pulmonary Eliezer Hair [facility] 1.2840.114 350.1.13.10 4.2.7.2.686 [id number] [facility] 2023-01-01 00:00:00 2023-01-01 00:00:00 Orders Only Doctor Unassigned, [place] [facility] 1.2.840.114 350.1.13.10 4.2.7.2.686 [id number] [facility] 2022-12-29 00:00:00 2022-12-29 00:00:00 Telephone Elo Faulkner [facility] 1.2840.114 350.1.13.10 4.2.7.2.686 [id number] [facility] 2022-12-23 00:00:00 2022-12-23 00:00:00 Telephone Elo Faulkner [facility] 1.2840.114 350.1.13.10 4.2.7.2.686 [id number] [facility] 2022-12-17 13:00:00 2022-12-17 15:09:45 Ancillary Visit Therapist, Eliezer Valente [facility] 1.2840.114 350.1.13.10 4.2.7.2.686 [id number] [facility] 2022-12-15 13:00:00 2022-12-15 14:53:44 Ancillary Visit Therapist, Ana HairEliezer [facility] 1.2.840.114 350.1.13.10 4.2.7.2.686 [id number] 296 [id number] [facility] 2022-12-10 13:00:00 2022-12-10 14:59:37 Ancillary Visit Therapist, Ana HairEliezer [facility] 1.2840.114 350.1.13.10 4.2.7.2.686 [id number] 296 [id number] [facility] 2022-12-10 00:00:00 2022-12-10 00:00:00 Orders Only Doctor Unassigned, [place] [facility] 1.2.840.114 350.1.13.10 4.2.7.2.686 [id number] [facility] 2022-12-08 13:00:00 2022-12-08 15:30:48 Ancillary Visit Therapist, Ana HairEliezer [facility] 1.2840.114 350.1.13.10 4.2.7.2.686 [id number] [facility] 2022-12-03 13:00:00 2022-12-03 14:52:54 Ancillary Visit Therapist, Ana HairEliezer [facility] 1.2840.114 350.1.13.10 4.2.7.2.686 [id number] [facility] 2022-12-01 13:00:00 2022-12-01 14:46:02 Outpatient ELIEZER GONG [facility] [id number] [facility] 2022-12-01 13:00:00 2022-12-01 14:46:02 Ancillary Visit Therapist, Ana Pulmonary HairEliezer kruse [facility] 1.2.840.114 350.1.13.10 4.2.7.2.686 [id number] [facility] 2022-12-01 00:00:00 2022-12-01 00:00:00 Orders Only Doctor Unassigned, [place] [facility] 1.2.840.114 350.1.13.10 4.2.7.2.686 [id number] [id number] [facility] 2022-11-26 13:00:00 2022-11-26 15:21:07 Ancillary Visit Therapist, Ana HairEliezer [facility] 1.2.840.114 350.1.13.10 4.2.7.2.686 [id number] [facility] 2022-11-24 13:00:00 2022-11-24 14:43:53 Ancillary Visit Therapist, Ana HairEliezer [facility] 1.2.840.114 350.1.13.10 4.2.7.2.686 [id number] [facility] 2022-11-19 13:00:00 2022-11-19 14:34:22 Ancillary Visit Therapist, Ana HairEliezer [facility] 1.2.840.114 350.1.13.10 4.2.7.2.686 [id number] [facility] 2022-11-19 00:00:00 2022-11-19 00:00:00 Orders Only Doctor Unassigned, [place] [facility] 1.2.840.114 350.1.13.10 4.2.7.2.686 [id number] [facility] 2022-11-17 00:00:00 2022-11-17 00:00:00 Telephone FaulknerElo arriola [facility] 1.2.840.114 350.1.13.10 4.2.7.2.686 [id number] 296 [id number] [facility] 2022-11-12 13:00:00 2022-11-12 14:28:39 Ancillary Visit Therapist, Ana Pulmonary Reginaldo Eliezer Alonzo [facility] 1.2.840.114 350.1.13.10 4.2.7.2.686 [id number] 296 [id number] [facility] 2022-11-10 13:00:00 2022-11-10 14:29:40 Ancillary Visit Therapist, Eliezer Valente Cheri [facility] 1.2.840.114 350.1.13.10 4.2.7.2.686 [id number] [facility] 2022-11-05 13:00:00 2022-11-05 16:26:42 Ancillary Visit Therapist, Ana Hair Eliezer Alonzo [facility] 1.2.840.114 350.1.13.10 4.2.7.2.686 [id number] [facility] 2022-11-05 00:00:00 2022-11-05 00:00:00 Orders Only Doctor Unassigned, [place] [facility] 1.2.840.114 350.1.13.10 4.2.7.2.686 [id number] [facility] 2022-11-03 13:00:00 2022-11-03 14:47:14 Ancillary Visit Therapist, Ana Hair Eliezer Alonzo [facility] 1.2.840.114 350.1.13.10 4.2.7.2.686 [id number] [facility] 2022-10-29 13:00:00 2022-10-29 15:40:03 Ancillary Visit Therapist, Ana Pulmonary Eliezer Hair [facility] 1.840.114 350.1.13.10 4.2.7.2.686 [id number] [facility] 2022-10-29 13:00:00 2022-10-29 15:40:03 Outpatient ELIEZER GONG [facility] [id number] [facility] 2022-10-27 15:00:00 2022-10-27 16:58:47 Ancillary Visit Therapist, Ana Pulmonary Eliezer Hair [facility] 1.840.114 350.1.13.10 4.2.7.2.686 [id number] [facility] 2022-10-27 00:00:00 2022-10-27 00:00:00 Orders Only Doctor Unassigned, [place] [facility] 1.840.114 350.1.13.10 4.2.7.2.686 [id number] [facility] 2022-10-26 00:00:00 2022-10-26 00:00:00 Telephone Elo Faulkner [facility] 1.840.114 350.1.13.10 4.2.7.2.686 [id number] [facility] 2022-10-21 13:00:00 2022-10-21 15:46:49 Ancillary Visit Therapist, Eliezer Valente [facility] 1.840.114 350.1.13.10 4.2.7.2.686 [id number] [facility] 2022-10-15 00:00:00 2022-10-15 00:00:00 Telephone Elo Faulkner [facility] 1.0.114 350.1.13.10 4.2.7.2.686 [id number] [facility] 2022-10-14 00:00:00 2022-10-14 00:00:00 Orders Only Doctor Unassigned, [place] [facility] 1.2840.114 350.1.13.10 4.2.7.2.686 [id number] [facility] 2019-10-30 15:52:39 2019-10-30 16:27:25 Urgent Care Pob1, Acute Care Clinic Verito Rosariothia [facility] 1.114 350.1.13.10 4.2.7.2.686 [id number] [facility] 2019-10-30 16:00:00 2019-10-30 16:00:00 Outpatient R BIRD [facility] [id number] [facility] 2019-10-30 00:00:00 2019-10-30 00:00:00 Nurse Triage Pcp, Patient Does Not Have A [facility] 1..114 350.1.13.10 4.2.7.2.686 [id number] [facility] 2019-10-30 00:00:00 2019-10-30 00:00:00 Telephone Taniya Ragland [facility] 1..114 350.1.13.10 4.2.7.2.686 [id number] [facility] 2019-10-18 11:22:01 2019-10-18 12:39:44 Urgent Care Pob1, Acute Care Clinic Syl Del Valle [facility] 1..114 350.1.13.10 4.2.7.2.686 [id number] [facility] 2019-10-18 11:20:00 2019-10-18 11:20:00 Outpatient SYL HENDERSON [facility] [id number] [facility] 2019-10-18 00:00:00 2019-10-18 00:00:00 Telephone Yolanda Harrell [facility] 1.2.840.114 350.1.13.10 4.2.7.2.686 [id number] [facility]
[2024-06-10] MEDS ORDERED: NA CHLORIDE 0.9% 1,000 ML ONE ×2 (06:01→06:14)
[2024-06-10] MEDS ORDERED: VANCOMYCIN 1 GM/VIAL ONE (06:12)
[2024-06-10] MEDS ORDERED: NA CHLORIDE 0.9% 100 ML ONE (06:13)
[2024-06-10] MEDS ORDERED: ACETAMINOPHEN 650MG/RECT SUPP PR ONE (06:13)
[2024-06-10] MEDS ORDERED: NA CHLORIDE 0.9% 250 ML ONE (06:13)
[2024-06-10] MEDS ORDERED: PIPERACIL/TAZO 3.375 GM VIAL IV ONE (06:13)
[2024-06-10] MEDS ORDERED: ALBUMIN HUMAN 25% 100 ML IV ONE (06:13)
[2024-06-10 06:33] LABS: Absolute Lymphocytes (CBC) 0.8 K/uL (0.7-4.9); Absolute Monocytes 1.1 K/uL (0.1-1.3); Absolute Neutrophil 9.6 K/uL (1.8-8.0); Basophils % 0.2 % (0-1.3); Hematocrit 38.3 % (36.0-45.0); Hemoglobin 11.9 g/dL (12.0-15.0); Lymphocytes % 6.7 % (15.3-44.8); MCH 31.5 pg (27.0-35.0); MCV 101.5 fL (80-100); MPV 7.6 fL (7.6-11.3); Monocytes % 9.8 % (3.3-12.3); Neutrophils % 83.3 % (41.7-73.7); Nucleated Red Blood Cells % 0.1 % (0-0); Platelets 334 thou/uL (152-406); RBC Red Blood Cell Count 3.77 M/uL (3.86-4.86); Red Cell Distribution Width 13.8 % (12.1-15.2)
[2024-06-10 06:44] LABS: PT Prothrombin Time 11.1 SECONDS (9.4-12.5); PTT, Activated Partial Thromb 31.1 SECONDS (24.3-36.9); Protime INR 0.99
[2024-06-10 06:54] LABS: Albumin 3.1 g/dL (3.4-5.0); Albumin/Globulin Ratio 0.9 (1.1-1.8); Anion Gap 8.8 mEq/L (5.0-15.0); Bilirubin Total 0.4 mg/dL (0.2-1.0); Globulin 3.4 g/dL (2.3-3.5); Potassium 3.8 mEq/L (3.5-5.1); Protein, Total 6.5 g/dL (6.4-8.2); Thyroid Stimulating Hormone 0.889 uIU/mL (0.358-3.740)
[2024-06-10] MEDS ORDERED: METHYLPREDNISOLONE 125 MG INJ ONE (07:13)
[2024-06-10] MEDS ORDERED: IPRATROPIUM BROM 0.5MG/2.5ML ONE (07:13)
[2024-06-10] MEDS ORDERED: ALBUTEROL 2.5 MG/3 ML NEB SOL ONE (07:13)
[2024-06-10] MEDS ORDERED: LEVALBUTEROL 1.25 MG/3 ML NEB ONE ×2 (07:25→13:31)
[2024-06-10 07:30] LABS: Arterial Blood Carboxyhemoglob 2.6 % (0-1.5); Blood Gas Oxyhemoglobin 74.2 % (94-97); Blood O2 Saturation 91.5 % (92-98.5)
[2024-06-10 07:31] LABS: Blood Gas THB 11.7 g/dl (12-18)
[2024-06-10] MEDS ORDERED: AMIODARONE HCL 150 MG/3 ML INJ IV ONE (07:58)
[2024-06-10] MEDS ORDERED: MAGNESIUM SULFATE 1 gm IVPB 1 GM/100 ML BAG IV ONE (07:58)
[2024-06-10] MEDS ORDERED: D5W 100 ML IV ONE (07:59)
[2024-06-10 08:35] LABS: C-Reactive Protein 18.6 mg/L (<3.00)
[2024-06-10 08:36] LABS: Troponin High Sensitivity 149.1 pg/mL (<58.9)
--- NOTE | 2024-06-10 08:55 | RAD REPORT ---
EXAMINATION: CT HEAD WITHOUT CONTRAST CLINICAL INDICATION: Female, 63 years old.CONFUSED TECHNIQUE: Axial CT images from the skull base to the vertex without intravenous contrast. Coronal an d sagittal reformatted images were created from the data set. One or more of the following dose reduction techniques were used: Automated exposure control, adjustment of the mA and/or kV according to patient size, and/or iterative reconstruction. Unless otherwise specified, incidental findings do not require dedicated imaging follow-up. [id number]. COMPARISON: No prior exam. FINDINGS: INTRACRANIAL: No acute intracranial hemorrhage. No hydrocephalus. No mass effect or midline shift. No significant white matter disease. VASCULATURE: No visualized abnormalities in the arteries or dural venous sinuses. SCALP/SKULL: No significant soft tissue or osseous abnormalities. SINUSES: The visualized paranasal sinuses and mastoid air cells are predominantly clear. IMPRESSION: No acute intracranial abnormality.
[2024-06-10] MEDS ORDERED: AMIODARONE HCL 900 MG in Dextrose 5%-Water 482 ML IV SCH (09:00)
[2024-06-10 09:22] LABS: SARS-CoV-2 Antigen CONTROL BLUE LINE VIS/BG OK; SARS-CoV-2 Antigen Rapid Res Negative (Negative)
--- NOTE | 2024-06-10 09:23 | RAD REPORT ---
EXAM: CT CHEST, ABDOMEN AND PELVIS WITHOUT CONTRAST CLINICAL INDICATION: Female, 63 years old CHEST PAIN TECHNIQUE: CT chest, abdomen and pelvis was performed, without IV contrast, as per department protoco l. Axial, sagittal and coronal reconstructions were obtained. One or more of the following dose reduction techniques were used: Automated exposure control, adjustment of the mA and/or kV according to the patient size, and/or iterative reconstruction. Unless otherwise specified, incidental findings do not require dedicated imaging follow-up. [id number]. COMPARISON: Chest CT 02/17/2024, CT pelvis 09/15/2023, CT abdomen/pelvis 11/19/2014 FINDINGS: The lack of intravenous contrast limits the sensitivity of this exam for evaluation of solid visceral organs, vascular structures, and retroperitoneum. Chest: LOWER NECK/CHEST WALL: Visualized thyroid gland and soft tissues are normal. LUNGS AND AIRWAYS: Consolidative airspace disease is present in the left lower lobe. Background emphy sema. Irregular nodular opacity in the left upper lobe measuring 8 x 7 mm on image 27, series 301 is nonspecific. Irregular nodule in the right middle lobe measuring 9 mm is present and which is decr eased from prior. PLEURA: No pleural effusion. No pneumothorax. Hemidiaphragms are normally positioned. MEDIASTINUM AND LYMPH NODES: No mediastinal mass or fluid collection. Normal size mediastinal, hilar, and axillary lymph nodes. THORACIC AORTA: Normal caliber and configuration. Mild atherosclerosis. PULMONARY ARTERIES: Normal caliber. HEART: Coronary calcifications. Cardiomegaly. Abdomen/Pelvis LIVER: No focal mass. GALLBLADDER/BILE DUCTS: Dense contents present within the gallbladder. Suspect gallbladder wall thick ening. PANCREAS: Possible mass at the pancreatic tail. SPLEEN: Normal size. No focal lesion. ADRENALS: Not well assessed without contrast. KIDNEYS AND URETERS: Nonobstructing stones in the right kidney. Too small to characterize low-density renal lesions which are likely benign. GASTROINTESTINAL TRACT: The bowel is not well assessed in the absence of IV contrast. Cannot exclude wall thickening at the ascending colon. Diverticulosis without evidence of acute diverticulitis. PERITONEUM: Nonspecific abdominal pelvic free fluid which is low in volume. LYMPH NODES: No lymphadenopathy. ABDOMINAL AORTA AND OTHER VESSELS: Normal caliber aorta and IVC. URINARY BLADDER: Normal contour. REPRODUCTIVE ORGANS: Allen catheter deployed within the vagina. MUSCULOSKELETAL: Remote pelvic fractures involving the obturator rings and left sacral wing.. Remote left-sided rib fractures. Multiple thoracic and lumbar compression fractures. The thoracic compression fractures are mostly chronic however there is a new compression fracture at T10 compared with prior. Mild superior endplate deformity at L3 consistent with an age-indeterminate compression fracture. ADDITIONAL FINDINGS: None IMPRESSION: 1. Consolidative airspace disease in the left lower lobe is concerning for pneumonia. New left upper lobe pulmonary nodule which is probably secondary to a benign etiology but recommend 3 month follow-up chest CT. 2. Allen catheter deployed within the vagina. Recommend removal/repositioning. Discussed with Dr. Rajiv boyle by phone at 0920 on 06/10/24. 3. Suboptimal evaluation of the intra-abdominal structures due to lack of IV contrast and intralumina l fat. Mild ascites is present which is nonspecific. There is questionable wall thickening at the ascending colon which is not well assessed. Could consider repeat CT with oral and IV contrast if the re is concern for a bowel abnormality. 4. Nonspecific gallbladder wall thickening with dense contents. Correlate with LFTs. Consider right u pper quadrant ultrasound there is concern for acute cholecystitis. 5. Mild compression fractures at T10 and L3 may be acute or subacute. The remaining thoracic compress ion fractures are chronic.
[2024-06-10 09:32] LABS: Specific Gravity 1.019 (1.005-1.030); Sqamous Epithelial <5 /HPF (None Seen); Urine Bacteria None Seen /HPF (<20); Urine Bilirubin NEGATIVE (Negative); Urine Blood Negative (Negative); Urine Clarity Extremely Turbid (Clear); Urine Color Yellow (Yellow); Urine Culture Reflex Order NOT NEEDED; Urine Glucose NEGATIVE (Negative); Urine Ketones NEGATIVE (Negative); Urine Microscopic Reflex YN ORDER UMIC; Urine Mucus Slight /HPF (None Seen); Urine Nitrite NEGATIVE (Negative); Urine Protein 2+ (Negative); Urine Urobilinogen Normal (Normal); Urine WBC <5 /HPF (<5); Urine pH 5.5 (5.0-7.0)
--- NOTE | 2024-06-10 09:40 | ER ---
Nurse's Notes [facility] Name: Valeria Ring Age: 63 yrs Sex: Female : 1960 Arrival Date: 06/10/2024 Time: 05:51 Bed 3 Private MD: Diagnosis: Respiratory acidosis;Pneumonia, unspecified organism;Persistent atrial fibrillation;Hypotension, unspecified Presentation: 06/10 05:54 Chief complaint: EMS states: A friend called 911 because she didn't seem like she was bm8 breathing well. she is altered from her normal per the friend. Coronavirus screen: At this time, the client does not indicate any symptoms associated with coronavirus-19. Ebola Screen: Patient negative for fever greater than or equal to 101.5 degrees Fahrenheit, and additional compatible Ebola Virus Disease symptoms Patient denies exposure to infectious person. Patient denies travel to an Ebola-affected area in the 21 days before illness onset. No symptoms or risks identified at this time. Initial Sepsis Screen: Does the patient meet any 2 criteria? Systolic BP < 90 mmHg. Mean Arterial Pressure (MAP) < 65. Altered Mental Status. HR > 90 bpm. Yes Does the patient have a suspected source of infection? No. Patient's initial sepsis screen is negative. Risk Assessment: Do you want to hurt yourself or someone else? Patient reports no desire to harm self or others. Onset of symptoms is unknown. 05:54 Method Of Arrival: EMS: [place] [id number] 05:54 Acuity: RADHA 2 bm8 Triage Assessment: 05:56 General: Appears in no apparent distress. slender, unkempt, emaciated, malnourished, bm8 cachectic, Behavior is flat, quiet. Pain: Denies pain. EENT: No deficits noted. No signs and/or symptoms were reported regarding the EENT system. Neuro: Level of Consciousness is lethargic, Oriented to person. Cardiovascular: Denies chest pain, Heart tones S1 S2 present Capillary refill is > 3 seconds is sluggish in bilateral fingers Patient's skin is warm and dry. Rhythm is sinus tachycardia. Respiratory: Airway is patent Trachea midline Respiratory effort is even, unlabored, Respiratory pattern is regular, symmetrical, Breath sounds are clear bilaterally. GI: No signs and/or symptoms were reported involving the gastrointestinal system. : No signs and/or symptoms were reported regarding the genitourinary system. Derm: Skin is fragile, is thin, with poor turgor Skin is dry, Skin is dusky, Skin temperature is warm. Musculoskeletal: No signs and/or symptoms reported regarding the musculoskeletal system. Historical: - Allergies: 05:56 Benadryl; bm8 05:56 Codeine; bm8 - Home Meds: 05:56 Unable to obtain [Active]; bm8 - PMHx: 05:56 broken hip left (CHF); CHF; insomnia; COPD; bm8 - PSHx: 05:56 Unable to Obtain; bm8 - Immunization history:: Adult Immunizations unknown. - Infectious Disease History:: Denies. - Social history:: Smoking status: unknown. - Family history:: not pertinent. Screenin:28 [facility] ED Fall Risk Assessment (Adult) History of falling in the last 3 months, bm8 including since admission Yes- fall prone (multiple falls) (3 pts) Confusion or Disorientation No (0 pts) Intoxicated or Sedated No (0 pts) Impaired Gait Yes (1 pt) Mobility Assist Device Used Yes (1 pt) Altered Elimination Yes (1 pt) Score/Fall Risk Level 3 or more points = High Risk Oriented to surroundings, Maintained a safe environment, Educated pt \\T\\ family on fall prevention, incl call for assistance when getting out of bed, Assessed \\T\\ reinforced patient's understanding of fall precautions, Provided non-skid footwear, Used ambulatory aids as needed (educated on \\T\\ assisted with), Used gait belt as appropriate Implemented a Fall Risk Plan of Care. Abuse screen: Denies threats or abuse. Nutritional screening: pt appears cachetic. Tuberculosis screening: No symptoms or risk factors identified. Assessment: 06:00 General: see triage assessment. bm8 06:28 Reassessment:. General: Appears in no apparent distress. comfortable, Behavior is calm, bm8 cooperative, appropriate for age. Pain: Denies pain. Neuro: Level of Consciousness is awake, alert, obeys commands, Oriented to person, place, time, situation, Appropriate for age. Cardiovascular: Denies chest pain. Respiratory: Airway is patent Trachea midline Respiratory effort is even, unlabored, Respiratory pattern is regular, symmetrical, Patient placed on BiPAP: Inspiratory Pressure: 16 Expiratory (EPAP) Pressure: 8 FiO2%: 75 Respiratory Rate: 20. GI: No signs and/or symptoms were reported involving the gastrointestinal system. : No signs and/or symptoms were reported regarding the genitourinary system. EENT: No signs and/or symptoms were reported regarding the EENT system. Derm: No signs and/or symptoms reported regarding the dermatologic system. Musculoskeletal: No signs and/or symptoms reported regarding the musculoskeletal system. 06:40 Reassessment: attempted to call RT for a bipap concurrent treat of nebulizers, no bm8 answer. 07:00 General: Appears in no apparent distress. uncomfortable, Behavior is calm, cooperative. rs5 Pain: Denies pain. Neuro: Level of Consciousness is awake, alert, obeys commands, Oriented to person, place, time, situation. Cardiovascular: Patient's skin is warm and dry. Respiratory: Airway is patent Respiratory effort is even, unlabored, Respiratory pattern is regular, symmetrical, Patient placed on BiPAP:. GI: Abdomen is flat, non-distended. : Allen in place to gravity drainage. EENT: No signs and/or symptoms were reported regarding the EENT system. Derm: Skin is intact, Skin is pink, warm \\T\\ dry. Musculoskeletal: No signs and/or symptoms reported regarding the musculoskeletal system. 07:10 Reassessment: friend at bedside states "My name is Constantino and my number is rs5 her daughters number is [phone]. Call me or her daughter if she needs anything, her daughter is the power of hospice care sales consultant". 08:00 Reassessment: Patient and/or family updated on plan of care and expected duration. Pain rs5 level reassessed. Patient is alert, oriented x 3, equal unlabored respirations, skin warm/dry/pink. 08:10 Reassessment: pt placed on non-rebreather and taken to CT, by me, respiratory, and CT rs5 tech. 08:30 Reassessment: pt back in room . rs5 09:28 Reassessment: Patient and/or family updated on plan of care and expected duration. Pain rs5 level reassessed. Patient is alert, oriented x 3, equal unlabored respirations, skin warm/dry/pink. 10:33 Reassessment: Patient and/or family updated on plan of care and expected duration. Pain rs5 level reassessed. Patient is alert, oriented x 3, equal unlabored respirations, skin warm/dry/pink. 11:44 Reassessment: Patient and/or family updated on plan of care and expected duration. Pain rs5 level reassessed. Patient is alert, oriented x 3, equal unlabored respirations, skin warm/dry/pink. 13:06 Reassessment: report given to EMS at bedside for transport . rs5 Vital Signs: 05:54 BP 94 / 62; Pulse 138; Resp 20; Temp 97.1; Pulse Ox 80% on R/A; Weight 34.2 kg; Pain bm8 0/10; 06:28 BP 107 / 81; Pulse 125; Resp 16; Temp 97.1; Pulse Ox 100% on BiPAP; FiO2 75 %; Pain bm8 0/10; 06:57 BP 89 / 69; Pulse 128; Resp 16; Temp 97.1; Pulse Ox 98% on BiPAP; FiO2 75 %; Pain 0/10; bm8 07:20 BP 93 / 75; Pulse 131; Resp 16; Pulse Ox 99% on BiPAP; FiO2 75 %; rs5 07:40 BP 97 / 80; Pulse 113; Resp 16; Pulse Ox 98% on 75 lpm BiPAP; rs5 07:48 BP 94 / 76; Pulse 121; Resp 16; Pulse Ox 98% on 75 lpm BiPAP; rs5 08:00 BP 94 / 72; Pulse 126; Resp 16; Pulse Ox 100% on BiPAP; FiO2 75 %; rs5 08:15 BP 81 / 64; Pulse 93; Resp 16; Pulse Ox 99% on BiPAP; FiO2 75 %; rs5 08:40 BP 109 / 79; Pulse 107; Resp 16; Pulse Ox 99% on BiPAP; rs5 09:00 BP 104 / 79; Pulse 102; Resp 16; Pulse Ox 99% on BiPAP; FiO2 75 %; rs5 09:23 BP 104 / 79; Pulse 102; Resp 16; Temp 97.6(O); Pulse Ox 99% on BiPAP; FiO2 75 %; rs5 10:00 BP 106 / 77; Pulse 99; Resp 16; Pulse Ox 99% ; FiO2 75 %; rs5 10:30 BP 96 / 75; Pulse 101; Resp 16; Pulse Ox 100% ; FiO2 75 %; rs5 11:01 BP 98 / 77; Pulse 101; Resp 16; Pulse Ox 100% ; FiO2 75 %; rs5 11:30 BP 105 / 79; Pulse 104; Resp 16; Pulse Ox 99% ; FiO2 75 %; rs5 12:00 BP 100 / 78; Pulse 105; Resp 16; Pulse Ox 99% ; FiO2 75 %; rs5 12:30 BP 97 / 76; Pulse 97; Resp 16; Pulse Ox 99% ; FiO2 75 %; rs5 12:53 BP 103 / 83; Pulse 98; Resp 16; Pulse Ox 98% on BiPAP; FiO2 75 %; rs5 13:11 BP 111 / 76; Pulse 98; Resp 16; Pulse Ox 98% on BiPAP; FiO2 75 %; rs5 05:54 Pain Scale: Adult bm8 06:28 Pain Scale: Adult bm8 06:57 Pain Scale: Adult bm8 [place] Coma Score: 06:28 Eye Response: spontaneous(4). Motor Response: obeys commands(6). Verbal Response: bm8 oriented(5). Total: 15. 06:43 Eye Response: to voice(3). Motor Response: localizes pain(5). Verbal Response: sp4 confused(4). Total: 12. ED Course: 05:52 Patient arrived in ED. bm8 05:54 Emerson Fernandes MD is Attending Physician. sp4 05:56 Triage completed. bm8 05:56 Arm band placed on right wrist. bm8 06:05 First set of blood cultures drawn Right Arm Second set of blood cultures drawn Left Arm.vk 06:20 EKG done, by ED staff. vk 06:25 Flu Sent. vk 06:25 BNP Sent. vk 06:25 Troponin High Sensitivity Sent. vk 06:25 Alcohol Level Sent. vk 06:25 CRP Sent. vk 06:25 T4 Free Sent. vk 06:25 TSH Sent. vk 06:26 Zay Goldsmith, RN is Primary Nurse. bm8 06:27 Allen cath inserted, using sterile technique, 16 Fr., by retail service representative, balloon inflated, to bm8 gravity drainage, Patient tolerated well. O2 via bipap Response to oxygen therapy: symptoms improved. 06:28 Patient has correct armband on for positive identification. Placed in gown. Bed in low bm8 position. Call light in reach. Side rails up X2. Client placed on continuous cardiac and pulse oximetry monitoring. NIBP monitoring applied. ward assistant on. Pulse ox on. NIBP on. Door closed. Noise minimized. Warm blanket given. Pillow given. Verbal reassurance given. Head of bed elevated. 06:30 Inserted saline lock: 20 gauge in left forearm, using aseptic technique. rs5 07:00 No provider procedures requiring assistance completed. Inserted saline lock: 20 gauge rs5 in right antecubital area, using aseptic technique. 07:08 Report given to Jessenia RN. bm8 07:50 Attending Physician role handed off by Emerson Fernandes MD rn 07:50 Aristides Fontana MD is Attending Physician. rn 08:49 CT Head Brain wo Cont In Process Unspecified. EDMS 08:56 CT Chest Abdomen Pelvis W/O Contrast In Process Unspecified. EDMS 10:08 0947 called [facility] for transfer talked Effie. sp 11:28 called transfer center for update on transfer. sp 11:35 Effie called to state at [facility]'. sp 11:43 calling [facility] for transfer [phone]. sp 11:49 talked with Jose Manuel. sp 12:[id number] Zaina Shukla accepted pt to [facility] 1200 Admin approval by Jose Manuel Hyde to ICU #[id number] [facility] report # [phone] fax number [phone]. 12:34 called [facility] for transport to [facility] talked to Jenni. sp Administered Medications: 06:10 Drug: NS 0.9% IV (30 ml/kg) 30 ml/kg IV at bolus once; Sepsis Protocol; to be given as bm8 a bolus over 90 minutes Route: IV; Rate: bolus; Site: left forearm; 06:55 Follow up: Response: No adverse reaction; IV Status: Completed infusion; IV Intake: bm8 1026ml 06:32 Drug: Piperacillin-Tazobactam IVPB 3.375 grams IVPB once over 60 mins; (mix in NS 100 bm8 mL) Route: IVPB; Infused Over: 60 mins; Site: left forearm; 07:33 Follow up: Response: No adverse reaction; IV Status: Completed infusion; IV Intake: rs5 100ml 06:32 Drug: Albumin IVPB 25 grams 100 ml IVPB once; (Note: Albumin 25% concentration) Volume: bm8 100 ml; Route: IVPB; Site: right forearm; 07:30 Follow up: Response: No adverse reaction; Blood pressure is elevated; IV Status: rs5 Completed infusion; IV Intake: 100ml 06:33 Not Given (Patient Refused): acetaminophensuppository 650 mg [place] once bm8 06:45 Drug: vancoMYCIN IVPB 1 grams IVPB once over 2 hrs Route: IVPB; Infused Over: 2 hrs; bm8 Site: right forearm; 07:40 Follow up: Response: No adverse reaction; IV Status: Completed infusion; IV Intake: rs5 100ml 06:45 Drug: NS 0.9% IV 1000 ml IV at 125 ml/hr once; to be given as a bolus over 60 minutes bm8 Route: IV; Rate: 125 ml/hr; Site: right forearm; 07:50 Follow up: Response: No adverse reaction rs5 07:10 Drug: Levalbuterol Inhalation 1.25 mg Inhalation once Route: Inhalation; rs5 07:30 Follow up: Response: No adverse reaction rs5 07:15 Drug: Levalbuterol Inhalation 1.25 mg Inhalation once Route: Inhalation; rs5 07:30 Follow up: Response: No adverse reaction rs5 07:20 Drug: MethylPrednisoLONE IVP 125 mg IVP once Route: IVP; Site: left forearm; rs5 07:50 Follow up: Response: No adverse reaction rs5 07:20 Drug: Levalbuterol Inhalation 1.25 mg Inhalation once Route: Inhalation; rs5 07:40 Follow up: Response: No adverse reaction rs5 07:43 Not Given (Physician Discretion): albuterol2.5 mg Inhalation every 20 minutes x3 rs5 07:43 Not Given (Physician Discretion): ipratropiumaerosol 0.5 mg Inhalation once; Every 20 rs5 min for a total of 3 treatments x3 08:05 Drug: amiodarone IVPB 150 mg 100 ml IVPB once over 10 mins; (mix in D5W) Volume: 100 rs5 ml; Route: IVPB; Infused Over: 10 mins; Site: right antecubital; 08:20 Follow up: Response: No adverse reaction; IV Status: Completed infusion; IV Intake: rs5 100ml 08:05 Drug: Magnesium Sulfate IVPB 1 grams IVPB once over 1 hrs Route: IVPB; Infused Over: 1 rs5 hrs; Site: left forearm; 09:10 Follow up: Response: No adverse reaction; IV Status: Completed infusion; IV Intake: rs5 100ml 08:30 Drug: amiodarone IVPB 900 mg, D5W IV 500 ml IVPB at 1 mg/min continuous; for 6 hrs, rs5 then change to 0.5 mg/min Route: IVPB; Rate: 1 mg/min; Site: left forearm; 13:16 Follow up: Response: No adverse reaction; IV Status: Infusion continued upon transfer rs5 10:10 Drug: Enoxaparin Sub-Q 1 mg/kg Sub-Q once Route: Sub-Q; Site: left lower abdomen; rs5 10:40 Follow up: Response: No adverse reaction rs5 Medication: 06:28 VIS not applicable for this client. bm8 Intake: 06:55 IV: 1026ml; Total: 1026ml. bm8 07:30 IV: 100ml; Total: 1126ml. rs5 07:33 IV: 100ml; Total: 1226ml. rs5 07:40 IV: 100ml; Total: 1326ml. rs5 08:20 IV: 100ml; Total: 1426ml. rs5 09:10 IV: 100ml; Total: 1526ml. rs5 Outcome: 09:40 ER care complete, transfer ordered by . rn 13:35 Patient left the ED. aa5 Signatures: Dispatcher [employer] EDMS Andreina Pereyra Roman, MD MD rn Calderon, Audri, RN RN aa5 Eric Green RN RN rs5 Emerson Fernandes MD MD sp4 Kruse, Vivian vk McDonald, Brad, RN RN bm8 Corrections: (The following items were deleted from the chart) 09:38 09:23 BP 104 / 79; Pulse 102bpm; Resp 16bpm; Pulse Ox 99% BiPAP FiO2 75%; rs5 rs5
--- NOTE | 2024-06-10 09:40 | EDPHYS ---
Physician Documentation [facility] Name: Valeria Ring Age: 63 yrs Sex: Female : 1960 Arrival Date: 06/10/2024 Time: 05:51 Bed 3 Private MD: ED Physician Aristides Fontana HPI: 06/10 06:36 This 63 yrs old Female presents to ER via EMS with complaints of Altered sp4 Mental Status. 06:48 PVCs 63-year-old female with past medical history of COPD CHF recent hip fracture on sp4 the left side. Last admission 02/17/2024 for COPD exacerbation and COVID.. 06:49 Patient arrives with EMS after somebody did a welfare check on her and found her to be sp4 obtunded and short of breath patient on arrival not able to provide any history. Appears toxic and emaciated. There is patient's list of medications, albuterol inhaler, acetazolamide, budesonide formoterol, prednisone daily, acetaminophen, ferrous sulfate, Hemocyte plus, ondansetron as needed, apixaban 2.5 mg p.o. twice daily, sorbic acid, hydrocodone as needed, lidocaine topical patch, polyethylene glycol as needed, trazodone bedtime, methocarbamol as needed, cholecalciferol daily, levofloxacin based on the discharge papers 02/21/2024.. Historical: - Allergies: 05:56 Benadryl; bm8 05:56 Codeine; bm8 - Home Meds: 05:56 Unable to obtain [Active]; bm8 - PMHx: 05:56 broken hip left (CHF); CHF; insomnia; COPD; bm8 - PSHx: 05:56 Unable to Obtain; bm8 - Immunization history:: Adult Immunizations unknown. - Infectious Disease History:: Denies. - Social history:: Smoking status: unknown. - Family history:: not pertinent. ROS: 06:49 Constitutional: Positive for shortness of breath otherwise ROS is not available sp4 06:49 All other systems are negative, Exam: 06:43 Constitutional: Emaciated female, ill-appearing, toxic appearing, tachycardic on sp4 arrival, moderate to severe physical deconditioning diffuse muscular atrophy, poor skin turgor signs of moderate to severe dehydration Head/Face: Normocephalic, atraumatic. Eyes: Pupils equal round and reactive to light, extra-ocular motions intact. Lids and lashes normal. Conjunctiva and sclera are not injected. Cornea within normal limits. Periorbital areas with no swelling, redness, or edema. ENT: Nares patent. No nasal discharge, no septal abnormalities noted. Tympanic membranes are normal and external auditory canals are clear. Dry mouth signs of moderate to severe dehydration Neck: Trachea midline, no thyromegaly or masses palpated, and no cervical lymphadenopathy. Supple, full range of motion without nuchal rigidity, or vertebral point tenderness. Chest/axilla: Normal chest wall appearance and motion. Nontender with no deformity. No lesions are appreciated. Cardiovascular: Rapid tachycardia, no gallops, murmurs, or rubs. Normal PMI, no JVD. No pulse deficits. Respiratory: Lungs have equal breath sounds bilaterally, clear to auscultation lungs are actually clear, bilateral retractions, dyspnea and tachypnea, hyperexpanded chest Abdomen/GI: Soft, with normal bowel sounds. No distension or tympany. No guarding or rebound. No evidence of tenderness throughout. Back: No spinal tenderness. No costovertebral tenderness. Female : Normal external genitalia. Skin: Warm, dry , poor skin turgor signs of dehydration, diffuse skin thinning, MS/ Extremity: Pulses equal, no cyanosis. Neurovascular intact. Cool extremities, other peripheral cyanosis, poor distal perfusion of bilateral lower extremities. Moderate to severe muscular atrophy Neuro: Awake and alert to self only, patient is obtunded, moves all extremities 06:43 ECG was reviewed by the Attending Physician. EKG at 0 546 sinus tachycardia rate [address] elevation or depression. No signs of acute IN. There is left ventricular hypertrophy Vital Signs: 05:54 BP 94 / 62; Pulse 138; Resp 20; Temp 97.1; Pulse Ox 80% on R/A; Weight 34.2 kg; Pain bm8 0/10; 06:28 BP 107 / 81; Pulse 125; Resp 16; Temp 97.1; Pulse Ox 100% on BiPAP; FiO2 75 %; Pain bm8 0/10; 06:57 BP 89 / 69; Pulse 128; Resp 16; Temp 97.1; Pulse Ox 98% on BiPAP; FiO2 75 %; Pain 0/10; bm8 07:20 BP 93 / 75; Pulse 131; Resp 16; Pulse Ox 99% on BiPAP; FiO2 75 %; rs5 07:40 BP 97 / 80; Pulse 113; Resp 16; Pulse Ox 98% on 75 lpm BiPAP; rs5 07:48 BP 94 / 76; Pulse 121; Resp 16; Pulse Ox 98% on 75 lpm BiPAP; rs5 08:00 BP 94 / 72; Pulse 126; Resp 16; Pulse Ox 100% on BiPAP; FiO2 75 %; rs5 08:15 BP 81 / 64; Pulse 93; Resp 16; Pulse Ox 99% on BiPAP; FiO2 75 %; rs5 08:40 BP 109 / 79; Pulse 107; Resp 16; Pulse Ox 99% on BiPAP; rs5 09:00 BP 104 / 79; Pulse 102; Resp 16; Pulse Ox 99% on BiPAP; FiO2 75 %; rs5 09:23 BP 104 / 79; Pulse 102; Resp 16; Temp 97.6(O); Pulse Ox 99% on BiPAP; FiO2 75 %; rs5 10:00 BP 106 / 77; Pulse 99; Resp 16; Pulse Ox 99% ; FiO2 75 %; rs5 10:30 BP 96 / 75; Pulse 101; Resp 16; Pulse Ox 100% ; FiO2 75 %; rs5 11:01 BP 98 / 77; Pulse 101; Resp 16; Pulse Ox 100% ; FiO2 75 %; rs5 11:30 BP 105 / 79; Pulse 104; Resp 16; Pulse Ox 99% ; FiO2 75 %; rs5 12:00 BP 100 / 78; Pulse 105; Resp 16; Pulse Ox 99% ; FiO2 75 %; rs5 12:30 BP 97 / 76; Pulse 97; Resp 16; Pulse Ox 99% ; FiO2 75 %; rs5 12:53 BP 103 / 83; Pulse 98; Resp 16; Pulse Ox 98% on BiPAP; FiO2 75 %; rs5 13:11 BP 111 / 76; Pulse 98; Resp 16; Pulse Ox 98% on BiPAP; FiO2 75 %; rs5 05:54 Pain Scale: Adult bm8 06:28 Pain Scale: Adult bm8 06:57 Pain Scale: Adult bm8 Monika Coma Score: 06:28 Eye Response: spontaneous(4). Motor Response: obeys commands(6). Verbal Response: bm8 oriented(5). Total: 15. 06:43 Eye Response: to voice(3). Motor Response: localizes pain(5). Verbal Response: sp4 confused(4). Total: 12. MDM: 06:02 Medical Screening Exam initiated sp4 07:50 ED course: Pt has improved on bipap and improved mental status. rn 09:34 Differential Diagnosis: electrolyte abnormality, pneumonia, sepsis, volume depletion, rn new onset afib. Data reviewed: vital signs, nurses notes, lab test result(s), EKG, radiologic studies, CT scan, plain films, and as a result, I will admit patient. Consideration of Admission/Observation Patient was admitted/placed on observation. Escalation of care including admission/observation considered. Counseling: I had a detailed discussion with the patient and/or guardian regarding the historical points, exam findings, and any diagnostic results supporting the discharge/admit diagnosis, lab results, radiology results, the need for further work-up and treatment in the hospital. Response to treatment: the patient's symptoms have mildly improved after treatment, and as a result, I will admit patient. ED course: Spoke with family member, he does not recall history of A-fib. Will anticoagulate.. ED course: I personally spent 35 minutes engaged in work directly related to the individual patient's care. This does not include any time spent performing procedures. The patient has been deemed critically ill because of CO2 retention causing altered mental status, nearly respiratory failure requiring BiPAP, pneumonia, new onset A-fib requiring amiodarone drip and admission to ICU.. ED course: Vitals improved, BP 104/79, HR 102. Sepsis reevaluation complete. . 09:34 ED course: Discussed case with hospitalist service, no ICU beds, will attempt transfer rn for higher level of care.. 12:36 ED course: Patient is still showing improvement on BiPAP, awakens to voice and answers rn all questions appropriately. Safe for transport on BiPAP.. 06/10 05:55 Order name: Blood Culture Adult (2) sp4 06/10 05:55 Order name: CBC with Diff; Complete Time: 06:42 sp4 06/10 05:55 Order name: CMP; Complete Time: 07:16 sp4 06/10 05:55 Order name: Lactate w/ 2H reflex if indic.; Complete Time: 06:52 sp4 06/10 05:55 Order name: Protime (+inr); Complete Time: 06:52 sp4 06/10 05:55 Order name: Ptt, Activated; Complete Time: 06:52 sp4 06/10 05:55 Order name: Urinalysis w/ reflexes; Complete Time: 09:35 sp4 06/10 05:55 Order name: ABG; Complete Time: 07:41 sp4 06/10 05:57 Order name: TSH; Complete Time: 07:16 sp4 06/10 05:57 Order name: T4 Free; Complete Time: 08:44 sp4 06/10 05:57 Order name: BNP; Complete Time: 08:44 sp4 06/10 05:57 Order name: Troponin High Sensitivity; Complete Time: 08:44 sp4 06/10 05:57 Order name: Alcohol Level; Complete Time: 09:26 sp4 06/10 05:57 Order name: CRP; Complete Time: 08:44 sp4 06/10 06:11 Order name: Flu; Complete Time: 07:16 vk 06/10 06:49 Order name: SARS RAPID sp4 06/10 06:49 Order name: Influenza Screen (a \T\ B); Complete Time: 09:26 sp4 06/10 05:56 Order name: CT Head Brain wo Cont; Complete Time: 09:26 sp4 06/10 05:56 Order name: CT Chest Abdomen Pelvis W/O Contrast; Complete Time: 09:26 sp4 06/10 05:55 Order name: Accucheck; Complete Time: 06:33 sp4 06/10 05:55 Order name: Cardiac monitoring; Complete Time: 06:33 sp4 06/10 05:55 Order name: Cath; Complete Time: 06:33 sp4 06/10 05:55 Order name: EKG - Nurse/Tech; Complete Time: 06:20 sp4 06/10 05:55 Order name: IV Saline Lock - Large Bore; Complete Time: 06:33 sp4 06/10 05:55 Order name: Labs collected and sent; Complete Time: 06:33 sp4 06/10 05:55 Order name: O2 Per Protocol; Complete Time: 06:20 sp4 06/10 05:55 Order name: O2 Sat Monitoring; Complete Time: 06:20 sp4 06/10 05:55 Order name: Vital Signs; Complete Time: 06:34 sp4 EC:46 Rate is 136 beats/min. Rhythm is irregular, Sinus tachycardia. QRS [place] is Normal. [place] sp4 interval is normal. QRS interval is normal. QT interval is normal. No Q waves. T waves are Normal. No ST changes noted. Clinical impression: No evidence of ischemia. Interpreted by me. Reviewed by me. Administered Medications: 06:10 Drug: NS 0.9% IV (30 ml/kg) 30 ml/kg IV at bolus once; Sepsis Protocol; to be given as bm8 a bolus over 90 minutes Route: IV; Rate: bolus; Site: left forearm; 06:55 Follow up: Response: No adverse reaction; IV Status: Completed infusion; IV Intake: bm8 1026ml 06:32 Drug: Piperacillin-Tazobactam IVPB 3.375 grams IVPB once over 60 mins; (mix in NS 100 bm8 mL) Route: IVPB; Infused Over: 60 mins; Site: left forearm; 07:33 Follow up: Response: No adverse reaction; IV Status: Completed infusion; IV Intake: rs5 100ml 06:32 Drug: Albumin IVPB 25 grams 100 ml IVPB once; (Note: Albumin 25% concentration) Volume: bm8 100 ml; Route: IVPB; Site: right forearm; 07:30 Follow up: Response: No adverse reaction; Blood pressure is elevated; IV Status: rs5 Completed infusion; IV Intake: 100ml 06:33 Not Given (Patient Refused): acetaminophensuppository 650 mg OH once bm8 06:45 Drug: vancoMYCIN IVPB 1 grams IVPB once over 2 hrs Route: IVPB; Infused Over: 2 hrs; bm8 Site: right forearm; 07:40 Follow up: Response: No adverse reaction; IV Status: Completed infusion; IV Intake: rs5 100ml 06:45 Drug: NS 0.9% IV 1000 ml IV at 125 ml/hr once; to be given as a bolus over 60 minutes bm8 Route: IV; Rate: 125 ml/hr; Site: right forearm; 07:50 Follow up: Response: No adverse reaction rs5 07:10 Drug: Levalbuterol Inhalation 1.25 mg Inhalation once Route: Inhalation; rs5 07:30 Follow up: Response: No adverse reaction rs5 07:15 Drug: Levalbuterol Inhalation 1.25 mg Inhalation once Route: Inhalation; rs5 07:30 Follow up: Response: No adverse reaction rs5 07:20 Drug: MethylPrednisoLONE IVP 125 mg IVP once Route: IVP; Site: left forearm; rs5 07:50 Follow up: Response: No adverse reaction rs5 07:20 Drug: Levalbuterol Inhalation 1.25 mg Inhalation once Route: Inhalation; rs5 07:40 Follow up: Response: No adverse reaction rs5 07:43 Not Given (Physician Discretion): albuterol2.5 mg Inhalation every 20 minutes x3 rs5 07:43 Not Given (Physician Discretion): ipratropiumaerosol 0.5 mg Inhalation once; Every 20 rs5 min for a total of 3 treatments x3 08:05 Drug: amiodarone IVPB 150 mg 100 ml IVPB once over 10 mins; (mix in D5W) Volume: 100 rs5 ml; Route: IVPB; Infused Over: 10 mins; Site: right antecubital; 08:20 Follow up: Response: No adverse reaction; IV Status: Completed infusion; IV Intake: rs5 100ml 08:05 Drug: Magnesium Sulfate IVPB 1 grams IVPB once over 1 hrs Route: IVPB; Infused Over: 1 rs5 hrs; Site: left forearm; 09:10 Follow up: Response: No adverse reaction; IV Status: Completed infusion; IV Intake: rs5 100ml 08:30 Drug: amiodarone IVPB 900 mg, D5W IV 500 ml IVPB at 1 mg/min continuous; for 6 hrs, rs5 then change to 0.5 mg/min Route: IVPB; Rate: 1 mg/min; Site: left forearm; 13:16 Follow up: Response: No adverse reaction; IV Status: Infusion continued upon transfer rs5 10:10 Drug: Enoxaparin Sub-Q 1 mg/kg Sub-Q once Route: Sub-Q; Site: left lower abdomen; rs5 10:40 Follow up: Response: No adverse reaction rs5 Disposition: 09:34 Critical Care:. rn Disposition Summary: 06/10/24 09:40 Transfer Ordered Notes: Reason: Higher level of care rn Condition: Stable rn Problem: new rn Symptoms: have improved inpatient services rn Location: [facility](06/10/24 12:10) rn Accepting Physician: (06/10/24 13:35) aa5 Diagnosis - Respiratory acidosis rn - Pneumonia, unspecified organism rn - Persistent atrial fibrillation rn - Hypotension, unspecified rn Forms: - Medication Reconciliation Form rn - SBAR form inpatient services rn time excluding procedures: 09:34 Critical care time: Bedside Care: 35 minutes. Total time: 35 minutes rn Signatures: Dispatcher [employer] EDMS Aristides Fontana MD MD rn Calderon, Audri RN RN aa5 Kevin Soto, MEDICAL PLANNER-C MEDICAL PLANNER-Cla1 Eric Green RN RN rs5 Emerson Fernandes MD MD sp4 Zay Goldsmith RN RN bm8 Corrections: (The following items were deleted from the chart) 05:56 05:56 Arterial Blood Gas+RC.LAB.BRZ ordered. EDMS EDMS 05:57 05:57 THYROID STIMULAT HORMONE+C.LAB.BRZ ordered. EDMS EDMS 05:57 05:57 T4 FREE+C.LAB.BRZ ordered. EDMS EDMS 05:57 05:57 PROBNP+C.LAB.BRZ ordered. EDMS EDMS 05:57 05:57 Troponin High Sensitivity+C.LAB.BRZ ordered. EDMS EDMS 12:10 09:40 rn rn 12:10 09:40 [facility] rn rn 13:35 12:10 rn aa5
[2024-06-10] MEDS ORDERED: ENOXAPARIN 30 MG/0.3 ML SQ ONE (10:03)
[2024-06-10 14:44] VITALS: TEMP 97.6
[2024-06-10 14:52] VITALS: O2SAT 98
[2024-06-10 14:54] VITALS: BP 111/76
== END 2024-06-10 13:35 | disposition short-term general hospital (02) ==
LOC: ER 05:51
DX: E87.29 Other acidosis (principal); J18.9 Pneumonia, unspecified organism; I95.9 Hypotension, unspecified; I48.19 Other persistent atrial fibrillation; I50.9 Heart failure, unspecified; J44.9 Chronic obstructive pulmonary disease, unspecified; Z11.52 Encounter for screening for COVID-19
CPT/HCPCS: 87040 ×2; 85025; 81001; 36415; 85610; 83605; 85730; 84443; 84484; 84439; 80053; 83880; 86140; 87804 ×4; 70450; 71250; 74176; 82805; 51702; 96372; 99285; 82077; 87811; 36600; 94660; J3475; J0282 ×2; J7614 ×2; J2543; J1650; J2919; P9047; J7060; J7050; J7030 ×2; 93005; J7613; J7644

== ENCOUNTER 2024-07-30 09:12 | Emergency (ER) | payer OTHER ==
[2024-07-30] MEDS ORDERED: EPINEPHrine 1 MG/10 ML SYR IV ONE (09:13)
--- NOTE | 2024-07-30 09:58 | ER ---
Nurse's Notes [facility] Name: Valeria Ring Age: 63 yrs Sex: Female : 1960 Arrival Date: 07/30/2024 Time: 09:12 Bed 4 Private MD: Diagnosis: Cardiac arrest, cause unspecified Presentation: 07/30 09:26 Chief complaint: EMS states: Found at home unresponsive and gasping for breathe by her ll1 S.O. He started CPR. Intubated in field with 7.5 ET tube, 20 L FA. 3 rounds of epi en route last dose 0855. Coronavirus screen: Client denies travel out of the [place] in the last 14 days. At this time, the client does not indicate any symptoms associated with coronavirus-19. Ebola Screen: Patient denies travel to an Ebola-affected area in the 21 days before illness onset. Initial Sepsis Screen: Does the patient meet any 2 criteria? No. Patient's initial sepsis screen is negative. Does the patient have a suspected source of infection? No. Patient's initial sepsis screen is negative. Risk Assessment: Do you want to hurt yourself or someone else? Patient reports no desire to harm self or others. Onset of symptoms was July 30, 2024. 09:26 Method Of Arrival: EMS: [facility] 1 09:26 Acuity: RADHA 1 ll1 Triage Assessment: : General: Appears slender, unkempt, Behavior is unresponsive. Pain: Denies pain. Neuro: ll1 Level of Consciousness is unresponsive, Oriented to none. Respiratory: 7.5 ET tube, bagging upon arrival. Historical: - Allergies: 09:25 Benadryl; ll1 09:25 Codeine; ll1 - PMHx: 09:25 broken hip left (CHF); CHF; COPD; insomnia; ll1 - Immunization history:: Adult Immunizations up to date. - Infectious Disease History:: Denies. - Social history:: Smoking status: unknown. - History obtained from: EMS. Screenin:12 [facility] ED Fall Risk Assessment (Adult) History of falling in the last 3 months, ll1 including since admission Yes- physiologic fall (2 pts) Confusion or Disorientation No (0 pts) Intoxicated or Sedated No (0 pts) Impaired Gait No (0 pts) Mobility Assist Device Used No (0 pt) Altered Elimination Yes (1 pt) Score/Fall Risk Level 3 or more points = High Risk Maintained a safe environment, Hourly rounding (assess needs \T\ fall precautionary measures) done. Abuse screen: Denies threats or abuse. Nutritional screening: No deficits noted. Tuberculosis screening: No symptoms or risk factors identified. Assessment: 10:15 Reassessment: see code sheet for further details. 1 11:33 Reassessment: left with [facility] personnel . 1 Vital Signs: 09:26 BP 0 / 0; Pulse 0; Resp 0; Weight 31.75 kg; Height 5 ft. 0 in. ; ll1 09:26 Body Mass Index 13.67 (31.75 kg, 152.4 cm) 1 ED Course: 09:08 Arm band placed on Patient placed in an exam room, on a stretcher. ll1 09:09 Respiratory: Other: Placement of ETT also verified by provider. eb2 09:12 Inserted saline lock: 18 gauge in right antecubital area, using aseptic technique. ll1 Blood collected. Flushed with 10 mL NS. 09:13 Patient arrived in ED. eb 09:15 Aristides Fontana MD is Attending Physician. rn 09:25 Suctioned via ETT - large amount thick white sputum yellow sputum Assist ventilation eb2 with Ambu bag. Intubation with 7.5 mm ETT. placed orally. Placement verified by auscultating bilateral breath sounds, Ventilated with Ambu bag. Other Patient arrived intubated by [facility]. 09:26 connected Pilar the daughter of the patient with Dr. Fontana. eb 09:28 Triage completed. ll1 09:28 Police [place] [employer] called to page the software team leader cone examiner. eb 09:56 Aristides Fontana MD is Pronouncing Provider. rn 10:12 No provider procedures requiring assistance completed. Maintain EMS IV. Gauge \T\ site: ll1 20 L FA. 10:14 Patient has correct armband on for positive identification. Bed in low position. 1 Provided Education on: n/a. Client placed on continuous cardiac and pulse oximetry monitoring. NIBP monitoring applied. monitor technician on. 10:14 intact, patient , left IVs intact. 1 11:33 Colin Johnson, RN is Primary Nurse. 1 Administered Medications: No medications were administered Medication: 10:14 VIS not applicable for this client. ll1 Outcome: 10:12 Patient : Time of 09:20 Pronounced by Aristides Fontana MD Body to [facility] home, 10:12 Condition: 10:12 Instructed on body to [facility] home per daughter via telephone 11:34 Patient left the ED. 1 Signatures: Aristides Fontana MD MD rn Botello, Elizabeth eb Botello, Elisa, R/T R/T [facility] Colin Johnson RN RN 1 Corrections: (The following items were deleted from the chart) 09:30 09:26 BP 0 / 0; Pulse 0bpm; Resp 0bpm; ll1 1 09:34 09:26 BP 0 / 0; Pulse 0bpm; Resp 0bpm; 31.75 kg; 1 1
--- NOTE | 2024-07-30 09:58 | EDPHYS ---
Physician Documentation [facility] Name: Valeria Ring Age: 63 yrs Sex: Female : 1960 Arrival Date: 07/30/2024 Time: 09:12 Bed 4 Private MD: ED Physician Aristides Fontana HPI: 07/30 09:43 This 63 yrs old Female presents to ER via EMS with complaints of CPR. rn 09:43 Preceding the arrest, the patient was found down. The arrest occurred at home. It is rn unknown whether or not the patient has had similar symptoms in the past. EMS reports boyfriend found her in bed, was not breathing and did not have a pulse. EMS intubated in the field prior to arrival. EMS states ACLS protocol for at least 30 minutes now and has been asystole the entire time. Patient with known COPD and CHF. No story of trauma or recent illness given. Per EMS boyfriend noted difficulty breathing last night.. Historical: - Allergies: 09:25 Benadryl; ll1 09:25 Codeine; ll1 - PMHx: 09:25 broken hip left (CHF); CHF; COPD; insomnia; ll1 - Immunization history:: Adult Immunizations up to date. - Infectious Disease History:: Denies. - Social history:: Smoking status: unknown. - History obtained from: EMS. ROS: 09:43 Unable to obtain ROS due to patient is on ventilator, rn Exam: :43 Constitutional: Extremely cachectic female, cyanosis of face and hands/feet Head/Face: rn Normocephalic, atraumatic. Eyes: Pupils 6 mm, unreactive Cardiovascular: No spontaneous cardiac activity noted Respiratory: Coarse bilateral breath sounds with bagging Abdomen/GI: Abdomen slightly distended and tympanitic Skin: Peripheral cyanosis noted with cool extremities Neuro: GCS 3 Vital Signs: :26 BP 0 / 0; Pulse 0; Resp 0; Weight 31.75 kg; Height 5 ft. 0 in. ; ll1 09:26 Body Mass Index 13.67 (31.75 kg, 152.4 cm) ll1 Procedures: 09:54 CPR: See CPR flow sheet. Initial patient assessment: unresponsive, pupils fixed \T\ rn dilated, intubated, pulses present w/ compressions, The presenting cardiac rhythm is asystole. despite ED evaluation and treatment, the patient . Family notified. CPR was stopped at 09:20. MDM: 09:22 Medical Screening Exam initiated rn 09:54 Differential diagnosis: arrythmia, cardiac arrest, respiratory arrest. Data reviewed: rn vital signs, nurses notes. ED course: Updated family member who is in another state, she is upset because patient was intubated, explained to her that patient was intubated in the field and per EMS they asked boyfriend who stated she was full code upon picking her up. Daughter requested specific home is contacted.. Administered Medications: No medications were administered Disposition: :54 Critical Care:. rn 09:56 . rn Disposition Summary: 07/30/24 09:57 Patient Notes: Location: Home rn Pronouncing Physician: Aristides Fontana rn Time of : 09:20 07/30/2024 rn Diagnosis - Cardiac arrest, cause unspecified sample patternmaker time excluding procedures: :54 Critical care time: Bedside Care: 35 minutes, Family Intervention: 5 minutes. Total rn time: 40 minutes Signatures: Aristides Fontana MD MD rn Lewis, Lynsay, RN RN ll1
[2024-07-30 11:57] VITALS: BP 0/0
== END 2024-07-30 11:34 | disposition expired ==
LOC: ER 09:12
DX: I46.9 Cardiac arrest, cause unspecified (principal); I50.9 Heart failure, unspecified; J44.9 Chronic obstructive pulmonary disease, unspecified
CPT/HCPCS: 92950 ×3; 99291; J0171